=== PATIENT | male | born 1960 | race Caucasian/White ===

== ENCOUNTER 2017-04-18 10:30 | Day surgery (SDC) | END 2017-04-18 16:02 | disposition home or self-care (01) ==

== ENCOUNTER 2017-12-22 17:32 | Inpatient (IN) | END 2018-01-03 19:29 | disposition home or self-care (01) | DRG 871 ==

== ENCOUNTER 2018-04-22 18:06 | Inpatient (IN) | payer MEDICARE, OTHER ==
[~2018-04-22] VITALS: Ht 170.2 cm; Wt 87.7 kg
[~2018-04-22 18:06] MED LIST: ASPI-817 PO; ATOR-2 PO; CALC667C PO; CLON0.5T14 PO; DOCU-216 PO; ETOMIDATE 20 MG INJ ONE; LINA5TAB PO; METO-407 PO; NIFE30TA2 PO; ONDA4TAB13 PO; PANT40TA3 PO; PARO-2 PO; QUET25TA33 PO; SUCCINYLCHOLINE CHLORIDE 100 MG/5 ML SYG IV ONE
[2018-04-22] MEDS ORDERED: SUCCINYLCHOLINE CHLORIDE 100 MG/5 ML SYG IV STA (18:21)
[2018-04-22] MEDS ORDERED: PROPOFOL 100 ML IV STA (18:21)
[2018-04-22] MEDS ORDERED: ETOMIDATE 20 MG INJ IV STA (18:21)
[2018-04-22] MEDS ORDERED: MIDAZOLAM (DRIP) 50 mg/50 mL 50 ML IV STA (19:40)
[2018-04-22] MEDS ORDERED: SODIUM CHLORIDE 0.9% 1L BAG IV* STA (19:53)
[2018-04-22] MEDS ORDERED: CEFEPIME 2GM/50 ML (PMX) 50 ML IVPB STA (19:53)
[2018-04-22] MEDS ORDERED: VANCOMYCIN 1 GM (PMX) 250 ML IVPB ONE (20:00)
[2018-04-22] MEDS ORDERED: MIDAZOLAM 1 MG/ML 2 ML INJ IV ONE (20:30)
--- NOTE | 2018-04-22 21:13 | ERD ---
ER Documentation Chief Complaint Chief Complaint pt bib RA 39 from home, on steps in severe resp distress, arrived on CPAP HPI This is a 58-year-old male who is here for respiratory distress. The patient has had a cough according to the family for 7 days approximately. He is been getting generally weaker over the past 2 or 3 days and today became greatly short of breath and EMS was called. On arrival the patient's oxygenation was low and he was put on CPAP. The patient is a dialysis patient and has not missed any dialysis. His last dialysis was yesterday. ROS All systems reviewed and are negative except as per history of present illness. Allergies Allergies: Coded Allergies: Unknown: Unable to obtain (Unverified , 04/22/18) PMhx/Soc Hx Neurological Disorder: Yes (CVA) Hx Cardiac Disorders: Yes (HTN) Hx Miscellaneous Medical Probl: Yes (DM, RENAL FAILURE ON HD (MWF)) Hx Alcohol Use: Yes Hx Substance Use: No Hx Tobacco Use: No Smoking Status: Current every day smoker FmHx Family History: No coronary disease Physical Exam Vitals Vital Signs Date Temp Pulse Resp B/P (MAP) Pulse Ox O2 O2 Flow FiO2 Time Delivery Rate 04/22/18 100 22 141/97 100 Mechanical 19:00 (112) Ventilator 04/22/18 96 22 246/229 100 Mechanical 18:45 (235) Ventilator 04/22/18 99 38 100 100 18:30 04/22/18 101 22 234/121 100 Mechanical 18:25 (158) Ventilator 04/22/18 98.5 109 32 213/139 99 18:09 (163) Physical Exam Const: Well-developed, well-nourished Head: Atraumatic, normocephalic Eyes: Normal Conjunctiva, PERRLA, EOMI, normal sclera, no nystagmus ENT: Normal External Ears, Nose and Mouth, moist mucus membranes. Neck: Full range of motion. No meningismus, no lymphadenopathy. Resp: On CPAP with increased work of effort and fatigue Cardio: Regular rate and rhythm, no murmurs, S1 S2 present Abd: Soft, non tender x 4, non distended. Normal bowel sounds, no guarding or rebound, no pulsitile abdominal masses or bruits Skin: No petechiae or rashes, no ecchymosis , no maculopapular rash Back: No midline or flank tenderness Ext: No cyanosis, or edema, FROM x 4, normal inspection, neurovascularly intact x 4 Neur: Groggy, STR 5/5 x 4, sensation intact x 4, no focal findings, cerebellum intact Psych: Normal Mood and Affect Result Diagram: 04/22/18183004/22/18 1831 Results 24 hrs Laboratory Tests Test 04/22/18 18:21 04/22/18 18:31 04/22/18 21:24 Blood Gas Specimen Source Blood arterial Arterial Blood Date Drawn 04/22/2018 7:55:00 PM Arterial Blood pH 7.387 (Temp corrected) Arterial Blood pCO2 45.4 mmhg (Temp correct) Arterial Blood pO2 384.0 mmHG (Temp corrected) Arterial Blood HCO3 26.7 mmol/L Arterial Blood Base Excess 1.3 mmol/L Arterial Blood 99.2 mmHG Oxygen Saturation Trev Test N/A Arterial Blood Gas Right Brachial Puncture Site Arterial 0.1 % Blood Carboxyhemoglobin Arterial Blood Methemoglobin 0.2 % Blood Gas A-a O2 Differential 283.6 mmHg Oxyhemoglobin Percent 98.9 % Blood Gas Temperature 37.0 C Blood Gas Respiration Rate 16.0 Blood Gas Actual 22 Respiration Rate Blood Gas Modality VENT - AC FiO2 100.0 % Blood Gas Tidal Volume 500.0 mL Blood Gas Mean Airway 14 Pressure Blood Gas Low PEEP Setting 5.0 cmH2O Blood Gas Inspiratory 29.0 Pressure Blood Gas Critical Value [place] VERMA Read Back Blood Gas Notified Whom BL Blood Gas Notified Time 04/22/2018 8:21:00 PM White Blood Count 15.8 10^3/ul Red Blood Count 4.00 10^6/ul Hemoglobin 12.3 g/dl Hematocrit 36.2 % Mean Corpuscular Volume 90.5 fl Mean Corpuscular Hemoglobin 30.8 pg Mean Corpuscular 34.0 g/dl Hemoglobin Concent Red Cell Distribution Width 12.7 % Platelet Count 276 10^3/UL Mean Platelet Volume 11.1 fl Immature Granulocytes % 0.800 % Neutrophils % 62.8 % Lymphocytes % 25.7 % Monocytes % 5.7 % Eosinophils % 4.2 % Basophils % 0.8 % Nucleated Red Blood Cells % 0.0 /100WBC Immature Granulocytes # 0.130 10^3/ul Neutrophils # 9.9 10^3/ul Lymphocytes # 4.1 10^3/ul Monocytes # 0.9 10^3/ul Eosinophils # 0.7 10^3/ul Basophils # 0.1 10^3/ul Nucleated Red Blood Cells # 0.0 10^3/ul Prothrombin Time 13.1 Sec Prothrombin Time Ratio 1.0 INR International 0.98 Normalized Ratio Activated 27.9 Sec Partial Thromboplast Time Sodium Level 142 mmol/L Potassium Level 5.4 mmol/L Chloride Level 96 mmol/L Carbon Dioxide Level 25 mmol/L Anion Gap 21 Blood Urea Nitrogen 47 mg/dl Creatinine 11.09 mg/dl Est Glomerular Filtrat 5 mL/min Rate mL/min Glucose Level 182 mg/dl Calcium Level 8.1 mg/dl Total Bilirubin 0.0 mg/dl Direct Bilirubin 0.00 mg/dl Indirect Bilirubin 0.0 mg/dl Aspartate Amino 29 IU/L Transf (AST/SGOT) Alanine 13 IU/L Aminotransferase (ALT/SGPT) Alkaline Phosphatase 122 IU/L Troponin I 2.820 ng/ml B-Type Natriuretic Peptide 98106 PG/ML Total Protein 7.8 g/dl Albumin 4.6 g/dl Globulin 3.20 g/dl Albumin/Globulin Ratio 1.43 POC Venous Lactate 1.4 mmol/L Current Medications Medications Dose Sig/Enrique Start Time Status Last (Trade) Ordered Route PRN Stop Time Admin Dose Reason Admin 100 mg ONCE STAT 04/22/18 DC 04/22/18 Succinylcholi IV 18:21 04/22/18 18:15 ne Chloride 18:23 (Anectine Syringe) Etomidate 20 mg ONCE STAT 04/22/18 DC 04/22/18 (Amidate) IV 18:21 04/22/18 18:15 18:23 Propofol 100 ml @ ONCE STAT 04/22/18 04/22/18 3.36 mls/hr IV 18:21 04/24/18 18:44 00:06 Midazolam 50 ml @ 3 ONCE STAT 04/22/18 04/22/18 HCl mls/hr IV 19:40 04/23/18 19:47 12:19 Sodium 3,360 ml BOLUS OVER 2 04/22/18 DC Chloride HOURS STAT 19:53 04/22/18 (NS) IV* 20:08 Cefepime HCl 50 ml @ ONCE STAT 04/22/18 DC 100 mls/hr IVPB 19:53 04/22/18 20:22 Vancomycin 250 ml @ ONCE ONCE 04/22/18 HCl 125 mls/hr IVPB 20:00 04/22/18 21:59 Midazolam 5 mg ONCE ONCE 04/22/18 DC 04/22/18 HCl IV 20:30 04/22/18 20:13 (Versed) 20:31 Enoxaparin 110 mg ONCE ONCE 04/22/18 Sodium SC 21:30 04/22/18 (Lovenox) 21:31 Procedures/MDM EKG: Rate/Rhythm: Sinus tachycardia QRS, ST, QT: NORMAL AR, QRS, QT] Impression: Sinus tachycardia MR #: [id number] DOS: 04/22/18 1821 Ordering MD: ALVA COSTA DO Location: E/R Room/Bed: PROCEDURE: XR Chest. CLINICAL INDICATION: Chest pain. TECHNIQUE: Portable AP semi erect view of the chest was obtained. COMPARISON: None. FINDINGS: The cardiomediastinal silhouette is within upper normal limits. The distal tip of an endotracheal tube projects 4.1 cm above the amelie in good radiographic position. Diffuse infiltrate predominately involving the right lower lobe and probably right middle lobe is concerning for pneumonia unable to exclude aspiration. The left lung is grossly clear. There is no evidence for pleural effusion, pneumothorax or pulmonary vascular congestion. The osseous structures are intact with no evidence for acute abnormality. Atherosclerotic calcification of the aortic arch is present RPTAT:HJJR IMPRESSION: 1. The distal tip of the endotracheal tube is in satisfactory radiographic position projecting 4.1 cm above the amelie. 2. Infiltrates within the right lower right middle lobe are concerning for pneumonia unable to exclude aspiration in the proper clinical setting. 3. Aortic atherosclerosis is present. Physician Arnoldo Date Time Electronically viewed and signed by Physician Arnoldo on 04/22/2018 18:58 JR/ CC: ALVA COSTA DO [id number] The patient was in impending respiratory failure. The decision was made to [facility] him by me. Endotracheal Intubation by me: Pre assessment performed. See preceding note for details. Pre-oxygenation performed with 100% oxygen RSI: Performed w/o complication or hypoxic events. Medications as ordered. Blade: 4 MAC stores ET Tube: 7 cm Depth: 21 cm at the lip Intubation confirmed by colorimetric CO2, equal breath sounds, quiet over the stomach. Central Line Placement by me: After the patient was consented and a time out was performed, appropriate hand hygiene was performed, the skin site was fully prepped and maximal sterile barrier technique was employed where the patient was sterilely draped, and the provider wore a mask and sterile gown and gloves. Anesthesia: 1% lidocaine locally Location: Right groin Device: Multiple lumen Technique: Seldinger technique. Secured with suture. Results: Venous return from all ports with easy saline flush. No complications. []Guide wire retrieved and disposed of. ED Ultrasound: Central line placed by me using concurrent ultrasound guidance done using sterile technique. Real time image archived in the medical record confirms vascular anatomy. Patient's lactate is 1.4 Patient's troponin is elevated which may be cardiac likely and is less likely from not clearing from dialysis because he had a yesterday morning. This is likely cardiac sweating from bilateral pneumonia/sepsis. Critical Care Time: 50 minutes Treatments/Evaluations: Close monitoring and treatment of unstable vital signs, cardiorespiratory, and neurologic status, while maintaining tight balance of fluid, respiratory, and cardiac interventions. This time includes discussing the case with the patient and the patient's family. This time does not include all procedures stated elsewhere in this record. This time also includes reviewing old records, labs and radiological studies. This time includes examining and re- examining the patient. Additionally, this time also includes arranging care with admitting and consulting physicians. Departure Diagnosis: Primary Impression: Respiratory failure Chronicity: acute Respiratory failure complication: unspecified whether with hypoxia or hypercapnia Qualified Codes: J96.00 - Acute respiratory failure, unspecified whether with hypoxia or hypercapnia Additional Impression: Pneumonia Pneumonia type: due to unspecified organism Laterality: bilateral Lung location: lower lobe of lung Qualified Codes: J18.1 - Lobar pneumonia, unspecified organism Condition: Stable IGOREDENILSONKARLEY TiffanySydnee PINA Apr 22, 2018 21:13
[2018-04-22] MEDS ORDERED: ENOXAPARIN 60 MG/0.6 ML SYG SC ONE (21:30)
[2018-04-22] MEDS ORDERED: SOD CHLORIDE 0.9% 1,000 ML IV SCH (21:32)
[2018-04-22] MEDS ORDERED: ONDANSETRON 4 MG INJ IV PRN ×2 (22:00→22:30)
[2018-04-22] MEDS ORDERED: ACETAMINOPHEN 325 MG TAB PO PRN (22:00)
--- NOTE | 2018-04-22 22:26 | HP ---
Date/Time of Note Date/Time of Note DATE: 04/22/18 TIME: 22:25 Assessment/Plan VTE Prophylaxis Pharmacological prophylaxis: heparin Lines/Catheters IV Catheter Type (from Nrsg): Saline Lock Assessment/Plan Assessment/Plan 1. Vent dependent respiratory failure, likely secondary to pneumonia and COPD exacerbation -Continue vent support. Pulmonary to manage -IV antibiotic, steroid -Repeat ABG -Nephrology for dialysis 2. Positive troponin: will treat this as NSTEMI -Aspirin, treatment of Lovenox -Trend troponin -2D echo cardiology consult 3. Hypertensive urgency: BP better controlled -Adjust antihypertensive as needed 4. ESRD on HD: Will place a nephrology consult 5. Diabetes: Insulin while in-house Result Diagram: 04/22/18 1831 04/22/18 1831 Results 24hrs Laboratory Tests Test 04/22/18 18:21 04/22/18 18:31 04/22/18 21:24 Blood Gas Specimen Source Blood arterial Arterial Blood Date Drawn 04/22/2018 7:55:00 PM Arterial Blood pH 7.387 (Temp corrected) Arterial Blood pCO2 45.4 H (Temp correct) Arterial Blood pO2 384.0 H (Temp corrected) Arterial Blood HCO3 26.7 H Arterial Blood Base Excess 1.3 Arterial Blood 99.2 H Oxygen Saturation Trev Test N/A Arterial Blood Gas Right Brachial Puncture Site Arterial 0.1 Blood Carboxyhemoglobin Arterial Blood Methemoglobin 0.2 Blood Gas A-a O2 Differential 283.6 H Oxyhemoglobin Percent 98.9 Blood Gas Temperature 37.0 Blood Gas Respiration Rate 16.0 Blood Gas Actual 22 Respiration Rate Blood Gas Modality VENT - AC FiO2 100.0 Blood Gas Tidal Volume 500.0 Blood Gas Mean Airway Pressure 14 Blood Gas Low PEEP Setting 5.0 Blood Gas Inspiratory Pressure 29.0 Blood Gas Critical Value [place] VERMA Read Back Blood Gas Notified Whom BL Blood Gas Notified Time 04/22/2018 8:21:00 PM White Blood Count 15.8 H Red Blood Count 4.00 L Hemoglobin 12.3 L Hematocrit 36.2 L Mean Corpuscular Volume 90.5 Mean Corpuscular Hemoglobin 30.8 Mean Corpuscular 34.0 Hemoglobin Concent Red Cell Distribution Width 12.7 Platelet Count 276 Mean Platelet Volume 11.1 H Immature Granulocytes % 0.800 H Neutrophils % 62.8 Lymphocytes % 25.7 Monocytes % 5.7 Eosinophils % 4.2 Basophils % 0.8 Nucleated Red Blood Cells % 0.0 Immature Granulocytes # 0.130 H Neutrophils # 9.9 H Lymphocytes # 4.1 H Monocytes # 0.9 Eosinophils # 0.7 H Basophils # 0.1 Nucleated Red Blood Cells # 0.0 Prothrombin Time 13.1 Prothrombin Time Ratio 1.0 INR International 0.98 Normalized Ratio Activated Partial Thromboplast 27.9 Time Sodium Level 142 Potassium Level 5.4 H Chloride Level 96 L Carbon Dioxide Level 25 Anion Gap 21 H Blood Urea Nitrogen 47 H Creatinine 11.09 H Est Glomerular Filtrat 5 L Rate mL/min Glucose Level 182 Calcium Level 8.1 L Total Bilirubin 0.0 L Direct Bilirubin 0.00 Indirect Bilirubin 0.0 Aspartate Amino 29 Transf (AST/SGOT) Alanine 13 Aminotransferase (ALT/SGPT) Alkaline Phosphatase 122 H Troponin I 2.820 *H B-Type Natriuretic Peptide 76759 H Total Protein 7.8 Albumin 4.6 Globulin 3.20 Albumin/Globulin Ratio 1.43 POC Venous Lactate 1.4 HPI/ROS Admit Date/Time Admit Date/Time Hx of Present Illness This is a 58-year-old male with a history of ESRD on HD, hypertension, CVA, COPD, diabetes who was brought to ER for severe shortness of breath. When patient presented to ER, he was unable to provide history because of his respiratory condition. He was actually brought to ER as a Olvin Nix. Initially he was placed on BiPAP, but shortly after he was intubated. Initial blood pressure 213/139, heart rate 109, respiratory rate 32. ABG shows a pH of almost 7.4, PCO2 45, PO2 385, bicarb 27. Chest x-ray shows infiltrates within the right lower right middle lobe are concerning for pneumonia. Initial troponin 2.8. He was given treatment dose Lovenox. EKG without ST elevation or depression. As mentioned earlier, patient was initially brought to the ER as a Olvin Nix, but it seems like patient has been admitted here multiple times and visited ER multiple times as well with a different account number. Admission working on merging the accounts. PMH/Family/Social Past Medical History Medications Current Medications Propofol 100 ml @ 3.36 mls/hr ONCE STAT IV Last administered on 04/22/18at 18:44; Admin Dose 3.36 MLS/HR; Start 04/22/18 at 18:21; Stop 04/24/18 at 00:06 Midazolam HCl 50 ml @ 3 mls/hr ONCE STAT IV Last administered on 04/22/18at 19:47; Admin Dose 3 MLS/HR; Start 04/22/18 at 19:40; Stop 04/23/18 at 12:19 Sodium Chloride 1,000 ml @ 80 mls/hr [id number] IV ; Start 04/22/18 at 21:32; Stop 04/23/18 at 10:01 Ondansetron HCl (Zofran Inj) 4 mg ER BRIDGE PRN IV NAUSEA AND/OR VOMITING; Start 04/22/18 at 22:00; Stop 04/23/18 at 21:59 Acetaminophen (Tylenol Tab) 650 mg ER BRIDGE PRN PO MILD PAIN(1-3)OR ELEVATED TEMP; Start 04/22/18 at 22:00; Stop 04/23/18 at 21:59 Ondansetron HCl (Zofran Inj) 4 mg Q6H PRN IV NAUSEA AND/OR VOMITING; Start 04/22/18 at 22:30 Acetaminophen (Tylenol Liquid) 650 mg Q6H PRN PO PAIN LEVEL 1-3 OR FEVER; Start 04/22/18 at 22:30 Lorazepam (Ativan) 1 mg Q2H PRN IV ANXIETY; Start 04/22/18 at 22:30 Pantoprazole (Protonix Iv) 40 mg DAILY@06 IV ; Start 04/23/18 at 06:00 Propofol 100 ml @ 3.36 mls/hr PER PROTOCOL IV ; Start 04/22/18 at 22:30 Labetalol HCl (Labetalol) 10 mg Q2H PRN IV SBP > 165; Start 04/22/18 at 22:30; Status UNV Miscellaneous Information (* Miscellaneous Pharmacy Order) Discontinue current oral sulfonylur... ONCE ONCE XX ; Start 04/22/18 at 22:30; Stop 04/22/18 at 22:31; Status UNV Diagnostic Test (Pha) (Accu-Chek) XX ; Start 04/23/18 at 02:00; Status UNV Miscellaneous Information (* Miscellaneous Pharmacy Order) HYPOGLYCEMIA PROTOCOL w... ONCE ONCE XX ; Start 04/22/18 at 22:30; Stop 04/22/18 at 22:31; Status UNV Insulin Aspart (Novolog Insulin Pen) NOVOLOG *MILD* ALGORI... Q4 SC ; Start 04/23/18 at 01:00; Status UNV Miscellaneous Information (* Miscellaneous Pharmacy Order) Discontinue all previ... ONCE ONCE XX ; Start 04/22/18 at 22:30; Stop 04/22/18 at 22:31; Status UNV Coded Allergies: Penicillins (Verified Allergy, Unknown, 12/22/17) Social History Smoking Status: Current every day smoker Exam/Review of Systems Vital Signs Vitals Vital Signs Date Temp Pulse Resp B/P (MAP) Pulse Ox O2 O2 Flow FiO2 Time Delivery Rate 04/22/18 77 16 100 50 21:15 04/22/18 141/97 Mechanical 19:00 (112) Ventilator 04/22/18 98.5 18:09 Exam Exam Constitutional: other (no acute distress) Head: normocephalic Respiratory: other (slight decreased at bases) Cardiovascular: regular rate and rhythm Gastrointestinal: soft Extremities: normal pulses PMH/Family/Social Past Medical History Medical History: other (see hpi) Coded Allergies: No Known Drug Allergy (Verified Allergy, Unknown, 12/08/15) Past Surgical History Past Surgical Hx: other (see hpi) Family History Significant Family History: no pertinent family hx Social History Alcohol Use: other Smoking Status: Unknown if ever smoked Drug Use: other SHY DENSON MD Apr 22, 2018 22:25
[2018-04-22] MEDS ORDERED: ACETAMINOPHEN 650MG/20.3ML CUP PO PRN (22:30)
[2018-04-22] MEDS ORDERED: LABETALOL HCL 20MG INJ IV PRN (22:30)
[2018-04-22 23:00] VITALS: BP 140/78; PULSE 74; RESP 20
[2018-04-22] MEDS ORDERED: GLUCOSE GEL 15 GRAM TUBE PO PRN ×2 (23:00)
[2018-04-22] MEDS ORDERED: GLUCOSE GEL 15 GRAM TUBE BUCCAL PRN (23:00)
[2018-04-22] MEDS ORDERED: GLUCAGON 1 MG INJ IM PRN (23:00)
[2018-04-22] MEDS ORDERED: DEXTROSE 50% 50 ML SYRINGE IV PRN ×2 (23:00)
[2018-04-22 23:20] VITALS: RESP 16
[2018-04-22 23:58] VITALS: Ht 170.2 cm; Wt 87.7 kg
[2018-04-23] VITALS (76 sets, daily range): BP systolic 98–168; BP diastolic 63–86; PULSE 61–80; RESP 11–23
[2018-04-23] MEDS: INSULIN ASPART [NOVOLOG] 3 ML PEN SC SCH ×6 (01:00→20:33)
[2018-04-23] MEDS: ACCU-CHEK XX SCH (01:14)
[2018-04-23] MEDS: PROPOFOL 100 ML IV SCH ×6 (03:52→21:56)
[2018-04-23] MEDS ORDERED: PANTOPRAZOLE 40 MG INJ IV SCH (06:00)
[2018-04-23] MEDS ORDERED: ENOXAPARIN 60 MG/0.6 ML SYG SC SCH (09:00)
[2018-04-23] MEDS ORDERED: ENOXAPARIN 30 MG/0.3 ML SYG SC SCH (09:00)
[2018-04-23] MEDS: LEVOFLOXACIN 500MG/D5W (PMX) 100 ML IVPB SCH (09:03)
[2018-04-23] MEDS ORDERED: HEPARIN 1000 UNITS/ML 10 ML INJ IV PRN (10:30)
[2018-04-23] MEDS ORDERED: HEPARIN 1000 UNITS/ML 10 ML INJ IV ONE (10:30)
--- NOTE | 2018-04-23 12:01 | CONS ---
DATE OF ADMISSION: 04/22/2018 DATE OF CONSULTATION: 04/23/2018 REASON FOR CONSULTATION: Shortness of breath. Thank you, Dr. Campbell for this consultation. HISTORY OF PRESENT ILLNESS: A 58-year-old gentleman with history of end-stage renal failure on hemod ialysis, came in yesterday with significant respiratory distress initially on noninvasive positive pr essure ventilation; however, failed this, requiring emergent intubation and mechanical ventilation. Chest x-ray showed right lower lobe infiltrate and evidence of pulmonary edema. The patient also had elevated troponin without acute ischemic changes on EKG. PAST MEDICAL HISTORY: 1. End-stage renal failure on hemodialysis. 2. Hypertension. 3. History of cerebrovascular accident. 4. Chronic obstructive pulmonary disease. 5. Diabetes mellitus. MEDICATIONS: Per chart. ALLERGIES: NONE. SOCIAL HISTORY: He has a positive tobacco history. SYSTEMS REVIEW: A 12-point review of systems currently unable to perform. PHYSICAL EXAMINATION: GENERAL: Elderly-appearing gentleman, orally intubated on mechanical ventilation, appears comfortabl e at rest, no acute distress. VITAL SIGNS: Temperature 98, pulse 70, blood pressure 160/78, O2 saturation 96%, FIO2 of 40%. NECK: Supple. No JVD or lymphadenopathy. CARDIAC: S1, S2, no added sounds or murmurs. CHEST: Diminished air entry bilaterally. ABDOMEN: Soft, nontender. No guarding or rebound. EXTREMITIES: No cyanosis, clubbing, edema. NEUROLOGIC: Grossly intact. No focal deficits. LABORATORY DATA: White count initially 12.8, now 7.3, hemoglobin 9, platelets of 182. BUN 52, creat inine 11.7. Troponin elevated at 6.45 trending up from 2.8. IMPRESSION AND PLAN: 1. Acute hypoxemic respiratory failure, likely secondary to pneumonia and possible congestive cardia c failure. 2. Evidence of non-ST elevation myocardial infarction. 3. Status post hypertensive urgency. 4. Vent dependent respiratory rate. 5. End-stage renal failure on hemodialysis. PLAN: 1. Patient will require continued volume removal with hemodialysis. 2. Continue mechanical ventilator support. 3. Continue antibiotics for possible community-acquired pneumonia. 4. Cardiology evaluation including serial troponins, EKG, echocardiogram, possible coronary interven tion if troponins do not trend down. Dictated By: BARBARA OSULLIVAN/JAZMINE Conf#: [id number] [facility]#: [id number] CC: SHY CAMPBELL MD;*EndCC*
[2018-04-23] MEDS: LORAZEPAM 4 MG/ML VIAL IV PRN ×2 (12:03→15:22)
[2018-04-23] MEDS: HEPARIN 25000 UNITS/250 ML 250 ML IV SCH (12:44)
--- NOTE | 2018-04-23 13:13 | CONS ---
Date/Time of Note Date/Time of Note DATE: 04/23/18 TIME: 13:13 Assessment/Plan Assessment/Plan Assessment/Plan 1. ESRD on HD MWF 2. Acute hypoxemic and hypercapnic respiratory failure secondary to pneumonia on COPD- Intubated on ventilator 3. acute NSTEMI 4. Hypertensive urgency: BP better controlled 5. Diabetes: Plan: see in ICU, IV abx for PNA, BP stable, s/p pulmonary consult Plan for HD today , will continue pt on MWF schedule S/o Cardiology consult for NSTEMI Thanks for consultation, will follow up Result Diagram: 04/23/18 1128 04/23/18 0417 Results 24hrs Laboratory Tests Test 04/22/18 18:21 04/22/18 18:31 04/22/18 21:24 04/23/18 00:15 Blood Gas Specimen Blood arterial Source Arterial Blood 04/22/2018 7:55:00 Date Drawn PM Arterial Blood pH 7.387 (Temp corrected) Arterial Blood 45.4 H pCO2 (Temp correct) Arterial Blood pO2 384.0 H (Temp corrected) Arterial Blood 26.7 H HCO3 Arterial Blood 1.3 Base Excess Arterial Blood 99.2 H Oxygen Saturation Trev Test N/A Arterial Blood Gas Right Brachial Puncture Site Arterial 0.1 Blood Carboxyhemog lobin Arterial Blood 0.2 Methemoglobin Blood Gas A-a O2 283.6 H Differential Oxyhemoglobin 98.9 Percent Blood Gas 37.0 Temperature Blood Gas 16.0 Respiration Rate Blood Gas Actual 22 Respiration Rate Blood Gas Modality VENT - AC FiO2 100.0 Blood Gas Tidal 500.0 Volume Blood Gas Mean 14 Airway Pressure Blood Gas Low PEEP 5.0 Setting Blood Gas 29.0 Inspiratory Pressure Blood Gas Critical [place] VERMA Value Read Back Blood Gas Notified [facility] Blood Gas Notified 04/22/2018 8:21:00 Time PM White Blood Count 15.8 H Red Blood Count 4.00 L Hemoglobin 12.3 L Hematocrit 36.2 L Mean Corpuscular 90.5 Volume Mean Corpuscular 30.8 Hemoglobin Mean Corpuscular 34.0 Hemoglobin Concent Red Cell 12.7 Distribution Width Platelet Count 276 Mean Platelet 11.1 H Volume Immature 0.800 H Granulocytes % Neutrophils % 62.8 Lymphocytes % 25.7 Monocytes % 5.7 Eosinophils % 4.2 Basophils % 0.8 Nucleated Red 0.0 Blood Cells % Immature 0.130 H Granulocytes # Neutrophils # 9.9 H Lymphocytes # 4.1 H Monocytes # 0.9 Eosinophils # 0.7 H Basophils # 0.1 Nucleated Red 0.0 Blood Cells # Prothrombin Time 13.1 Prothrombin Time 1.0 Ratio INR International 0.98 Normalized Ratio Activated 27.[address] Time Sodium Level 142 Potassium Level 5.4 H Chloride Level 96 L Carbon Dioxide 25 Level Anion Gap 21 H Blood Urea 47 H Nitrogen Creatinine 11.09 H Est Glomerular 5 L Filtrat Rate mL/min Glucose Level 182 Calcium Level 8.1 L Total Bilirubin 0.0 L Direct Bilirubin 0.00 Indirect Bilirubin 0.0 Aspartate Amino 29 Transf (AST/SGOT) Alanine 13 Aminotransferase ( ALT/SGPT) Alkaline 122 H Phosphatase Troponin I 2.820 *H 6.690 *H B-Type Natriuretic 71689 H Peptide Total Protein 7.8 Albumin 4.6 Globulin 3.20 Albumin/Globulin 1.43 Ratio POC Venous Lactate 1.4 Lactic Acid Level 1.1 Creatine Kinase 118 Creatine Kinase 4.3 Index Creatinine Kinase 5.09 H MB (Mass) Test 04/23/18 01:06 04/23/18 04:17 04/23/18 05:21 04/23/18 09:34 Bedside Glucose 82 83 97 White Blood Count 7.3 # Red Blood Count 2.92 #L Hemoglobin 9.0 #L Hematocrit 26.4 #L Mean Corpuscular 90.4 Volume Mean Corpuscular 30.8 Hemoglobin Mean Corpuscular 34.1 Hemoglobin Concent Red Cell 13.0 Distribution Width Platelet Count 182 # Mean Platelet 10.6 H Volume Immature 0.500 H Granulocytes % Neutrophils % 71.9 Lymphocytes % 16.0 Monocytes % 7.5 Eosinophils % 3.7 Basophils % 0.4 Nucleated Red 0.0 Blood Cells % Immature 0.040 H Granulocytes # Neutrophils # 5.2 Lymphocytes # 1.2 Monocytes # 0.6 Eosinophils # 0.3 Basophils # 0.0 Nucleated Red 0.0 Blood Cells # Sodium Level 144 Potassium Level 5.1 Chloride Level 101 Carbon Dioxide 25 Level Anion Gap 18 H Blood Urea 52 H Nitrogen Creatinine 11.77 H Est Glomerular 4 L Filtrat Rate mL/min Glucose Level 89 # Calcium Level 8.0 L Total Bilirubin 0.0 L Direct Bilirubin 0.00 Indirect Bilirubin 0.0 Aspartate Amino 16 Transf (AST/SGOT) Alanine 25 Aminotransferase ( ALT/SGPT) Alkaline 84 Phosphatase Creatine Kinase 110 Creatine Kinase 4.4 Index Creatinine Kinase 4.86 H MB (Mass) Troponin I 6.450 *H Total Protein 5.7 #L Albumin 3.4 # Globulin 2.30 Albumin/Globulin 1.47 Ratio Test 04/23/18 10:50 04/23/18 11:28 Prothrombin Time 14.9 Prothrombin Time 1.2 Ratio INR International 1.16 Normalized Ratio Activated 43.[address] Time White Blood Count 6.6 Red Blood Count 3.04 L Hemoglobin 9.4 L Hematocrit 27.9 L Mean Corpuscular 91.8 Volume Mean Corpuscular 30.9 Hemoglobin Mean Corpuscular 33.7 Hemoglobin Concent Red Cell 13.2 Distribution Width Platelet Count 168 Mean Platelet 11.3 H Volume Immature 0.600 H Granulocytes % Neutrophils % 68.3 Lymphocytes % 18.7 Monocytes % 7.9 Eosinophils % 4.0 Basophils % 0.5 Nucleated Red 0.0 Blood Cells % Immature 0.040 H Granulocytes # Neutrophils # 4.5 Lymphocytes # 1.2 Monocytes # 0.5 Eosinophils # 0.3 Basophils # 0.0 Nucleated Red 0.0 Blood Cells # Consultation Date/Type/Reason Admit Date/Time 04/22/18 Date of Consultation: Apr 23, 2018 Type of Consult NEPHROLOGY Reason for Consultation ESRD on HD with acute respiratory failure Requesting Provider: JUVENTINO CARVER Hx of Present Illness 58-year-old male with past medical history of end-stage renal disease on hemodialysis, diabetes, hypertension who presents with cough, fevers and chills. As per the medical chart and discussion with family at bedside, patient with cough over the past few days. Yesterday, the day of admission, patient with severe sweating and shortness of breath. There is no chest pain. Because of worsening symptoms, patient brought to the emergency room. Initially patient was put on BiPAP but progressed and worsened and was later intubated. Patient transferred to ICU. Initially, patient also with systolic blood pressures above 200. Patient currently sedated and intubated and family at bedside Renal has been consulted for HD need, pt regular schedule for HD is MWF Subjective hx not possible: pt non-verbal, pt critical status Past Medical History Medical History: diabetes, high cholesterol, hypertension, other (ESRD on HD ) Medications Current Medications Propofol 100 ml @ 3.36 mls/hr ONCE STAT IV Last administered on 04/22/18at 18:44; Admin Dose 3.36 MLS/HR; Start 04/22/18 at 18:21; Stop 04/24/18 at 00:06 Ondansetron HCl (Zofran Inj) 4 mg ER BRIDGE PRN IV NAUSEA AND/OR VOMITING; Start 04/22/18 at 22:00; Stop 04/23/18 at 21:59 Acetaminophen (Tylenol Tab) 650 mg ER BRIDGE PRN PO MILD PAIN(1-3)OR ELEVATED TEMP; Start 04/22/18 at 22:00; Stop 04/23/18 at 21:59 Ondansetron HCl (Zofran Inj) 4 mg Q6H PRN IV NAUSEA AND/OR VOMITING; Start 04/22/18 at 22:30 Acetaminophen (Tylenol Liquid) 650 mg Q6H PRN PO PAIN LEVEL 1-3 OR FEVER; Start 04/22/18 at 22:30 Lorazepam (Ativan) 1 mg Q2H PRN IV ANXIETY Last administered on 04/23/18at 12:03; Admin Dose 1 MG; Start 04/22/18 at 22:30 Pantoprazole (Protonix Iv) 40 mg DAILY@06 IV Last administered on 04/23/18at 05:24; Admin Dose 40 MG; Start 04/23/18 at 06:00 Propofol 100 ml @ 3.36 mls/hr PER PROTOCOL IV Last administered on 04/23/18at 11:37; Admin Dose 33.6 MLS/HR; Start 04/22/18 at 22:30 Labetalol HCl (Labetalol) 10 mg Q2H PRN IV SBP > 165; Start 04/22/18 at 22:30 Diagnostic Test (Pha) (Accu-Chek) 1 ea 02 XX ; Start 04/23/18 at 02:00 Insulin Aspart (Novolog Insulin Pen) NOVOLOG *MILD* ALGORI... Q4 SC ; Start 04/23/18 at 01:00 Miscellaneous Information 1 ea NOTE XX ; Start 04/22/18 at 23:00 Glucose (Glutose) 15 gm Q15M PRN PO DECREASED GLUCOSE; Start 04/22/18 at 23:00 Glucose (Glutose) 22.5 gm Q15M PRN PO DECREASED GLUCOSE; Start 04/22/18 at 23:00 Dextrose (D50w Syringe) 25 ml Q15M PRN IV DECREASED GLUCOSE; Start 04/22/18 at 23:00 Dextrose (D50w Syringe) 50 ml Q15M PRN IV DECREASED GLUCOSE; Start 04/22/18 at 23:00 Glucagon (Glucagen) 1 mg Q15M PRN IM DECREASED GLUCOSE; Start 04/22/18 at 23:00 Glucose (Glutose) 15 gm Q15M PRN BUCCAL DECREASED GLUCOSE; Start 04/22/18 at 23:00 Levofloxacin/ Dextrose 100 ml @ 100 mls/hr Q48H IVPB Last administered on 04/23/18at 09:03; Admin Dose 100 MLS/HR; Start 04/23/18 at 08:30 Heparin Sodium (Porcine) (Heparin (1000 Units/ml)) 4,000 unit PER PROTOCOL PRN IV HEPARIN PROTOCOL; Start 04/23/18 at 10:30 Heparin Sodium (Porcine) 250 ml @ 10.5 mls/hr PER PROTOCOL IV Last admini stered on 04/23/18at 12:44; Admin Dose 10.5 MLS/HR; Start 04/23/18 at 10:30 Allergies: Coded Allergies: Penicillins (Verified Allergy, Unknown, 12/22/17) Past Surgical History Past Surgical Hx: no surgical history Family History Significant Family History: no pertinent family hx Social History Alcohol Use: none Smoking Status: Current every day smoker Drug Use: none Exam/Review of Systems Vital Signs Vitals Vital Signs Date Temp Pulse Resp B/P (MAP) Pulse Ox O2 O2 Flow FiO2 Time Delivery Rate 04/23/18 80 12:00 04/23/18 16 158/76 100 10:30 (103) 04/23/18 Mechanical 10:00 Ventilator 04/23/18 98.4 08:00 04/23/18 40 08:00 Intake and Output 04/22/18 04/22/18 04/23/18 1515:00 23:00 07:00 IntakeIntake Total 221.8 ml 952.61 ml OutputOutput Total 5 ml 6 ml BalanceBalance 216.8 ml 946.61 ml Exam Constitutional: non-verbal Head: normocephalic, other (ET tube in place ) Eyes: nl conjunctiva Neck: supple, non-tender Respiratory: congested cough, crackles/rales, diminished breath sounds Cardiovascular: regular rate and rhythm Gastrointestinal: soft, non-tender Extremities: normal pulses Neurological: other (sedated intubated on ventilator ) Medications Medications Current Medications Propofol 100 ml @ 3.36 mls/hr ONCE STAT IV Last administered on 04/22/18at 18:44; Admin Dose 3.36 MLS/HR; Start 04/22/18 at 18:21; Stop 04/24/18 at 00:06 Ondansetron HCl (Zofran Inj) 4 mg ER BRIDGE PRN IV NAUSEA AND/OR VOMITING; Start 04/22/18 at 22:00; Stop 04/23/18 at 21:59 Acetaminophen (Tylenol Tab) 650 mg ER BRIDGE PRN PO MILD PAIN(1-3)OR ELEVATED TEMP; Start 04/22/18 at 22:00; Stop 04/23/18 at 21:59 Ondansetron HCl (Zofran Inj) 4 mg Q6H PRN IV NAUSEA AND/OR VOMITING; Start 04/22/18 at 22:30 Acetaminophen (Tylenol Liquid) 650 mg Q6H PRN PO PAIN LEVEL 1-3 OR FEVER; Start 04/22/18 at 22:30 Lorazepam (Ativan) 1 mg Q2H PRN IV ANXIETY Last administered on 04/23/18at 12:03; Admin Dose 1 MG; Start 04/22/18 at 22:30 Pantoprazole (Protonix Iv) 40 mg DAILY@06 IV Last administered on 04/23/18at 05:24; Admin Dose 40 MG; Start 04/23/18 at 06:00 Propofol 100 ml @ 3.36 mls/hr PER PROTOCOL IV Last administered on 04/23/18at 11:37; Admin Dose 33.6 MLS/HR; Start 04/22/18 at 22:30 Labetalol HCl (Labetalol) 10 mg Q2H PRN IV SBP > 165; Start 04/22/18 at 22:30 Diagnostic Test (Pha) (Accu-Chek) 1 ea 02 XX ; Start 04/23/18 at 02:00 Insulin Aspart (Novolog Insulin Pen) NOVOLOG *MILD* ALGORI... Q4 SC ; Start 04/23/18 at 01:00 Miscellaneous Information 1 ea NOTE XX ; Start 04/22/18 at 23:00 Glucose (Glutose) 15 gm Q15M PRN PO DECREASED GLUCOSE; Start 04/22/18 at 23:00 Glucose (Glutose) 22.5 gm Q15M PRN PO DECREASED GLUCOSE; Start 04/22/18 at 23:00 Dextrose (D50w Syringe) 25 ml Q15M PRN IV DECREASED GLUCOSE; Start 04/22/18 at 23:00 Dextrose (D50w Syringe) 50 ml Q15M PRN IV DECREASED GLUCOSE; Start 04/22/18 at 23:00 Glucagon (Glucagen) 1 mg Q15M PRN IM DECREASED GLUCOSE; Start 04/22/18 at 23:00 Glucose (Glutose) 15 gm Q15M PRN BUCCAL DECREASED GLUCOSE; Start 04/22/18 at 23:00 Levofloxacin/ Dextrose 100 ml @ 100 mls/hr Q48H IVPB Last administered on 04/23/18at 09:03; Admin Dose 100 MLS/HR; Start 04/23/18 at 08:30 Heparin Sodium (Porcine) (Heparin (1000 Units/ml)) 4,000 unit PER PROTOCOL PRN IV HEPARIN PROTOCOL; Start 04/23/18 at 10:30 Heparin Sodium (Porcine) 250 ml @ 10.5 mls/hr PER PROTOCOL IV Last administered on 04/23/18at 12:44; Admin Dose 10.5 MLS/HR; Start 04/23/18 at 10:30 NORMA SAUER MD Apr 23, 2018 13:13
[2018-04-23] MEDS ORDERED: SODIUM CHLORIDE 0.9% 1L BAG IV PRN (13:30)
[2018-04-23] MEDS ORDERED: HEPARIN 1000 UNITS/ML 10 ML INJ CATHETER SCH (13:30)
[2018-04-23] MEDS ORDERED: ALBUMIN HUMAN 25% 50 ML IV PRN (13:30)
--- NOTE | 2018-04-23 13:53 | RADRPT ---
Echocardiogram Report Patient Name: EDWIN GRIFFITH Gender: Male Date: 1960 Study Date: 23-Apr-2018 Bad Cloth Checker: [facility] Location: 110-A Ref. Physician: SHY DENSON Quality: Adequate Procedures: Transthoracic echocardiogram with complete 2D, M-Mode, and doppler examination. Indications: Positive troponin. 2D/M Mode Doppler Measurement Value Normal Ranges Measurement Value Normal Ranges LVIDd 2D 4.9 3.5 - 5.6 cm AV Peak Jhonathan 1.1 m/sec LVIDs 2D 3.5 2.1 - 4.1 cm AV Peak PG 5.0 mmHg LVPWd 2D 1.0 0.6 - 1.1 cm LVOT Peak Jhonathan 0.7 m/sec IVSd 2D 1.2 0.6 - 1.1 cm LVOT Peak PG 2.0 mmHg AoR Diam 2D 2.9 2.0 - 3.7 cm MV E Peak Jhonathan 0.7 m/sec LA/Ao 2D 1 0 - 1 MV A Peak Jhonathan 0.7 m/sec LA Dimen 2D 4.1 2.3 - 4.0 cm MV E/A 0.9 MV Decel Time 218 msec Lat E` Jhonathan 0.1 m/sec Lateral E/E` 9.7 Med E` Jhonathan 0.1 m/sec MV E/A 0.9 TR Peak Jhonathan 3.0 m/sec TR Peak PG 36.0 mmHg RVSP 51.0 mmHg Findings Left Ventricle: Lower limits of normal systolic function. Normal left ventricular cavity size. Sigmoid septum. Ejection fraction is visually estimated at 50 %. Tissue Doppler/Mitral Doppler indices are consistent with impaired relaxation (Stage I diastolic dysfunction). Right Ventricle: Normal right ventricular size. Normal right ventricular systolic function. Left Atrium: There is mild enlargement of left atrium. Right Atrium: The right atrium is normal in size. Mitral Valve: Mild mitral leaflet calcification. Mild mitral annular calcification. Trace mitral regurgitation. Aortic Valve: No significant aortic stenosis or insufficiency. Aortic cusps appear mildly calcified. Tricuspid Valve: Normal appearance of the tricuspid valve. Estimated peak PA systolic pressure 51 mmHg. There is mild tricuspid regurgitation. Pericardium: Normal pericardium with no significant pericardial effusion. Aorta: Normal aortic root. IVC: Dilated IVC without respiratory collapse, however, patient on ventilator. Conclusions Lower limits of normal systolic function. Normal left ventricular cavity size. Sigmoid septum. Ejection fraction is visually estimated at 50 %. Tissue Doppler/Mitral Doppler indices are consistent with impaired relaxation (Stage I diastolic dysfunction). Normal right ventricular size. Normal right ventricular systolic function. There is mild enlargement of left atrium. The right atrium is normal in size. Estimated peak PA systolic pressure 51 mmHg. There is mild tricuspid regurgitation. No significant valvular stenosis or regurgitation seen of remaining visualized valves. Normal pericardium with no significant pericardial effusion. Electronically Signed By: Roque Singletary 23-Apr-2018 13:52:09 -0800 Patient Name: EDWIN GRIFFITH Study Date: 23-Apr-2018 [id number]
--- NOTE | 2018-04-23 13:59 | PN ---
Date/Time of Note Date/Time of Note DATE: 04/23/18 TIME: 13:56 Assessment/Plan VTE Prophylaxis Risk score (from Ns)>0 risk: 5 SCD applied (from Ns): Yes Pharmacological prophylaxis: heparin Assessment/Plan Hospital Course 1. Acute hypoxemic and hypercapnic respiratory failure secondary to pneumonia on COPD -Continue vent support, pulmonology consultation appreciated -Levaquin IV 2. NSTEMI -Heparin drip -Cardiology consultation obtained, follow-up on 2D echo 3. Hypertensive urgency: BP better controlled -Adjust antihypertensive as needed 4. ESRD on HD -Nephrology consultation obtained 5. Diabetes: -Insulin while in-house Prophylaxis: Heparin Result Diagram: 04/23/18 1128 04/23/18 0417 Results 24hrs Laboratory Tests Test 04/22/18 18:21 04/22/18 18:31 04/22/18 21:24 04/23/18 00:15 Blood Gas Specimen Blood arterial Source Arterial Blood 04/22/2018 7:55:00 Date Drawn PM Arterial Blood pH 7.387 (Temp corrected) Arterial Blood 45.4 H pCO2 (Temp correct) Arterial Blood pO2 384.0 H (Temp corrected) Arterial Blood 26.7 H HCO3 Arterial Blood 1.3 Base Excess Arterial Blood 99.2 H Oxygen Saturation Trev Test N/A Arterial Blood Gas Right Brachial Puncture Site Arterial 0.1 Blood Carboxyhemog lobin Arterial Blood 0.2 Methemoglobin Blood Gas A-a O2 283.6 H Differential Oxyhemoglobin 98.9 Percent Blood Gas 37.0 Temperature Blood Gas 16.0 Respiration Rate Blood Gas Actual 22 Respiration Rate Blood Gas Modality VENT - AC FiO2 100.0 Blood Gas Tidal 500.0 Volume Blood Gas Mean 14 Airway Pressure Blood Gas Low PEEP 5.0 Setting Blood Gas 29.0 Inspiratory Pressure Blood Gas Critical [place] VERMA Value Read Back Blood Gas Notified BL Whom Blood Gas Notified 04/22/2018 8:21:00 Time PM White Blood Count 15.8 H Red Blood Count 4.00 L Hemoglobin 12.3 L Hematocrit 36.2 L Mean Corpuscular 90.5 Volume Mean Corpuscular 30.8 Hemoglobin Mean Corpuscular 34.0 Hemoglobin Concent Red Cell 12.7 Distribution Width Platelet Count 276 Mean Platelet 11.1 H Volume Immature 0.800 H Granulocytes % Neutrophils % 62.8 Lymphocytes % 25.7 Monocytes % 5.7 Eosinophils % 4.2 Basophils % 0.8 Nucleated Red 0.0 Blood Cells % Immature 0.130 H Granulocytes # Neutrophils # 9.9 H Lymphocytes # 4.1 H Monocytes # 0.9 Eosinophils # 0.7 H Basophils # 0.1 Nucleated Red 0.0 Blood Cells # Prothrombin Time 13.1 Prothrombin Time 1.0 Ratio INR International 0.98 Normalized Ratio Activated 27.[address] Time Sodium Level 142 Potassium Level 5.4 H Chloride Level 96 L Carbon Dioxide 25 Level Anion Gap 21 H Blood Urea 47 H Nitrogen Creatinine 11.09 H Est Glomerular 5 L Filtrat Rate mL/min Glucose Level 182 Calcium Level 8.1 L Total Bilirubin 0.0 L Direct Bilirubin 0.00 Indirect Bilirubin 0.0 Aspartate Amino 29 Transf (AST/SGOT) Alanine 13 Aminotransferase ( ALT/SGPT) Alkaline 122 H Phosphatase Troponin I 2.820 *H 6.690 *H B-Type Natriuretic 03286 H Peptide Total Protein 7.8 Albumin 4.6 Globulin 3.20 Albumin/Globulin 1.43 Ratio POC Venous Lactate 1.4 Lactic Acid Level 1.1 Creatine Kinase 118 Creatine Kinase 4.3 Index Creatinine Kinase 5.09 H MB (Mass) Test 04/23/18 01:06 04/23/18 04:17 04/23/18 05:21 04/23/18 09:34 Bedside Glucose 82 83 97 White Blood Count 7.3 # Red Blood Count 2.92 #L Hemoglobin 9.0 #L Hematocrit 26.4 #L Mean Corpuscular 90.4 Volume Mean Corpuscular 30.8 Hemoglobin Mean Corpuscular 34.1 Hemoglobin Concent Red Cell 13.0 Distribution Width Platelet Count 182 # Mean Platelet 10.6 H Volume Immature 0.500 H Granulocytes % Neutrophils % 71.9 Lymphocytes % 16.0 Monocytes % 7.5 Eosinophils % 3.7 Basophils % 0.4 Nucleated Red 0.0 Blood Cells % Immature 0.040 H Granulocytes # Neutrophils # 5.2 Lymphocytes # 1.2 Monocytes # 0.6 Eosinophils # 0.3 Basophils # 0.0 Nucleated Red 0.0 Blood Cells # Sodium Level 144 Potassium Level 5.1 Chloride Level 101 Carbon Dioxide 25 Level Anion Gap 18 H Blood Urea 52 H Nitrogen Creatinine 11.77 H Est Glomerular 4 L Filtrat Rate mL/min Glucose Level 89 # Calcium Level 8.0 L Total Bilirubin 0.0 L Direct Bilirubin 0.00 Indirect Bilirubin 0.0 Aspartate Amino 16 Transf (AST/SGOT) Alanine 25 Aminotransferase ( ALT/SGPT) Alkaline 84 Phosphatase Creatine Kinase 110 Creatine Kinase 4.4 Index Creatinine Kinase 4.86 H MB (Mass) Troponin I 6.450 *H Total Protein 5.7 #L Albumin 3.4 # Globulin 2.30 Albumin/Globulin 1.47 Ratio Test 04/23/18 10:50 04/23/18 11:28 04/23/18 13:06 Prothrombin Time 14.9 Prothrombin Time 1.2 Ratio INR International 1.16 Normalized Ratio Activated 43.[address] Time White Blood Count 6.6 Red Blood Count 3.04 L Hemoglobin 9.4 L Hematocrit 27.9 L Mean Corpuscular 91.8 Volume Mean Corpuscular 30.9 Hemoglobin Mean Corpuscular 33.7 Hemoglobin Concent Red Cell 13.2 Distribution Width Platelet Count 168 Mean Platelet 11.3 H Volume Immature 0.600 H Granulocytes % Neutrophils % 68.3 Lymphocytes % 18.7 Monocytes % 7.9 Eosinophils % 4.0 Basophils % 0.5 Nucleated Red 0.0 Blood Cells % Immature 0.040 H Granulocytes # Neutrophils # 4.5 Lymphocytes # 1.2 Monocytes # 0.5 Eosinophils # 0.3 Basophils # 0.0 Nucleated Red 0.0 Blood Cells # Bedside Glucose 85 Subjective 24 Hr Interval Summary Subjective hx not possible: pt non-verbal Exam/Review of Systems Vital Signs Vitals Vital Signs Date Temp Pulse Resp B/P (MAP) Pulse Ox O2 O2 Flow FiO2 Time Delivery Rate 04/23/18 80 12:00 04/23/18 16 158/76 100 10:30 (103) 04/23/18 Mechanical 10:00 Ventilator 04/23/18 98.4 08:00 04/23/18 40 08:00 Intake and Output 04/22/18 04/22/18 04/23/18 1515:00 23:00 07:00 IntakeIntake Total 221.8 ml 952.61 ml OutputOutput Total 5 ml 6 ml BalanceBalance 216.8 ml 946.61 ml Exam Constitutional: non-verbal ENMT: intubated Respiratory: clear to auscultation Cardiovascular: regular rate and rhythm Gastrointestinal: soft; No distended Musculoskeletal: nl extremities to inspection Medications Medications Current Medications Propofol 100 ml @ 3.36 mls/hr ONCE STAT IV Last administered on 04/22/18at 18:44; Admin Dose 3.36 MLS/HR; Start 04/22/18 at 18:21; Stop 04/24/18 at 00:06 Ondansetron HCl (Zofran Inj) 4 mg ER BRIDGE PRN IV NAUSEA AND/OR VOMITING; Start 04/22/18 at 22:00; Stop 04/23/18 at 21:59 Acetaminophen (Tylenol Tab) 650 mg ER BRIDGE PRN PO MILD PAIN(1-3)OR ELEVATED TEMP; Start 04/22/18 at 22:00; Stop 04/23/18 at 21:59 Ondansetron HCl (Zofran Inj) 4 mg Q6H PRN IV NAUSEA AND/OR VOMITING; Start 04/22/18 at 22:30 Acetaminophen (Tylenol Liquid) 650 mg Q6H PRN PO PAIN LEVEL 1-3 OR FEVER; Start 04/22/18 at 22:30 Lorazepam (Ativan) 1 mg Q2H PRN IV ANXIETY Last administered on 04/23/18at 12:03; Admin Dose 1 MG; Start 04/22/18 at 22:30 Pantoprazole (Protonix Iv) 40 mg DAILY@06 IV Last administered on 04/23/18at 05:24; Admin Dose 40 MG; Start 04/23/18 at 06:00 Propofol 100 ml @ 3.36 mls/hr PER PROTOCOL IV Last administered on 04/23/18at 11:37; Admin Dose 33.6 MLS/HR; Start 04/22/18 at 22:30 Labetalol HCl (Labetalol) 10 mg Q2H PRN IV SBP > 165; Start 04/22/18 at 22:30 Diagnostic Test (Pha) (Accu-Chek) 1 ea 02 XX ; Start 04/23/18 at 02:00 Insulin Aspart (Novolog Insulin Pen) NOVOLOG *MILD* ALGORI... Q4 SC ; Start 04/23/18 at 01:00 Miscellaneous Information 1 ea NOTE XX ; Start 04/22/18 at 23:00 Glucose (Glutose) 15 gm Q15M PRN PO DECREASED GLUCOSE; Start 04/22/18 at 23:00 Glucose (Glutose) 22.5 gm Q15M PRN PO DECREASED GLUCOSE; Start 04/22/18 at 23:00 Dextrose (D50w Syringe) 25 ml Q15M PRN IV DECREASED GLUCOSE; Start 04/22/18 at 23:00 Dextrose (D50w Syringe) 50 ml Q15M PRN IV DECREASED GLUCOSE; Start 04/22/18 at 23:00 Glucagon (Glucagen) 1 mg Q15M PRN IM DECREASED GLUCOSE; Start 04/22/18 at 23:00 Glucose (Glutose) 15 gm Q15M PRN BUCCAL DECREASED GLUCOSE; Start 04/22/18 at 23:00 Levofloxacin/ Dextrose 100 ml @ 100 mls/hr Q48H IVPB Last administered on 04/23/18at 09:03; Admin Dose 100 MLS/HR; Start 04/23/18 at 08:30 Heparin Sodium (Porcine) (Heparin (1000 Units/ml)) 4,000 unit PER PROTOCOL PRN IV HEPARIN PROTOCOL; Start 04/23/18 at 10:30 Heparin Sodium (Porcine) 250 ml @ 10.5 mls/hr PER PROTOCOL IV Last administered on 04/23/18at 12:44; Admin Dose 10.5 MLS/HR; Start 04/23/18 at 10:30 Heparin Sodium (Porcine) (Heparin (1000 Units/ml)) 4,000 unit AFTER DIALYSIS CATHETER ; Start 04/23/18 at 13:30 Albumin Human 50 ml @ 100 mls/hr WITH DIALYSIS PRN IV for SBP less than 90 mm hg ; Start 04/23/18 at 13:30 Sodium Chloride (NS) -To prime the dialy... DIRECTED FOR HD PRN IV for SBP less than 90 mm hg ; Start 04/23/18 at 13:30 JUVENTINO CARVER Apr 23, 2018 13:59
--- NOTE | 2018-04-23 14:48 | CONS ---
Date/Time of Note Date/Time of Note DATE: 04/23/18 TIME: 14:37 Assessment/Plan Assessment/Plan Assessment/Plan Respiratory failure, vent dependent Sepsis likely secondary to pneumonia None ST elevation myocardial infarction Hypertensive emergency Cardiomyopathy with left ventricular ejection fraction 45% End-stage renal disease on hemodialysis History of hypertension Diabetes -Patient presented with subjective fevers, progressive worsening cough and shortness of breath. Initially on BiPAP and later intubated. Troponins have been elevated but are since trending down. ECG with no evidence of significant ST depressions and no evidence of ST elevations. Patient currently remains intubated and sedated. Would start aspirin therapy if not done already, high- dose statin therapy, beta-mk as heart rate and blood pressure permits, continue anticoagulation. Antibiotics as per infectious disease, vent managem ent as per pulmonary. Will likely need cardiac catheterization. -As mentioned, troponins are trending down and ECG with no significant ischemic abnormalities, cardiac cath laboratory at our facility is currently not functioning, given the downtrending troponins and ECG with no significant ischemic abnormalities, would continue to monitor closely with aggressive medical management as mentioned above. -Of note, patient was under the care of Dr. Taylor (cardiology) on previous admissions. Initially patient was admitted under Ol[facility] Nix and a different medical record number. I did contact Dr. Taylor prior to seeing the patient and he will be taking over for cardiology care from 04/24/2018. Result Diagram: 04/23/18 1128 04/23/18 0417 Results 24hrs Laboratory Tests Test 04/22/18 18:21 04/22/18 18:31 04/22/18 21:24 04/23/18 00:15 Blood Gas Specimen Blood arterial Source Arterial Blood 04/22/2018 7:55:00 Date Drawn PM Arterial Blood pH 7.387 (Temp corrected) Arterial Blood 45.4 H pCO2 (Temp correct) Arterial Blood pO2 384.0 H (Temp corrected) Arterial Blood 26.7 H HCO3 Arterial Blood 1.3 Base Excess Arterial Blood 99.2 H Oxygen Saturation Trev Test N/A Arterial Blood Gas Right Brachial Puncture Site Arterial 0.1 Blood Carboxyhemog lobin Arterial Blood 0.2 Methemoglobin Blood Gas A-a O2 283.6 H Differential Oxyhemoglobin 98.9 Percent Blood Gas 37.0 Temperature Blood Gas 16.0 Respiration Rate Blood Gas Actual 22 Respiration Rate Blood Gas Modality VENT - AC FiO2 100.0 Blood Gas Tidal 500.0 Volume Blood Gas Mean 14 Airway Pressure Blood Gas Low PEEP 5.0 Setting Blood Gas 29.0 Inspiratory Pressure Blood Gas Critical [place] VERMA Value Read Back Blood Gas Notified BL Whom Blood Gas Notified 04/22/2018 8:21:00 Time PM White Blood Count 15.8 H Red Blood Count 4.00 L Hemoglobin 12.3 L Hematocrit 36.2 L Mean Corpuscular 90.5 Volume Mean Corpuscular 30.8 Hemoglobin Mean Corpuscular 34.0 Hemoglobin Concent Red Cell 12.7 Distribution Width Platelet Count 276 Mean Platelet 11.1 H Volume Immature 0.800 H Granulocytes % Neutrophils % 62.8 Lymphocytes % 25.7 Monocytes % 5.7 Eosinophils % 4.2 Basophils % 0.8 Nucleated Red 0.0 Blood Cells % Immature 0.130 H Granulocytes # Neutrophils # 9.9 H Lymphocytes # 4.1 H Monocytes # 0.9 Eosinophils # 0.7 H Basophils # 0.1 Nucleated Red 0.0 Blood Cells # Prothrombin Time 13.1 Prothrombin Time 1.0 Ratio INR International 0.98 Normalized Ratio Activated 27.[address] Time Sodium Level 142 Potassium Level 5.4 H Chloride Level 96 L Carbon Dioxide 25 Level Anion Gap 21 H Blood Urea 47 H Nitrogen Creatinine 11.09 H Est Glomerular 5 L Filtrat Rate mL/min Glucose Level 182 Calcium Level 8.1 L Total Bilirubin 0.0 L Direct Bilirubin 0.00 Indirect Bilirubin 0.0 Aspartate Amino 29 Transf (AST/SGOT) Alanine 13 Aminotransferase ( ALT/SGPT) Alkaline 122 H Phosphatase Troponin I 2.820 *H 6.690 *H B-Type Natriuretic 29971 H Peptide Total Protein 7.8 Albumin 4.6 Globulin 3.20 Albumin/Globulin 1.43 Ratio POC Venous Lactate 1.4 Lactic Acid Level 1.1 Creatine Kinase 118 Creatine Kinase 4.3 Index Creatinine Kinase 5.09 H MB (Mass) Test 04/23/18 01:06 04/23/18 04:17 04/23/18 05:21 04/23/18 09:34 Bedside Glucose 82 83 97 White Blood Count 7.3 # Red Blood Count 2.92 #L Hemoglobin 9.0 #L Hematocrit 26.4 #L Mean Corpuscular 90.4 Volume Mean Corpuscular 30.8 Hemoglobin Mean Corpuscular 34.1 Hemoglobin Concent Red Cell 13.0 Distribution Width Platelet Count 182 # Mean Platelet 10.6 H Volume Immature 0.500 H Granulocytes % Neutrophils % 71.9 Lymphocytes % 16.0 Monocytes % 7.5 Eosinophils % 3.7 Basophils % 0.4 Nucleated Red 0.0 Blood Cells % Immature 0.040 H Granulocytes # Neutrophils # 5.2 Lymphocytes # 1.2 Monocytes # 0.6 Eosinophils # 0.3 Basophils # 0.0 Nucleated Red 0.0 Blood Cells # Sodium Level 144 Potassium Level 5.1 Chloride Level 101 Carbon Dioxide 25 Level Anion Gap 18 H Blood Urea 52 H Nitrogen Creatinine 11.77 H Est Glomerular 4 L Filtrat Rate mL/min Glucose Level 89 # Calcium Level 8.0 L Total Bilirubin 0.0 L Direct Bilirubin 0.00 Indirect Bilirubin 0.0 Aspartate Amino 16 Transf (AST/SGOT) Alanine 25 Aminotransferase ( ALT/SGPT) Alkaline 84 Phosphatase Creatine Kinase 110 Creatine Kinase 4.4 Index Creatinine Kinase 4.86 H MB (Mass) Troponin I 6.450 *H Total Protein 5.7 #L Albumin 3.4 # Globulin 2.30 Albumin/Globulin 1.47 Ratio Test 04/23/18 10:50 04/23/18 11:28 04/23/18 13:06 Prothrombin Time 14.9 Prothrombin Time 1.2 Ratio INR International 1.16 Normalized Ratio Activated 43.[address] Time White Blood Count 6.6 Red Blood Count 3.04 L Hemoglobin 9.4 L Hematocrit 27.9 L Mean Corpuscular 91.8 Volume Mean Corpuscular 30.9 Hemoglobin Mean Corpuscular 33.7 Hemoglobin Concent Red Cell 13.2 Distribution Width Platelet Count 168 Mean Platelet 11.3 H Volume Immature 0.600 H Granulocytes % Neutrophils % 68.3 Lymphocytes % 18.7 Monocytes % 7.9 Eosinophils % 4.0 Basophils % 0.5 Nucleated Red 0.0 Blood Cells % Immature 0.040 H Granulocytes # Neutrophils # 4.5 Lymphocytes # 1.2 Monocytes # 0.5 Eosinophils # 0.3 Basophils # 0.0 Nucleated Red 0.0 Blood Cells # Bedside Glucose 85 Consultation Date/Type/Reason Admit Date/Time 04/22/18 Type of Consult cv Reason for Consultation Elevated troponin Hx of Present Illness This is a 58-year-old male with past medical history of end-stage renal disease on hemodialysis, diabetes, hypertension who presents with cough, fevers and chills. As per the medical chart and discussion with family at bedside, patient with cough over the past few days. Yesterday, the day of admission, patient with severe sweating and shortness of breath. There is no chest pain. Because of worsening symptoms, patient brought to the emergency room. Initially patient was put on BiPAP but progressed and worsened and was later intubated. Patient transferred to ICU. Initially, patient also with systolic blood pressures above 200. Patient currently sedated and intubated and family at bedside. 12 point review of systems was performed with all pertinent positives and negatives mentioned above and all else is negative Past Medical History Medical History: diabetes, hypertension, renal disease Medications Current Medications Propofol 100 ml @ 3.36 mls/hr ONCE STAT IV Last administered on 04/22/18at 18:44; Admin Dose 3.36 MLS/HR; Start 04/22/18 at 18:21; Stop 04/24/18 at 00:06 Ondansetron HCl (Zofran Inj) 4 mg ER BRIDGE PRN IV NAUSEA AND/OR VOMITING; Start 04/22/18 at 22:00; Stop 04/23/18 at 21:59 Acetaminophen (Tylenol Tab) 650 mg ER BRIDGE PRN PO MILD PAIN(1-3)OR ELEVATED TEMP; Start 04/22/18 at 22:00; Stop 04/23/18 at 21:59 Ondansetron HCl (Zofran Inj) 4 mg Q6H PRN IV NAUSEA AND/OR VOMITING; Start 04/22/18 at 22:30 Acetaminophen (Tylenol Liquid) 650 mg Q6H PRN PO PAIN LEVEL 1-3 OR FEVER; Start 04/22/18 at 22:30 Lorazepam (Ativan) 1 mg Q2H PRN IV ANXIETY Last administered on 04/23/18at 12:03; Admin Dose 1 MG; Start 04/22/18 at 22:30 Pantoprazole (Protonix Iv) 40 mg DAILY@06 IV Last administered on 04/23/18at 05:24; Admin Dose 40 MG; Start 04/23/18 at 06:00 Propofol 100 ml @ 3.36 mls/hr PER PROTOCOL IV Last administered on 04/23/18at 14:31; Admin Dose 33.6 MLS/HR; Start 04/22/18 at 22:30 Labetalol HCl (Labetalol) 10 mg Q2H PRN IV SBP > 165; Start 04/22/18 at 22:30 Diagnostic Test (Pha) (Accu-Chek) 1 ea 02 XX ; Start 04/23/18 at 02:00 Insulin Aspart (Novolog Insulin Pen) NOVOLOG *MILD* ALGORI... Q4 SC ; Start 04/23/18 at 01:00 Miscellaneous Information 1 ea NOTE XX ; Start 04/22/18 at 23:00 Glucose (Glutose) 15 gm Q15M PRN PO DECREASED GLUCOSE; Start 04/22/18 at 23:00 Glucose (Glutose) 22.5 gm Q15M PRN PO DECREASED GLUCOSE; Start 04/22/18 at 23:00 Dextrose (D50w Syringe) 25 ml Q15M PRN IV DECREASED GLUCOSE; Start 04/22/18 at 23:00 Dextrose (D50w Syringe) 50 ml Q15M PRN IV DECREASED GLUCOSE; Start 04/22/18 at 23:00 Glucagon (Glucagen) 1 mg Q15M PRN IM DECREASED GLUCOSE; Start 04/22/18 at 23:00 Glucose (Glutose) 15 gm Q15M PRN BUCCAL DECREASED GLUCOSE; Start 04/22/18 at 23:00 Levofloxacin/ Dextrose 100 ml @ 100 mls/hr Q48H IVPB Last administered on 04/23/18at 09:03; Admin Dose 100 MLS/HR; Start 04/23/18 at 08:30 Heparin Sodium (Porcine) (Heparin (1000 Units/ml)) 4,000 unit PER PROTOCOL PRN IV HEPARIN PROTOCOL; Start 04/23/18 at 10:30 Heparin Sodium (Porcine) 250 ml @ 10.5 mls/hr PER PROTOCOL IV Last administered on 04/23/18at 12:44; Admin Dose 10.5 MLS/HR; Start 04/23/18 at 10:30 Heparin Sodium (Porcine) (Heparin (1000 Units/ml)) 4,000 unit AFTER DIALYSIS CATHETER ; Start 04/23/18 at 13:30 Albumin Human 50 ml @ 100 mls/hr WITH DIALYSIS PRN IV for SBP less than 90 mm hg ; Start 04/23/18 at 13:30 Sodium Chloride (NS) -To prime the dialy... DIRECTED FOR HD PRN IV for SBP less than 90 mm hg ; Start 04/23/18 at 13:30 Allergies: Coded Allergies: Unknown: Unable to obtain (Unverified , 04/22/18) Past Surgical History Including but not limited to AV fistula Social History Smoking Status: Current every day smoker Exam/Review of Systems Vital Signs Vitals Vital Signs Date Temp Pulse Resp B/P (MAP) Pulse Ox O2 O2 Flow FiO2 Time Delivery Rate 04/23/18 80 12:00 04/23/18 16 158/76 100 10:30 (103) 04/23/18 Mechanical 10:00 Ventilator 04/23/18 98.4 08:00 04/23/18 40 08:00 Intake and Output 04/22/18 04/22/18 04/23/18 1515:00 23:00 07:00 IntakeIntake Total 221.8 ml 952.61 ml OutputOutput Total 5 ml 6 ml BalanceBalance 216.8 ml 946.61 ml Exam Sedated and intubated, family at bedside, no apparent distress, nursing staff at bedside Head: normocephalic Respiratory: other (Coarse breath sounds bilaterally, scattered crackles, no wheezing) Cardiovascular: regular rate and rhythm, other (S1-S2 heard) Gastrointestinal: soft, non-tender, bowel sounds Extremities: edema Medications Medications Current Medications Propofol 100 ml @ 3.36 mls/hr ONCE STAT IV Last administered on 04/22/18at 18:44; Admin Dose 3.36 MLS/HR; Start 04/22/18 at 18:21; Stop 04/24/18 at 00:06 Ondansetron HCl (Zofran Inj) 4 mg ER BRIDGE PRN IV NAUSEA AND/OR VOMITING; Start 04/22/18 at 22:00; Stop 04/23/18 at 21:59 Acetaminophen (Tylenol Tab) 650 mg ER BRIDGE PRN PO MILD PAIN(1-3)OR ELEVATED TEMP; Start 04/22/18 at 22:00; Stop 04/23/18 at 21:59 Ondansetron HCl (Zofran Inj) 4 mg Q6H PRN IV NAUSEA AND/OR VOMITING; Start 04/22/18 at 22:30 Acetaminophen (Tylenol Liquid) 650 mg Q6H PRN PO PAIN LEVEL 1-3 OR FEVER; Sta rt 04/22/18 at 22:30 Lorazepam (Ativan) 1 mg Q2H PRN IV ANXIETY Last administered on 04/23/18at 12:03; Admin Dose 1 MG; Start 04/22/18 at 22:30 Pantoprazole (Protonix Iv) 40 mg DAILY@06 IV Last administered on 04/23/18at 05:24; Admin Dose 40 MG; Start 04/23/18 at 06:00 Propofol 100 ml @ 3.36 mls/hr PER PROTOCOL IV Last administered on 04/23/18at 14:31; Admin Dose 33.6 MLS/HR; Start 04/22/18 at 22:30 Labetalol HCl (Labetalol) 10 mg Q2H PRN IV SBP > 165; Start 04/22/18 at 22:30 Diagnostic Test (Pha) (Accu-Chek) 1 ea 02 XX ; Start 04/23/18 at 02:00 Insulin Aspart (Novolog Insulin Pen) NOVOLOG *MILD* ALGORI... Q4 SC ; Start 04/23/18 at 01:00 Miscellaneous Information 1 ea NOTE XX ; Start 04/22/18 at 23:00 Glucose (Glutose) 15 gm Q15M PRN PO DECREASED GLUCOSE; Start 04/22/18 at 23:00 Glucose (Glutose) 22.5 gm Q15M PRN PO DECREASED GLUCOSE; Start 04/22/18 at 23:00 Dextrose (D50w Syringe) 25 ml Q15M PRN IV DECREASED GLUCOSE; Start 04/22/18 at 23:00 Dextrose (D50w Syringe) 50 ml Q15M PRN IV DECREASED GLUCOSE; Start 04/22/18 at 23:00 Glucagon (Glucagen) 1 mg Q15M PRN IM DECREASED GLUCOSE; Start 04/22/18 at 23:00 Glucose (Glutose) 15 gm Q15M PRN BUCCAL DECREASED GLUCOSE; Start 04/22/18 at 23:00 Levofloxacin/ Dextrose 100 ml @ 100 mls/hr Q48H IVPB Last administered on 04/23/18at 09:03; Admin Dose 100 MLS/HR; Start 04/23/18 at 08:30 Heparin Sodium (Porcine) (Heparin (1000 Units/ml)) 4,000 unit PER PROTOCOL PRN IV HEPARIN PROTOCOL; Start 04/23/18 at 10:30 Heparin Sodium (Porcine) 250 ml @ 10.5 mls/hr PER PROTOCOL IV Last administered on 04/23/18at 12:44; Admin Dose 10.5 MLS/HR; Start 04/23/18 at 10:30 Heparin Sodium (Porcine) (Heparin (1000 Units/ml)) 4,000 unit AFTER DIALYSIS CATHETER ; Start 04/23/18 at 13:30 Albumin Human 50 ml @ 100 mls/hr WITH DIALYSIS PRN IV for SBP less than 90 mm hg ; Start 04/23/18 at 13:30 Sodium Chloride (NS) -To prime the dialy... DIRECTED FOR HD PRN IV for SBP less than 90 mm hg ; Start 04/23/18 at 13:30 Imaging Imaging ECG with sinus rhythm, normal QRS duration, nonspecific ST abnormalities Roque Singletary DO Apr 23, 2018 14:48
[2018-04-23] MEDS ORDERED: ASPIRIN 81 MG TAB PO ONE (15:00)
[2018-04-23] MEDS: METOPROLOL 25 MG TAB GTB SCH (15:24)
[2018-04-23] MEDS: ATORVASTATIN 80 MG TAB PO SCH (20:33)
[2018-04-24] VITALS (50 sets, daily range): BP systolic 101–192; BP diastolic 51–94; PULSE 62–106; RESP 13–25
[2018-04-24] MEDS: METOPROLOL 25 MG TAB GTB SCH ×3 (00:42→20:30)
[2018-04-24] MEDS: PROPOFOL 100 ML IV SCH ×3 (00:43→06:12)
[2018-04-24] MEDS: INSULIN ASPART [NOVOLOG] 3 ML PEN SC SCH ×5 (00:48→21:00)
[2018-04-24] MEDS: ACCU-CHEK XX SCH (01:09)
[2018-04-24] MEDS: hydrALAzine 20 MG INJ IV PRN (04:11)
[2018-04-24] MEDS ORDERED: LANSOPRAZOLE 30 MG CAP NGT SCH (06:00)
[2018-04-24] MEDS: HEPARIN 25000 UNITS/250 ML 250 ML IV SCH ×2 (07:19→09:52)
--- NOTE | 2018-04-24 08:13 | CONS ---
Date/Time of Note Date/Time of Note DATE: 04/24/18 TIME: 08:08 Consult Date/Type/Reason Admit Date/Time Apr 22, 2018 at 21:33 Initial Consult Date 04/23/18 Type of Consultation: cv Reason for Consultation NSTEMI Requesting Provider: JUVENTINO CARVER Interventional cardiology follow-up progress note Subjective: Case discussed with staff. Rhythm was reviewed. Patient remains in normal sinus rhythm. Patient remains intubated on the vent. Mild amount of secretions per RT report. Patient is intubated and is not able to provide any reliable history to me. Objective: General: Obese gentleman status post intubation on the vent now HEENT: NC/AT. pupils are equal. round. NECK: . no stridor. CV: RRR. systolic murmur; no gallop or rubs. PULM: no wheezing + rhonchi. GI: SOFT, NT, ND, no rebound or guarding Extremity: trace B/L LE edema. no clubbing. neuro: Opens his eyes to verbal stimuli.. Psych: Anxious rectal: deferred : normal Echocardiogram shows: Lower limits of normal systolic function. Normal left ventricular cavity size. Sigmoid septum. Ejection fraction is visually estimated at 50 %. Tissue Doppler/Mitral Doppler indices are consistent with impaired relaxation (Stage I diastolic dysfunction). Normal right ventricular size. Normal right ventricular systolic function. There is mild enlargement of left atrium. The right atrium is normal in size. Estimated peak PA systolic pressure 51 mmHg. There is mild tricuspid regurgitation. No significant valvular stenosis or regurgitation seen of remaining visualized valves. Normal pericardium with no significant pericardial effusion. Objective Vital Signs Date Temp Pulse Resp B/P (MAP) Pulse Ox O2 O2 Flow FiO2 Time Delivery Rate 04/24/18 70 16 99 06:45 04/24/18 110/64 06:30 (79) 04/24/18 Mechanical 06:00 Ventilator 04/24/18 40 05:30 04/24/18 98.6 04:00 Intake and Output 04/23/18 04/23/18 04/24/18 1515:00 23:00 07:00 IntakeIntake Total 703.40 ml 473.92 ml 443.05 ml OutputOutput Total 14 ml 31 ml 2405 ml BalanceBalance 689.40 ml 442.92 ml -1961.95 ml Results/Medications Result Diagram: 04/24/18 0422 04/24/18 0422 Results 24 hrs Laboratory Tests Test 04/23/18 09:34 04/23/18 10:50 04/23/18 11:28 04/23/18 13:06 Bedside Glucose 97 85 Prothrombin Time 14.9 Prothrombin Time Ratio 1.2 INR International 1.16 Normalized Ratio Activated 43.9 H Partial Thromboplast Time White Blood Count 6.6 Red Blood Count 3.04 L Hemoglobin 9.4 L Hematocrit 27.9 L Mean Corpuscular Volume 91.8 Mean Corpuscular 30.9 Hemoglobin Mean Corpuscular 33.7 Hemoglobin Concent Red Cell Distribution 13.2 Width Platelet Count 168 Mean Platelet Volume 11.3 H Immature Granulocytes % 0.600 H Neutrophils % 68.3 Lymphocytes % 18.7 Monocytes % 7.9 Eosinophils % 4.0 Basophils % 0.5 Nucleated Red Blood 0.0 Cells % Immature Granulocytes # 0.040 H Neutrophils # 4.5 Lymphocytes # 1.2 Monocytes # 0.5 Eosinophils # 0.3 Basophils # 0.0 Nucleated Red Blood 0.0 Cells # Test 04/23/18 16:48 04/23/18 18:22 04/23/18 20:32 04/23/18 20:40 Bedside Glucose 105 108 Activated 87.4 *H Partial Thromboplast Time Urine Opiates Screen Negative Urine Barbiturates Negative Urine Amphetamines Negative Screen Urine Benzodiazepines Positive Screen Urine Cocaine Screen Negative Urine Cannabinoids Positive Test 04/24/18 00:48 04/24/18 01:39 04/24/18 04:22 04/24/18 05:09 Bedside Glucose 119 165 Activated 66.8 H Partial Thromboplast Time White Blood Count 5.2 # Red Blood Count 2.96 L Hemoglobin 9.2 L Hematocrit 26.7 L Mean Corpuscular Volume 90.2 Mean Corpuscular 31.1 Hemoglobin Mean Corpuscular 34.5 Hemoglobin Concent Red Cell Distribution 13.3 Width Platelet Count 167 Mean Platelet Volume 11.3 H Immature Granulocytes % 0.400 Neutrophils % 67.9 Lymphocytes % 17.2 Monocytes % 8.3 Eosinophils % 5.6 Basophils % 0.6 Nucleated Red Blood 0.0 Cells % Immature Granulocytes # 0.020 Neutrophils # 3.5 Lymphocytes # 0.9 Monocytes # 0.4 Eosinophils # 0.3 Basophils # 0.0 Nucleated Red Blood 0.0 Cells # Sodium Level 139 Potassium Level 4.8 Chloride Level 96 L Carbon Dioxide Level 31 Anion Gap 12 Blood Urea Nitrogen 30 #H Creatinine 7.77 #H Est Glomerular Filtrat 7 L Rate mL/min Glucose Level 155 Calcium Level 8.3 L Phosphorus Level 4.4 Magnesium Level 2.0 Troponin I 1.980 *H Medications Current Medications Ondansetron HCl (Zofran Inj) 4 mg Q6H PRN IV NAUSEA AND/OR VOMITING; Start 04/22/18 at 22:30 Acetaminophen (Tylenol Liquid) 650 mg Q6H PRN PO PAIN LEVEL 1-3 OR FEVER; Start 04/22/18 at 22:30 Lorazepam (Ativan) 1 mg Q2H PRN IV ANXIETY Last administered on 04/23/18at 15:22; Admin Dose 1 MG; Start 04/22/18 at 22:30 Labetalol HCl (Labetalol) 10 mg Q2H PRN IV SBP > 165; Start 04/22/18 at 22:30 Diagnostic Test (Pha) (Accu-Chek) 1 ea 02 XX Last administered on 04/24/18at 01:09; Admin Dose 1 EA; Start 04/23/18 at 02:00 Insulin Aspart (Novolog Insulin Pen) NOVOLOG *MILD* ALGORI... Q4 SC Last administered on 04/24/18at 05:18; Admin Dose 1 UNIT; Start 04/23/18 at 01:00 Miscellaneous Information 1 ea NOTE XX ; Start 04/22/18 at 23:00 Glucose (Glutose) 15 gm Q15M PRN PO DECREASED GLUCOSE; Start 04/22/18 at 23:00 Glucose (Glutose) 22.5 gm Q15M PRN PO DECREASED GLUCOSE; Start 04/22/18 at 23:00 Dextrose (D50w Syringe) 25 ml Q15M PRN IV DECREASED GLUCOSE; Start 04/22/18 at 23:00 Dextrose (D50w Syringe) 50 ml Q15M PRN IV DECREASED GLUCOSE; Start 04/22/18 at 23:00 Glucagon (Glucagen) 1 mg Q15M PRN IM DECREASED GLUCOSE; Start 04/22/18 at 23:00 Glucose (Glutose) 15 gm Q15M PRN BUCCAL DECREASED GLUCOSE; Start 04/22/18 at 23:00 Levofloxacin/ Dextrose 100 ml @ 100 mls/hr Q48H IVPB Last administered on 04/23/18at 09:03; Admin Dose 100 MLS/HR; Start 04/23/18 at 08:30 Heparin Sodium (Porcine) (Heparin (1000 Units/ml)) 4,000 unit PER PROTOCOL PRN IV HEPARIN PROTOCOL; Start 04/23/18 at 10:30 Heparin Sodium (Porcine) 250 ml @ 10.5 mls/hr PER PROTOCOL IV Last administered on 04/24/18at 07:19; Admin Dose 9.5 MLS/HR; Start 04/23/18 at 10:30 Heparin Sodium (Porcine) (Heparin (1000 Units/ml)) 4,000 unit AFTER DIALYSIS CATHETER ; Start 04/23/18 at 13:30 Albumin Human 50 ml @ 100 mls/hr WITH DIALYSIS PRN IV for SBP less than 90 mm hg ; Start 04/23/18 at 13:30 Sodium Chloride (NS) -To prime the dialy... DIRECTED FOR HD PRN IV for SBP less than 90 mm hg ; Start 04/23/18 at 13:30 Aspirin (Aspirin) 81 mg DAILY NGT ; Start 04/24/18 at 09:00 Atorvastatin Calcium (Lipitor) 80 mg HS PO Last administered on 04/23/18at 20:33; Admin Dose 80 MG; Start 04/23/18 at 21:00 Metoprolol Tartrate (Lopressor) 25 mg BID GTB Last administered on 04/24/18at 00: 42; Admin Dose 25 MG; Start 04/23/18 at 15:00 Hydralazine HCl (Apresoline) 10 mg Q4H PRN IV SBP greater than 165 Last administered on 04/24/18at 04:11; Admin Dose 10 MG; Start 04/23/18 at 15:00 Lansoprazole (Prevacid) 30 mg DAILY@06 NGT Last administered on 04/24/18at 05:06; Admin Dose 30 MG; Start 04/24/18 at 06:00 Propofol 100 ml @ 2.631 mls/ hr Q12H IV Last administered on 04/24/18at 06:12; Admin Dose 26.31 MLS/HR; Start 04/23/18 at 22:00 Assessment/Plan Chief Complaint/Hosp Course 1. Non-ST elevation myocardial infarction 2. Acute hypoxemic respiratory failure: Currently intubated on the vent 3. Pneumonia 4. Renal failure on dialysis 5. Diabetes 6. Hypertension 7. Anemia Recommendations: Heparin to be stopped this afternoon. Aspirin Plavix will be added Hemodialysis as per nephrology team Antibiotic as per internal medicine and pulmonary Respiratory care and weaning as tolerated will be deferred to the pulmonary consultants Continue with ICU care now Follow-up with the [facility] Metoprolol as tolerated will be continued Plan for left heart catheterization coronary angiogram possible percutaneous coronary intervention once pulmonary status improved Thank you for his referral. We will continue to follow along with you RAUL PALOMINO MD [facility] RAUL PALOMINO MD Apr 24, 2018 08:13
[2018-04-24] MEDS: ASPIRIN 81 MG TAB NGT SCH (08:53)
[2018-04-24] MEDS: CLOPIDOGREL 75 MG TAB NGT SCH (08:53)
--- NOTE | 2018-04-24 09:07 | CONS ---
Date/Time of Note Date/Time of Note DATE: 04/24/18 TIME: 09:00 Assessment/Plan Assessment/Plan Assessment/Plan Chest x-ray was reviewed from today which is showing minimal right-sided effusion. Ventilator setting; AC of 16, tidal volume 500, PEEP of 5, 40% FiO2. Patient is currently on propofol 50 mics per kilogram per minute. Assessment and recommendations; 1. Patient with history of chronic renal failure on hemodialysis admitted for respiratory failure due to CHF due to non-ST elevation AR. Clinically doing ve ry well. 2. Accelerated hypertension possibly causing some element of CHF due to diastolic dysfunction. 3. Difficult to rule out some element of aspiration pneumonia. Patient currently on appropriate antimicrobial coverage. 4. History of hypertension. 5. Anemia and thrombocytopenia. Hold further sedation. Once the patient is off sedation, he will be evaluated for possible extubation. Meanwhile continue current supportive care. Hemodialysis per program manufacturing leader. Patient awaiting cardiac catheterization. 35 minutes of critical care time was spent evaluating the patient. Result Diagram: 04/24/18 0422 04/24/18 0422 Results 24hrs Laboratory Tests Test 04/23/18 09:34 04/23/18 10:50 04/23/18 11:28 04/23/18 13:06 Bedside Glucose 97 85 Prothrombin Time 14.9 Prothrombin Time Ratio 1.2 INR International 1.16 Normalized Ratio Activated 43.9 H Partial Thromboplast Time White Blood Count 6.6 Red Blood Count 3.04 L Hemoglobin 9.4 L Hematocrit 27.9 L Mean Corpuscular Volume 91.8 Mean Corpuscular 30.9 Hemoglobin Mean Corpuscular 33.7 Hemoglobin Concent Red Cell Distribution 13.2 Width Platelet Count 168 Mean Platelet Volume 11.3 H Immature Granulocytes % 0.600 H Neutrophils % 68.3 Lymphocytes % 18.7 Monocytes % 7.9 Eosinophils % 4.0 Basophils % 0.5 Nucleated Red Blood 0.0 Cells % Immature Granulocytes # 0.040 H Neutrophils # 4.5 Lymphocytes # 1.2 Monocytes # 0.5 Eosinophils # 0.3 Basophils # 0.0 Nucleated Red Blood 0.0 Cells # Test 04/23/18 16:48 04/23/18 18:22 04/23/18 20:32 04/23/18 20:40 Bedside Glucose 105 108 Activated 87.4 *H Partial Thromboplast Time Urine Opiates Screen Negative Urine Barbiturates Negative Urine Amphetamines Negative Screen Urine Benzodiazepines Positive Screen Urine Cocaine Screen Negative Urine Cannabinoids Positive Test 04/24/18 00:48 04/24/18 01:39 04/24/18 04:22 04/24/18 05:09 Bedside Glucose 119 165 Activated 66.8 H Partial Thromboplast Time White Blood Count 5.2 # Red Blood Count 2.96 L Hemoglobin 9.2 L Hematocrit 26.7 L Mean Corpuscular Volume 90.2 Mean Corpuscular 31.1 Hemoglobin Mean Corpuscular 34.5 Hemoglobin Concent Red Cell Distribution 13.3 Width Platelet Count 167 Mean Platelet Volume 11.3 H Immature Granulocytes % 0.400 Neutrophils % 67.9 Lymphocytes % 17.2 Monocytes % 8.3 Eosinophils % 5.6 Basophils % 0.6 Nucleated Red Blood 0.0 Cells % Immature Granulocytes # 0.020 Neutrophils # 3.5 Lymphocytes # 0.9 Monocytes # 0.4 Eosinophils # 0.3 Basophils # 0.0 Nucleated Red Blood 0.0 Cells # Sodium Level 139 Potassium Level 4.8 Chloride Level 96 L Carbon Dioxide Level 31 Anion Gap 12 Blood Urea Nitrogen 30 #H Creatinine 7.77 #H Est Glomerular Filtrat 7 L Rate mL/min Glucose Level 155 Calcium Level 8.3 L Phosphorus Level 4.4 Magnesium Level 2.0 Troponin I 1.980 *H Test 04/24/18 08:32 Bedside Glucose 167 Consultation Date/Type/Reason Admit Date/Time Apr 22, 2018 at 21:33 Initial Consult Date 04/23/18 Type of Consult Pulmonary/critical care Reason for Consultation Patient's condition remains critical but stable. Patient has remained hemodynamically stable. Despite being on propofol patient is completely awake and alert. And follows simple commands. He denies any shortness of breath, chest pain. General exam; middle-aged male, orally intubated, awake and alert. Currently in no distress. H EENT exam; supple neck, no JVD. No lymphadenopathy. Midline trachea. No thyromegaly. Orally intubated. Vision is edentulous. No neck masses. Chest exam; clear to auscultation. S1-S2 audible, no murmurs. Regular rhythm. Abdomen exam; soft, no organomegaly. Bowel sounds audible. Extremity exam; no peripheral edema or clubbing. CLERICAL STOCK INSPECTOR exam; patient awake and follows simple commands. Exhibiting no neurological deficit. Requesting Provider: JUVENTINO CARVER Exam/Review of Systems Vital Signs Vitals Vital Signs Date Temp Pulse Resp B/P (MAP) Pulse Ox O2 O2 Flow FiO2 Time Delivery Rate 04/24/18 70 16 99 06:45 04/24/18 110/64 06:30 (79) 04/24/18 Mechanical 06:00 Ventilator 04/24/18 40 05:30 04/24/18 98.6 04:00 Intake and Output 04/23/18 04/23/18 04/24/18 1515:00 23:00 07:00 IntakeIntake Total 703.40 ml 473.92 ml 443.05 ml OutputOutput Total 14 ml 31 ml 2405 ml BalanceBalance 689.40 ml 442.92 ml -1961.95 ml Medications Medications Current Medications Ondansetron HCl (Zofran Inj) 4 mg Q6H PRN IV NAUSEA AND/OR VOMITING; Start 04/22/18 at 22:30 Acetaminophen (Tylenol Liquid) 650 mg Q6H PRN PO PAIN LEVEL 1-3 OR FEVER; Start 04/22/18 at 22:30 Lorazepam (Ativan) 1 mg Q2H PRN IV ANXIETY Last administered on 04/23/18at 15:22; Admin Dose 1 MG; Start 04/22/18 at 22:30 Labetalol HCl (Labetalol) 10 mg Q2H PRN IV SBP > 165; Start 04/22/18 at 22:30 Diagnostic Test (Pha) (Accu-Chek) 1 ea 02 XX Last administered on 04/24/18at 01:09; Admin Dose 1 EA; Start 04/23/18 at 02:00 Insulin Aspart (Novolog Insulin Pen) NOVOLOG *MILD* ALGORI... Q4 SC Last administered on 04/24/18at 05:18; Admin Dose 1 UNIT; Start 04/23/18 at 01:00 Miscellaneous Information 1 ea NOTE XX ; Start 04/22/18 at 23:00 Glucose (Glutose) 15 gm Q15M PRN PO DECREASED GLUCOSE; Start 04/22/18 at 23:00 Glucose (Glutose) 22.5 gm Q15M PRN PO DECREASED GLUCOSE; Start 04/22/18 at 23:00 Dextrose (D50w Syringe) 25 ml Q15M PRN IV DECREASED GLUCOSE; Start 04/22/18 at 23:00 Dextrose (D50w Syringe) 50 ml Q15M PRN IV DECREASED GLUCOSE; Start 04/22/18 at 23:00 Glucagon (Glucagen) 1 mg Q15M PRN IM DECREASED GLUCOSE; Start 04/22/18 at 23:00 Glucose (Glutose) 15 gm Q15M PRN BUCCAL DECREASED GLUCOSE; Start 04/22/18 at 23:00 Levofloxacin/ Dextrose 100 ml @ 100 mls/hr Q48H IVPB Last administered on 04/23/18at 09:03; Admin Dose 100 MLS/HR; Start 04/23/18 at 08:30 Heparin Sodium (Porcine) (Heparin (1000 Units/ml)) 4,000 unit PER PROTOCOL PRN IV HEPARIN PROTOCOL; Start 04/23/18 at 10:30 Heparin Sodium (Porcine) 250 ml @ 10.5 mls/hr PER PROTOCOL IV Last administered on 04/24/18at 07:19; Admin Dose 9.5 MLS/HR; Start 04/23/18 at 10:30 Heparin Sodium (Porcine) (Heparin (1000 Units/ml)) 4,000 unit AFTER DIALYSIS CATHETER ; Start 04/23/18 at 13:30 Albumin Human 50 ml @ 100 mls/hr WITH DIALYSIS PRN IV for SBP less than 90 mm hg ; Start 04/23/18 at 13:30 Sodium Chloride (NS) -To prime the dialy... DIRECTED FOR HD PRN IV for SBP less than 90 mm hg ; Start 04/23/18 at 13:30 Aspirin (Aspirin) 81 mg DAILY NGT ; Start 04/24/18 at 09:00 Atorvastatin Calcium (Lipitor) 80 mg HS PO Last administered on 04/23/18at 20:33; Admin Dose 80 MG; Start 04/23/18 at 21:00 Metoprolol Tartrate (Lopressor) 25 mg BID GTB Last administered on 04/24/18at 00:42; Admin Dose 25 MG; Start 04/23/18 at 15:00 Hydralazine HCl (Apresoline) 10 mg Q4H PRN IV SBP greater than 165 Last administered on 04/24/18at 04:11; Admin Dose 10 MG; Start 04/23/18 at 15:00 Lansoprazole (Prevacid) 30 mg DAILY@06 NGT Last administered on 04/24/18at 05:06; Admin Dose 30 MG; Start 04/24/18 at 06:00 Propofol 100 ml @ 2.631 mls/ hr Q12H IV Last administered on 04/24/18at 06:12; Admin Dose 26.31 MLS/HR; Start 04/23/18 at 22:00 Clopidogrel Bisulfate (plaVIX) 75 mg DAILY NGT ; Start 04/24/18 at 09:00 BEBO MCCABE Apr 24, 2018 09:07
[2018-04-24] MEDS ORDERED: LORAZEPAM 1 MG TAB PO PRN (12:00)
[2018-04-24] MEDS ORDERED: morphine 2 MG INJ IV PRN (12:00)
[2018-04-24] MEDS: morphine SULFATE/PF (2 MG/2 ML) SYG IV PRN ×3 (12:56→21:04)
--- NOTE | 2018-04-24 13:40 | CONS ---
Date/Time of Note Date/Time of Note DATE: 04/24/18 TIME: 13:40 Assessment/Plan Assessment/Plan Hospital Course 58-year-old male with past medical history of end-stage renal disease on hemodialysis, diabetes, hypertension who presents with cough, fevers and chills. As per the medical chart and discussion with family at bedside, patient with cough over the past few days. Yesterday, the day of admission, patient with s evere sweating and shortness of breath. There is no chest pain. Because of worsening symptoms, patient brought to the emergency room. Initially patient was put on BiPAP but progressed and worsened and was later intubated. Patient transferred to ICU. Initially, patient also with systolic blood pressures above 200. Patient currently sedated and intubated and family at bedside Renal has been consulted for HD need, pt regular schedule for HD is MWF Assessment/Plan 1. ESRD on HD MWF 2. Acute hypoxemic and hypercapnic respiratory failure secondary to pneumonia on COPD- Intubated on ventilator 3. acute NSTEMI 4. Hypertensive urgency: BP better controlled 5. Diabetes: Plan: see in ICU, IV abx for PNA, BP stable, s/p pulmonary consult s/p HD yesterday , will continue pt on MWF schedule S/o Cardiology consult for NSTEMI will follow up Result Diagram: 04/24/18 0422 04/24/18 0422 Results 24hrs Laboratory Tests Test 04/23/18 16:48 04/23/18 18:22 04/23/18 20:32 04/23/18 20:40 Bedside Glucose 105 108 Activated 87.4 *H Partial Thromboplast Time Urine Opiates Screen Negative Urine Barbiturates Negative Urine Amphetamines Negative Screen Urine Benzodiazepines Positive Screen Urine Cocaine Screen Negative Urine Cannabinoids Positive Test 04/24/18 00:48 04/24/18 01:39 04/24/18 04:22 04/24/18 05:09 Bedside Glucose 119 165 Activated 66.8 H Partial Thromboplast Time White Blood Count 5.2 # Red Blood Count 2.96 L Hemoglobin 9.2 L Hematocrit 26.7 L Mean Corpuscular Volume 90.2 Mean Corpuscular 31.1 Hemoglobin Mean Corpuscular 34.5 Hemoglobin Concent Red Cell Distribution 13.3 Width Platelet Count 167 Mean Platelet Volume 11.3 H Immature Granulocytes % 0.400 Neutrophils % 67.9 Lymphocytes % 17.2 Monocytes % 8.3 Eosinophils % 5.6 Basophils % 0.6 Nucleated Red Blood 0.0 Cells % Immature Granulocytes # 0.020 Neutrophils # 3.5 Lymphocytes # 0.9 Monocytes # 0.4 Eosinophils # 0.3 Basophils # 0.0 Nucleated Red Blood 0.0 Cells # Sodium Level 139 Potassium Level 4.8 Chloride Level 96 L Carbon Dioxide Level 31 Anion Gap 12 Blood Urea Nitrogen 30 #H Creatinine 7.77 #H Est Glomerular Filtrat 7 L Rate mL/min Glucose Level 155 Calcium Level 8.3 L Phosphorus Level 4.4 Magnesium Level 2.0 Troponin I 1.980 *H Test 04/24/18 08:32 04/24/18 08:38 Bedside Glucose 167 Activated 56.1 H Partial Thromboplast Time Consultation Date/Type/Reason Admit Date/Time Apr 22, 2018 at 21:33 Initial Consult Date 04/23/18 Type of Consult NEPHROLOGY Requesting Provider: JUVENTINO CARVER Exam/Review of Systems Vital Signs Vitals Vital Signs Date Temp Pulse Resp B/P (MAP) Pulse Ox O2 O2 Flow FiO2 Time Delivery Rate 04/24/18 97 17 141/87 95 12:30 (105) 04/24/18 98.4 Mechanical 12:00 Ventilator 04/24/18 3.0 12:00 04/24/18 30 09:30 Intake and Output 04/23/18 04/23/18 04/24/18 1515:00 23:00 07:00 IntakeIntake Total 703.40 ml 473.92 ml 478.86 ml OutputOutput Total 14 ml 31 ml 2405 ml BalanceBalance 689.40 ml 442.92 ml -1926.14 ml Exam Constitutional: non-verbal Head: normocephalic, other (ET tube in place ) Eyes: nl conjunctiva Neck: supple, non-tender Respiratory: congested cough, crackles/rales, diminished breath sounds Cardiovascular: regular rate and rhythm Gastrointestinal: soft, non-tender Extremities: normal pulses Neurological: other (sedated intubated on ventilator ) Medications Medications Current Medications Ondansetron HCl (Zofran Inj) 4 mg Q6H PRN IV NAUSEA AND/OR VOMITING; Start 04/22/18 at 22:30 Acetaminophen (Tylenol Liquid) 650 mg Q6H PRN PO PAIN LEVEL 1-3 OR FEVER; Start 04/22/18 at 22:30 Labetalol HCl (Labetalol) 10 mg Q2H PRN IV SBP > 165; Start 04/22/18 at 22:30 Diagnostic Test (Pha) (Accu-Chek) 1 ea 02 XX Last administered on 04/24/18at 01:09; Admin Dose 1 EA; Start 04/23/18 at 02:00 Miscellaneous Information 1 ea NOTE XX ; Start 04/22/18 at 23:00 Glucose (Glutose) 15 gm Q15M PRN PO DECREASED GLUCOSE; Start 04/22/18 at 23:00 Glucose (Glutose) 22.5 gm Q15M PRN PO DECREASED GLUCOSE; Start 04/22/18 at 23:00 Dextrose (D50w Syringe) 25 ml Q15M PRN IV DECREASED GLUCOSE; Start 04/22/18 at 23:00 Dextrose (D50w Syringe) 50 ml Q15M PRN IV DECREASED GLUCOSE; Start 04/22/18 at 23:00 Glucagon (Glucagen) 1 mg Q15M PRN IM DECREASED GLUCOSE; Start 04/22/18 at 23:00 Glucose (Glutose) 15 gm Q15M PRN BUCCAL DECREASED GLUCOSE; Start 04/22/18 at 23:00 Levofloxacin/ Dextrose 100 ml @ 100 mls/hr Q48H IVPB Last administered on 04/23/18at 09:03; Admin Dose 100 MLS/HR; Start 04/23/18 at 08:30 Heparin Sodium (Porcine) (Heparin (1000 Units/ml)) 4,000 unit PER PROTOCOL PRN IV HEPARIN PROTOCOL; Start 04/23/18 at 10:30 Heparin Sodium (Porcine) 250 ml @ 11.5 mls/hr PER PROTOCOL IV Last administered on 04/24/18at 09:52; Admin Dose 11.5 MLS/HR; Start 04/23/18 at 10:30 Heparin Sodium (Porcine) (Heparin (1000 Units/ml)) 4,000 unit AFTER DIALYSIS CATHETER ; Start 04/23/18 at 13:30 Albumin Human 50 ml @ 100 mls/hr WITH DIALYSIS PRN IV for SBP less than 90 mm hg ; Start 04/23/18 at 13:30 Sodium Chloride (NS) -To prime the dialy... DIRECTED FOR HD PRN IV for SBP less than 90 mm hg ; Start 04/23/18 at 13:30 Aspirin (Aspirin) 81 mg DAILY NGT Last administered on 04/24/18 08:53; Admin Dose 81 MG; Start 04/24/18 at 09:00 Atorvastatin Calcium (Lipitor) 80 mg HS PO Last administered on 04/23/18 20:33; Admin Dose 80 MG; Start 04/23/18 at 21:00 Metoprolol Tartrate (Lopressor) 25 mg BID GTB Last administered on 04/24/18 08:54; Admin Dose 25 MG; Start 04/23/18 at 15:00 Hydralazine HCl (Apresoline) 10 mg Q4H PRN IV SBP greater than 165 Last administered on 04/24/18 04:11; Admin Dose 10 MG; Start 04/23/18 at 15:00 Lansoprazole (Prevacid) 30 mg DAILY@06 NGT Last administered on 04/24/18 05:06; Admin Dose 30 MG; Start 04/24/18 at 06:00 Propofol 100 ml @ 2.631 mls/ hr Q12H IV Last administered on 04/24/18 06:12; Admin Dose 26.31 MLS/HR; Start 04/23/18 at 22:00 Clopidogrel Bisulfate (plaVIX) 75 mg DAILY NGT Last administered on 04/24/18 08:53; Admin Dose 75 MG; Start 04/24/18 at 09:00 Insulin Aspart (Novolog Insulin Pen) NOVOLOG *MILD* ALGORITHM WITH MEALS BEDTIME SC ; Start 04/24/18 at 17:35 Lorazepam (Ativan) 1 mg Q8H PRN PO AGITATION/ANXIETY Last administered on 04/24/18 12:29; Admin Dose 1 MG; Start 04/24/18 at 12:00 Morphine Sulfate (morphine SULFATE (PF)) 2 mg Q4H PRN IV SEVERE PAIN LEVEL 7-10 Last administered on 04/24/18 12:56; Admin Dose 2 MG; Start 04/24/18 at 12:30 NORMA SAUER MD Apr 24, 2018 13:40
--- NOTE | 2018-04-24 17:21 | PN ---
Date/Time of Note Date/Time of Note DATE: 04/24/18 TIME: 17:19 Assessment/Plan VTE Prophylaxis Risk score (from [facility])>0 risk: 8 SCD applied (from [facility]): Yes Pharmacological prophylaxis: heparin Lines/Catheters Urinary Cath still in place: No Assessment/Plan Hospital Course 1. Acute hypoxemic and hypercapnic respiratory failure secondary to pneumonia on COPDresolved -Patient extubated this morning -Levaquin IV 2. NSTEMI -Heparin drip -Cardiology consultation appreciated, medical management for now with possible heart cath during this admission 3. Hypertensive urgency: BP better controlled -Adjust antihypertensive as needed 4. ESRD on HD -Nephrology consultation obtained 5. Diabetes: -Insulin while in-house Prophylaxis: Heparin DC planning: Downgrade to telemetry Result Diagram: 04/24/1842104/24/182 Results 24hrs Laboratory Tests Test 04/23/18 18:22 04/23/18 20:32 04/23/18 20:40 04/24/18 00:48 Activated 87.4 *H Partial Thromboplast Time Bedside Glucose 108 119 Urine Opiates Screen Negative Urine Barbiturates Negative Urine Amphetamines Negative Screen Urine Benzodiazepines Positive Screen Urine Cocaine Screen Negative Urine Cannabinoids Positive Test 04/24/18 01:39 04/24/18 04:22 04/24/18 05:09 04/24/18 08:32 Activated 66.8 H Partial Thromboplast Time White Blood Count 5.2 # Red Blood Count 2.96 L Hemoglobin 9.2 L Hematocrit 26.7 L Mean Corpuscular Volume 90.2 Mean Corpuscular 31.1 Hemoglobin Mean Corpuscular 34.5 Hemoglobin Concent Red Cell Distribution 13.3 Width Platelet Count 167 Mean Platelet Volume 11.3 H Immature Granulocytes % 0.400 Neutrophils % 67.9 Lymphocytes % 17.2 Monocytes % 8.3 Eosinophils % 5.6 Basophils % 0.6 Nucleated Red Blood 0.0 Cells % Immature Granulocytes # 0.020 Neutrophils # 3.5 Lymphocytes # 0.9 Monocytes # 0.4 Eosinophils # 0.3 Basophils # 0.0 Nucleated Red Blood 0.0 Cells # Sodium Level 139 Potassium Level 4.8 Chloride Level 96 L Carbon Dioxide Level 31 Anion Gap 12 Blood Urea Nitrogen 30 #H Creatinine 7.77 #H Est Glomerular Filtrat 7 L Rate mL/min Glucose Level 155 Calcium Level 8.3 L Phosphorus Level 4.4 Magnesium Level 2.0 Troponin I 1.980 *H Bedside Glucose 165 167 Test 04/24/18 08:38 04/24/18 14:52 Activated 56.1 H 55.3 H Partial Thromboplast Time Subjective 24 Hr Interval Summary Constitutional: no complaints Exam/Review of Systems Vital Signs Vitals Vital Signs Date Temp Pulse Resp B/P (MAP) Pulse Ox O2 O2 Flow FiO2 Time Delivery Rate 04/24/18 99 19 155/83 96 Mechanical 15:00 (107) Ventilator 04/24/18 98.4 12:00 04/24/18 3.0 12:00 04/24/18 30 09:30 Intake and Output 04/23/18 04/23/18 04/24/18 1515:00 23:00 07:00 IntakeIntake Total 703.40 ml 473.92 ml 478.86 ml OutputOutput Total 14 ml 31 ml 2405 ml BalanceBalance 689.40 ml 442.92 ml -1926.14 ml Exam Constitutional: alert, oriented Respiratory: clear to auscultation Cardiovascular: regular rate and rhythm Gastrointestinal: soft; No distended Musculoskeletal: nl extremities to inspection Medications Medications Current Medications Ondansetron HCl (Zofran Inj) 4 mg Q6H PRN IV NAUSEA AND/OR VOMITING; Start 04/22/18 at 22:30 Acetaminophen (Tylenol Liquid) 650 mg Q6H PRN PO PAIN LEVEL 1-3 OR FEVER Last administered on 04/24/18at 16:58; Admin Dose 650 MG; Start 04/22/18 at 22:30 Labetalol HCl (Labetalol) 10 mg Q2H PRN IV SBP > 165; Start 04/22/18 at 22:30 Diagnostic Test (Pha) (Accu-Chek) 1 ea 02 XX Last administered on 04/24/18at 01 :09; Admin Dose 1 EA; Start 04/23/18 at 02:00 Miscellaneous Information 1 ea NOTE XX ; Start 04/22/18 at 23:00 Glucose (Glutose) 15 gm Q15M PRN PO DECREASED GLUCOSE; Start 04/22/18 at 23:00 Glucose (Glutose) 22.5 gm Q15M PRN PO DECREASED GLUCOSE; Start 04/22/18 at 23:00 Dextrose (D50w Syringe) 25 ml Q15M PRN IV DECREASED GLUCOSE; Start 04/22/18 at 23:00 Dextrose (D50w Syringe) 50 ml Q15M PRN IV DECREASED GLUCOSE; Start 04/22/18 at 23:00 Glucagon (Glucagen) 1 mg Q15M PRN IM DECREASED GLUCOSE; Start 04/22/18 at 23:00 Glucose (Glutose) 15 gm Q15M PRN BUCCAL DECREASED GLUCOSE; Start 04/22/18 at 23:00 Levofloxacin/ Dextrose 100 ml @ 100 mls/hr Q48H IVPB Last administered on 04/23/18at 09:03; Admin Dose 100 MLS/HR; Start 04/23/18 at 08:30 Heparin Sodium (Porcine) (Heparin (1000 Units/ml)) 4,000 unit PER PROTOCOL PRN IV HEPARIN PROTOCOL; Start 04/23/18 at 10:30 Heparin Sodium (Porcine) 250 ml @ 11.5 mls/hr PER PROTOCOL IV Last administered on 04/24/18at 09:52; Admin Dose 11.5 MLS/HR; Start 04/23/18 at 10:30 Heparin Sodium (Porcine) (Heparin (1000 Units/ml)) 4,000 unit AFTER DIALYSIS CATHETER ; Start 04/23/18 at 13:30 Albumin Human 50 ml @ 100 mls/hr WITH DIALYSIS PRN IV for SBP less than 90 mm hg ; Start 04/23/18 at 13:30 Sodium Chloride (NS) -To prime the dialy... DIRECTED FOR HD PRN IV for SBP less than 90 mm hg ; Start 04/23/18 at 13:30 Aspirin (Aspirin) 81 mg DAILY NGT Last administered on 04/24/18at 08:53; Admin Dose 81 MG; Start 04/24/18 at 09:00 Atorvastatin Calcium (Lipitor) 80 mg HS PO Last administered on 04/23/18at 20:33; Admin Dose 80 MG; Start 04/23/18 at 21:00 Metoprolol Tartrate (Lopressor) 25 mg BID GTB Last administered on 04/24/18at 08:54; Admin Dose 25 MG; Start 04/23/18 at 15:00 Hydralazine HCl (Apresoline) 10 mg Q4H PRN IV SBP greater than 165 Last administered on 04/24/18at 04:11; Admin Dose 10 MG; Start 04/23/18 at 15:00 Lansoprazole (Prevacid) 30 mg DAILY@06 NGT Last administered on 04/24/18at 05:06; Admin Dose 30 MG; Start 04/24/18 at 06:00 Propofol 100 ml @ 2.631 mls/ hr Q12H IV Last administered on 04/24/18 06:12; Admin Dose 26.31 MLS/HR; Start 04/23/18 at 22:00 Clopidogrel Bisulfate (plaVIX) 75 mg DAILY NGT Last administered on 04/24/18at 08:53; Admin Dose 75 MG; Start 04/24/18 at 09:00 Insulin Aspart (Novolog Insulin Pen) NOVOLOG *MILD* ALGORITHM WITH MEALS BEDTIME SC ; Start 04/24/18 at 17:35 Lorazepam (Ativan) 1 mg Q8H PRN PO AGITATION/ANXIETY Last administered on 04/24/18at 12:29; Admin Dose 1 MG; Start 04/24/18 at 12:00 Morphine Sulfate (morphine SULFATE (PF)) 2 mg Q4H PRN IV SEVERE PAIN LEVEL 7-10 Last administered on 04/24/18at 16:57; Admin Dose 2 MG; Start 04/24/18 at 12:30 JUVENTINO CARVER Apr 24, 2018 17:21
--- NOTE | 2018-04-24 19:34 | RADRPT ---
Vent Rate: 61 bpm RR Interval: 0 msec HI Interval: 154 msec QRS Duration: 84 msec QT Interval: 478 msec QTC Interval: 481 msec P-R-T [place]: 48 - 61 - 21 degrees Normal sinus rhythm Nonspecific ST and T wave abnormality Prolonged QT Abnormal ECG Electronically Signed By: Armin Lezama [id number]
[2018-04-24] MEDS: ATORVASTATIN 80 MG TAB PO SCH (20:31)
[2018-04-25] VITALS (26 sets, daily range): BP systolic 111–188; BP diastolic 64–97; PULSE 78–95; RESP 18–20
[2018-04-25] MEDS ORDERED: ONDANSETRON 4 MG TAB PO PRN
[2018-04-25] MEDS: DOCUSATE SODIUM 100 MG CAP PO SCH ×3 (00:16→20:13)
[2018-04-25] MEDS: ACCU-CHEK XX SCH ×5 (02:00→20:14)
[2018-04-25] MEDS: morphine SULFATE/PF (2 MG/2 ML) SYG IV PRN ×3 (02:59→13:45)
[2018-04-25] MEDS: PANTOPRAZOLE (EC) 40 MG TAB PO SCH (06:23)
[2018-04-25] MEDS: INSULIN ASPART [NOVOLOG] 3 ML PEN SC SCH ×4 (07:53→20:14)
[2018-04-25] MEDS: CALCIUM ACETATE 667 MG CAP PO SCH ×3 (07:54→17:10)
[2018-04-25] MEDS: ASPIRIN 81 MG TAB NGT SCH (07:55)
[2018-04-25] MEDS: CLOPIDOGREL 75 MG TAB NGT SCH (07:55)
[2018-04-25] MEDS: METOPROLOL 25 MG TAB GTB SCH (07:58)
[2018-04-25] MEDS: LEVOFLOXACIN 500MG/D5W (PMX) 100 ML IVPB SCH (07:59)
[2018-04-25] MEDS: ASPIRIN (EC) 81 MG TAB PO SCH (09:00)
[2018-04-25] MEDS: METOPROLOL 100 MG TAB PO SCH ×2 (09:00→20:14)
[2018-04-25] MEDS: QUETIAPINE 25 MG TAB PO SCH ×2 (09:21→20:14)
[2018-04-25] MEDS: LINAGLIPTIN 5 MG TABLET PO SCH (09:21)
[2018-04-25] MEDS: NIFEdipine (XL) 30 MG TAB PO SCH ×2 (09:21→20:13)
--- NOTE | 2018-04-25 09:31 | CONS ---
Date/Time of Note Date/Time of Note DATE: 04/25/18 TIME: 09:29 Assessment/Plan Assessment/Plan Assessment/Plan Chest x-ray was reviewed from today which is showing mild interstitial prominence. Assessment recommendations; 1. Patient admitted with acute respiratory failure requiring intubation status post extubation with marked improvement in overall clinical status. 2. Exudative hypertension likely causing some element of diastolic dysfunction contributing to pulmonary edema. 3. Possibly some element of underlying interstitial lung disease. 4. Chronic renal failure, on hemodialysis. 5. Non-ST elevation CA. 6. Mild anemia and thrombocytopenia. 7. History of depression. 8. Difficult to rule out pneumonia. Continue current supportive care. Patient responding very well to current treatment regimen. Further recommendations per admissions assistant and extruding machine operator. Result Diagram: 04/25/18 0535 04/25/18 0535 Results 24hrs Laboratory Tests Test 04/24/18 14:52 04/24/18 17:58 04/24/18 20:28 04/25/18 05:35 Activated 55.3 H Partial Thromboplast Time Bedside Glucose 90 137 White Blood Count 5.4 Red Blood Count 2.83 L Hemoglobin 8.6 L Hematocrit 26.1 L Mean Corpuscular Volume 92.2 Mean Corpuscular 30.4 Hemoglobin Mean Corpuscular 33.0 Hemoglobin Concent Red Cell Distribution 13.2 Width Platelet Count 169 Mean Platelet Volume 10.9 H Immature Granulocytes % 0.400 Neutrophils % 63.1 Lymphocytes % 20.1 Monocytes % 9.7 Eosinophils % 6.0 Basophils % 0.7 Nucleated Red Blood 0.0 Cells % Immature Granulocytes # 0.020 Neutrophils # 3.4 Lymphocytes # 1.1 Monocytes # 0.5 Eosinophils # 0.3 Basophils # 0.0 Nucleated Red Blood 0.0 Cells # Sodium Level 140 Potassium Level 5.0 Chloride Level 98 Carbon Dioxide Level 28 Anion Gap 14 H Blood Urea Nitrogen 42 #H Creatinine 10.24 #H Est Glomerular Filtrat 5 L Rate mL/min Glucose Level 86 # Calcium Level 8.4 Magnesium Level 2.1 Total Bilirubin 0.0 L Direct Bilirubin 0.00 Indirect Bilirubin 0.0 Aspartate Amino 14 L Transf (AST/SGOT) Alanine 16 Aminotransferase (ALT/SG PT) Alkaline Phosphatase 77 Creatine Kinase 128 Creatine Kinase Index 3.4 Creatinine Kinase MB 4.39 H (Mass) Troponin I 1.200 *H Total Protein 6.6 Albumin 3.6 Globulin 3.00 Albumin/Globulin Ratio 1.20 Triglycerides Level 203 H Cholesterol Level 113 LDL Cholesterol, 56 Calculated HDL Cholesterol 16 L Cholesterol/HDL Ratio 7.0 Test 04/25/18 07:52 Bedside Glucose 90 Consultation Date/Type/Reason Admit Date/Time Apr 22, 2018 at 21:33 Initial Consult Date 04/23/18 Type of Consult Pulmonary/critical care Requesting Provider: JUVENTINO CARVER 24 HR Interval Summary Free Text/Dictation Patient's condition is markedly improved. Was successfully extubated yesterday. Patient also has been transferred to telemetry unit. Denies any shortness breath, chest pain. General exam; middle-aged male, awake and alert. Ambulating in the room. Currently in no distress. Exam/Review of Systems Vital Signs Vitals Vital Signs Date Temp Pulse Resp B/P (MAP) Pulse Ox O2 O2 Flow FiO2 Time Delivery Rate 04/25/18 86 08:15 04/25/18 2.0 05:38 04/25/18 98.6 18 148/74 97 04:10 (98) 04/25/18 Nasal 00:00 Cannula 04/24/18 30 09:30 Intake and Output 04/24/18 04/24/18 04/25/18 1515:00 23:00 07:00 IntakeIntake Total 427.91 ml 378.8 ml 280 ml OutputOutput Total 0 ml 0 ml 0 ml BalanceBalance 427.91 ml 378.8 ml 280 ml Exam HEENT exam; supple neck, no JVD. No lymphadenopathy. Midline trachea. No thyromegaly. Patient has fair dentition. No neck masses. Chest exam; clear to auscultation. S1-S2 audible, no murmurs. Regular rhythm. Abdomen exam; soft, nontender. No organomegaly. Bowel sounds audible. Extremity exam; no peripheral edema or clubbing. COMPUTER PATTERNMAKER exam; no focal deficit. Medications Medications Current Medications Ondansetron HCl (Zofran Inj) 4 mg Q6H PRN IV NAUSEA AND/OR VOMITING; Start 04/22/18 at 22:30 Acetaminophen (Tylenol Liquid) 650 mg Q6H PRN PO PAIN LEVEL 1-3 OR FEVER Last administered on 04/24/18at 16:58; Admin Dose 650 MG; Start 04/22/18 at 22:30 Labetalol HCl (Labetalol) 10 mg Q2H PRN IV SBP > 165; Start 04/22/18 at 22:30 Diagnostic Test (Pha) (Accu-Chek) 1 ea 02 XX Last administered on 04/24/18at 01:09; Admin Dose 1 EA; Start 04/23/18 at 02:00 Miscellaneous Information 1 ea NOTE XX ; Start 04/22/18 at 23:00 Glucose (Glutose) 15 gm Q15M PRN PO DECREASED GLUCOSE; Start 04/22/18 at 23:00 Glucose (Glutose) 22.5 gm Q15M PRN PO DECREASED GLUCOSE; Start 04/22/18 at 23:00 Dextrose (D50w Syringe) 25 ml Q15M PRN IV DECREASED GLUCOSE; Start 04/22/18 at 23:00 Dextrose (D50w Syringe) 50 ml Q15M PRN IV DECREASED GLUCOSE; Start 04/22/18 at 23:00 Glucagon (Glucagen) 1 mg Q15M PRN IM DECREASED GLUCOSE; Start 04/22/18 at 23:00 Glucose (Glutose) 15 gm Q15M PRN BUCCAL DECREASED GLUCOSE; Start 04/22/18 at 23:00 Levofloxacin/ Dextrose 100 ml @ 100 mls/hr Q48H IVPB Last administered on 04/25/18at 07:59; Admin Dose 100 MLS/HR; Start 04/23/18 at 08:30 Heparin Sodium (Porcine) (Heparin (1000 Units/ml)) 4,000 unit PER PROTOCOL PRN IV HEPARIN PROTOCOL; Start 04/23/18 at 10:30 Heparin Sodium (Porcine) (Heparin (1000 Units/ml)) 4,000 unit AFTER DIALYSIS CATHETER ; Start 04/23/18 at 13:30 Albumin Human 50 ml @ 100 mls/hr WITH DIALYSIS PRN IV for SBP less than 90 mm hg ; Start 04/23/18 at 13:30 Sodium Chloride (NS) -To prime the dialy... DIRECTED FOR HD PRN IV for SBP less than 90 mm hg ; Start 04/23/18 at 13:30 Aspirin (Aspirin) 81 mg DAILY NGT Last administered on 04/25/18at 07:55; Admin Dose 81 MG; Start 04/24/18 at 09:00 Atorvastatin Calcium (Lipitor) 80 mg HS PO Last administered on 04/24/18at 20:31; Admin Dose 80 MG; Start 04/23/18 at 21:00 Metoprolol Tartrate (Lopressor) 25 mg BID GTB Last administered on 04/25/18at 07:58; Admin Dose 25 MG; Start 04/23/18 at 15:00 Hydralazine HCl (Apresoline) 10 mg Q4H PRN IV SBP greater than 165 Last administered on 04/24/18at 04:11; Admin Dose 10 MG; Start 04/23/18 at 15:00 Clopidogrel Bisulfate (plaVIX) 75 mg DAILY NGT Last administered on 04/25/18at 07:55; Admin Dose 75 MG; Start 04/24/18 at 09:00 Insulin Aspart (Novolog Insulin Pen) NOVOLOG *MILD* ALGORITHM WITH MEALS BEDTIME SC ; Start 04/24/18 at 17:35 Morphine Sulfate (morphine SULFATE (PF)) 2 mg Q4H PRN IV SEVERE PAIN LEVEL 7-10 Last administered on 04/25/18at 07:59; Admin Dose 2 MG; Start 04/24/18 at 12:30 Aspirin (Halfprin) 81 mg DAILY PO ; Start 04/25/18 at 09:00 Atorvastatin Calcium (Lipitor) 80 mg QHS PO ; Start 04/25/18 at 21:00 Calcium Acetate (Phoslo) 2,668 mg WITH MEALS PO Last administered on 04/25/18at 07:54; Admin Dose 2,668 MG; Start 04/25/18 at 08:00 Clonazepam (Klonopin) 0.5 mg QHS PO ; Start 04/25/18 at 21:00 Docusate Sodium (Colace) 100 mg Q12H PO Last administered on 04/25/18at 00:16; Admin Dose 100 MG; Start 04/25/18 at 00:00 Linagliptin (Tradjenta) 5 mg DAILY PO Last administered on 04/25/18at 09:21; Admin Dose 5 MG; Start 04/25/18 at 09:00 Metoprolol Tartrate (Lopressor) 100 mg BID PO ; Start 04/25/18 at 09:00 Nifedipine (Procardia Xl) 30 mg BID PO Last administered on 04/25/18at 09:21; Admin Dose 30 MG; Start 04/25/18 at 09:00 Ondansetron HCl (Zofran Tab) 4 mg Q8H PRN PO NAUSEA AND/OR VOMITING; Start 04/25/18 at 00:00 Pantoprazole (Protonix Tab) 40 mg DAILY@0600 PO Last administered on 04/25/18at 06:23; Admin Dose 40 MG; Start 04/25/18 at 06:00 Paroxetine HCl (Paxil) 20 mg HS PO ; Start 04/25/18 at 21:00 Quetiapine Fumarate (Seroquel) 25 mg BID PO Last administered on 04/25/18at 09: 21; Admin Dose 25 MG; Start 04/25/18 at 09:00 Diagnostic Test (Pha) (Accu-Chek) 1 ea AC MEALS AND BEDTIME XX ; Start 04/25/18 at 07:00 BEBO MCCABE Apr 25, 2018 09:31
--- NOTE | 2018-04-25 14:37 | PN ---
Date/Time of Note Date/Time of Note DATE: 04/25/18 TIME: 14:35 Assessment/Plan VTE Prophylaxis Risk score (from Nsg)>0 risk: 9 Pharmacological prophylaxis: heparin Lines/Catheters Urinary Cath still in place: No Assessment/Plan Hospital Course 1. Acute hypoxemic and hypercapnic respiratory failure secondary to pneumonia and/or fluid overload on COPDresolved -Patient extubated and doing well -Levaquin IV -Continue HD 2. NSTEMI-stabilizing -Heparin drip -Cardiology consultation appreciated, medical management for now -Troponins have trended down 3. Hypertensive urgency: BP better controlled -Adjust antihypertensive as needed 4. ESRD on HD -Nephrology consultation appreciated, continue HD 5. Diabetes: -Insulin while in-house Prophylaxis: Heparin DC planning: Dialysis today, anticipate DC home tomorrow if no heart cath planned Result Diagram: 04/25/18 0535 04/25/18 0535 Results 24hrs Laboratory Tests Test 04/24/18 14:52 04/24/18 17:58 04/24/18 20:28 04/25/18 05:35 Activated 55.3 H Partial Thromboplast Time Bedside Glucose 90 137 White Blood Count 5.4 Red Blood Count 2.83 L Hemoglobin 8.6 L Hematocrit 26.1 L Mean Corpuscular Volume 92.2 Mean Corpuscular 30.4 Hemoglobin Mean Corpuscular 33.0 Hemoglobin Concent Red Cell Distribution 13.2 Width Platelet Count 169 Mean Platelet Volume 10.9 H Immature Granulocytes % 0.400 Neutrophils % 63.1 Lymphocytes % 20.1 Monocytes % 9.7 Eosinophils % 6.0 Basophils % 0.7 Nucleated Red Blood 0.0 Cells % Immature Granulocytes # 0.020 Neutrophils # 3.4 Lymphocytes # 1.1 Monocytes # 0.5 Eosinophils # 0.3 Basophils # 0.0 Nucleated Red Blood 0.0 Cells # Sodium Level 140 Potassium Level 5.0 Chloride Level 98 Carbon Dioxide Level 28 Anion Gap 14 H Blood Urea Nitrogen 42 #H Creatinine 10.24 #H Est Glomerular Filtrat 5 L Rate mL/min Glucose Level 86 # Calcium Level 8.4 Magnesium Level 2.1 Total Bilirubin 0.0 L Direct Bilirubin 0.00 Indirect Bilirubin 0.0 Aspartate Amino 14 L Transf (AST/SGOT) Alanine 16 Aminotransferase (ALT/SG PT) Alkaline Phosphatase 77 Creatine Kinase 128 Creatine Kinase Index 3.4 Creatinine Kinase MB 4.39 H (Mass) Troponin I 1.200 *H Total Protein 6.6 Albumin 3.6 Globulin 3.00 Albumin/Globulin Ratio 1.20 Triglycerides Level 203 H Cholesterol Level 113 LDL Cholesterol, 56 Calculated HDL Cholesterol 16 L Cholesterol/HDL Ratio 7.0 Test 04/25/18 07:52 04/25/18 11:20 Bedside Glucose 90 94 Subjective 24 Hr Interval Summary Gastrointestinal: nausea Exam/Review of Systems Vital Signs Vitals Vital Signs Date Temp Pulse Resp B/P (MAP) Pulse Ox O2 O2 Flow FiO2 Time Delivery Rate 04/25/18 78 12:05 04/25/18 98.8 20 122/70 94 Room Air 11:33 (87) 04/25/18 2.0 11:31 04/24/18 30 09:30 Intake and Output 04/24/18 04/24/18 04/25/18 1515:00 23:00 07:00 IntakeIntake Total 427.91 ml 378.8 ml 280 ml OutputOutput Total 0 ml 0 ml 0 ml BalanceBalance 427.91 ml 378.8 ml 280 ml Exam Constitutional: alert, oriented Respiratory: clear to auscultation Cardiovascular: regular rate and rhythm Gastrointestinal: soft; No distended Musculoskeletal: nl extremities to inspection Medications Medications Current Medications Ondansetron HCl (Zofran Inj) 4 mg Q6H PRN IV NAUSEA AND/OR VOMITING; Start 04/22/18 at 22:30 Acetaminophen (Tylenol Liquid) 650 mg Q6H PRN PO PAIN LEVEL 1-3 OR FEVER Last administered on 04/24/18at 16:58; Admin Dose 650 MG; Start 04/22/18 at 22:30 Labetalol HCl (Labetalol) 10 mg Q2H PRN IV SBP > 165; Start 04/22/18 at 22:30 Diagnostic Test (Pha) (Accu-Chek) 1 ea 02 XX Last administered on 04/24/18at 01:09; Admin Dose 1 EA; Start 04/23/18 at 02:00 Miscellaneous Information 1 ea NOTE XX ; Start 04/22/18 at 23:00 Glucose (Glutose) 15 gm Q15M PRN PO DECREASED GLUCOSE; Start 04/22/18 at 23:00 Glucose (Glutose) 22.5 gm Q15M PRN PO DECREASED GLUCOSE; Start 04/22/18 at 23:00 Dextrose (D50w Syringe) 25 ml Q15M PRN IV DECREASED GLUCOSE; Start 04/22/18 at 23:00 Dextrose (D50w Syringe) 50 ml Q15M PRN IV DECREASED GLUCOSE; Start 04/22/18 at 23:00 Glucagon (Glucagen) 1 mg Q15M PRN IM DECREASED GLUCOSE; Start 04/22/18 at 23:00 Glucose (Glutose) 15 gm Q15M PRN BUCCAL DECREASED GLUCOSE; Start 04/22/18 at 23:00 Levofloxacin/ Dextrose 100 ml @ 100 mls/hr Q48H IVPB Last administered on 04/25/18at 07:59; Admin Dose 100 MLS/HR; Start 04/23/18 at 08:30 Heparin Sodium (Porcine) (Heparin (1000 Units/ml)) 4,000 unit PER PROTOCOL PRN IV HEPARIN PROTOCOL; Start 04/23/18 at 10:30 Heparin Sodium (Porcine) (Heparin (1000 Units/ml)) 4,000 unit AFTER DIALYSIS CATHETER ; Start 04/23/18 at 13:30 Albumin Human 50 ml @ 100 mls/hr WITH DIALYSIS PRN IV for SBP less than 90 mm hg ; Start 04/23/18 at 13:30 Sodium Chloride (NS) -To prime the dialy... DIRECTED FOR HD PRN IV for SBP less than 90 mm hg ; Start 04/23/18 at 13:30 Aspirin (Aspirin) 81 mg DAILY NGT Last administered on 04/25/18at 07:55; Admin Dose 81 MG; Start 04/24/18 at 09:00 Atorvastatin Calcium (Lipitor) 80 mg HS PO Last administered on 04/24/18at 20:31; Admin Dose 80 MG; Start 04/23/18 at 21:00 Metoprolol Tartrate (Lopressor) 25 mg BID GTB Last administered on 04/25/18at 07:58; Admin Dose 25 MG; Start 04/23/18 at 15:00 Hydralazine HCl (Apresoline) 10 mg Q4H PRN IV SBP greater than 165 Last administered on 04/24/18at 04:11; Admin Dose 10 MG; Start 04/23/18 at 15:00 Clopidogrel Bisulfate (plaVIX) 75 mg DAILY NGT Last administered on 04/25/18at 07:55; Admin Dose 75 MG; Start 04/24/18 at 09:00 Insulin Aspart (Novolog Insulin Pen) NOVOLOG *MILD* ALGORITHM WITH MEALS BEDTIME SC ; Start 04/24/18 at 17:35 Morphine Sulfate (morphine SULFATE (PF)) 2 mg Q4H PRN IV SEVERE PAIN LEVEL 7-10 Last administered on 04/25/18at 13:45; Admin Dose 2 MG; Start 04/24/18 at 12:30 Aspirin (Halfprin) 81 mg DAILY PO ; Start 04/25/18 at 09:00 Atorvastatin Calcium (Lipitor) 80 mg QHS PO ; Start 04/25/18 at 21:00 Calcium Acetate (Phoslo) 2,668 mg WITH MEALS PO Last administered on 04/25/18at 11:21; Admin Dose 2,668 MG; Start 04/25/18 at 08:00 Clonazepam (Klonopin) 0.5 mg QHS PO ; Start 04/25/18 at 21:00 Docusate Sodium (Colace) 100 mg Q12H PO Last administered on 04/25/18at 11:21; Admin Dose 100 MG; Start 04/25/18 at 00:00 Linagliptin (Tradjenta) 5 mg DAILY PO Last administered on 04/25/18at 09:21; Admin Dose 5 MG; Start 04/25/18 at 09:00 Metoprolol Tartrate (Lopressor) 100 mg BID PO ; Start 04/25/18 at 09:00 Nifedipine (Procardia Xl) 30 mg BID PO Last administered on 04/25/18at 09:21; Admin Dose 30 MG; Start 04/25/18 at 09:00 Ondansetron HCl (Zofran Tab) 4 mg Q8H PRN PO NAUSEA AND/OR VOMITING; Start 04/25/18 at 00:00 Pantoprazole (Protonix Tab) 40 mg DAILY@0600 PO Last administered on 04/25/18at 06:23; Admin Dose 40 MG; Start 04/25/18 at 06:00 Paroxetine HCl (Paxil) 20 mg HS PO ; Start 04/25/18 at 21:00 Quetiapine Fumarate (Seroquel) 25 mg BID PO Last administered on 04/25/18at 09:21; Admin Dose 25 MG; Start 04/25/18 at 09:00 Diagnostic Test (Pha) (Accu-Chek) 1 ea AC MEALS AND BEDTIME XX ; Start 04/25/18 at 07:00 JUVENTINO CARVER Apr 25, 2018 14:36
[2018-04-25] MEDS: hydrALAzine 20 MG INJ IV PRN (17:11)
--- NOTE | 2018-04-25 17:17 | CONS ---
Date/Time of Note Date/Time of Note DATE: 04/25/18 TIME: 17:17 Assessment/Plan Assessment/Plan Assessment/Plan 1. ESRD on HD MWF 2. Acute hypoxemic and hypercapnic respiratory failure secondary to pneumonia on COPD- Intubated on ventilator 3. acute NSTEMI 4. Hypertensive urgency: BP better controlled 5. Diabetes: Plan: s/p HD today 2.5 L removed, Afebrile, , will continue pt on MWF schedule S/o Cardiology consult for NSTEMI will follow up Result Diagram: 04/25/18 0535 04/25/18 0535 Results 24hrs Laboratory Tests Test 04/24/18 17:58 04/24/18 20:28 04/25/18 05:35 04/25/18 07:52 Bedside Glucose 90 137 90 White Blood Count 5.4 Red Blood Count 2.83 L Hemoglobin 8.6 L Hematocrit 26.1 L Mean Corpuscular Volume 92.2 Mean Corpuscular 30.4 Hemoglobin Mean Corpuscular 33.0 Hemoglobin Concent Red Cell Distribution 13.2 Width Platelet Count 169 Mean Platelet Volume 10.9 H Immature Granulocytes % 0.400 Neutrophils % 63.1 Lymphocytes % 20.1 Monocytes % 9.7 Eosinophils % 6.0 Basophils % 0.7 Nucleated Red Blood 0.0 Cells % Immature Granulocytes # 0.020 Neutrophils # 3.4 Lymphocytes # 1.1 Monocytes # 0.5 Eosinophils # 0.3 Basophils # 0.0 Nucleated Red Blood 0.0 Cells # Sodium Level 140 Potassium Level 5.0 Chloride Level 98 Carbon Dioxide Level 28 Anion Gap 14 H Blood Urea Nitrogen 42 #H Creatinine 10.24 #H Est Glomerular Filtrat 5 L Rate mL/min Glucose Level 86 # Calcium Level 8.4 Magnesium Level 2.1 Total Bilirubin 0.0 L Direct Bilirubin 0.00 Indirect Bilirubin 0.0 Aspartate Amino 14 L Transf (AST/SGOT) Alanine 16 Aminotransferase (ALT/SG PT) Alkaline Phosphatase 77 Creatine Kinase 128 Creatine Kinase Index 3.4 Creatinine Kinase MB 4.39 H (Mass) Troponin I 1.200 *H Total Protein 6.6 Albumin 3.6 Globulin 3.00 Albumin/Globulin Ratio 1.20 Triglycerides Level 203 H Cholesterol Level 113 LDL Cholesterol, 56 Calculated HDL Cholesterol 16 L Cholesterol/HDL Ratio 7.0 Test 04/25/18 11:20 04/25/18 17:05 Bedside Glucose 94 87 Consultation Date/Type/Reason Admit Date/Time Apr 22, 2018 at 21:33 Initial Consult Date 04/23/18 Type of Consult NEPHROLOGY Requesting Provider: JUVENTINO CARVER Exam/Review of Systems Vital Signs Vitals Vital Signs Date Temp Pulse Resp B/P (MAP) Pulse Ox O2 O2 Flow FiO2 Time Delivery Rate 04/25/18 93 16:05 04/25/18 18 174/89 99 Nasal 3.0 15:45 (117) Cannula 04/25/18 99.6 15:18 04/24/18 30 09:30 Intake and Output 04/24/18 04/24/18 04/25/18 1515:00 23:00 07:00 IntakeIntake Total 427.91 ml 378.8 ml 280 ml OutputOutput Total 0 ml 0 ml 0 ml BalanceBalance 427.91 ml 378.8 ml 280 ml Exam Constitutional: alert Psych: no complaints Head: normocephalic ENMT: nl external ears & nose Neck: supple, non-tender Respiratory: clear to auscultation, diminished breath sounds Cardiovascular: regular rate and rhythm, nl pulses Gastrointestinal: soft, non-tender Musculoskeletal: nl extremities to inspection Extremities: normal pulses Neurological: SUPPLY CHAIN CONSULTANT II-XII intact, nl mental status, nl speech, nl strength Lymph: nl lymph nodes Medications Medications Current Medications Ondansetron HCl (Zofran Inj) 4 mg Q6H PRN IV NAUSEA AND/OR VOMITING; Start 04/22/18 at 22:30 Acetaminophen (Tylenol Liquid) 650 mg Q6H PRN PO PAIN LEVEL 1-3 OR FEVER Last administered on 04/24/18at 16:58; Admin Dose 650 MG; Start 04/22/18 at 22:30 Labetalol HCl (Labetalol) 10 mg Q2H PRN IV SBP > 165; Start 04/22/18 at 22:30 Diagnostic Test (Pha) (Accu-Chek) 1 ea 02 XX Last administered on 04/24/18at 01:09; Admin Dose 1 EA; Start 04/23/18 at 02:00 Miscellaneous Information 1 ea NOTE XX ; Start 04/22/18 at 23:00 Glucose (Glutose) 15 gm Q15M PRN PO DECREASED GLUCOSE; Start 04/22/18 at 23:00 Glucose (Glutose) 22.5 gm Q15M PRN PO DECREASED GLUCOSE; Start 04/22/18 at 23:00 Dextrose (D50w Syringe) 25 ml Q15M PRN IV DECREASED GLUCOSE; Start 04/22/18 at 23:00 Dextrose (D50w Syringe) 50 ml Q15M PRN IV DECREASED GLUCOSE; Start 04/22/18 at 23:00 Glucagon (Glucagen) 1 mg Q15M PRN IM DECREASED GLUCOSE; Start 04/22/18 at 23:00 Glucose (Glutose) 15 gm Q15M PRN BUCCAL DECREASED GLUCOSE; Start 04/22/18 at 23:00 Levofloxacin/ Dextrose 100 ml @ 100 mls/hr Q48H IVPB Last administered on 04/25/18at 07:59; Admin Dose 100 MLS/HR; Start 04/23/18 at 08:30 Heparin Sodium (Porcine) (Heparin (1000 Units/ml)) 4,000 unit PER PROTOCOL PRN IV HEPARIN PROTOCOL; Start 04/23/18 at 10:30 Heparin Sodium (Porcine) (Heparin (1000 Units/ml)) 4,000 unit AFTER DIALYSIS CATHETER ; Start 04/23/18 at 13:30 Albumin Human 50 ml @ 100 mls/hr WITH DIALYSIS PRN IV for SBP less than 90 mm hg ; Start 04/23/18 at 13:30 Sodium Chloride (NS) -To prime the dialy... DIRECTED FOR HD PRN IV for SBP less than 90 mm hg ; Start 04/23/18 at 13:30 Aspirin (Aspirin) 81 mg DAILY NGT Last administered on 04/25/18at 07:55; Admin Dose 81 MG; Start 04/24/18 at 09:00 Metoprolol Tartrate (Lopressor) 25 mg BID GTB Last administered on 04/25/18at 07:58; Admin Dose 25 MG; Start 04/23/18 at 15:00 Hydralazine HCl (Apresoline) 10 mg Q4H PRN IV SBP greater than 165 Last administered on 04/25/18at 17:11; Admin Dose 10 MG; Start 04/23/18 at 15:00 Clopidogrel Bisulfate (plaVIX) 75 mg DAILY NGT Last administered on 04/25/18at 07:55; Admin Dose 75 MG; Start 04/24/18 at 09:00 Insulin Aspart (Novolog Insulin Pen) NOVOLOG *MILD* ALGORITHM WITH MEALS BEDTIME SC ; Start 04/24/18 at 17:35 Aspirin (Halfprin) 81 mg DAILY PO ; Start 04/25/18 at 09:00 Atorvastatin Calcium (Lipitor) 80 mg QHS PO ; Start 04/25/18 at 21:00 Calcium Acetate (Phoslo) 2,668 mg WITH MEALS PO Last administered on 04/25/18at 11:21; Admin Dose 2,668 MG; Start 04/25/18 at 08:00 Clonazepam (Klonopin) 0.5 mg QHS PO ; Start 04/25/18 at 21:00 Docusate Sodium (Colace) 100 mg Q12H PO Last administered on 04/25/18at 11:21; Admin Dose 100 MG; Start 04/25/18 at 00:00 Linagliptin (Tradjenta) 5 mg DAILY PO Last administered on 04/25/18at 09:21; Admin Dose 5 MG; Start 04/25/18 at 09:00 Metoprolol Tartrate (Lopressor) 100 mg BID PO ; Start 04/25/18 at 09:00 Nifedipine (Procardia Xl) 30 mg BID PO Last administered on 04/25/18at 09:21; Admin Dose 30 MG; Start 04/25/18 at 09:00 Ondansetron HCl (Zofran Tab) 4 mg Q8H PRN PO NAUSEA AND/OR VOMITING; Start 04/25/18 at 00:00 Pantoprazole (Protonix Tab) 40 mg DAILY@0600 PO Last administered on 04/25/18at 06:23; Admin Dose 40 MG; Start 04/25/18 at 06:00 Paroxetine HCl (Paxil) 20 mg HS PO ; Start 04/25/18 at 21:00 Quetiapine Fumarate (Seroquel) 25 mg BID PO Last administered on 04/25/18at 09:21; Admin Dose 25 MG; Start 04/25/18 at 09:00 Diagnostic Test (Pha) (Accu-Chek) 1 ea AC MEALS AND BEDTIME XX ; Start 04/25/18 at 07:00 Morphine Sulfate (morphine) 6 mg Q4H PRN PO SEVERE PAIN LEVEL 7-10; Start 04/25/18 at 15:00 NORMA SAUER MD Apr 25, 2018 17:17
--- NOTE | 2018-04-25 18:24 | CONS ---
Date/Time of Note Date/Time of Note DATE: 04/25/18 TIME: 18:21 Consult Date/Type/Reason Admit Date/Time Apr 22, 2018 at 21:33 Initial Consult Date 04/23/18 Type of Consultation: cv Requesting Provider: JUVENTINO CARVER Subjective Interventional cardiology follow-up progress note Subjective: Case discussed with staff. Rhythm was reviewed. Patient remains in normal sinus rhythm. pt is extubated and transferred to tele now . d/w family and his old records were reviewed. pt c/o back pain but no chest pain Objective: General: Obese gentleman no acute distress HEENT: NC/AT. pupils are equal. round. NECK: . no stridor. CV: RRR. systolic murmur; no gallop or rubs. PULM: no wheezing + rhonchi. GI: SOFT, NT, ND, no rebound or guarding Extremity: trace B/L LE edema. no clubbing. neuro: Opens his eyes to verbal stimuli.. Psych: Anxious rectal: deferred : normal Echocardiogram shows: Lower limits of normal systolic function. Normal left ventricular cavity size. Sigmoid septum. Ejection fraction is visually estimated at 50 %. Tissue Doppler/Mitral Doppler indices are consistent with impaired relaxation (Stage I diastolic dysfunction). Normal right ventricular size. Normal right ventricular systolic function. There is mild enlargement of left atrium. The right atrium is normal in size. Estimated peak PA systolic pressure 51 mmHg. There is mild tricuspid regurgitation. No significant valvular stenosis or regurgitation seen of remaining visualized valves. Normal pericardium with no significant pericardial effusion. Objective Vital Signs Date Temp Pulse Resp B/P (MAP) Pulse Ox O2 O2 Flow FiO2 Time Delivery Rate 04/25/18 83 18:15 04/25/18 18 174/89 99 Nasal 3.0 15:45 (117) Cannula 04/25/18 99.6 15:18 04/24/18 30 09:30 Intake and Output 04/24/18 04/24/18 04/25/18 1515:00 23:00 07:00 IntakeIntake Total 427.91 ml 378.8 ml 280 ml OutputOutput Total 0 ml 0 ml 0 ml BalanceBalance 427.91 ml 378.8 ml 280 ml Results/Medications Result Diagram: 04/25/18 0535 04/25/18 0535 Results 24 hrs Laboratory Tests Test 04/24/18 20:28 04/25/18 05:35 04/25/18 07:52 04/25/18 11:20 Bedside Glucose 137 90 94 White Blood Count 5.4 Red Blood Count 2.83 L Hemoglobin 8.6 L Hematocrit 26.1 L Mean Corpuscular Volume 92.2 Mean Corpuscular 30.4 Hemoglobin Mean Corpuscular 33.0 Hemoglobin Concent Red Cell Distribution 13.2 Width Platelet Count 169 Mean Platelet Volume 10.9 H Immature Granulocytes % 0.400 Neutrophils % 63.1 Lymphocytes % 20.1 Monocytes % 9.7 Eosinophils % 6.0 Basophils % 0.7 Nucleated Red Blood 0.0 Cells % Immature Granulocytes # 0.020 Neutrophils # 3.4 Lymphocytes # 1.1 Monocytes # 0.5 Eosinophils # 0.3 Basophils # 0.0 Nucleated Red Blood 0.0 Cells # Sodium Level 140 Potassium Level 5.0 Chloride Level 98 Carbon Dioxide Level 28 Anion Gap 14 H Blood Urea Nitrogen 42 #H Creatinine 10.24 #H Est Glomerular Filtrat 5 L Rate mL/min Glucose Level 86 # Calcium Level 8.4 Magnesium Level 2.1 Total Bilirubin 0.0 L Direct Bilirubin 0.00 Indirect Bilirubin 0.0 Aspartate Amino 14 L Transf (AST/SGOT) Alanine 16 Aminotransferase (ALT/SG PT) Alkaline Phosphatase 77 Creatine Kinase 128 Creatine Kinase Index 3.4 Creatinine Kinase MB 4.39 H (Mass) Troponin I 1.200 *H Total Protein 6.6 Albumin 3.6 Globulin 3.00 Albumin/Globulin Ratio 1.20 Triglycerides Level 203 H Cholesterol Level 113 LDL Cholesterol, 56 Calculated HDL Cholesterol 16 L Cholesterol/HDL Ratio 7.0 Test 04/25/18 17:05 Bedside Glucose 87 Medications Current Medications Ondansetron HCl (Zofran Inj) 4 mg Q6H PRN IV NAUSEA AND/OR VOMITING; Start 04/22/18 at 22:30 Acetaminophen (Tylenol Liquid) 650 mg Q6H PRN PO PAIN LEVEL 1-3 OR FEVER Last administered on 04/24/18at 16:58; Admin Dose 650 MG; Start 04/22/18 at 22:30 Labetalol HCl (Labetalol) 10 mg Q2H PRN IV SBP > 165; Start 04/22/18 at 22:30 Diagnostic Test (Pha) (Accu-Chek) 1 ea 02 XX Last administered on 04/24/18at 01:09; Admin Dose 1 EA; Start 04/23/18 at 02:00 Miscellaneous Information 1 ea NOTE XX ; Start 04/22/18 at 23:00 Glucose (Glutose) 15 gm Q15M PRN PO DECREASED GLUCOSE; Start 04/22/18 at 23:00 Glucose (Glutose) 22.5 gm Q15M PRN PO DECREASED GLUCOSE; Start 04/22/18 at 23:00 Dextrose (D50w Syringe) 25 ml Q15M PRN IV DECREASED GLUCOSE; Start 04/22/18 at 23:00 Dextrose (D50w Syringe) 50 ml Q15M PRN IV DECREASED GLUCOSE; Start 04/22/18 at 23:00 Glucagon (Glucagen) 1 mg Q15M PRN IM DECREASED GLUCOSE; Start 04/22/18 at 23:00 Glucose (Glutose) 15 gm Q15M PRN BUCCAL DECREASED GLUCOSE; Start 04/22/18 at 23:00 Levofloxacin/ Dextrose 100 ml @ 100 mls/hr Q48H IVPB Last administered on at 07:59; Admin Dose 100 MLS/HR; Start 04/23/18 at 08:30 Heparin Sodium (Porcine) (Heparin (1000 Units/ml)) 4,000 unit PER PROTOCOL PRN IV HEPARIN PROTOCOL; Start 04/23/18 at 10:30 Heparin Sodium (Porcine) (Heparin (1000 Units/ml)) 4,000 unit AFTER DIALYSIS CATHETER ; Start 04/23/18 at 13:30 Albumin Human 50 ml @ 100 mls/hr WITH DIALYSIS PRN IV for SBP less than 90 mm hg ; Start 04/23/18 at 13:30 Sodium Chloride (NS) -To prime the dialy... DIRECTED FOR HD PRN IV for SBP less than 90 mm hg ; Start 04/23/18 at 13:30 Aspirin (Aspirin) 81 mg DAILY NGT Last administered on 04/25/18at 07:55; Admin Dose 81 MG; Start 04/24/18 at 09:00 Metoprolol Tartrate (Lopressor) 25 mg BID GTB Last administered on 04/25/18at 07:58; Admin Dose 25 MG; Start 04/23/18 at 15:00 Hydralazine HCl (Apresoline) 10 mg Q4H PRN IV SBP greater than 165 Last administered on 04/25/18at 17:11; Admin Dose 10 MG; Start 04/23/18 at 15:00 Clopidogrel Bisulfate (plaVIX) 75 mg DAILY NGT Last administered on 04/25/18at 07:55; Admin Dose 75 MG; Start 04/24/18 at 09:00 Insulin Aspart (Novolog Insulin Pen) NOVOLOG *MILD* ALGORITHM WITH MEALS BEDTIME SC ; Start 04/24/18 at 17:35 Aspirin (Halfprin) 81 mg DAILY PO ; Start 04/25/18 at 09:00 Atorvastatin Calcium (Lipitor) 80 mg QHS PO ; Start 04/25/18 at 21:00 Calcium Acetate (Phoslo) 2,668 mg WITH MEALS PO Last administered on 04/25/18at 11:21; Admin Dose 2,668 MG; Start 04/25/18 at 08:00 Clonazepam (Klonopin) 0.5 mg QHS PO ; Start 04/25/18 at 21:00 Docusate Sodium (Colace) 100 mg Q12H PO Last administered on 04/25/18at 11:21; Admin Dose 100 MG; Start 04/25/18 at 00:00 Linagliptin (Tradjenta) 5 mg DAILY PO Last administered on 04/25/18at 09:21; Admin Dose 5 MG; Start 04/25/18 at 09:00 Metoprolol Tartrate (Lopressor) 100 mg BID PO ; Start 04/25/18 at 09:00 Nifedipine (Procardia Xl) 30 mg BID PO Last administered on 04/25/18at 09:21; Admin Dose 30 MG; Start 04/25/18 at 09:00 Ondansetron HCl (Zofran Tab) 4 mg Q8H PRN PO NAUSEA AND/OR VOMITING; Start 04/25/18 at 00:00 Pantoprazole (Protonix Tab) 40 mg DAILY@0600 PO Last administered on 04/25/18at 06:23; Admin Dose 40 MG; Start 04/25/18 at 06:00 Paroxetine HCl (Paxil) 20 mg HS PO ; Start 04/25/18 at 21:00 Quetiapine Fumarate (Seroquel) 25 mg BID PO Last administered on 04/25/18at 09:21; Admin Dose 25 MG; Start 04/25/18 at 09:00 Diagnostic Test (Pha) (Accu-Chek) 1 ea AC MEALS AND BEDTIME XX ; Start 04/25/18 at 07:00 Morphine Sulfate (morphine) 6 mg Q4H PRN PO SEVERE PAIN LEVEL 7-10; Start 04/25/18 at 15:00 Assessment/Plan Chief Complaint/Hosp Course 1. Non-ST elevation myocardial infarction 2. Acute hypoxemic respiratory failure: Currently extubated 3. Pneumonia 4. Renal failure on dialysis 5. Diabetes 6. Hypertension 7. Anemia Recommendations: off of heparin now cont Aspirin Plavix Hemodialysis as per nephrology team Antibiotic as per internal medicine and pulmonary Follow-up with the [facility] Metoprolol as tolerated will be continued Plan for left heart catheterization coronary angiogram possible percutaneous coronary intervention once pulmonary status improved his old records reviewed that shows pt's L[facility]ISCAN DONE at [facility] on 01/16/18 shows only 4% RI at diagonal area with EF 58% Thank you for his referral. We will continue to follow along with you RAUL PALOMINO MD [facility] RAUL PALOMINO MD Apr 25, 2018 18:24
[2018-04-25] MEDS: morphine LIQ (10 MG/5 ML) CUP PO PRN (20:12)
[2018-04-25] MEDS: clonAZEPAM 0.5 MG TAB PO SCH (20:13)
[2018-04-25] MEDS: PAROXETINE 20 MG TAB PO SCH (20:14)
[2018-04-25] MEDS: ATORVASTATIN 80 MG TAB PO SCH (20:14)
[2018-04-26] VITALS (24 sets, daily range): BP systolic 126–164; BP diastolic 65–82; PULSE 65–97; RESP 18–22
[2018-04-26] MEDS: ACCU-CHEK XX SCH ×5 (02:00→20:59)
[2018-04-26] MEDS: PANTOPRAZOLE (EC) 40 MG TAB PO SCH (05:51)
[2018-04-26] MEDS: INSULIN ASPART [NOVOLOG] 3 ML PEN SC SCH ×4 (08:00→20:59)
[2018-04-26] MEDS: CALCIUM ACETATE 667 MG CAP PO SCH ×3 (08:18→17:21)
[2018-04-26] MEDS: METOPROLOL 100 MG TAB PO SCH ×2 (08:19→21:02)
[2018-04-26] MEDS: CLOPIDOGREL 75 MG TAB NGT SCH (08:19)
[2018-04-26] MEDS: DOCUSATE SODIUM 100 MG CAP PO SCH ×2 (08:19→21:01)
[2018-04-26] MEDS: ASPIRIN (EC) 81 MG TAB PO SCH (08:19)
[2018-04-26] MEDS: NIFEdipine (XL) 30 MG TAB PO SCH ×2 (08:20→21:02)
[2018-04-26] MEDS: QUETIAPINE 25 MG TAB PO SCH ×2 (08:20→21:01)
[2018-04-26] MEDS: LINAGLIPTIN 5 MG TABLET PO SCH (08:20)
[2018-04-26] MEDS: ASPIRIN 81 MG TAB NGT SCH (08:26)
[2018-04-26] MEDS: morphine LIQ (10 MG/5 ML) CUP PO PRN ×4 (08:26→23:50)
--- NOTE | 2018-04-26 10:58 | PN ---
Date/Time of Note Date/Time of Note DATE: 04/26/18 TIME: 10:57 Assessment/Plan VTE Prophylaxis Risk score (from [facility])>0 risk: 9 SCD applied (from [facility]): Yes Pharmacological prophylaxis: NA/contraindicated Pharm contraindication: renal impairment Lines/Catheters Urinary Cath still in place: No Assessment/Plan Hospital Course 1. Acute hypoxemic and hypercapnic respiratory failure secondary to pneumonia and/or fluid overload on COPDresolved -Patient extubated and doing well -Levaquin IV -Continue HD 2. NSTEMI-stabilizing -Status post heparin drip -Cardiology consultation appreciated, medical management for now -Troponins have trended down -Plan is for transfer to [facility] tomorrow for heart cath 3. Hypertensive urgency: BP better controlled -Adjust antihypertensive as needed 4. ESRD on HD -Nephrology consultation appreciated, continue HD 5. Diabetes: -Insulin while in-house Prophylaxis: SCDs DC planning: Possible DC to [facility] tomorrow Result Diagram: 04/25/18 0535 04/26/18 0507 Results 24hrs Laboratory Tests Test 04/25/18 11:20 04/25/18 17:05 04/25/18 20:11 04/26/18 05:07 Bedside Glucose 94 87 81 Sodium Level 139 Potassium Level 4.4 Chloride Level 96 L Carbon Dioxide Level 31 Anion Gap 12 Blood Urea Nitrogen 28 #H Creatinine 7.64 #H Est Glomerular Filtrat 7 L Rate mL/min Glucose Level 95 Calcium Level 9.1 Troponin I 3.100 *H Test 04/26/18 08:16 Bedside Glucose 119 Subjective 24 Hr Interval Summary Constitutional: no complaints Exam/Review of Systems Vital Signs Vitals Vital Signs Date Temp Pulse Resp B/P (MAP) Pulse Ox O2 O2 Flow FiO2 Time Delivery Rate 04/26/18 80 08:00 04/26/18 97.0 21 130/66 96 Nasal 2.0 07:32 (87) Cannula 04/24/18 30 09:30 Intake and Output 04/25/18 04/25/18 04/26/18 1515:00 23:00 07:00 IntakeIntake Total 100 ml 600 ml 450 ml OutputOutput Total 2900 ml BalanceBalance 100 ml -2300 ml 450 ml Exam Constitutional: alert Respiratory: clear to auscultation Cardiovascular: regular rate and rhythm Gastrointestinal: soft; No distended Musculoskeletal: nl extremities to inspection Medications Medications Current Medications Ondansetron HCl (Zofran Inj) 4 mg Q6H PRN IV NAUSEA AND/OR VOMITING; Start 04/22/18 at 22:30 Acetaminophen (Tylenol Liquid) 650 mg Q6H PRN PO PAIN LEVEL 1-3 OR FEVER Last administered on 04/24/18at 16:58; Admin Dose 650 MG; Start 04/22/18 at 22:30 Labetalol HCl (Labetalol) 10 mg Q2H PRN IV SBP > 165; Start 04/22/18 at 22:30 Diagnostic Test (Pha) (Accu-Chek) 1 ea 02 XX Last administered on 04/24/18at 01:09; Admin Dose 1 EA; Start 04/23/18 at 02:00 Miscellaneous Information 1 ea NOTE XX ; Start 04/22/18 at 23:00 Glucose (Glutose) 15 gm Q15M PRN PO DECREASED GLUCOSE; Start 04/22/18 at 23:00 Glucose (Glutose) 22.5 gm Q15M PRN PO DECREASED GLUCOSE; Start 04/22/18 at 23:00 Dextrose (D50w Syringe) 25 ml Q15M PRN IV DECREASED GLUCOSE; Start 04/22/18 at 23:00 Dextrose (D50w Syringe) 50 ml Q15M PRN IV DECREASED GLUCOSE; Start 04/22/18 at 23:00 Glucagon (Glucagen) 1 mg Q15M PRN IM DECREASED GLUCOSE; Start 04/22/18 at 23:00 Glucose (Glutose) 15 gm Q15M PRN BUCCAL DECREASED GLUCOSE; Start 04/22/18 at 23:00 Levofloxacin/ Dextrose 100 ml @ 100 mls/hr Q48H IVPB Last administered on 04/25/18at 07:59; Admin Dose 100 MLS/HR; Start 04/23/18 at 08:30 Heparin Sodium (Porcine) (Heparin (1000 Units/ml)) 4,000 unit PER PROTOCOL PRN IV HEPARIN PROTOCOL; Start 04/23/18 at 10:30 Heparin Sodium (Porcine) (Heparin (1000 Units/ml)) 4,000 unit AFTER DIALYSIS CATHETER ; Start 04/23/18 at 13:30 Albumin Human 50 ml @ 100 mls/hr WITH DIALYSIS PRN IV for SBP less than 90 mm hg ; Start 04/23/18 at 13:30 Sodium Chloride (NS) -To prime the dialy... DIRECTED FOR HD PRN IV for SBP less than 90 mm hg ; Start 04/23/18 at 13:30 Aspirin (Aspirin) 81 mg DAILY NGT Last administered on 04/25/18at 07:55; Admin Dose 81 MG; Start 04/24/18 at 09:00 Hydralazine HCl (Apresoline) 10 mg Q4H PRN IV SBP greater than 165 Last administered on 04/25/18at 17:11; Admin Dose 10 MG; Start 04/23/18 at 15:00 Clopidogrel Bisulfate (plaVIX) 75 mg DAILY NGT Last administered on 04/26/18 08:19; Admin Dose 75 MG; Start 04/24/18 at 09:00 Insulin Aspart (Novolog Insulin Pen) NOVOLOG *MILD* ALGORITHM WITH MEALS BEDTIME SC ; Start 04/24/18 at 17:35 Aspirin (Halfprin) 81 mg DAILY PO Last administered on 04/26/18 08:19; Admin Dose 81 MG; Start 04/25/18 at 09:00 Atorvastatin Calcium (Lipitor) 80 mg QHS PO Last administered on 04/25/18 20:14; Admin Dose 80 MG; Start 04/25/18 at 21:00 Calcium Acetate (Phoslo) 2,668 mg WITH MEALS PO Last administered on 04/26/18 08:18; Admin Dose 2,668 MG; Start 04/25/18 at 08:00 Clonazepam (Klonopin) 0.5 mg QHS PO Last administered on 04/25/18 20:13; Admin Dose 0.5 MG; Start 04/25/18 at 21:00 Linagliptin (Tradjenta) 5 mg DAILY PO Last administered on 04/26/18 08:20; Admin Dose 5 MG; Start 04/25/18 at 09:00 Metoprolol Tartrate (Lopressor) 100 mg BID PO Last administered on 04/26/18 08:19; Admin Dose 100 MG; Start 04/25/18 at 09:00 Nifedipine (Procardia Xl) 30 mg BID PO Last administered on 04/26/18 08:20; Admin Dose 30 MG; Start 04/25/18 at 09:00 Ondansetron HCl (Zofran Tab) 4 mg Q8H PRN PO NAUSEA AND/OR VOMITING; Start 04/25/18 at 00:00 Pantoprazole (Protonix Tab) 40 mg DAILY@0600 PO Last administered on 04/26/18at 0 5:51; Admin Dose 40 MG; Start 04/25/18 at 06:00 Paroxetine HCl (Paxil) 20 mg HS PO Last administered on 04/25/18at 20:14; Admin Dose 20 MG; Start 04/25/18 at 21:00 Quetiapine Fumarate (Seroquel) 25 mg BID PO Last administered on 04/26/18at 08:20; Admin Dose 25 MG; Start 04/25/18 at 09:00 Diagnostic Test (Pha) (Accu-Chek) 1 ea AC MEALS AND BEDTIME XX ; Start 04/25/18 at 07:00 Morphine Sulfate (morphine) 6 mg Q4H PRN PO SEVERE PAIN LEVEL 7-10 Last administered on 04/26/18at 08:26; Admin Dose 6 MG; Start 04/25/18 at 15:00 Docusate Sodium (Colace) 100 mg Q12 PO Last administered on 04/26/18at 08:19; Admin Dose 100 MG; Start 04/25/18 at 21:00 JUVENTINO CARVER Apr 26, 2018 10:58
--- NOTE | 2018-04-26 13:13 | CONS ---
Date/Time of Note Date/Time of Note DATE: 04/26/18 TIME: 13:13 Assessment/Plan Assessment/Plan Assessment/Plan 1. ESRD on HD MWF 2. Acute hypoxemic and hypercapnic respiratory failure secondary to pneumonia on COPD- Intubated on ventilator 3. acute NSTEMI 4. Hypertensive urgency: BP better controlled 5. Diabetes: Plan: s/p HD yesterday 2.5 L removed,, plan for LHC by Cardiology, will schedule another HD today to make his resp status more stable pt regular schedule is MWF S/o Cardiology consult for NSTEMI- off heparin gtt, plan for LHC now will follow up Result Diagram: 04/25/18 0535 04/26/18 0507 Results 24hrs Laboratory Tests Test 04/25/18 17:05 04/25/18 20:11 04/26/18 05:07 04/26/18 08:16 Bedside Glucose 87 81 119 Sodium Level 139 Potassium Level 4.4 Chloride Level 96 L Carbon Dioxide Level 31 Anion Gap 12 Blood Urea Nitrogen 28 #H Creatinine 7.64 #H Est Glomerular Filtrat 7 L Rate mL/min Glucose Level 95 Calcium Level 9.1 Troponin I 3.100 *H Test 04/26/18 12:07 Bedside Glucose 110 Consultation Date/Type/Reason Admit Date/Time Apr 22, 2018 at 21:33 Initial Consult Date 04/23/18 Type of Consult NEPHROLOGY Requesting Provider: JUVENTINO CARVER Exam/Review of Systems Vital Signs Vitals Vital Signs Date Temp Pulse Resp B/P (MAP) Pulse Ox O2 O2 Flow FiO2 Time Delivery Rate 04/26/18 98.0 77 22 141/70 96 Nasal 12:08 (93) Cannula 04/26/18 2.0 07:32 04/24/18 30 09:30 Intake and Output 04/25/18 04/25/18 04/26/18 1515:00 23:00 07:00 IntakeIntake Total 100 ml 600 ml 450 ml OutputOutput Total 2900 ml BalanceBalance 100 ml -2300 ml 450 ml Exam Constitutional: alert Psych: no complaints Head: normocephalic ENMT: nl external ears & nose Neck: supple, non-tender Respiratory: clear to auscultation, diminished breath sounds Cardiovascular: regular rate and rhythm, nl pulses Gastrointestinal: soft, non-tender Musculoskeletal: nl extremities to inspection Extremities: normal pulses 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, nl mental status, nl speech, nl strength Lymph: nl lymph nodes Medications Medications Current Medications Ondansetron HCl (Zofran Inj) 4 mg Q6H PRN IV NAUSEA AND/OR VOMITING; Start 04/22/18 at 22:30 Acetaminophen (Tylenol Liquid) 650 mg Q6H PRN PO PAIN LEVEL 1-3 OR FEVER Last a dministered on 04/24/18at 16:58; Admin Dose 650 MG; Start 04/22/18 at 22:30 Labetalol HCl (Labetalol) 10 mg Q2H PRN IV SBP > 165; Start 04/22/18 at 22:30 Diagnostic Test (Pha) (Accu-Chek) 1 ea 02 XX Last administered on 04/24/18at 01:09; Admin Dose 1 EA; Start 04/23/18 at 02:00 Miscellaneous Information 1 ea NOTE XX ; Start 04/22/18 at 23:00 Glucose (Glutose) 15 gm Q15M PRN PO DECREASED GLUCOSE; Start 04/22/18 at 23:00 Glucose (Glutose) 22.5 gm Q15M PRN PO DECREASED GLUCOSE; Start 04/22/18 at 23:00 Dextrose (D50w Syringe) 25 ml Q15M PRN IV DECREASED GLUCOSE; Start 04/22/18 at 23:00 Dextrose (D50w Syringe) 50 ml Q15M PRN IV DECREASED GLUCOSE; Start 04/22/18 at 23:00 Glucagon (Glucagen) 1 mg Q15M PRN IM DECREASED GLUCOSE; Start 04/22/18 at 23:00 Glucose (Glutose) 15 gm Q15M PRN BUCCAL DECREASED GLUCOSE; Start 04/22/18 at 23:00 Levofloxacin/ Dextrose 100 ml @ 100 mls/hr Q48H IVPB Last administered on 04/25/18at 07:59; Admin Dose 100 MLS/HR; Start 04/23/18 at 08:30 Heparin Sodium (Porcine) (Heparin (1000 Units/ml)) 4,000 unit PER PROTOCOL PRN IV HEPARIN PROTOCOL; Start 04/23/18 at 10:30 Heparin Sodium (Porcine) (Heparin (1000 Units/ml)) 4,000 unit AFTER DIALYSIS CATHETER ; Start 04/23/18 at 13:30 Albumin Human 50 ml @ 100 mls/hr WITH DIALYSIS PRN IV for SBP less than 90 mm hg ; Start 04/23/18 at 13:30 Sodium Chloride (NS) -To prime the dialy... DIRECTED FOR HD PRN IV for SBP less than 90 mm hg ; Start 04/23/18 at 13:30 Aspirin (Aspirin) 81 mg DAILY NGT Last administered on 04/25/18at 07:55; Admin Dose 81 MG; Start 04/24/18 at 09:00 Hydralazine HCl (Apresoline) 10 mg Q4H PRN IV SBP greater than 165 Last administered on 04/25/18at 17:11; Admin Dose 10 MG; Start 04/23/18 at 15:00 Clopidogrel Bisulfate (plaVIX) 75 mg DAILY NGT Last administered on 04/26/18 08:19; Admin Dose 75 MG; Start 04/24/18 at 09:00 Insulin Aspart (Novolog Insulin Pen) NOVOLOG *MILD* ALGORITHM WITH MEALS BEDTIME SC ; Start 04/24/18 at 17:35 Aspirin (Halfprin) 81 mg DAILY PO Last administered on 04/26/18 08:19; Admin Dose 81 MG; Start 04/25/18 at 09:00 Atorvastatin Calcium (Lipitor) 80 mg QHS PO Last administered on 04/25/18 20:14; Admin Dose 80 MG; Start 04/25/18 at 21:00 Calcium Acetate (Phoslo) 2,668 mg WITH MEALS PO Last administered on 04/26/18at 12:07; Admin Dose 2,668 MG; Start 04/25/18 at 08:00 Clonazepam (Klonopin) 0.5 mg QHS PO Last administered on 04/25/18at 20:13; Admin Dose 0.5 MG; Start 04/25/18 at 21:00 Linagliptin (Tradjenta) 5 mg DAILY PO Last administered on 04/26/18 08:20; Admin Dose 5 MG; Start 04/25/18 at 09:00 Metoprolol Tartrate (Lopressor) 100 mg BID PO Last administered on 04/26/18 08:19; Admin Dose 100 MG; Start 04/25/18 at 09:00 Nifedipine (Procardia Xl) 30 mg BID PO Last administered on 04/26/18 08:20; Admin Dose 30 MG; Start 04/25/18 at 09:00 Ondansetron HCl (Zofran Tab) 4 mg Q8H PRN PO NAUSEA AND/OR VOMITING; Start 04/25/18 at 00:00 Pantoprazole (Protonix Tab) 40 mg DAILY@0600 PO Last administered on 04/26/18at 05:51; Admin Dose 40 MG; Start 04/25/18 at 06:00 Paroxetine HCl (Paxil) 20 mg HS PO Last administered on 04/25/18at 20:14; Admin Dose 20 MG; Start 04/25/18 at 21:00 Quetiapine Fumarate (Seroquel) 25 mg BID PO Last administered on 04/26/18at 08:20; Admin Dose 25 MG; Start 04/25/18 at 09:00 Diagnostic Test (Pha) (Accu-Chek) 1 ea AC MEALS AND BEDTIME XX ; Start 04/25/18 at 07:00 Morphine Sulfate (morphine) 6 mg Q4H PRN PO SEVERE PAIN LEVEL 7-10 Last administered on 04/26/18at 08:26; Admin Dose 6 MG; Start 04/25/18 at 15:00 Docusate Sodium (Colace) 100 mg Q12 PO Last administered on 04/26/18at 08:19; Admin Dose 100 MG; Start 04/25/18 at 21:00 NORMA SAUER MD Apr 26, 2018 13:13
--- NOTE | 2018-04-26 15:18 | CONS ---
Date/Time of Note Date/Time of Note DATE: 04/26/18 TIME: 15:15 Consult Date/Type/Reason Admit Date/Time Apr 22, 2018 at 21:33 Initial Consult Date 04/23/18 Type of Consultation: Pulm Requesting Provider: JUVENTINO CARVER Subjective No events. s/p HD with UF yesterday. Objective Vital Signs Date Temp Pulse Resp B/P (MAP) Pulse Ox O2 O2 Flow FiO2 Time Delivery Rate 04/26/18 2.0 13:49 04/26/18 98.0 77 22 141/70 96 Nasal 12:08 (93) Cannula 04/24/18 30 09:30 Intake and Output 04/25/18 04/25/18 04/26/18 1414:59 22:59 06:59 IntakeIntake Total 100 ml 600 ml 450 ml OutputOutput Total 2900 ml BalanceBalance 100 ml -2300 ml 450 ml Exam IMP: 1. s/p Acute hypoxemic and hypercapnic respiratory failure secondary to volume overload and HTN urgency 3. Acute NSTEMI 4. Hypertensive urgency: BP better controlled 5. ESRD on HD RECS: 1. Stable from a respiratory standpoint. Await completion of cards w/u 2. Continue HD/UF Results/Medications Result Diagram: 04/25/18 0535 04/26/18 0507 Results 24 hrs Laboratory Tests Test 04/25/18 17:05 04/25/18 20:11 04/26/18 05:07 04/26/18 08:16 Bedside Glucose 87 81 119 Sodium Level 139 Potassium Level 4.4 Chloride Level 96 L Carbon Dioxide Level 31 Anion Gap 12 Blood Urea Nitrogen 28 #H Creatinine 7.64 #H Est Glomerular Filtrat 7 L Rate mL/min Glucose Level 95 Calcium Level 9.1 Troponin I 3.100 *H Test 04/26/18 12:07 Bedside Glucose 110 Medications Current Medications Ondansetron HCl (Zofran Inj) 4 mg Q6H PRN IV NAUSEA AND/OR VOMITING; Start 04/22/18 at 22:30 Acetaminophen (Tylenol Liquid) 650 mg Q6H PRN PO PAIN LEVEL 1-3 OR FEVER Last administered on 04/24/18at 16:58; Admin Dose 650 MG; Start 04/22/18 at 22:30 Labetalol HCl (Labetalol) 10 mg Q2H PRN IV SBP > 165; Start 04/22/18 at 22:30 Diagnostic Test (Pha) (Accu-Chek) 1 ea 02 XX Last administered on 04/24/18at 01:09; Admin Dose 1 EA; Start 04/23/18 at 02:00 Miscellaneous Information 1 ea NOTE XX ; Start 04/22/18 at 23:00 Glucose (Glutose) 15 gm Q15M PRN PO DECREASED GLUCOSE; Start 04/22/18 at 23:00 Glucose (Glutose) 22.5 gm Q15M PRN PO DECREASED GLUCOSE; Start 04/22/18 at 23:00 Dextrose (D50w Syringe) 25 ml Q15M PRN IV DECREASED GLUCOSE; Start 04/22/18 at 23:00 Dextrose (D50w Syringe) 50 ml Q15M PRN IV DECREASED GLUCOSE; Start 04/22/18 at 23:00 Glucagon (Glucagen) 1 mg Q15M PRN IM DECREASED GLUCOSE; Start 04/22/18 at 23:00 Glucose (Glutose) 15 gm Q15M PRN BUCCAL DECREASED GLUCOSE; Start 04/22/18 at 23:00 Levofloxacin/ Dextrose 100 ml @ 100 mls/hr Q48H IVPB Last administered on 04/25/18at 07:59; Admin Dose 100 MLS/HR; Start 04/23/18 at 08:30 Heparin Sodium (Porcine) (Heparin (1000 Units/ml)) 4,000 unit PER PROTOCOL PRN IV HEPARIN PROTOCOL; Start 04/23/18 at 10:30 Heparin Sodium (Porcine) (Heparin (1000 Units/ml)) 4,000 unit AFTER DIALYSIS CATHETER ; Start 04/23/18 at 13:30 Albumin Human 50 ml @ 100 mls/hr WITH DIALYSIS PRN IV for SBP less than 90 mm hg ; Start 04/23/18 at 13:30 Sodium Chloride (NS) -To prime the dialy... DIRECTED FOR HD PRN IV for SBP less than 90 mm hg ; Start 04/23/18 at 13:30 Aspirin (Aspirin) 81 mg DAILY NGT Last administered on 04/25/18at 07:55; Admin Dose 81 MG; Start 04/24/18 at 09:00 Hydralazine HCl (Apresoline) 10 mg Q4H PRN IV SBP greater than 165 Last administered on 04/25/18at 17:11; Admin Dose 10 MG; Start 04/23/18 at 15:00 Clopidogrel Bisulfate (plaVIX) 75 mg DAILY NGT Last administered on 04/26/18 08:19; Admin Dose 75 MG; Start 04/24/18 at 09:00 Insulin Aspart (Novolog Insulin Pen) NOVOLOG *MILD* ALGORITHM WITH MEALS BEDTIME SC ; Start 04/24/18 at 17:35 Aspirin (Halfprin) 81 mg DAILY PO Last administered on 04/26/18at 08:19; Admin Dose 81 MG; Start 04/25/18 at 09:00 Atorvastatin Calcium (Lipitor) 80 mg QHS PO Last administered on 04/25/18 20:14; Admin Dose 80 MG; Start 04/25/18 at 21:00 Calcium Acetate (Phoslo) 2,668 mg WITH MEALS PO Last administered on 04/26/18at 12:07; Admin Dose 2,668 MG; Start 04/25/18 at 08:00 Clonazepam (Klonopin) 0.5 mg QHS PO Last administered on 04/25/18at 20:13; Admin Dose 0.5 MG; Start 04/25/18 at 21:00 Linagliptin (Tradjenta) 5 mg DAILY PO Last administered on 04/26/18 08:20; Admin Dose 5 MG; Start 04/25/18 at 09:00 Metoprolol Tartrate (Lopressor) 100 mg BID PO Last administered on 04/26/18at 08:19; Admin Dose 100 MG; Start 04/25/18 at 09:00 Nifedipine (Procardia Xl) 30 mg BID PO Last administered on 04/26/18at 08:20; Admin Dose 30 MG; Start 04/25/18 at 09:00 Ondansetron HCl (Zofran Tab) 4 mg Q8H PRN PO NAUSEA AND/OR VOMITING; Start 04/25/18 at 00:00 Pantoprazole (Protonix Tab) 40 mg DAILY@0600 PO Last administered on 04/26/18at 05:51; Admin Dose 40 MG; Start 04/25/18 at 06:00 Paroxetine HCl (Paxil) 20 mg HS PO Last administered on 04/25/18at 20:14; Admin Dose 20 MG; Start 04/25/18 at 21:00 Quetiapine Fumarate (Seroquel) 25 mg BID PO Last administered on 04/26/18at 08:20; Admin Dose 25 MG; Start 04/25/18 at 09:00 Diagnostic Test (Pha) (Accu-Chek) 1 ea AC MEALS AND BEDTIME XX ; Start 04/25/18 at 07:00 Morphine Sulfate (morphine) 6 mg Q4H PRN PO SEVERE PAIN LEVEL 7-10 Last administered on 04/26/18at 13:18; Admin Dose 6 MG; Start 04/25/18 at 15:00 Docusate Sodium (Colace) 100 mg Q12 PO Last administered on 04/26/18at 08:19; Admin Dose 100 MG; Start 04/25/18 at 21:00 ZENA CORBETT MD Apr 26, 2018 15:18
--- NOTE | 2018-04-26 16:10 | CONS ---
Date/Time of Note Date/Time of Note DATE: 04/26/18 TIME: 16:05 Consult Date/Type/Reason Admit Date/Time Apr 22, 2018 at 21:33 Initial Consult Date 04/23/18 Type of Consultation: cv Requesting Provider: JUVENTINO CARVER Subjective Interventional cardiology follow-up progress note Subjective: Case discussed with staff. Rhythm was reviewed. Patient remains in normal sinus rhythm. pt remains on tele now . his old records were reviewed. pt c/o back pain but no chest pain Objective: General: Obese gentleman no acute distress HEENT: NC/AT. pupils are equal. round. NECK: . no stridor. CV: RRR. systolic murmur; no gallop or rubs. PULM: no wheezing + rhonchi. GI: SOFT, NT, ND, no rebound or guarding Extremity: trace B/L LE edema. no clubbing. neuro: Opens his eyes to verbal stimuli.. Psych: Anxious rectal: deferred : normal Echocardiogram shows: Lower limits of normal systolic function. Normal left ventricular cavity size. Sigmoid septum. Ejection fraction is visually estimated at 50 %. Tissue Doppler/Mitral Doppler indices are consistent with impaired relaxation (Stage I diastolic dysfunction). Normal right ventricular size. Normal right ventricular systolic function. There is mild enlargement of left atrium. The right atrium is normal in size. Estimated peak PA systolic pressure 51 mmHg. There is mild tricuspid regurgitation. No significant valvular stenosis or regurgitation seen of remaining visualized valves. Normal pericardium with no significant pericardial effusion. Objective Vital Signs Date Temp Pulse Resp B/P (MAP) Pulse Ox O2 O2 Flow FiO2 Time Delivery Rate 04/26/18 97.6 72 22 133/67 96 Nasal 15:44 (89) Cannula 04/26/18 2.0 13:49 04/24/18 30 09:30 Intake and Output 04/25/18 04/25/18 04/26/18 1515:00 23:00 07:00 IntakeIntake Total 100 ml 600 ml 450 ml OutputOutput Total 2900 ml BalanceBalance 100 ml -2300 ml 450 ml Results/Medications Result Diagram: 04/25/18 0535 04/26/18 0507 Results 24 hrs Laboratory Tests Test 04/25/18 17:05 04/25/18 20:11 04/26/18 05:07 04/26/18 08:16 Bedside Glucose 87 81 119 Sodium Level 139 Potassium Level 4.4 Chloride Level 96 L Carbon Dioxide Level 31 Anion Gap 12 Blood Urea Nitrogen 28 #H Creatinine 7.64 #H Est Glomerular Filtrat 7 L Rate mL/min Glucose Level 95 Calcium Level 9.1 Troponin I 3.100 *H Test 04/26/18 12:07 Bedside Glucose 110 Medications Current Medications Ondansetron HCl (Zofran Inj) 4 mg Q6H PRN IV NAUSEA AND/OR VOMITING; Start 04/22/18 at 22:30 Acetaminophen (Tylenol Liquid) 650 mg Q6H PRN PO PAIN LEVEL 1-3 OR FEVER Last administered on 04/24/18at 16:58; Admin Dose 650 MG; Start 04/22/18 at 22:30 Labetalol HCl (Labetalol) 10 mg Q2H PRN IV SBP > 165; Start 04/22/18 at 22:30 Diagnostic Test (Pha) (Accu-Chek) 1 ea 02 XX Last administered on 04/24/18at 01:09; Admin Dose 1 EA; Start 04/23/18 at 02:00 Miscellaneous Information 1 ea NOTE XX ; Start 04/22/18 at 23:00 Glucose (Glutose) 15 gm Q15M PRN PO DECREASED GLUCOSE; Start 04/22/18 at 23:00 Glucose (Glutose) 22.5 gm Q15M PRN PO DECREASED GLUCOSE; Start 04/22/18 at 23:00 Dextrose (D50w Syringe) 25 ml Q15M PRN IV DECREASED GLUCOSE; Start 04/22/18 at 23:00 Dextrose (D50w Syringe) 50 ml Q15M PRN IV DECREASED GLUCOSE; Start 04/22/18 at 23:00 Glucagon (Glucagen) 1 mg Q15M PRN IM DECREASED GLUCOSE; Start 04/22/18 at 23:00 Glucose (Glutose) 15 gm Q15M PRN BUCCAL DECREASED GLUCOSE; Start 04/22/18 at 23:00 Levofloxacin/ Dextrose 100 ml @ 100 mls/hr Q48H IVPB Last administered on 04/25/18at 07:59; Admin Dose 100 MLS/HR; Start 04/23/18 at 08:30 Heparin Sodium (Porcine) (Heparin (1000 Units/ml)) 4,000 unit PER PROTOCOL PRN IV HEPARIN PROTOCOL; Start 04/23/18 at 10:30 Heparin Sodium (Porcine) (Heparin (1000 Units/ml)) 4,000 unit AFTER DIALYSIS CATHETER ; Start 04/23/18 at 13:30 Albumin Human 50 ml @ 100 mls/hr WITH DIALYSIS PRN IV for SBP less than 90 mm hg ; Start 04/23/18 at 13:30 Sodium Chloride (NS) -To prime the dialy... DIRECTED FOR HD PRN IV for SBP less than 90 mm hg ; Start 04/23/18 at 13:30 Aspirin (Aspirin) 81 mg DAILY NGT Last administered on 04/25/18at 07:55; Admin Dose 81 MG; Start 04/24/18 at 09:00 Hydralazine HCl (Apresoline) 10 mg Q4H PRN IV SBP greater than 165 Last administered on 04/25/18at 17:11; Admin Dose 10 MG; Start 04/23/18 at 15:00 Clopidogrel Bisulfate (plaVIX) 75 mg DAILY NGT Last administered on 04/26/18 08:19; Admin Dose 75 MG; Start 04/24/18 at 09:00 Insulin Aspart (Novolog Insulin Pen) NOVOLOG *MILD* ALGORITHM WITH MEALS BEDTIME SC ; Start 04/24/18 at 17:35 Aspirin (Halfprin) 81 mg DAILY PO Last administered on 04/26/18 08:19; Admin Dose 81 MG; Start 04/25/18 at 09:00 Atorvastatin Calcium (Lipitor) 80 mg QHS PO Last administered on 04/25/18at 20:14; Admin Dose 80 MG; Start 04/25/18 at 21:00 Calcium Acetate (Phoslo) 2,668 mg WITH MEALS PO Last administered on 04/26/18at 12:07; Admin Dose 2,668 MG; Start 04/25/18 at 08:00 Clonazepam (Klonopin) 0.5 mg QHS PO Last administered on 04/25/18at 20:13; Admin Dose 0.5 MG; Start 04/25/18 at 21:00 Linagliptin (Tradjenta) 5 mg DAILY PO Last administered on 04/26/18 08:20; Admin Dose 5 MG; Start 04/25/18 at 09:00 Metoprolol Tartrate (Lopressor) 100 mg BID PO Last administered on 04/26/18 08:19; Admin Dose 100 MG; Start 04/25/18 at 09:00 Nifedipine (Procardia Xl) 30 mg BID PO Last administered on 04/26/18at 08:20; Admin Dose 30 MG; Start 04/25/18 at 09:00 Ondansetron HCl (Zofran Tab) 4 mg Q8H PRN PO NAUSEA AND/OR VOMITING; Start 04/25/18 at 00:00 Pantoprazole (Protonix Tab) 40 mg DAILY@0600 PO Last administered on 04/26/18at 05:51; Admin Dose 40 MG; Start 04/25/18 at 06:00 Paroxetine HCl (Paxil) 20 mg HS PO Last administered on 04/25/18at 20:14; Admin Dose 20 MG; Start 04/25/18 at 21:00 Quetiapine Fumarate (Seroquel) 25 mg BID PO Last administered on 04/26/18at 08:20; Admin Dose 25 MG; Start 04/25/18 at 09:00 Diagnostic Test (Pha) (Accu-Chek) 1 ea AC MEALS AND BEDTIME XX ; Start 04/25/18 at 07:00 Morphine Sulfate (morphine) 6 mg Q4H PRN PO SEVERE PAIN LEVEL 7-10 Last administered on 04/26/18at 13:18; Admin Dose 6 MG; Start 04/25/18 at 15:00 Docusate Sodium (Colace) 100 mg Q12 PO Last administered on 04/26/18at 08:19; Admin Dose 100 MG; Start 04/25/18 at 21:00 Assessment/Plan Chief Complaint/Hosp Course 1. Non-ST elevation myocardial infarction 2. Acute hypoxemic respiratory failure: Currently extubated 3. Pneumonia 4. Renal failure on dialysis 5. Diabetes 6. Hypertension 7. Anemia Recommendations: off of heparin now cont Aspirin Plavix Hemodialysis as per nephrology team Antibiotic as per internal medicine and pulmonary Follow-up with the [facility] Metoprolol as tolerated will be continued Plan for left heart catheterization coronary angiogram possible percutaneous coronary intervention . I have tried to transfer the patient returns on the [facility] for an coronary angiogram tomorrow. However discussed with the telephonic nurse case manager over there who has spoken to a BOX TENDER of the hospital and have not accepted the patient there. Cardiac dental laboratory technology teacher is not available in our facility this weekend. I have scheduled the patient for Saturday in our [employer] [facility] at 2 PM. Check labs tomorrow. Transfuse the patient as needed to keep the hemoglobin more than 9 prior to the coronary angiogram Thank you for his referral. We will continue to follow along with you RAUL PALOMINO MD [facility] RAUL PALOMINO MD Apr 26, 2018 16:10
[2018-04-26] MEDS: PAROXETINE 20 MG TAB PO SCH (21:01)
[2018-04-26] MEDS: ATORVASTATIN 80 MG TAB PO SCH (21:01)
[2018-04-26] MEDS: clonAZEPAM 0.5 MG TAB PO SCH (21:02)
[2018-04-27] VITALS (10 sets, daily range): BP systolic 127–155; BP diastolic 62–79; PULSE 62–81; RESP 18–22
[2018-04-27] MEDS: ACCU-CHEK XX SCH ×5 (01:49→20:11)
[2018-04-27] MEDS: morphine LIQ (10 MG/5 ML) CUP PO PRN ×3 (05:00→17:16)
[2018-04-27] MEDS: PANTOPRAZOLE (EC) 40 MG TAB PO SCH (05:00)
[2018-04-27] MEDS: INSULIN ASPART [NOVOLOG] 3 ML PEN SC SCH ×4 (08:00→20:11)
[2018-04-27] MEDS: LEVOFLOXACIN 500MG/D5W (PMX) 100 ML IVPB SCH (08:02)
[2018-04-27] MEDS: CLOPIDOGREL 75 MG TAB NGT SCH (08:02)
[2018-04-27] MEDS: CALCIUM ACETATE 667 MG CAP PO SCH ×3 (08:02→17:15)
[2018-04-27] MEDS: NIFEdipine (XL) 30 MG TAB PO SCH ×2 (08:03→20:06)
[2018-04-27] MEDS: QUETIAPINE 25 MG TAB PO SCH ×2 (08:03→20:06)
[2018-04-27] MEDS: METOPROLOL 100 MG TAB PO SCH ×2 (08:03→20:07)
[2018-04-27] MEDS: ASPIRIN 81 MG TAB NGT SCH (08:04)
[2018-04-27] MEDS: ASPIRIN (EC) 81 MG TAB PO SCH (08:04)
[2018-04-27] MEDS: LINAGLIPTIN 5 MG TABLET PO SCH (08:04)
[2018-04-27] MEDS: DOCUSATE SODIUM 100 MG CAP PO SCH ×2 (08:04→20:06)
--- NOTE | 2018-04-27 13:07 | CONS ---
Date/Time of Note Date/Time of Note DATE: 04/27/18 TIME: 13:05 Consult Date/Type/Reason Admit Date/Time Apr 22, 2018 at 21:33 Initial Consult Date 04/23/18 Type of Consultation: Pulm Requesting Provider: JUVENTINO CARVRE Subjective No events. Stable on room air. Objective Vital Signs Date Temp Pulse Resp B/P (MAP) Pulse Ox O2 O2 Flow FiO2 Time Delivery Rate 04/27/18 64 12:00 04/27/18 97.6 22 129/67 11:42 (87) 04/27/18 93 Room Air 07:42 04/27/18 2.0 28 03:20 Intake and Output 04/26/18 04/26/18 04/27/18 1515:00 23:00 07:00 IntakeIntake Total 820 ml 720 ml OutputOutput Total 2700 ml BalanceBalance -1880 ml 720 ml Exam HEENT: Neck supple; no JVD; no LAD CVS: RRR, S1 and S2 CHEST: Clear ABD: Soft, NT, + BS EXT: No c/c/e Results/Medications Result Diagram: 04/27/18 0503 04/27/18 0503 Results 24 hrs Laboratory Tests Test 04/26/18 17:12 04/26/18 20:58 04/27/18 05:03 04/27/18 07:59 Bedside Glucose 130 120 151 White Blood Count 5.4 Red Blood Count 3.59 #L Hemoglobin 10.8 #L Hematocrit 32.2 #L Mean Corpuscular Volume 89.7 Mean Corpuscular 30.1 Hemoglobin Mean Corpuscular 33.5 Hemoglobin Concent Red Cell Distribution 12.4 Width Platelet Count 218 # Mean Platelet Volume 10.3 Immature Granulocytes % 0.400 Neutrophils % 57.0 Lymphocytes % 23.5 Monocytes % 11.3 H Eosinophils % 6.7 Basophils % 1.1 Nucleated Red Blood 0.0 Cells % Immature Granulocytes # 0.020 Neutrophils # 3.1 Lymphocytes # 1.3 Monocytes # 0.6 Eosinophils # 0.4 Basophils # 0.1 Nucleated Red Blood 0.0 Cells # Prothrombin Time 14.0 Prothrombin Time Ratio 1.1 INR International 1.07 Normalized Ratio Sodium Level 140 Potassium Level 4.3 Chloride Level 96 L Carbon Dioxide Level 34 H Anion Gap 10 Blood Urea Nitrogen 19 # Creatinine 6.16 H Est Glomerular Filtrat 9 L Rate mL/min Glucose Level 132 Calcium Level 9.4 Total Bilirubin 0.0 L Direct Bilirubin 0.00 Indirect Bilirubin 0.0 Aspartate Amino 23 # Transf (AST/SGOT) Alanine 11 L Aminotransferase (ALT/SG PT) Alkaline Phosphatase 88 Total Protein 7.9 # Albumin 4.2 Globulin 3.70 H Albumin/Globulin Ratio 1.13 Test 04/27/18 12:04 Bedside Glucose 153 Medications Current Medications Ondansetron HCl (Zofran Inj) 4 mg Q6H PRN IV NAUSEA AND/OR VOMITING; Start 04/22/18 at 22:30 Acetaminophen (Tylenol Liquid) 650 mg Q6H PRN PO PAIN LEVEL 1-3 OR FEVER Last administered on 04/24/18at 16:58; Admin Dose 650 MG; Start 04/22/18 at 22:30 Labetalol HCl (Labetalol) 10 mg Q2H PRN IV SBP > 165; Start 04/22/18 at 22:30 Diagnostic Test (Pha) (Accu-Chek) 1 ea 02 XX Last administered on 04/24/18at 01:09; Admin Dose 1 EA; Start 04/23/18 at 02:00 Miscellaneous Information 1 ea NOTE XX ; Start 04/22/18 at 23:00 Glucose (Glutose) 15 gm Q15M PRN PO DECREASED GLUCOSE; Start 04/22/18 at 23:00 Glucose (Glutose) 22.5 gm Q15M PRN PO DECREASED GLUCOSE; Start 04/22/18 at 23:00 Dextrose (D50w Syringe) 25 ml Q15M PRN IV DECREASED GLUCOSE; Start 04/22/18 at 23:00 Dextrose (D50w Syringe) 50 ml Q15M PRN IV DECREASED GLUCOSE; Start 04/22/18 at 23:00 Glucagon (Glucagen) 1 mg Q15M PRN IM DECREASED GLUCOSE; Start 04/22/18 at 23:00 Glucose (Glutose) 15 gm Q15M PRN BUCCAL DECREASED GLUCOSE; Start 04/22/18 at 23:00 Levofloxacin/ Dextrose 100 ml @ 100 mls/hr Q48H IVPB Last administered on 04/27/18at 08:02; Admin Dose 100 MLS/HR; Start 04/23/18 at 08:30 Heparin Sodium (Porcine) (Heparin (1000 Units/ml)) 4,000 unit PER PROTOCOL PRN IV HEPARIN PROTOCOL; Start 04/23/18 at 10:30 Heparin Sodium (Porcine) (Heparin (1000 Units/ml)) 4,000 unit AFTER DIALYSIS CATHETER ; Start 04/23/18 at 13:30 Albumin Human 50 ml @ 100 mls/hr WITH DIALYSIS PRN IV for SBP less than 90 mm hg ; Start 04/23/18 at 13:30 Sodium Chloride (NS) -To prime the dialy... DIRECTED FOR HD PRN IV for SBP less than 90 mm hg ; Start 04/23/18 at 13:30 Aspirin (Aspirin) 81 mg DAILY NGT Last administered on 04/27/18 08:04; Admin Dose 81 MG; Start 04/24/18 at 09:00 Hydralazine HCl (Apresoline) 10 mg Q4H PRN IV SBP greater than 165 Last administered on 04/25/18at 17:11; Admin Dose 10 MG; Start 04/23/18 at 15:00 Clopidogrel Bisulfate (plaVIX) 75 mg DAILY NGT Last administered on 04/27/18 08:02; Admin Dose 75 MG; Start 04/24/18 at 09:00 Insulin Aspart (Novolog Insulin Pen) NOVOLOG *MILD* ALGORITHM WITH MEALS BEDTIME SC ; Start 04/24/18 at 17:35 Aspirin (Halfprin) 81 mg DAILY PO Last administered on 04/26/18 08:19; Admin Dose 81 MG; Start 04/25/18 at 09:00 Atorvastatin Calcium (Lipitor) 80 mg QHS PO Last administered on 04/26/18 21:01; Admin Dose 80 MG; Start 04/25/18 at 21:00 Calcium Acetate (Phoslo) 2,668 mg WITH MEALS PO Last administered on 04/27/18 12:34; Admin Dose 2,668 MG; Start 04/25/18 at 08:00 Clonazepam (Klonopin) 0.5 mg QHS PO Last administered on 04/26/18 21:02; Admin Dose 0.5 MG; Start 04/25/18 at 21:00 Linagliptin (Tradjenta) 5 mg DAILY PO Last administered on 04/27/18 08:04; Admin Dose 5 MG; Start 04/25/18 at 09:00 Metoprolol Tartrate (Lopressor) 100 mg BID PO Last administered on 04/27/18 08:03; Admin Dose 100 MG; Start 04/25/18 at 09:00 Nifedipine (Procardia Xl) 30 mg BID PO Last administered on 04/27/18 08:03; Admin Dose 30 MG; Start 04/25/18 at 09:00 Ondansetron HCl (Zofran Tab) 4 mg Q8H PRN PO NAUSEA AND/OR VOMITING; Start 04/25/18 at 00:00 Pantoprazole (Protonix Tab) 40 mg DAILY@0600 PO Last administered on 04/27/18 05:00; Admin Dose 40 MG; Start 04/25/18 at 06:00 Paroxetine HCl (Paxil) 20 mg HS PO Last administered on 04/26/18 21:01; Admin Dose 20 MG; Start 04/25/18 at 21:00 Quetiapine Fumarate (Seroquel) 25 mg BID PO Last administered on 04/27/18 08:03; Admin Dose 25 MG; Start 04/25/18 at 09:00 Diagnostic Test (Pha) (Accu-Chek) 1 ea AC MEALS AND BEDTIME XX Last adm inistered on 04/26/18 20:59; Admin Dose 1 EA; Start 04/25/18 at 07:00 Morphine Sulfate (morphine) 6 mg Q4H PRN PO SEVERE PAIN LEVEL 7-10 Last administered on 04/27/18 10:31; Admin Dose 6 MG; Start 04/25/18 at 15:00 Docusate Sodium (Colace) 100 mg Q12 PO Last administered on 04/27/18 08:04; Admin Dose 100 MG; Start 04/25/18 at 21:00 Assessment/Plan Additional Assessment/Plan IMP: 1. s/p Acute hypoxemic and hypercapnic respiratory failure secondary to volume overload and HTN urgency 3. Acute NSTEMI 4. Hypertensive urgency: BP better controlled 5. ESRD on HD RECS: 1. Await C by Dr. Taylor tomorrow 2. Continue HD/UF 3. Mobilize OOB to chair ZENA CORBETT MD Apr 27, 2018 13:07
--- NOTE | 2018-04-27 15:49 | CONS ---
Date/Time of Note Date/Time of Note DATE: 04/27/18 TIME: 15:49 Assessment/Plan Assessment/Plan Assessment/Plan 1. ESRD on HD [facility] 2. Acute hypoxemic and hypercapnic respiratory failure secondary to pneumonia on COPD- Intubated on ventilator 3. acute NSTEMI 4. Hypertensive urgency: BP better controlled 5. Diabetes: Plan: s/p Extra HD yesterday 1.8 L removed, Plan for LHC tomorrow, pt is also due for HD on Saturday - ordered to be done first in AM- communicated with Nurse to call Pedro pt regular schedule is [facility] S/o Cardiology consult for NSTEMI will follow up Result Diagram: 04/27/18 0503 04/27/18 0503 Results 24hrs Laboratory Tests Test 04/26/18 17:12 04/26/18 20:58 04/27/18 05:03 04/27/18 07:59 Bedside Glucose 130 120 151 White Blood Count 5.4 Red Blood Count 3.59 #L Hemoglobin 10.8 #L Hematocrit 32.2 #L Mean Corpuscular Volume 89.7 Mean Corpuscular 30.1 Hemoglobin Mean Corpuscular 33.5 Hemoglobin Concent Red Cell Distribution 12.4 Width Platelet Count 218 # Mean Platelet Volume 10.3 Immature Granulocytes % 0.400 Neutrophils % 57.0 Lymphocytes % 23.5 Monocytes % 11.3 H Eosinophils % 6.7 Basophils % 1.1 Nucleated Red Blood 0.0 Cells % Immature Granulocytes # 0.020 Neutrophils # 3.1 Lymphocytes # 1.3 Monocytes # 0.6 Eosinophils # 0.4 Basophils # 0.1 Nucleated Red Blood 0.0 Cells # Prothrombin Time 14.0 Prothrombin Time Ratio 1.1 INR International 1.07 Normalized Ratio Sodium Level 140 Potassium Level 4.3 Chloride Level 96 L Carbon Dioxide Level 34 H Anion Gap 10 Blood Urea Nitrogen 19 # Creatinine 6.16 H Est Glomerular Filtrat 9 L Rate mL/min Glucose Level 132 Calcium Level 9.4 Total Bilirubin 0.0 L Direct Bilirubin 0.00 Indirect Bilirubin 0.0 Aspartate Amino 23 # Transf (AST/SGOT) Alanine 11 L Aminotransferase (ALT/SG PT) Alkaline Phosphatase 88 Total Protein 7.9 # Albumin 4.2 Globulin 3.70 H Albumin/Globulin Ratio 1.13 Test 04/27/18 12:04 Bedside Glucose 153 Consultation Date/Type/Reason Admit Date/Time Apr 22, 2018 at 21:33 Initial Consult Date 04/23/18 Type of Consult NEPHROLOGY Requesting Provider: JUVENTINO CARVER 24 HR Interval Summary Free Text/Dictation s/p Extra HD yesterday 1.8 L removed, Plan for LHC tomorrow, pt is also due for HD on Saturday Exam/Review of Systems Vital Signs Vitals Vital Signs Date Temp Pulse Resp B/P (MAP) Pulse Ox O2 O2 Flow FiO2 Time Delivery Rate 04/27/18 98.0 66 22 127/63 Nasal 2.0 15:18 (84) Cannula 04/27/18 28 13:46 04/27/18 93 07:42 Intake and Output 04/26/18 04/26/18 04/27/18 1515:00 23:00 07:00 IntakeIntake Total 820 ml 720 ml OutputOutput Total 2700 ml BalanceBalance -1880 ml 720 ml Exam Constitutional: alert Respiratory: clear to auscultation, diminished breath sounds Cardiovascular: regular rate and rhythm, nl pulses Gastrointestinal: soft, non-tender Musculoskeletal: nl extremities to inspection Extremities: normal pulses Neurological: DATA PROCESSOR II-XII intact, nl mental status, nl speech, nl strength Lymph: nl lymph nodes Medications Medications Current Medications Ondansetron HCl (Zofran Inj) 4 mg Q6H PRN IV NAUSEA AND/OR VOMITING; Start 04/22/18 at 22:30 Acetaminophen (Tylenol Liquid) 650 mg Q6H PRN PO PAIN LEVEL 1-3 OR FEVER Last administered on 04/24/18at 16:58; Admin Dose 650 MG; Start 04/22/18 at 22:30 Labetalol HCl (Labetalol) 10 mg Q2H PRN IV SBP > 165; Start 04/22/18 at 22:30 Diagnostic Test (Pha) (Accu-Chek) 1 ea 02 XX Last administered on 04/24/18at 01:09; Admin Dose 1 EA; Start 04/23/18 at 02:00 Miscellaneous Information 1 ea NOTE XX ; Start 04/22/18 at 23:00 Glucose (Glutose) 15 gm Q15M PRN PO DECREASED GLUCOSE; Start 04/22/18 at 23:00 Glucose (Glutose) 22.5 gm Q15M PRN PO DECREASED GLUCOSE; Start 04/22/18 at 23:00 Dextrose (D50w Syringe) 25 ml Q15M PRN IV DECREASED GLUCOSE; Start 04/22/18 at 23:00 Dextrose (D50w Syringe) 50 ml Q15M PRN IV DECREASED GLUCOSE; Start 04/22/18 at 23:00 Glucagon (Glucagen) 1 mg Q15M PRN IM DECREASED GLUCOSE; Start 04/22/18 at 23:00 Glucose (Glutose) 15 gm Q15M PRN BUCCAL DECREASED GLUCOSE; Start 04/22/18 at 23:00 Levofloxacin/ Dextrose 100 ml @ 100 mls/hr Q48H IVPB Last administered on 04/27/18at 08:02; Admin Dose 100 MLS/HR; Start 04/23/18 at 08:30 Heparin Sodium (Porcine) (Heparin (1000 Units/ml)) 4,000 unit PER PROTOCOL PRN IV HEPARIN PROTOCOL; Start 04/23/18 at 10:30 Heparin Sodium (Porcine) (Heparin (1000 Units/ml)) 4,000 unit AFTER DIALYSIS CATHETER ; Start 04/23/18 at 13:30 Albumin Human 50 ml @ 100 mls/hr WITH DIALYSIS PRN IV for SBP less than 90 mm hg ; Start 04/23/18 at 13:30 Sodium Chloride (NS) -To prime the dialy... DIRECTED FOR HD PRN IV for SBP less than 90 mm hg ; Start 04/23/18 at 13:30 Aspirin (Aspirin) 81 mg DAILY NGT Last administered on 04/27/18at 08:04; Admin Dose 81 MG; Start 04/24/18 at 09:00 Hydralazine HCl (Apresoline) 10 mg Q4H PRN IV SBP greater than 165 Last administered on 04/25/18at 17:11; Admin Dose 10 MG; Start 04/23/18 at 15:00 Clopidogrel Bisulfate (plaVIX) 75 mg DAILY NGT Last administered on 04/27/18at 08:02; Admin Dose 75 MG; Start 04/24/18 at 09:00 Insulin Aspart (Novolog Insulin Pen) NOVOLOG *MILD* ALGORITHM WITH MEALS BEDTIME SC Last administered on 04/27/18at 14:19; Admin Dose 1 UNIT; Start 04/24/18 at 17:35 Aspirin (Halfprin) 81 mg DAILY PO Last administered on 04/26/18at 08:19; Admin Dose 81 MG; Start 04/25/18 at 09:00 Atorvastatin Calcium (Lipitor) 80 mg QHS PO Last administered on 04/26/18 21:01; Admin Dose 80 MG; Start 04/25/18 at 21:00 Calcium Acetate (Phoslo) 2,668 mg WITH MEALS PO Last administered on 04/27/18 12:34; Admin Dose 2,668 MG; Start 04/25/18 at 08:00 Clonazepam (Klonopin) 0.5 mg QHS PO Last administered on 04/26/18 21:02; Admin Dose 0.5 MG; Start 04/25/18 at 21:00 Linagliptin (Tradjenta) 5 mg DAILY PO Last administered on 04/27/18 08:04; Admin Dose 5 MG; Start 04/25/18 at 09:00 Metoprolol Tartrate (Lopressor) 100 mg BID PO Last administered on 04/27/18 08:03; Admin Dose 100 MG; Start 04/25/18 at 09:00 Nifedipine (Procardia Xl) 30 mg BID PO Last administered on 04/27/18 08:03; Admin Dose 30 MG; Start 04/25/18 at 09:00 Ondansetron HCl (Zofran Tab) 4 mg Q8H PRN PO NAUSEA AND/OR VOMITING; Start 04/25/18 at 00:00 Pantoprazole (Protonix Tab) 40 mg DAILY@0600 PO Last administered on 04/27/18 05:00; Admin Dose 40 MG; Start 04/25/18 at 06:00 Paroxetine HCl (Paxil) 20 mg HS PO Last administered on 04/26/18 21:01; Admin Dose 20 MG; Start 04/25/18 at 21:00 Quetiapine Fumarate (Seroquel) 25 mg BID PO Last administered on 04/27/18 08:03; Admin Dose 25 MG; Start 04/25/18 at 09:00 Diagnostic Test (Pha) (Accu-Chek) 1 ea AC MEALS AND BEDTIME XX Last administered on 04/26/18 20:59; Admin Dose 1 EA; Start 04/25/18 at 07:00 Morphine Sulfate (morphine) 6 mg Q4H PRN PO SEVERE PAIN LEVEL 7-10 Last administered on 04/27/18 10:31; Admin Dose 6 MG; Start 04/25/18 at 15:00 Docusate Sodium (Colace) 100 mg Q12 PO Last administered on 04/27/18at 08:04; Admin Dose 100 MG; Start 04/25/18 at 21:00 NORMA SAUER MD Apr 27, 2018 15:49
--- NOTE | 2018-04-27 15:59 | PN ---
Date/Time of Note Date/Time of Note DATE: 04/27/18 TIME: 15:55 Assessment/Plan VTE Prophylaxis Risk score (from Nsg)>0 risk: 9 Pharmacological prophylaxis: NA/contraindicated Pharm contraindication: renal impairment Lines/Catheters IV Catheter Type (from Nrsg): Saline Lock Urinary Cath still in place: No Assessment/Plan Hospital Course 1. Acute hypoxemic and hypercapnic respiratory failure secondary to fluid overload on COPDresolved -Patient extubated and doing well -DC Levaquin IV -Continue HD 2. NSTEMI-stabilizing -Status post heparin drip -Cardiology consultation appreciated, plan is for transfer to [place] tomorrow for heart cath -Troponins have trended down -Continue cardiac meds 3. Hypertensive urgency: BP better controlled -Adjust antihypertensive as needed 4. ESRD on HD -Nephrology consultation appreciated, continue HD 5. Diabetes: -Insulin while in-house Prophylaxis: SCDs DC planning: Transfer to [facility] tomorrow for heart cath, patient will likely return to [facility] after heart cath completed Result Diagram: 04/27/18 0503 04/27/18 0503 Results 24hrs Laboratory Tests Test 04/26/18 17:12 04/26/18 20:58 04/27/18 05:03 04/27/18 07:59 Bedside Glucose 130 120 151 White Blood Count 5.4 Red Blood Count 3.59 #L Hemoglobin 10.8 #L Hematocrit 32.2 #L Mean Corpuscular Volume 89.7 Mean Corpuscular 30.1 Hemoglobin Mean Corpuscular 33.5 Hemoglobin Concent Red Cell Distribution 12.4 Width Platelet Count 218 # Mean Platelet Volume 10.3 Immature Granulocytes % 0.400 Neutrophils % 57.0 Lymphocytes % 23.5 Monocytes % 11.3 H Eosinophils % 6.7 Basophils % 1.1 Nucleated Red Blood 0.0 Cells % Immature Granulocytes # 0.020 Neutrophils # 3.1 Lymphocytes # 1.3 Monocytes # 0.6 Eosinophils # 0.4 Basophils # 0.1 Nucleated Red Blood 0.0 Cells # Prothrombin Time 14.0 Prothrombin Time Ratio 1.1 INR International 1.07 Normalized Ratio Sodium Level 140 Potassium Level 4.3 Chloride Level 96 L Carbon Dioxide Level 34 H Anion Gap 10 Blood Urea Nitrogen 19 # Creatinine 6.16 H Est Glomerular Filtrat 9 L Rate mL/min Glucose Level 132 Calcium Level 9.4 Total Bilirubin 0.0 L Direct Bilirubin 0.00 Indirect Bilirubin 0.0 Aspartate Amino 23 # Transf (AST/SGOT) Alanine 11 L Aminotransferase (ALT/SG PT) Alkaline Phosphatase 88 Total Protein 7.9 # Albumin 4.2 Globulin 3.70 H Albumin/Globulin Ratio 1.13 Test 04/27/18 12:04 Bedside Glucose 153 Subjective 24 Hr Interval Summary Constitutional: no complaints Exam/Review of Systems Vital Signs Vitals Vital Signs Date Temp Pulse Resp B/P (MAP) Pulse Ox O2 O2 Flow FiO2 Time Delivery Rate 04/27/18 98.0 66 22 127/63 Nasal 2.0 15:18 (84) Cannula 04/27/18 28 13:46 04/27/18 93 07:42 Intake and Output 04/26/18 04/26/18 04/27/18 1515:00 23:00 07:00 IntakeIntake Total 820 ml 720 ml OutputOutput Total 2700 ml BalanceBalance -1880 ml 720 ml Exam Constitutional: alert Respiratory: clear to auscultation Cardiovascular: regular rate and rhythm Gastrointestinal: soft; No distended Musculoskeletal: nl extremities to inspection Medications Medications Current Medications Ondansetron HCl (Zofran Inj) 4 mg Q6H PRN IV NAUSEA AND/OR VOMITING; Start 04/22/18 at 22:30 Acetaminophen (Tylenol Liquid) 650 mg Q6H PRN PO PAIN LEVEL 1-3 OR FEVER Last administered on 04/24/18at 16:58; Admin Dose 650 MG; Start 04/22/18 at 22:30 Labetalol HCl (Labetalol) 10 mg Q2H PRN IV SBP > 165; Start 04/22/18 at 22:30 Diagnostic Test (Pha) (Accu-Chek) 1 ea 02 XX Last administered on 04/24/18at 01:09; Admin Dose 1 EA; Start 04/23/18 at 02:00 Miscellaneous Information 1 ea NOTE XX ; Start 04/22/18 at 23:00 Glucose (Glutose) 15 gm Q15M PRN PO DECREASED GLUCOSE; Start 04/22/18 at 23:00 Glucose (Glutose) 22.5 gm Q15M PRN PO DECREASED GLUCOSE; Start 04/22/18 at 23:00 Dextrose (D50w Syringe) 25 ml Q15M PRN IV DECREASED GLUCOSE; Start 04/22/18 at 23:00 Dextrose (D50w Syringe) 50 ml Q15M PRN IV DECREASED GLUCOSE; Start 04/22/18 at 23:00 Glucagon (Glucagen) 1 mg Q15M PRN IM DECREASED GLUCOSE; Start 04/22/18 at 23:00 Glucose (Glutose) 15 gm Q15M PRN BUCCAL DECREASED GLUCOSE; Start 04/22/18 at 23:00 Levofloxacin/ Dextrose 100 ml @ 100 mls/hr Q48H IVPB Last administered on 04/27/18at 08:02; Admin Dose 100 MLS/HR; Start 04/23/18 at 08:30 Heparin Sodium (Porcine) (Heparin (1000 Units/ml)) 4,000 unit PER PROTOCOL PRN IV HEPARIN PROTOCOL; Start 04/23/18 at 10:30 Heparin Sodium (Porcine) (Heparin (1000 Units/ml)) 4,000 unit AFTER DIALYSIS CATHETER ; Start 04/23/18 at 13:30 Albumin Human 50 ml @ 100 mls/hr WITH DIALYSIS PRN IV for SBP less than 90 mm hg ; Start 04/23/18 at 13:30 Sodium Chloride (NS) -To prime the dialy... DIRECTED FOR HD PRN IV for SBP less than 90 mm hg ; Start 04/23/18 at 13:30 Aspirin (Aspirin) 81 mg DAILY NGT Last administered on 04/27/18at 08:04; Admin Dose 81 MG; Start 04/24/18 at 09:00 Hydralazine HCl (Apresoline) 10 mg Q4H PRN IV SBP greater than 165 Last administered on 04/25/18at 17:11; Admin Dose 10 MG; Start 04/23/18 at 15:00 Clopidogrel Bisulfate (plaVIX) 75 mg DAILY NGT Last administered on 04/27/18 08:02; Admin Dose 75 MG; Start 04/24/18 at 09:00 Insulin Aspart (Novolog Insulin Pen) NOVOLOG *MILD* ALGORITHM WITH MEALS BEDTIME SC Last administered on 04/27/18at 14:19; Admin Dose 1 UNIT; Start 04/24/18 at 17:35 Aspirin (Halfprin) 81 mg DAILY PO Last administered on 04/26/18 08:19; Admin Dose 81 MG; Start 04/25/18 at 09:00 Atorvastatin Calcium (Lipitor) 80 mg QHS PO Last administered on 04/26/18 21:01; Admin Dose 80 MG; Start 04/25/18 at 21:00 Calcium Acetate (Phoslo) 2,668 mg WITH MEALS PO Last administered on 04/27/18 12:34; Admin Dose 2,668 MG; Start 04/25/18 at 08:00 Clonazepam (Klonopin) 0.5 mg QHS PO Last administered on 04/26/18 21:02; Admin Dose 0.5 MG; Start 04/25/18 at 21:00 Linagliptin (Tradjenta) 5 mg DAILY PO Last administered on 04/27/18 08:04; Admin Dose 5 MG; Start 04/25/18 at 09:00 Metoprolol Tartrate (Lopressor) 100 mg BID PO Last administered on 04/27/18 08:03; Admin Dose 100 MG; Start 04/25/18 at 09:00 Nifedipine (Procardia Xl) 30 mg BID PO Last administered on 04/27/18 08:03; Admin Dose 30 MG; Start 04/25/18 at 09:00 Ondansetron HCl (Zofran Tab) 4 mg Q8H PRN PO NAUSEA AND/OR VOMITING; Start 04/25/18 at 00:00 Pantoprazole (Protonix Tab) 40 mg DAILY@0600 PO Last administered on 04/27/18 05:00; Admin Dose 40 MG; Start 04/25/18 at 06:00 Paroxetine HCl (Paxil) 20 mg HS PO Last administered on 04/26/18 21:01; Admin Dose 20 MG; Start 04/25/18 at 21:00 Quetiapine Fumarate (Seroquel) 25 mg BID PO Last administered on 04/27/18 08:03; Admin Dose 25 MG; Start 04/25/18 at 09:00 Diagnostic Test (Pha) (Accu-Chek) 1 ea AC MEALS AND BEDTIME XX Last administered on 04/26/18 20:59; Admin Dose 1 EA; Start 04/25/18 at 07:00 Morphine Sulfate (morphine) 6 mg Q4H PRN PO SEVERE PAIN LEVEL 7-10 Last administered on 04/27/18 10:31; Admin Dose 6 MG; Start 04/25/18 at 15:00 Docusate Sodium (Colace) 100 mg Q12 PO Last administered on 04/27/18at 08:04; Admin Dose 100 MG; Start 04/25/18 at 21:00 JUVENTINO CARVER Apr 27, 2018 15:59
--- NOTE | 2018-04-27 16:07 | CONS ---
Date/Time of Note Date/Time of Note DATE: 04/27/18 TIME: 16:04 Consult Date/Type/Reason Admit Date/Time Apr 22, 2018 at 21:33 Initial Consult Date 04/23/18 Type of Consultation: cv Requesting Provider: JUVENTINO CARVER Subjective Interventional cardiology follow-up progress note Subjective: Case discussed with staff. Rhythm was reviewed. Patient remains in normal sinus rhythm. pt remains on tele now . his old records were reviewed. pt with no chest pain No bleeding is reported Objective: General: Obese gentleman no acute distress HEENT: NC/AT. pupils are equal. round. NECK: . no stridor. CV: RRR. systolic murmur; no gallop or rubs. PULM: no wheezing + rhonchi. GI: SOFT, NT, ND, no rebound or guarding Extremity: trace B/L LE edema. no clubbing. neuro: Opens his eyes to verbal stimuli.. Psych: Anxious rectal: deferred : normal Echocardiogram shows: Lower limits of normal systolic function. Normal left ventricular cavity size. Sigmoid septum. Ejection fraction is visually estimated at 50 %. Tissue D oppler/Mitral Doppler indices are consistent with impaired relaxation (Stage I diastolic dysfunction). Normal right ventricular size. Normal right ventricular systolic function. There is mild enlargement of left atrium. The right atrium is normal in size. Estimated peak PA systolic pressure 51 mmHg. There is mild tricuspid regurgitation. No significant valvular stenosis or regurgitation seen of remaining visualized valves. Normal pericardium with no significant pericardial effusion. Objective Vital Signs Date Temp Pulse Resp B/P (MAP) Pulse Ox O2 O2 Flow FiO2 Time Delivery Rate 04/27/18 98.0 66 22 127/63 Nasal 2.0 15:18 (84) Cannula 04/27/18 28 13:46 04/27/18 93 07:42 Intake and Output 04/26/18 04/26/18 04/27/18 1515:00 23:00 07:00 IntakeIntake Total 820 ml 720 ml OutputOutput Total 2700 ml BalanceBalance -1880 ml 720 ml Results/Medications Result Diagram: 04/27/18 0503 04/27/18 0503 Results 24 hrs Laboratory Tests Test 04/26/18 17:12 04/26/18 20:58 04/27/18 05:03 04/27/18 07:59 Bedside Glucose 130 120 151 White Blood Count 5.4 Red Blood Count 3.59 #L Hemoglobin 10.8 #L Hematocrit 32.2 #L Mean Corpuscular Volume 89.7 Mean Corpuscular 30.1 Hemoglobin Mean Corpuscular 33.5 Hemoglobin Concent Red Cell Distribution 12.4 Width Platelet Count 218 # Mean Platelet Volume 10.3 Immature Granulocytes % 0.400 Neutrophils % 57.0 Lymphocytes % 23.5 Monocytes % 11.3 H Eosinophils % 6.7 Basophils % 1.1 Nucleated Red Blood 0.0 Cells % Immature Granulocytes # 0.020 Neutrophils # 3.1 Lymphocytes # 1.3 Monocytes # 0.6 Eosinophils # 0.4 Basophils # 0.1 Nucleated Red Blood 0.0 Cells # Prothrombin Time 14.0 Prothrombin Time Ratio 1.1 INR International 1.07 Normalized Ratio Sodium Level 140 Potassium Level 4.3 Chloride Level 96 L Carbon Dioxide Level 34 H Anion Gap 10 Blood Urea Nitrogen 19 # Creatinine 6.16 H Est Glomerular Filtrat 9 L Rate mL/min Glucose Level 132 Calcium Level 9.4 Total Bilirubin 0.0 L Direct Bilirubin 0.00 Indirect Bilirubin 0.0 Aspartate Amino 23 # Transf (AST/SGOT) Alanine 11 L Aminotransferase (ALT/SG PT) Alkaline Phosphatase 88 Total Protein 7.9 # Albumin 4.2 Globulin 3.70 H Albumin/Globulin Ratio 1.13 Test 04/27/18 12:04 Bedside Glucose 153 Medications Current Medications Ondansetron HCl (Zofran Inj) 4 mg Q6H PRN IV NAUSEA AND/OR VOMITING; Start 04/22/18 at 22:30 Acetaminophen (Tylenol Liquid) 650 mg Q6H PRN PO PAIN LEVEL 1-3 OR FEVER Last administered on 04/24/18at 16:58; Admin Dose 650 MG; Start 04/22/18 at 22:30 Labetalol HCl (Labetalol) 10 mg Q2H PRN IV SBP > 165; Start 04/22/18 at 22:30 Diagnostic Test (Pha) (Accu-Chek) 1 ea 02 XX Last administered on 04/24/18at 01:09; Admin Dose 1 EA; Start 04/23/18 at 02:00 Miscellaneous Information 1 ea NOTE XX ; Start 04/22/18 at 23:00 Glucose (Glutose) 15 gm Q15M PRN PO DECREASED GLUCOSE; Start 04/22/18 at 23:00 Glucose (Glutose) 22.5 gm Q15M PRN PO DECREASED GLUCOSE; Start 04/22/18 at 23:00 Dextrose (D50w Syringe) 25 ml Q15M PRN IV DECREASED GLUCOSE; Start 04/22/18 at 23:00 Dextrose (D50w Syringe) 50 ml Q15M PRN IV DECREASED GLUCOSE; Start 04/22/18 at 23:00 Glucagon (Glucagen) 1 mg Q15M PRN IM DECREASED GLUCOSE; Start 04/22/18 at 23:00 Glucose (Glutose) 15 gm Q15M PRN BUCCAL DECREASED GLUCOSE; Start 04/22/18 at 23:00 Heparin Sodium (Porcine) (Heparin (1000 Units/ml)) 4,000 unit PER PROTOCOL PRN IV HEPARIN PROTOCOL; Start 04/23/18 at 10:30 Heparin Sodium (Porcine) (Heparin (1000 Units/ml)) 4,000 unit AFTER DIALYSIS CATHETER ; Start 04/23/18 at 13:30 Albumin Human 50 ml @ 100 mls/hr WITH DIALYSIS PRN IV for SBP less than 90 mm hg ; Start 04/23/18 at 13:30 Sodium Chloride (NS) -To prime the dialy... DIRECTED FOR HD PRN IV for SBP less than 90 mm hg ; Start 04/23/18 at 13:30 Aspirin (Aspirin) 81 mg DAILY NGT Last administered on 04/27/18at 08:04; Admin Dose 81 MG; Start 04/24/18 at 09:00 Hydralazine HCl (Apresoline) 10 mg Q4H PRN IV SBP greater than 165 Last administered on 04/25/18at 17:11; Admin Dose 10 MG; Start 04/23/18 at 15:00 Clopidogrel Bisulfate (plaVIX) 75 mg DAILY NGT Last administered on 04/27/18at 08:02; Admin Dose 75 MG; Start 04/24/18 at 09:00 Insulin Aspart (Novolog Insulin Pen) NOVOLOG *MILD* ALGORITHM WITH MEALS BEDTIME SC Last administered on 04/27/18at 14:19; Admin Dose 1 UNIT; Start 04/24/18 at 17:35 Aspirin (Halfprin) 81 mg DAILY PO Last administered on 04/26/18at 08:19; Admin Dose 81 MG; Start 04/25/18 at 09:00 Atorvastatin Calcium (Lipitor) 80 mg QHS PO Last administered on 04/26/18 21:01; Admin Dose 80 MG; Start 04/25/18 at 21:00 Calcium Acetate (Phoslo) 2,668 mg WITH MEALS PO Last administered on 04/27/18 12:34; Admin Dose 2,668 MG; Start 04/25/18 at 08:00 Clonazepam (Klonopin) 0.5 mg QHS PO Last administered on 04/26/18 21:02; Admin Dose 0.5 MG; Start 04/25/18 at 21:00 Linagliptin (Tradjenta) 5 mg DAILY PO Last administered on 04/27/18 08:04; Admin Dose 5 MG; Start 04/25/18 at 09:00 Metoprolol Tartrate (Lopressor) 100 mg BID PO Last administered on 04/27/18 08:03; Admin Dose 100 MG; Start 04/25/18 at 09:00 Nifedipine (Procardia Xl) 30 mg BID PO Last administered on 04/27/18 08:03; Admin Dose 30 MG; Start 04/25/18 at 09:00 Ondansetron HCl (Zofran Tab) 4 mg Q8H PRN PO NAUSEA AND/OR VOMITING; Start 04/25/18 at 00:00 Pantoprazole (Protonix Tab) 40 mg DAILY@0600 PO Last administered on 04/27/18 05:00; Admin Dose 40 MG; Start 04/25/18 at 06:00 Paroxetine HCl (Paxil) 20 mg HS PO Last administered on 04/26/18 21:01; Admin Dose 20 MG; Start 04/25/18 at 21:00 Quetiapine Fumarate (Seroquel) 25 mg BID PO Last administered on 04/27/18 08:03; Admin Dose 25 MG; Start 04/25/18 at 09:00 Diagnostic Test (Pha) (Accu-Chek) 1 ea AC MEALS AND BEDTIME XX Last administered on 04/26/18 20:59; Admin Dose 1 EA; Start 04/25/18 at 07:00 Morphine Sulfate (morphine) 6 mg Q4H PRN PO SEVERE PAIN LEVEL 7-10 Last administered on 04/27/18 10:31; Admin Dose 6 MG; Start 04/25/18 at 15:00 Docusate Sodium (Colace) 100 mg Q12 PO Last administered on 04/27/18at 08:04; Admin Dose 100 MG; Start 04/25/18 at 21:00 Assessment/Plan Chief Complaint/Hosp Course 1. Non-ST elevation myocardial infarction 2. Acute hypoxemic respiratory failure: Currently extubated 3. Pneumonia 4. Renal failure on dialysis 5. Diabetes 6. Hypertension 7. Anemia Recommendations: off of heparin now cont Aspirin Plavix Hemodialysis as per nephrology team Antibiotic as per internal medicine and pulmonary Metoprolol as tolerated will be continued Plan for left heart catheterization coronary angiogram possible percutaneous coronary intervention . I have tried to transfer the patient returns on the hospital for an coronary angiogram. However pt was not accepted at [facility]. Cardiac finishing lab technician is not available in our facility this weekend. I have scheduled the patient for Saturday in our [facility] at 2 PM. Risks benefits and alternatives of left heart catheterization coronary angiogram percutaneous coronary intervention has been discussed with the patient's. Consent has been obtained Thank you for his referral. We will continue to follow along with you RAUL PALOMINO MD [facility] RAUL PALOMINO MD Apr 27, 2018 16:06
[2018-04-27] MEDS: clonAZEPAM 0.5 MG TAB PO SCH (20:06)
[2018-04-27] MEDS: PAROXETINE 20 MG TAB PO SCH (20:06)
[2018-04-27] MEDS: ATORVASTATIN 80 MG TAB PO SCH (20:06)
[2018-04-28] VITALS (63 sets, daily range): BP systolic 61–142; BP diastolic 45–84; PULSE 62–97; RESP 7–33
[2018-04-28] MEDS: morphine LIQ (10 MG/5 ML) CUP PO PRN ×4 (01:51→21:09)
[2018-04-28] MEDS: ACCU-CHEK XX SCH ×5 (02:00→21:00)
[2018-04-28] MEDS ORDERED: MAGNESIUM HYDROXIDE 30ML CUP PO ONE (05:00)
[2018-04-28] MEDS ORDERED: BISACODYL (EC) 5 MG TAB PO PRN (05:00)
[2018-04-28] MEDS ORDERED: MAGNESIUM HYDROXIDE 30ML CUP PO PRN (05:00)
[2018-04-28] MEDS ORDERED: MAGNESIUM HYDROXIDE 30ML CUP ONE (05:07)
[2018-04-28] MEDS ORDERED: BISACODYL (EC) 5 MG TAB PO ONE (05:07)
[2018-04-28] MEDS: PANTOPRAZOLE (EC) 40 MG TAB PO SCH (05:35)
[2018-04-28] MEDS: INSULIN ASPART [NOVOLOG] 3 ML PEN SC SCH ×4 (08:00→21:25)
[2018-04-28] MEDS: CALCIUM ACETATE 667 MG CAP PO SCH ×3 (08:16→18:45)
[2018-04-28] MEDS: DOCUSATE SODIUM 100 MG CAP PO SCH ×2 (08:17→21:08)
[2018-04-28] MEDS: CLOPIDOGREL 75 MG TAB NGT SCH (08:17)
[2018-04-28] MEDS: QUETIAPINE 25 MG TAB PO SCH ×2 (08:17→21:08)
[2018-04-28] MEDS: LINAGLIPTIN 5 MG TABLET PO SCH (08:17)
[2018-04-28] MEDS: ASPIRIN (EC) 81 MG TAB PO SCH (08:17)
[2018-04-28] MEDS: METOPROLOL 100 MG TAB PO SCH ×2 (08:19→21:08)
[2018-04-28] MEDS: NIFEdipine (XL) 30 MG TAB PO SCH ×2 (08:19→21:08)
[2018-04-28] MEDS: ASPIRIN 81 MG TAB NGT SCH (09:00)
--- NOTE | 2018-04-28 13:18 | PN ---
Date/Time of Note Date/Time of Note DATE: 04/28/18 TIME: 13:17 Assessment/Plan VTE Prophylaxis Risk score (from Nsg)>0 risk: 3 SCD applied (from Nsg): Yes SCD contraindicated: low risk/ambulating Pharmacological prophylaxis: heparin Lines/Catheters IV Catheter Type (from Nrsg): Saline Lock Urinary Cath still in place: No Assessment/Plan Hospital Course 58 yo male with ESRD presented with acute respiratory failure and NSTEMI Resp failure: - Resolved, continue O2 as needed, volume removal Pneumoina: - S/p abx course NSTEMI: - LHC today - Aspirin/plavix ESRD: - HD per renal dc planning Result Diagram: 04/27/18 0503 04/27/18 0503 Results 24hrs Laboratory Tests Test 04/27/18 17:14 04/27/18 20:10 04/28/18 07:38 04/28/18 11:46 Bedside Glucose 120 124 106 131 Subjective 24 Hr Interval Summary Free Text/Dictation Plan for [facility] today Receiving HD Breathing comfortably Exam/Review of Systems Vital Signs Vitals Vital Signs Date Temp Pulse Resp B/P (MAP) Pulse Ox O2 O2 Flow FiO2 Time Delivery Rate 04/28/18 18 113/62 100 Nasal 2.0 12:50 (79) Cannula 04/28/18 62 12:45 04/28/18 98.0 11:28 04/27/18 28 13:46 Intake and Output 04/27/18 04/27/18 04/28/18 1515:00 23:00 07:00 IntakeIntake Total 930 ml 480 ml BalanceBalance 930 ml 480 ml Medications Medications Current Medications Ondansetron HCl (Zofran Inj) 4 mg Q6H PRN IV NAUSEA AND/OR VOMITING; Start 04/22/18 at 22:30 Acetaminophen (Tylenol Liquid) 650 mg Q6H PRN PO PAIN LEVEL 1-3 OR FEVER Last administered on 04/24/18at 16:58; Admin Dose 650 MG; Start 04/22/18 at 22:30 Labetalol HCl (Labetalol) 10 mg Q2H PRN IV SBP > 165; Start 04/22/18 at 22:30 Diagnostic Test (Pha) (Accu-Chek) 1 ea 02 XX Last administered on 04/24/18at 01:09; Admin Dose 1 EA; Start 04/23/18 at 02:00 Miscellaneous Information 1 ea NOTE XX ; Start 04/22/18 at 23:00 Glucose (Glutose) 15 gm Q15M PRN PO DECREASED GLUCOSE; Start 04/22/18 at 23:00 Glucose (Glutose) 22.5 gm Q15M PRN PO DECREASED GLUCOSE; Start 04/22/18 at 23:00 Dextrose (D50w Syringe) 25 ml Q15M PRN IV DECREASED GLUCOSE; Start 04/22/18 at 23:00 Dextrose (D50w Syringe) 50 ml Q15M PRN IV DECREASED GLUCOSE; Start 04/22/18 at 23:00 Glucagon (Glucagen) 1 mg Q15M PRN IM DECREASED GLUCOSE; Start 04/22/18 at 23:00 Glucose (Glutose) 15 gm Q15M PRN BUCCAL DECREASED GLUCOSE; Start 04/22/18 at 23:00 Heparin Sodium (Porcine) (Heparin (1000 Units/ml)) 4,000 unit PER PROTOCOL PRN IV HEPARIN PROTOCOL; Start 04/23/18 at 10:30 Heparin Sodium (Porcine) (Heparin (1000 Units/ml)) 4,000 unit AFTER DIALYSIS CATHETER ; Start 04/23/18 at 13:30 Albumin Human 50 ml @ 100 mls/hr WITH DIALYSIS PRN IV for SBP less than 90 mm hg Last administered on 04/28/18at 11:14; Admin Dose 100 MLS/HR; Start 04/23/18 at 13:30 Sodium Chloride (NS) -To prime the dialy... DIRECTED FOR HD PRN IV for SBP less than 90 mm hg ; Start 04/23/18 at 13:30 Aspirin (Aspirin) 81 mg DAILY NGT Last administered on 04/27/18at 08:04; Admin Dose 81 MG; Start 04/24/18 at 09:00 Hydralazine HCl (Apresoline) 10 mg Q4H PRN IV SBP greater than 165 Last administered on 04/25/18at 17:11; Admin Dose 10 MG; Start 04/23/18 at 15:00 Clopidogrel Bisulfate (plaVIX) 75 mg DAILY NGT Last administered on 04/28/18at 08:17; Admin Dose 75 MG; Start 04/24/18 at 09:00 Insulin Aspart (Novolog Insulin Pen) NOVOLOG *MILD* ALGORITHM WITH MEALS BEDTIME SC Last administered on 04/27/18 14:19; Admin Dose 1 UNIT; Start 04/24/18 at 17:35 Aspirin (Halfprin) 81 mg DAILY PO Last administered on 04/28/18 08:17; Admin Dose 81 MG; Start 04/25/18 at 09:00 Atorvastatin Calcium (Lipitor) 80 mg QHS PO Last administered on 04/27/18 20:06; Admin Dose 80 MG; Start 04/25/18 at 21:00 Calcium Acetate (Phoslo) 2,668 mg WITH MEALS PO Last administered on 04/28/18 08:16; Admin Dose 2,668 MG; Start 04/25/18 at 08:00 Clonazepam (Klonopin) 0.5 mg QHS PO Last administered on 04/27/18 20:06; Admin Dose 0.5 MG; Start 04/25/18 at 21:00 Linagliptin (Tradjenta) 5 mg DAILY PO Last administered on 04/28/18 08:17; Admin Dose 5 MG; Start 04/25/18 at 09:00 Metoprolol Tartrate (Lopressor) 100 mg BID PO Last administered on 04/27/18 20:07; Admin Dose 100 MG; Start 04/25/18 at 09:00 Nifedipine (Procardia Xl) 30 mg BID PO Last administered on 04/27/18 20:06; Admin Dose 30 MG; Start 04/25/18 at 09:00 Ondansetron HCl (Zofran Tab) 4 mg Q8H PRN PO NAUSEA AND/OR VOMITING; Start 04/25/18 at 00:00 Pantoprazole (Protonix Tab) 40 mg DAILY@0600 PO Last administered on 04/28/18 05:35; Admin Dose 40 MG; Start 04/25/18 at 06:00 Paroxetine HCl (Paxil) 20 mg HS PO Last administered on 04/27/18 20:06; Admin Dose 20 MG; Start 04/25/18 at 21:00 Quetiapine Fumarate (Seroquel) 25 mg BID PO Last administered on 04/28/18 08:17; Admin Dose 25 MG; Start 04/25/18 at 09:00 Diagnostic Test (Pha) (Accu-Chek) 1 ea AC MEALS AND BEDTIME XX Last administered on 04/28/18 11:54; Admin Dose 1 EA; Start 04/25/18 at 07:00 Morphine Sulfate (morphine) 6 mg Q4H PRN PO SEVERE PAIN LEVEL 7-10 Last administered on 04/28/18 12:13; Admin Dose 6 MG; Start 04/25/18 at 15:00 Docusate Sodium (Colace) 100 mg Q12 PO Last administered on 04/28/18 08:17; Admin Dose 100 MG; Start 04/25/18 at 21:00 Magnesium Hydroxide (Milk Of Mag) 30 ml BID PRN PO CONSTIPATION Last administered on 04/28/18 08:17; Admin Dose 30 ML; Start 04/28/18 at 05:00 Bisacodyl (Dulcolax) 10 mg DAILY PRN PO CONSTIPATION Last administered on 04/28/18 05:35; Admin Dose 10 MG; Start 04/28/18 at 05:00 MARCELINO ROSARIO MD Apr 28, 2018 13:18
[2018-04-28] MEDS ORDERED: IODIXANOL LOCM 100 ML BTL ONE ×2 (13:48→15:24)
[2018-04-28] MEDS ORDERED: LIDOCAINE 1% (MDV) 20 ML INJ ONE (13:48)
[2018-04-28] MEDS ORDERED: MIDAZOLAM 1 MG/ML 2 ML INJ ONE (13:49)
[2018-04-28] MEDS ORDERED: FENTAnyl 50 MCG/ML VIAL ONE (13:49)
--- NOTE | 2018-04-28 14:28 | CONS ---
Date/Time of Note Date/Time of Note DATE: 04/28/18 TIME: 14:28 Assessment/Plan Assessment/Plan Assessment/Plan 1. ESRD on HD MWF 2. Acute hypoxemic and hypercapnic respiratory failure secondary to pneumonia on COPD- Intubated on ventilator 3. acute NSTEMI s/p LHC with stenting of RCA and Post descending artery 4. Hypertensive urgency: BP better controlled 5. Diabetes: Plan: s/p HD today AM 2.4 L removed, S/p LHC today wtih stenting of RCA pt regular schedule is MWF- next HD will be on Saturday will follow up Result Diagram: 04/27/18 0503 04/27/18 0503 Results 24hrs Laboratory Tests Test 04/27/18 17:14 04/27/18 20:10 04/28/18 07:38 04/28/18 11:46 Bedside Glucose 120 124 106 131 Consultation Date/Type/Reason Admit Date/Time Apr 22, 2018 at 21:33 Initial Consult Date 04/23/18 Type of Consult NEPHROLOGY Requesting Provider: JUVENTINO CARVER 24 HR Interval Summary Free Text/Dictation plan for LHC today, Sp HD in AM Exam/Review of Systems Vital Signs Vitals Vital Signs Date Temp Pulse Resp B/P (MAP) Pulse Ox O2 O2 Flow FiO2 Time Delivery Rate 04/28/18 18 113/62 100 Nasal 2.0 12:50 (79) Cannula 04/28/18 62 12:45 04/28/18 98.0 11:28 04/27/18 28 13:46 Intake and Output 04/27/18 04/27/18 04/28/18 1515:00 23:00 07:00 IntakeIntake Total 930 ml 480 ml BalanceBalance 930 ml 480 ml Exam Constitutional: alert Respiratory: clear to auscultation, diminished breath sounds Cardiovascular: regular rate and rhythm, nl pulses Gastrointestinal: soft, non-tender Musculoskeletal: nl extremities to inspection Extremities: normal pulses 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 intact, nl mental status, nl speech, nl strength Lymph: nl lymph nodes Medications Medications Current Medications Ondansetron HCl (Zofran Inj) 4 mg Q6H PRN IV NAUSEA AND/OR VOMITING; Start 04/22/18 at 22:30 Acetaminophen (Tylenol Liquid) 650 mg Q6H PRN PO PAIN LEVEL 1-3 OR FEVER Last administered on 04/24/18at 16:58; Admin Dose 650 MG; Start 04/22/18 at 22:30 Labetalol HCl (Labetalol) 10 mg Q2H PRN IV SBP > 165; Start 04/22/18 at 22:30 Diagnostic Test (Pha) (Accu-Chek) 1 ea 02 XX Last administered on 04/24/18at 01:09; Admin Dose 1 EA; Start 04/23/18 at 02:00 Miscellaneous Information 1 ea NOTE XX ; Start 04/22/18 at 23:00 Glucose (Glutose) 15 gm Q15M PRN PO DECREASED GLUCOSE; Start 04/22/18 at 23:00 Glucose (Glutose) 22.5 gm Q15M PRN PO DECREASED GLUCOSE; Start 04/22/18 at 23:00 Dextrose (D50w Syringe) 25 ml Q15M PRN IV DECREASED GLUCOSE; Start 04/22/18 at 23:00 Dextrose (D50w Syringe) 50 ml Q15M PRN IV DECREASED GLUCOSE; Start 04/22/18 at 23:00 Glucagon (Glucagen) 1 mg Q15M PRN IM DECREASED GLUCOSE; Start 04/22/18 at 23:00 Glucose (Glutose) 15 gm Q15M PRN BUCCAL DECREASED GLUCOSE; Start 04/22/18 at 23:00 Heparin Sodium (Porcine) (Heparin (1000 Units/ml)) 4,000 unit PER PROTOCOL PRN IV HEPARIN PROTOCOL; Start 04/23/18 at 10:30 Heparin Sodium (Porcine) (Heparin (1000 Units/ml)) 4,000 unit AFTER DIALYSIS CATHETER ; Start 04/23/18 at 13:30 Albumin Human 50 ml @ 100 mls/hr WITH DIALYSIS PRN IV for SBP less than 90 mm hg Last administered on 04/28/18at 11:14; Admin Dose 100 MLS/HR; Start 04/23/18 at 13:30 Aspirin (Aspirin) 81 mg DAILY NGT Last administered on 04/27/18at 08:04; Admin Dose 81 MG; Start 04/24/18 at 09:00 Hydralazine HCl (Apresoline) 10 mg Q4H PRN IV SBP greater than 165 Last administered on 04/25/18at 17:11; Admin Dose 10 MG; Start 04/23/18 at 15:00 Clopidogrel Bisulfate (plaVIX) 75 mg DAILY NGT Last administered on 04/28/18 08:17; Admin Dose 75 MG; Start 04/24/18 at 09:00 Insulin Aspart (Novolog Insulin Pen) NOVOLOG *MILD* ALGORITHM WITH MEALS BEDTIME SC Last administered on 04/27/18 14:19; Admin Dose 1 UNIT; Start 04/24/18 at 17:35 Aspirin (Halfprin) 81 mg DAILY PO Last administered on 04/28/18 08:17; Admin Dose 81 MG; Start 04/25/18 at 09:00 Atorvastatin Calcium (Lipitor) 80 mg QHS PO Last administered on 04/27/18 20:06; Admin Dose 80 MG; Start 04/25/18 at 21:00 Calcium Acetate (Phoslo) 2,668 mg WITH MEALS PO Last administered on 04/28/18 08:16; Admin Dose 2,668 MG; Start 04/25/18 at 08:00 Clonazepam (Klonopin) 0.5 mg QHS PO Last administered on 04/27/18 20:06; Admin Dose 0.5 MG; Start 04/25/18 at 21:00 Linagliptin (Tradjenta) 5 mg DAILY PO Last administered on 04/28/18 08:17; Admin Dose 5 MG; Start 04/25/18 at 09:00 Metoprolol Tartrate (Lopressor) 100 mg BID PO Last administered on 04/27/18 20:07; Admin Dose 100 MG; Start 04/25/18 at 09:00 Nifedipine (Procardia Xl) 30 mg BID PO Last administered on 04/27/18 20:06; Adm in Dose 30 MG; Start 04/25/18 at 09:00 Ondansetron HCl (Zofran Tab) 4 mg Q8H PRN PO NAUSEA AND/OR VOMITING; Start 04/25/18 at 00:00 Pantoprazole (Protonix Tab) 40 mg DAILY@0600 PO Last administered on 04/28/18 05:35; Admin Dose 40 MG; Start 04/25/18 at 06:00 Paroxetine HCl (Paxil) 20 mg HS PO Last administered on 04/27/18 20:06; Admin Dose 20 MG; Start 04/25/18 at 21:00 Quetiapine Fumarate (Seroquel) 25 mg BID PO Last administered on 04/28/18 08:17; Admin Dose 25 MG; Start 04/25/18 at 09:00 Diagnostic Test (Pha) (Accu-Chek) 1 ea AC MEALS AND BEDTIME XX Last administered on 04/28/18 11:54; Admin Dose 1 EA; Start 04/25/18 at 07:00 Morphine Sulfate (morphine) 6 mg Q4H PRN PO SEVERE PAIN LEVEL 7-10 Last administered on 04/28/18 12:13; Admin Dose 6 MG; Start 04/25/18 at 15:00 Docusate Sodium (Colace) 100 mg Q12 PO Last administered on 04/28/18 08:17; Admin Dose 100 MG; Start 04/25/18 at 21:00 Magnesium Hydroxide (Milk Of Mag) 30 ml BID PRN PO CONSTIPATION Last administered on 04/28/18 08:17; Admin Dose 30 ML; Start 04/28/18 at 05:00 Bisacodyl (Dulcolax) 10 mg DAILY PRN PO CONSTIPATION Last administered on 04/28/18 05:35; Admin Dose 10 MG; Start 04/28/18 at 05:00 Influenza Virus Vaccine Quadrival (Fluzone) 0.5 ml ONCE ONCE IM* ; Start 04/29/18 at 10:00; Stop 04/29/18 at 10:01 NORMA SAUER MD Apr 28, 2018 14:28
[2018-04-28] MEDS ORDERED: NITROGLYCERIN (IC) 100 MCG/ML INJ ONE (14:32)
[2018-04-28] MEDS ORDERED: VERAPAMIL 5 MG INJ ONE (14:32)
[2018-04-28] MEDS ORDERED: IOHEXOL 350MG/ML 50 ML BTL ONE (14:41)
[2018-04-28] MEDS ORDERED: BIVALIRUDIN 250MG /NS 50 ML 50 ML IVPB ONE (14:41)
[2018-04-28] MEDS ORDERED: CLOPIDOGREL 75 MG TAB ONE (15:15)
[2018-04-28] MEDS ORDERED: SOD CHLORIDE 0.9% 1,000 ML IV SCH (15:32)
--- NOTE | 2018-04-28 15:43 | OPR ---
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 Successful PTCA and stenting of mid right coronary artery using a 3 x 20 mm Synergy drug-eluting stent and PCI of the posterior descending artery using a 2.5 x 20 mm Synergy drug-eluting stent 4. Moderate sedation for more than 60 minutes Findings: 1. Left main: is small and trifurcates to LAD & LCX, RI. Left main has about 20-30% ostial stenosis 2. LAD: has 30 % stenosis at proximal LAD, and 80 % stenosis at mid LAD. Diagonal has about 50% ostial stenosis 3. Left circumflex artery: is nondominant. it has 40 % stenosis 4. Ramus intermediate is a moderate size vessel and has 30% ostial stenosis 5. RCA: is dominant. it has 99 % stenosis at mid RCA ---> 0% stenosis post PCI. PDA itself branches to the from branches. PDA has 80% proximal stenosis. Distally has 99% stenosis. After successful PCI of this lesion no significant residual stenosis was left 5. LV EDP is about 17 with no significant gradient across aortic valve Procedure in detail: Written informed consent with obtained after risks benefits and alternatives discussed with the patient in detail. risks including but not limited to risk of infection vascular complications, bleeding complications, CA stroke arrhythmia renal failure at even were discussed with the patient in detail. Patient was brought into the cardiac canvas shop laborer and placed in supine position. Right and left groin area was prepped and draped in regular sterile fashion and then he was in anesthetized using 1% lidocaine. Right femoral artery was cannulated and using modified seldinger technique a 6 [place] sheath was placed in the femoral artery. Femoral angiogram was performed JL4 guiding catheter was advanced to engage the left main coronary artery angiographic view was obtained. JR4 catheter was advanced and engaged into the right coronary artery and angiographic view was obtained. Then a pigtail was advanced to engage the left ventricle hemodynamics as recorded by pullback aortic pressure was measured. At this time we decided to perform PCI of the right coronary artery. A JR4 guiding catheter was advanced to engage the right coronary artery. BMW wire was used and advanced across the lesion and placed distal to the lesion. I used a 2.5 x 8 mm balloon which was placed across the RCA lesion and predilated the vessel. Then I used a 2.0 x 15 mm balloon which was placed across the PDA lesion and inflated multiple times Then I used a 2.5 x 20 mm Synergy drug-eluting stent which was placed across the PDA lesion and deployed at 12 [place]. Finally a 3 x 20 mm Synergy drug-eluting stent was used and placed across the mid RCA lesion and deployed at 16 Henry. Final angiographic view was obtained which showed LOLIS-3 flow no evidence of d issection and no significant residual stenosis at the site of the stent. perclose was successfully deployed. Patient tolerated the procedure well with no complication. Patient was transferred to ICU in stable condition. contrast used: 120 visipaque Conclusions: Successful PTCA stenting of the right coronary artery and posterior descending artery artery from up to 99% stenosis to no significant residual stenosis using a 3 x 20 and 2.5 x 20 mm Synergy drug-eluting stents. Recommendations: Aggressive medical therapy. aspirin indefinitely dual antiplatlet therapy with aspirin and Plavix Staged PCI of the mid LAD at a later time RAUL TAYLOR MD [facility] RAUL TAYLOR MD Apr 28, 2018 15:43
--- NOTE | 2018-04-28 16:51 | CONS ---
Date/Time of Note Date/Time of Note DATE: 04/28/18 TIME: 16:47 Consult Date/Type/Reason Admit Date/Time Apr 22, 2018 at 21:33 Initial Consult Date 04/23/18 Type of Consultation: cv Requesting Provider: JUVENTINO CARVER Subjective Interventional cardiology follow-up progress note Subjective: Case discussed with staff. Rhythm was reviewed. Patient remains in normal sinus rhythm. pt with no chest pain No bleeding is reported S/P pci RCA Objective: General: Obese gentleman no acute distress HEENT: NC/AT. pupils are equal. round. NECK: . no stridor. CV: RRR. systolic murmur; no gallop or rubs. PULM: no wheezing + rhonchi. GI: SOFT, NT, ND, no rebound or guarding Extremity: trace B/L LE edema. no clubbing. neuro: Opens his eyes to verbal stimuli.. Psych: Anxious rectal: deferred : normal Echocardiogram shows: Lower limits of normal systolic function. Normal left ventricular cavity size. Sigmoid septum. Ejection fraction is visually estimated at 50 %. Tissue Doppler/Mitral Doppler indices are consistent with impaired relaxation (Stage I diastolic dysfunction). Normal right ventricular size. Normal right ventricular systolic function. There is mild enlargement of left atrium. The right atrium is normal in size. Estimated peak PA systolic pressure 51 mmHg. There is mild tricuspid regurgitation. No significant valvular stenosis or regurgitation seen of remaining visualized valves. Normal pericardium with no significant pericardial effusion. Objective Vital Signs Date Temp Pulse Resp B/P (MAP) Pulse Ox O2 O2 Flow FiO2 Time Delivery Rate 04/28/18 66 10 109/51 96 Room Air 16:22 (70) 04/28/18 98.5 15:35 04/28/18 2.0 12:50 04/27/18 28 13:46 Intake and Output 04/27/18 04/27/18 04/28/18 1414:59 22:59 06:59 IntakeIntake Total 930 ml 480 ml BalanceBalance 930 ml 480 ml Results/Medications Result Diagram: 04/27/18 0503 04/27/18 0503 Results 24 hrs Laboratory Tests Test 04/27/18 17:14 04/27/18 20:10 04/28/18 07:38 04/28/18 11:46 Bedside Glucose 120 124 106 131 Medications Current Medications Ondansetron HCl (Zofran Inj) 4 mg Q6H PRN IV NAUSEA AND/OR VOMITING; Start 04/22/18 at 22:30 Acetaminophen (Tylenol Liquid) 650 mg Q6H PRN PO PAIN LEVEL 1-3 OR FEVER Last administered on 04/24/18at 16:58; Admin Dose 650 MG; Start 04/22/18 at 22:30 Labetalol HCl (Labetalol) 10 mg Q2H PRN IV SBP > 165; Start 04/22/18 at 22:30 Diagnostic Test (Pha) (Accu-Chek) 1 ea 02 XX Last administered on 04/24/18at 01:09; Admin Dose 1 EA; Start 04/23/18 at 02:00 Miscellaneous Information 1 ea NOTE XX ; Start 04/22/18 at 23:00 Glucose (Glutose) 15 gm Q15M PRN PO DECREASED GLUCOSE; Start 04/22/18 at 23:00 Glucose (Glutose) 22.5 gm Q15M PRN PO DECREASED GLUCOSE; Start 04/22/18 at 23:00 Dextrose (D50w Syringe) 25 ml Q15M PRN IV DECREASED GLUCOSE; Start 04/22/18 at 23:00 Dextrose (D50w Syringe) 50 ml Q15M PRN IV DECREASED GLUCOSE; Start 04/22/18 at 23:00 Glucagon (Glucagen) 1 mg Q15M PRN IM DECREASED GLUCOSE; Start 04/22/18 at 23:00 Glucose (Glutose) 15 gm Q15M PRN BUCCAL DECREASED GLUCOSE; Start 04/22/18 at 23 :00 Heparin Sodium (Porcine) (Heparin (1000 Units/ml)) 4,000 unit PER PROTOCOL PRN IV HEPARIN PROTOCOL; Start 04/23/18 at 10:30 Heparin Sodium (Porcine) (Heparin (1000 Units/ml)) 4,000 unit AFTER DIALYSIS CATHETER ; Start 04/23/18 at 13:30 Albumin Human 50 ml @ 100 mls/hr WITH DIALYSIS PRN IV for SBP less than 90 mm hg Last administered on 04/28/18at 11:14; Admin Dose 100 MLS/HR; Start 04/23/18 at 13:30 Aspirin (Aspirin) 81 mg DAILY NGT Last administered on 04/27/18at 08:04; Admin Dose 81 MG; Start 04/24/18 at 09:00 Hydralazine HCl (Apresoline) 10 mg Q4H PRN IV SBP greater than 165 Last administered on 04/25/18 17:11; Admin Dose 10 MG; Start 04/23/18 at 15:00 Clopidogrel Bisulfate (plaVIX) 75 mg DAILY NGT Last administered on 04/28/18 08:17; Admin Dose 75 MG; Start 04/24/18 at 09:00 Insulin Aspart (Novolog Insulin Pen) NOVOLOG *MILD* ALGORITHM WITH MEALS BEDTIME SC Last administered on 04/27/18 14:19; Admin Dose 1 UNIT; Start 04/24/18 at 17:35 Aspirin (Halfprin) 81 mg DAILY PO Last administered on 04/28/18 08:17; Admin Dose 81 MG; Start 04/25/18 at 09:00 Atorvastatin Calcium (Lipitor) 80 mg QHS PO Last administered on 04/27/18 20:06; Admin Dose 80 MG; Start 04/25/18 at 21:00 Calcium Acetate (Phoslo) 2,668 mg WITH MEALS PO Last administered on 04/28/18 08:16; Admin Dose 2,668 MG; Start 04/25/18 at 08:00 Clonazepam (Klonopin) 0.5 mg QHS PO Last administered on 04/27/18 20:06; Admin Dose 0.5 MG; Start 04/25/18 at 21:00 Linagliptin (Tradjenta) 5 mg DAILY PO Last administered on 04/28/18 08:17; Admin Dose 5 MG; Start 04/25/18 at 09:00 Metoprolol Tartrate (Lopressor) 100 mg BID PO Last administered on 04/27/18 20:07; Admin Dose 100 MG; Start 04/25/18 at 09:00 Nifedipine (Procardia Xl) 30 mg BID PO Last administered on 04/27/18 20:06; Admin Dose 30 MG; Start 04/25/18 at 09:00 Ondansetron HCl (Zofran Tab) 4 mg Q8H PRN PO NAUSEA AND/OR VOMITING; Start 04/25/18 at 00:00 Pantoprazole (Protonix Tab) 40 mg DAILY@0600 PO Last administered on 04/28/18 05:35; Admin Dose 40 MG; Start 04/25/18 at 06:00 Paroxetine HCl (Paxil) 20 mg HS PO Last administered on 04/27/18at 20:06; Admin Dose 20 MG; Start 04/25/18 at 21:00 Quetiapine Fumarate (Seroquel) 25 mg BID PO Last administered on 04/28/18at 08:17; Admin Dose 25 MG; Start 04/25/18 at 09:00 Diagnostic Test (Pha) (Accu-Chek) 1 ea AC MEALS AND BEDTIME XX Last administered on 04/28/18at 11:54; Admin Dose 1 EA; Start 04/25/18 at 07:00 Morphine Sulfate (morphine) 6 mg Q4H PRN PO SEVERE PAIN LEVEL 7-10 Last administered on 04/28/18 12:13; Admin Dose 6 MG; Start 04/25/18 at 15:00 Docusate Sodium (Colace) 100 mg Q12 PO Last administered on 04/28/18at 08:17; Admin Dose 100 MG; Start 04/25/18 at 21:00 Magnesium Hydroxide (Milk Of Mag) 30 ml BID PRN PO CONSTIPATION Last administered on 04/28/18at 08:17; Admin Dose 30 ML; Start 04/28/18 at 05:00 Bisacodyl (Dulcolax) 10 mg DAILY PRN PO CONSTIPATION Last administered on 04/28/18at 05:35; Admin Dose 10 MG; Start 04/28/18 at 05:00 Influenza Virus Vaccine Quadrival (Fluzone) 0.5 ml ONCE ONCE IM* ; Start 04/29/18 at 10:00; Stop 04/29/18 at 10:01 Sodium Chloride 1,000 ml @ 50 mls/hr Q20H IV ; Start 04/28/18 at 15:32; Stop 04/28/18 at 21:31 Assessment/Plan Chief Complaint/Hosp Course 1. Non-ST elevation myocardial infarction 2. Acute hypoxemic respiratory failure: Currently extubated 3. Pneumonia 4. Renal failure on dialysis 5. Diabetes 6. Hypertension 7. Anemia 8, multivessel CAD: S/P PCI RCA Recommendations: cont Aspirin Plavix Hemodialysis as per nephrology team Antibiotic as per internal medicine and pulmonary Metoprolol as tolerated will be continued dc planning for tomorrow once pt has his ASA/ Plavix statin will f/u in office on 05/08/18 at 2 PM Thank you for his referral. We will continue to follow along with you RAUL PALOMINO MD [facility] RAUL PALOMINO MD Apr 28, 2018 16:51
[2018-04-28] MEDS: ATORVASTATIN 80 MG TAB PO SCH (21:07)
[2018-04-28] MEDS: PAROXETINE 20 MG TAB PO SCH (21:07)
[2018-04-28] MEDS: clonAZEPAM 0.5 MG TAB PO SCH (21:07)
[2018-04-29] VITALS (12 sets, daily range): BP systolic 125–169; BP diastolic 62–90; PULSE 67–86; RESP 17–18
[2018-04-29] MEDS: ACCU-CHEK XX SCH ×6 (01:53→22:00)
[2018-04-29] MEDS: PANTOPRAZOLE (EC) 40 MG TAB PO SCH (06:16)
[2018-04-29] MEDS: INSULIN ASPART [NOVOLOG] 3 ML PEN SC SCH ×4 (07:55→21:00)
[2018-04-29] MEDS: ASPIRIN (EC) 81 MG TAB PO SCH (08:09)
[2018-04-29] MEDS: CALCIUM ACETATE 667 MG CAP PO SCH ×3 (08:09→17:42)
[2018-04-29] MEDS: QUETIAPINE 25 MG TAB PO SCH (08:09)
[2018-04-29] MEDS: DOCUSATE SODIUM 100 MG CAP PO SCH ×2 (08:09→21:40)
[2018-04-29] MEDS: LINAGLIPTIN 5 MG TABLET PO SCH (08:09)
[2018-04-29] MEDS: NIFEdipine (XL) 30 MG TAB PO SCH ×2 (08:10→21:40)
[2018-04-29] MEDS: METOPROLOL 100 MG TAB PO SCH ×2 (08:10→21:40)
[2018-04-29] MEDS: CLOPIDOGREL 75 MG TAB NGT SCH (08:10)
[2018-04-29] MEDS: morphine LIQ (10 MG/5 ML) CUP PO PRN ×3 (08:17→22:00)
[2018-04-29] MEDS: ASPIRIN 81 MG TAB NGT SCH (09:00)
--- NOTE | 2018-04-29 10:14 | CONS ---
Date/Time of Note Date/Time of Note DATE: 04/29/18 TIME: 10:14 Assessment/Plan Assessment/Plan Assessment/Plan 1. ESRD on HD MWF 2. Acute hypoxemic and hypercapnic respiratory failure secondary to pneumonia on COPD- Intubated on ventilator 3. acute NSTEMI s/p LHC with stenting of RCA and Post descending artery on 04/28/18 4. Hypertensive urgency: BP better controlled 5. Diabetes: Plan: HD ordered for tomorrow pt regular schedule is MWF- next HD will be on Saturday will follow up Result Diagram: 04/29/18 0554 04/29/18 0554 Results 24hrs Laboratory Tests Test 04/28/18 11:46 04/28/18 17:56 04/28/18 21:05 04/29/18 01:43 Bedside Glucose 131 106 185 108 Test 04/29/18 05:54 04/29/18 08:02 White Blood Count 6.8 # Red Blood Count 3.48 L Hemoglobin 10.3 L Hematocrit 31.4 L Mean Corpuscular Volume 90.2 Mean Corpuscular 29.6 Hemoglobin Mean Corpuscular 32.8 Hemoglobin Concent Red Cell Distribution 12.7 Width Platelet Count 239 Mean Platelet Volume 10.7 H Immature Granulocytes % 0.300 Neutrophils % 60.2 Lymphocytes % 21.5 Monocytes % 10.7 Eosinophils % 6.7 Basophils % 0.6 Nucleated Red Blood 0.0 Cells % Immature Granulocytes # 0.020 Neutrophils # 4.1 Lymphocytes # 1.5 Monocytes # 0.7 Eosinophils # 0.5 Basophils # 0.0 Nucleated Red Blood 0.0 Cells # Sodium Level 140 Potassium Level 5.2 H Chloride Level 95 L Carbon Dioxide Level 30 Anion Gap 15 H Blood Urea Nitrogen 29 H Creatinine 7.51 H Est Glomerular Filtrat 7 L Rate mL/min Glucose Level 105 Calcium Level 9.3 Bedside Glucose 115 Consultation Date/Type/Reason Admit Date/Time Apr 22, 2018 at 21:33 Initial Consult Date 04/23/18 Type of Consult NEPHROLOGY Requesting Provider: JUVENTINO CARVER 24 HR Interval Summary Free Text/Dictation s/p LHC with stent placement yesterday, BP stable, Exam/Review of Systems Vital Signs Vitals Vital Signs Date Temp Pulse Resp B/P (MAP) Pulse Ox O2 O2 Flow FiO2 Time Delivery Rate 04/29/18 72 08:36 04/29/18 97.4 17 150/67 96 07:46 (94) 04/29/18 Room Air 04:05 Ambu Bag 04/28/18 2.0 12:50 04/27/18 28 13:46 Intake and Output 04/28/18 04/28/18 04/29/18 1515:00 23:00 07:00 IntakeIntake Total 240 ml OutputOutput Total 350 ml BalanceBalance -110 ml Exam Constitutional: alert Respiratory: clear to auscultation, diminished breath sounds Cardiovascular: regular rate and rhythm, nl pulses Gastrointestinal: soft, non-tender Musculoskeletal: nl extremities to inspection Extremities: normal pulses Neurological: [place] II-XII intact, nl mental status, nl speech, nl strength Lymph: nl lymph nodes Medications Medications Current Medications Ondansetron HCl (Zofran Inj) 4 mg Q6H PRN IV NAUSEA AND/OR VOMITING; Start 04/22/18 at 22:30 Acetaminophen (Tylenol Liquid) 650 mg Q6H PRN PO PAIN LEVEL 1-3 OR FEVER Last administered on 04/24/18at 16:58; Admin Dose 650 MG; Start 04/22/18 at 22:30 Labetalol HCl (Labetalol) 10 mg Q2H PRN IV SBP > 165; Start 04/22/18 at 22:30 Diagnostic Test (Pha) (Accu-Chek) 1 ea 02 XX Last administered on 04/24/18at 01:09; Admin Dose 1 EA; Start 04/23/18 at 02:00 Miscellaneous Information 1 ea NOTE XX ; Start 04/22/18 at 23:00 Glucose (Glutose) 15 gm Q15M PRN PO DECREASED GLUCOSE; Start 04/22/18 at 23:00 Glucose (Glutose) 22.5 gm Q15M PRN PO DECREASED GLUCOSE; Start 04/22/18 at 23:00 Dextrose (D50w Syringe) 25 ml Q15M PRN IV DECREASED GLUCOSE; Start 04/22/18 at 23:00 Dextrose (D50w Syringe) 50 ml Q15M PRN IV DECREASED GLUCOSE; Start 04/22/18 at 23:00 Glucagon (Glucagen) 1 mg Q15M PRN IM DECREASED GLUCOSE; Start 04/22/18 at 23:00 Glucose (Glutose) 15 gm Q15M PRN BUCCAL DECREASED GLUCOSE; Start 04/22/18 at 23:00 Heparin Sodium (Porcine) (Heparin (1000 Units/ml)) 4,000 unit PER PROTOCOL PRN IV HEPARIN PROTOCOL; Start 04/23/18 at 10:30 Heparin Sodium (Porcine) (Heparin (1000 Units/ml)) 4,000 unit AFTER DIALYSIS CATHETER ; Start 04/23/18 at 13:30 Albumin Human 50 ml @ 100 mls/hr WITH DIALYSIS PRN IV for SBP less than 90 mm hg Last administered on 04/28/18 11:14; Admin Dose 100 MLS/HR; Start 04/23/18 at 13:30 Aspirin (Aspirin) 81 mg DAILY NGT Last administered on 04/27/18 08:04; Admin Dose 81 MG; Start 04/24/18 at 09:00 Hydralazine HCl (Apresoline) 10 mg Q4H PRN IV SBP greater than 165 Last administered on 04/25/18 17:11; Admin Dose 10 MG; Start 04/23/18 at 15:00 Clopidogrel Bisulfate (plaVIX) 75 mg DAILY NGT Last administered on 04/29/18 08:10; Admin Dose 75 MG; Start 04/24/18 at 09:00 Insulin Aspart (Novolog Insulin Pen) NOVOLOG *MILD* ALGORITHM WITH MEALS BEDTIME SC Last administered on 04/28/18 21:25; Admin Dose 1 UNIT; Start 04/24/18 at 17:35 Aspirin (Halfprin) 81 mg DAILY PO Last administered on 04/29/18 08:09; Admin Dose 81 MG; Start 04/25/18 at 09:00 Atorvastatin Calcium (Lipitor) 80 mg QHS PO Last administered on 04/28/18 21 :07; Admin Dose 80 MG; Start 04/25/18 at 21:00 Calcium Acetate (Phoslo) 2,668 mg WITH MEALS PO Last administered on 04/29/18 08:09; Admin Dose 2,668 MG; Start 04/25/18 at 08:00 Clonazepam (Klonopin) 0.5 mg QHS PO Last administered on 04/28/18 21:07; Admin Dose 0.5 MG; Start 04/25/18 at 21:00 Linagliptin (Tradjenta) 5 mg DAILY PO Last administered on 04/29/18 08:09; Admin Dose 5 MG; Start 04/25/18 at 09:00 Metoprolol Tartrate (Lopressor) 100 mg BID PO Last administered on 04/29/18 08:10; Admin Dose 100 MG; Start 04/25/18 at 09:00 Nifedipine (Procardia Xl) 30 mg BID PO Last administered on 04/29/18 08:10; Admin Dose 30 MG; Start 04/25/18 at 09:00 Ondansetron HCl (Zofran Tab) 4 mg Q8H PRN PO NAUSEA AND/OR VOMITING; Start 04/25/18 at 00:00 Pantoprazole (Protonix Tab) 40 mg DAILY@0600 PO Last administered on 04/29/18 06:16; Admin Dose 40 MG; Start 04/25/18 at 06:00 Paroxetine HCl (Paxil) 20 mg HS PO Last administered on 04/28/18 21:07; Admin Dose 20 MG; Start 04/25/18 at 21:00 Quetiapine Fumarate (Seroquel) 25 mg BID PO Last administered on 04/29/18 08:09; Admin Dose 25 MG; Start 04/25/18 at 09:00 Diagnostic Test (Pha) (Accu-Chek) 1 ea AC MEALS AND BEDTIME XX Last administered on 04/29/18 08:03; Admin Dose 1 EA; Start 04/25/18 at 07:00 Morphine Sulfate (morphine) 6 mg Q4H PRN PO SEVERE PAIN LEVEL 7-10 Last administered on 04/29/18 08:17; Admin Dose 6 MG; Start 04/25/18 at 15:00 Docusate Sodium (Colace) 100 mg Q12 PO Last administered on 04/29/18 08:09; Admin Dose 100 MG; Start 04/25/18 at 21:00 Magnesium Hydroxide (Milk Of Mag) 30 ml BID PRN PO CONSTIPATION Last administered on 04/28/18 08:17; Admin Dose 30 ML; Start 04/28/18 at 05:00 Bisacodyl (Dulcolax) 10 mg DAILY PRN PO CONSTIPATION Last administered on 04/28/18 05:35; Admin Dose 10 MG; Start 04/28/18 at 05:00 NORMA SAUER MD Apr 29, 2018 10:14
[2018-04-29] MEDS ORDERED: NA POLYST SULFON 15 GM/60 ML BTL PO ONE (10:30)
--- NOTE | 2018-04-29 11:10 | CONS ---
Date/Time of Note Date/Time of Note DATE: 04/29/18 TIME: 11:08 Consult Date/Type/Reason Admit Date/Time Apr 22, 2018 at 21:33 Initial Consult Date 04/23/18 Type of Consultation: Pulmonary ICU Requesting Provider: JUVENTINO CARVER Subjective Stable this morning. No new events no respiratory distress no chest pain. Objective Vital Signs Date Temp Pulse Resp B/P (MAP) Pulse Ox O2 O2 Flow FiO2 Time Delivery Rate 04/29/18 72 08:36 04/29/18 97.4 17 150/67 96 07:46 (94) 04/29/18 Room Air 04:05 Ambu Bag 04/28/18 2.0 12:50 04/27/18 28 13:46 Intake and Output 04/28/18 04/28/18 04/29/18 1515:00 23:00 07:00 IntakeIntake Total 240 ml OutputOutput Total 350 ml BalanceBalance -110 ml Exam GENERAL: Well-nourished well-developed gentleman VITAL SIGNS: per chart NECK: Supple. No JVD or lymphadenopathy. CARDIAC EXAM: S1, S2. No added sounds or murmurs. CHEST: clear bilaterally, No added sounds, rales or wheezes ABDOMEN: Soft, nontender. No guarding or rebound. EXTREMITIES: No cyanosis, clubbing or edema. NEUROLOGIC: Generalized weakness. No focal deficits. Results/Medications Result Diagram: 04/29/18 0554 04/29/18 0554 Results 24 hrs Laboratory Tests Test 04/28/18 11:46 04/28/18 17:56 04/28/18 21:05 04/29/18 01:43 Bedside Glucose 131 106 185 108 Test 04/29/18 05:54 04/29/18 08:02 White Blood Count 6.8 # Red Blood Count 3.48 L Hemoglobin 10.3 L Hematocrit 31.4 L Mean Corpuscular Volume 90.2 Mean Corpuscular 29.6 Hemoglobin Mean Corpuscular 32.8 Hemoglobin Concent Red Cell Distribution 12.7 Width Platelet Count 239 Mean Platelet Volume 10.7 H Immature Granulocytes % 0.300 Neutrophils % 60.2 Lymphocytes % 21.5 Monocytes % 10.7 Eosinophils % 6.7 Basophils % 0.6 Nucleated Red Blood 0.0 Cells % Immature Granulocytes # 0.020 Neutrophils # 4.1 Lymphocytes # 1.5 Monocytes # 0.7 Eosinophils # 0.5 Basophils # 0.0 Nucleated Red Blood 0.0 Cells # Sodium Level 140 Potassium Level 5.2 H Chloride Level 95 L Carbon Dioxide Level 30 Anion Gap 15 H Blood Urea Nitrogen 29 H Creatinine 7.51 H Est Glomerular Filtrat 7 L Rate mL/min Glucose Level 105 Calcium Level 9.3 Bedside Glucose 115 Medications Current Medications Ondansetron HCl (Zofran Inj) 4 mg Q6H PRN IV NAUSEA AND/OR VOMITING; Start 04/22/18 at 22:30 Acetaminophen (Tylenol Liquid) 650 mg Q6H PRN PO PAIN LEVEL 1-3 OR FEVER Last administered on 04/24/18at 16:58; Admin Dose 650 MG; Start 04/22/18 at 22:30 Labetalol HCl (Labetalol) 10 mg Q2H PRN IV SBP > 165; Start 04/22/18 at 22:30 Diagnostic Test (Pha) (Accu-Chek) 1 ea 02 XX Last administered on 04/24/18at 01:09; Admin Dose 1 EA; Start 04/23/18 at 02:00 Miscellaneous Information 1 ea NOTE XX ; Start 04/22/18 at 23:00 Glucose (Glutose) 15 gm Q15M PRN PO DECREASED GLUCOSE; Start 04/22/18 at 23:00 Glucose (Glutose) 22.5 gm Q15M PRN PO DECREASED GLUCOSE; Start 04/22/18 at 23:00 Dextrose (D50w Syringe) 25 ml Q15M PRN IV DECREASED GLUCOSE; Start 04/22/18 at 23:00 Dextrose (D50w Syringe) 50 ml Q15M PRN IV DECREASED GLUCOSE; Start 04/22/18 at 23:00 Glucagon (Glucagen) 1 mg Q15M PRN IM DECREASED GLUCOSE; Start 04/22/18 at 23:00 Glucose (Glutose) 15 gm Q15M PRN BUCCAL DECREASED GLUCOSE; Start 04/22/18 at 23:00 Heparin Sodium (Porcine) (Heparin (1000 Units/ml)) 4,000 unit PER PROTOCOL PRN IV HEPARIN PROTOCOL; Start 04/23/18 at 10:30 Heparin Sodium (Porcine) (Heparin (1000 Units/ml)) 4,000 unit AFTER DIALYSIS CATHETER ; Start 04/23/18 at 13:30 Albumin Human 50 ml @ 100 mls/hr WITH DIALYSIS PRN IV for SBP less than 90 mm hg Last administered on 04/28/18 11:14; Admin Dose 100 MLS/HR; Start 04/23/18 at 13:30 Hydralazine HCl (Apresoline) 10 mg Q4H PRN IV SBP greater than 165 Last administered on 04/25/18 17:11; Admin Dose 10 MG; Start 04/23/18 at 15:00 Clopidogrel Bisulfate (plaVIX) 75 mg DAILY NGT Last administered on 04/29/18 08:10; Admin Dose 75 MG; Start 04/24/18 at 09:00 Insulin Aspart (Novolog Insulin Pen) NOVOLOG *MILD* ALGORITHM WITH MEALS BEDTIME SC Last administered on 04/28/18 21:25; Admin Dose 1 UNIT; Start 04/24/18 at 17:35 Aspirin (Halfprin) 81 mg DAILY PO Last administered on 04/29/18 08:09; Admin Dose 81 MG; Start 04/25/18 at 09:00 Atorvastatin Calcium (Lipitor) 80 mg QHS PO Last administered on 04/28/18 21:07; Admin Dose 80 MG; Start 04/25/18 at 21:00 Calcium Acetate (Phoslo) 2,668 mg WITH MEALS PO Last administered on 04/29/18 08:09; Admin Dose 2,668 MG; Start 04/25/18 at 08:00 Clonazepam (Klonopin) 0.5 mg QHS PO Last administered on 04/28/18 21:07; Admin Dose 0.5 MG; Start 04/25/18 at 21:00 Linagliptin (Tradjenta) 5 mg DAILY PO Last administered on 04/29/18 08:09; Admin Dose 5 MG; Start 04/25/18 at 09:00 Metoprolol Tartrate (Lopressor) 100 mg BID PO Last administered on 04/29/18 08:10; Admin Dose 100 MG; Start 04/25/18 at 09:00 Nifedipine (Procardia Xl) 30 mg BID PO Last administered on 04/29/18 08:10; Admin Dose 30 MG; Start 04/25/18 at 09:00 Ondansetron HCl (Zofran Tab) 4 mg Q8H PRN PO NAUSEA AND/OR VOMITING; Start 04/25/18 at 00:00 Pantoprazole (Protonix Tab) 40 mg DAILY@0600 PO Last administered on 04/29/18 06:16; Admin Dose 40 MG; Start 04/25/18 at 06:00 Paroxetine HCl (Paxil) 20 mg HS PO Last administered on 04/28/18 21:07; Admin Dose 20 MG; Start 04/25/18 at 21:00 Quetiapine Fumarate (Seroquel) 25 mg BID PO Last administered on 04/29/18 08:09; Admin Dose 25 MG; Start 04/25/18 at 09:00 Diagnostic Test (Pha) (Accu-Chek) 1 ea AC MEALS AND BEDTIME XX Last administered on 04/29/18 08:03; Admin Dose 1 EA; Start 04/25/18 at 07:00 Morphine Sulfate (morphine) 6 mg Q4H PRN PO SEVERE PAIN LEVEL 7-10 Last administered on 04/29/18 08:17; Admin Dose 6 MG; Start 04/25/18 at 15:00 Docusate Sodium (Colace) 100 mg Q12 PO Last administered on 04/29/18 08:09; Admin Dose 100 MG; Start 04/25/18 at 21:00 Magnesium Hydroxide (Milk Of Mag) 30 ml BID PRN PO CONSTIPATION Last administer ed on 04/28/18 08:17; Admin Dose 30 ML; Start 04/28/18 at 05:00 Bisacodyl (Dulcolax) 10 mg DAILY PRN PO CONSTIPATION Last administered on 04/28/18 05:35; Admin Dose 10 MG; Start 04/28/18 at 05:00 Assessment/Plan Chief Complaint/Hosp Course Cardiac cath findings Findings: 1. Left main: is small and trifurcates to LAD & LCX, RI. Left main has about 20-30% ostial stenosis 2. LAD: has 30 % stenosis at proximal LAD, and 80 % stenosis at mid LAD. Diagonal has about 50% ostial stenosis 3. Left circumflex artery: is nondominant. it has 40 % stenosis 4. Ramus intermediate is a moderate size vessel and has 30% ostial stenosis 5. RCA: is dominant. it has 99 % stenosis at mid RCA ---> 0% stenosis post PCI. PDA itself branches to the from branches. PDA has 80% proximal stenosis. Distally has 99% stenosis. After successful PCI of this lesion no significant residual stenosis was left 5. LV EDP is about 17 with no significant gradient across aortic valve Procure performed: #1 left heart catheterization and selective right and left coronary angiogram #2 Right femoral angiogram and closure using a Perclose device 3. Successful PTCA and stenting of mid right coronary artery using a 3 x 20 mm Synergy drug-eluting stent and PCI of the posterior descending artery using a 2.5 x 20 mm Synergy drug-eluting stent IMP: 1. s/p Acute hypoxemic and hypercapnic respiratory failure secondary to volume overload and HTN urgency status post cardiac cath findings and procedure as above 3. Acute NSTEMI 4. Hypertensive urgency: BP better controlled 5. ESRD on HD RECS: 1. Continue post cath cardiac recommendations 2. Continue HD/UF 3. Mobilize OOB to chair DC planning okay from pulmonary standpoint BARBARA KENNEY MD, [facility] Apr 29, 2018 11:10
--- NOTE | 2018-04-29 14:37 | PN ---
Date/Time of Note Date/Time of Note DATE: 04/29/18 TIME: 14:36 Assessment/Plan VTE Prophylaxis Risk score (from Ns)>0 risk: 8 SCD applied (from Ns): No SCD contraindicated: low risk/ambulating Pharmacological prophylaxis: heparin Lines/Catheters IV Catheter Type (from [facility]): Peripheral IV Urinary Cath still in place: No Assessment/Plan Hospital Course 58 yo male with ESRD presented with acute respiratory failure and NSTEMI Resp failure: - Resolved, continue O2 as needed, volume removal Pneumoina: - S/p abx course NSTEMI: - s/p PCI - Aspirin/plavix ESRD: - HD per renal dc planning Result Diagram: 04/29/18 0554 04/29/18 0554 Results 24hrs Laboratory Tests Test 04/28/18 17:56 04/28/18 21:05 04/29/18 01:43 04/29/18 05:54 Bedside Glucose 106 185 108 White Blood Count 6.8 # Red Blood Count 3.48 L Hemoglobin 10.3 L Hematocrit 31.4 L Mean Corpuscular Volume 90.2 Mean Corpuscular 29.6 Hemoglobin Mean Corpuscular 32.8 Hemoglobin Concent Red Cell Distribution 12.7 Width Platelet Count 239 Mean Platelet Volume 10.7 H Immature Granulocytes % 0.300 Neutrophils % 60.2 Lymphocytes % 21.5 Monocytes % 10.7 Eosinophils % 6.7 Basophils % 0.6 Nucleated Red Blood 0.0 Cells % Immature Granulocytes # 0.020 Neutrophils # 4.1 Lymphocytes # 1.5 Monocytes # 0.7 Eosinophils # 0.5 Basophils # 0.0 Nucleated Red Blood 0.0 Cells # Sodium Level 140 Potassium Level 5.2 H Chloride Level 95 L Carbon Dioxide Level 30 Anion Gap 15 H Blood Urea Nitrogen 29 H Creatinine 7.51 H Est Glomerular Filtrat 7 L Rate mL/min Glucose Level 105 Calcium Level 9.3 Test 04/29/18 08:02 04/29/18 11:42 Bedside Glucose 115 152 Subjective 24 Hr Interval Summary Free Text/Dictation Patient nauseus this AM. vomited. Not ready to be discharged he says PCI to RCA yesterday Exam/Review of Systems Vital Signs Vitals Vital Signs Date Temp Pulse Resp B/P (MAP) Pulse Ox O2 O2 Flow FiO2 Time Delivery Rate 04/29/18 72 14:23 04/29/18 97.9 17 140/70 90 11:36 (93) 04/29/18 Room Air 04:05 Ambu Bag 04/28/18 2.0 12:50 04/27/18 28 13:46 Intake and Output 04/28/18 04/28/18 04/29/18 1515:00 23:00 07:00 IntakeIntake Total 240 ml OutputOutput Total 350 ml BalanceBalance -110 ml Medications Medications Current Medications Ondansetron HCl (Zofran Inj) 4 mg Q6H PRN IV NAUSEA AND/OR VOMITING; Start 04/22/18 at 22:30 Acetaminophen (Tylenol Liquid) 650 mg Q6H PRN PO PAIN LEVEL 1-3 OR FEVER Last administered on 04/24/18at 16:58; Admin Dose 650 MG; Start 04/22/18 at 22:30 Labetalol HCl (Labetalol) 10 mg Q2H PRN IV SBP > 165; Start 04/22/18 at 22:30 Diagnostic Test (Pha) (Accu-Chek) 1 ea 02 XX Last administered on 04/24/18at 01:09; Admin Dose 1 EA; Start 04/23/18 at 02:00 Miscellaneous Information 1 ea NOTE XX ; Start 04/22/18 at 23:00 Glucose (Glutose) 15 gm Q15M PRN PO DECREASED GLUCOSE; Start 04/22/18 at 23:00 Glucose (Glutose) 22.5 gm Q15M PRN PO DECREASED GLUCOSE; Start 04/22/18 at 23:00 Dextrose (D50w Syringe) 25 ml Q15M PRN IV DECREASED GLUCOSE; Start 04/22/18 at 23:00 Dextrose (D50w Syringe) 50 ml Q15M PRN IV DECREASED GLUCOSE; Start 04/22/18 at 23:00 Glucagon (Glucagen) 1 mg Q15M PRN IM DECREASED GLUCOSE; Start 04/22/18 at 23:00 Glucose (Glutose) 15 gm Q15M PRN BUCCAL DECREASED GLUCOSE; Start 04/22/18 at 23:00 Heparin Sodium (Porcine) (Heparin (1000 Units/ml)) 4,000 unit PER PROTOCOL PRN IV HEPARIN PROTOCOL; Start 04/23/18 at 10:30 Heparin Sodium (Porcine) (Heparin (1000 Units/ml)) 4,000 unit AFTER DIALYSIS CATHETER ; Start 04/23/18 at 13:30 Albumin Human 50 ml @ 100 mls/hr WITH DIALYSIS PRN IV for SBP less than 90 mm hg Last administered on 04/28/18 11:14; Admin Dose 100 MLS/HR; Start 04/23/18 at 13:30 Hydralazine HCl (Apresoline) 10 mg Q4H PRN IV SBP greater than 165 Last administered on 04/25/18 17:11; Admin Dose 10 MG; Start 04/23/18 at 15:00 Clopidogrel Bisulfate (plaVIX) 75 mg DAILY NGT Last administered on 04/29/18 08:10; Admin Dose 75 MG; Start 04/24/18 at 09:00 Insulin Aspart (Novolog Insulin Pen) NOVOLOG *MILD* ALGORITHM WITH MEALS BEDTIME SC Last administered on 04/29/18 11:49; Admin Dose 1 UNIT; Start 04/24/18 at 17:35 Aspirin (Halfprin) 81 mg DAILY PO Last administered on 04/29/18 08:09; Admin Dose 81 MG; Start 04/25/18 at 09:00 Atorvastatin Calcium (Lipitor) 80 mg QHS PO Last administered on 04/28/18 21:07; Admin Dose 80 MG; Start 04/25/18 at 21:00 Calcium Acetate (Phoslo) 2,668 mg WITH MEALS PO Last administered on 04/29/18 11:51; Admin Dose 2,668 MG; Start 04/25/18 at 08:00 Clonazepam (Klonopin) 0.5 mg QHS PO Last administered on 04/28/18 21:07; Admin Dose 0.5 MG; Start 04/25/18 at 21:00 Linagliptin (Tradjenta) 5 mg DAILY PO Last administered on 04/29/18 08:09; Admin Dose 5 MG; Start 04/25/18 at 09:00 Metoprolol Tartrate (Lopressor) 100 mg BID PO Last administered on 04/29/18 08:10; Admin Dose 100 MG; Start 04/25/18 at 09:00 Nifedipine (Procardia Xl) 30 mg BID PO Last administered on 04/29/18 08:10; Admin Dose 30 MG; Start 04/25/18 at 09:00 Ondansetron HCl (Zofran Tab) 4 mg Q8H PRN PO NAUSEA AND/OR VOMITING; Start 04/25/18 at 00:00 Pantoprazole (Protonix Tab) 40 mg DAILY@0600 PO Last administered on 04/29/18 06:16; Admin Dose 40 MG; Start 04/25/18 at 06:00 Paroxetine HCl (Paxil) 20 mg HS PO Last administered on 04/28/18 21:07; Admin Dose 20 MG; Start 04/25/18 at 21:00 Quetiapine Fumarate (Seroquel) 25 mg BID PO Last administered on 04/29/18 08:09; Admin Dose 25 MG; Start 04/25/18 at 09:00 Diagnostic Test (Pha) (Accu-Chek) 1 ea AC MEALS AND BEDTIME XX Last administered on 04/29/18 11:42; Admin Dose 1 EA; Start 04/25/18 at 07:00 Morphine Sulfate (morphine) 6 mg Q4H PRN PO SEVERE PAIN LEVEL 7-10 Last administered on 04/29/18 08:17; Admin Dose 6 MG; Start 04/25/18 at 15:00 Docusate Sodium (Colace) 100 mg Q12 PO Last administered on 04/29/18 08:09; Admin Dose 100 MG; Start 04/25/18 at 21:00 Magnesium Hydroxide (Milk Of Mag) 30 ml BID PRN PO CONSTIPATION Last administered on 04/28/18 08:17; Admin Dose 30 ML; Start 04/28/18 at 05:00 Bisacodyl (Dulcolax) 10 mg DAILY PRN PO CONSTIPATION Last administered on 04/28/18 05:35; Admin Dose 10 MG; Start 04/28/18 at 05:00 MARCELINO ROSARIO MD Apr 29, 2018 14:37
--- NOTE | 2018-04-29 15:25 | CONS ---
Date/Time of Note Date/Time of Note DATE: 04/29/18 TIME: 15:21 Consult Date/Type/Reason Admit Date/Time Apr 22, 2018 at 21:33 Initial Consult Date 04/23/18 Type of Consultation: CV Requesting Provider: JUVENTINO CARVER Subjective Interventional cardiology follow-up progress note Subjective: Case discussed with staff. Rhythm was reviewed. Patient remains in normal sinus rhythm. pt with no chest pain No bleeding is reported S/P pci RCA 04/28 C/O intermittent sob but no chestpain no groin pain dw/ his caregiver Objective: General: Obese gentleman no acute distress HEENT: NC/AT. pupils are equal. round. NECK: . no stridor. CV: RRR. systolic murmur; no gallop or rubs. PULM: no wheezing + rhonchi. GI: SOFT, NT, ND, no rebound or guarding Extremity: trace B/L LE edema. no clubbing. neuro: awake and alert Psych: Anxious rectal: deferred : normal femoral: no bleeding or hematoma Echocardiogram shows: Lower limits of normal systolic function. Normal left ventricular cavity size. Sigmoid septum. Ejection fraction is visually estimated at 50 %. Tissue Doppler/Mitral Doppler indices are consistent with impaired relaxation (Stage I diastolic dysfunction). Normal right ventricular size. Normal right ventricular systolic function. There is mild enlargement of left atrium. The right atrium is normal in size. Estimated peak PA systolic pressure 51 mmHg. There is mild tricuspid regurgitation. No significant valvular stenosis or regurgitation seen of remaining visualized valves. Normal pericardium with no significant pericardial effusion. Objective Vital Signs Date Temp Pulse Resp B/P (MAP) Pulse Ox O2 O2 Flow FiO2 Time Delivery Rate 04/29/18 72 14:23 04/29/18 97.9 17 140/70 90 11:36 (93) 04/29/18 Room Air 04:05 Ambu Bag 04/28/18 2.0 12:50 04/27/18 28 13:46 Intake and Output 04/28/18 04/28/18 04/29/18 1515:00 23:00 07:00 IntakeIntake Total 240 ml OutputOutput Total 350 ml BalanceBalance -110 ml Results/Medications Result Diagram: 04/29/18 0554 04/29/18 0554 Results 24 hrs Laboratory Tests Test 04/28/18 17:56 04/28/18 21:05 1/8/19 01:43 04/29/18 05:54 Bedside Glucose 106 185 108 White Blood Count 6.8 # Red Blood Count 3.48 L Hemoglobin 10.3 L Hematocrit 31.4 L Mean Corpuscular Volume 90.2 Mean Corpuscular 29.6 Hemoglobin Mean Corpuscular 32.8 Hemoglobin Concent Red Cell Distribution 12.7 Width Platelet Count 239 Mean Platelet Volume 10.7 H Immature Granulocytes % 0.300 Neutrophils % 60.2 Lymphocytes % 21.5 Monocytes % 10.7 Eosinophils % 6.7 Basophils % 0.6 Nucleated Red Blood 0.0 Cells % Immature Granulocytes # 0.020 Neutrophils # 4.1 Lymphocytes # 1.5 Monocytes # 0.7 Eosinophils # 0.5 Basophils # 0.0 Nucleated Red Blood 0.0 Cells # Sodium Level 140 Potassium Level 5.2 H Chloride Level 95 L Carbon Dioxide Level 30 Anion Gap 15 H Blood Urea Nitrogen 29 H Creatinine 7.51 H Est Glomerular Filtrat 7 L Rate mL/min Glucose Level 105 Calcium Level 9.3 Test 04/29/18 08:02 04/29/18 11:42 Bedside Glucose 115 152 Medications Current Medications Ondansetron HCl (Zofran Inj) 4 mg Q6H PRN IV NAUSEA AND/OR VOMITING; Start 04/22/18 at 22:30 Acetaminophen (Tylenol Liquid) 650 mg Q6H PRN PO PAIN LEVEL 1-3 OR FEVER Last administered on 04/24/18at 16:58; Admin Dose 650 MG; Start 04/22/18 at 22:30 Labetalol HCl (Labetalol) 10 mg Q2H PRN IV SBP > 165; Start 04/22/18 at 22:30 Diagnostic Test (Pha) (Accu-Chek) 1 ea 02 XX Last administered on 04/24/18at 01:09; Admin Dose 1 EA; Start 04/23/18 at 02:00 Miscellaneous Information 1 ea NOTE XX ; Start 04/22/18 at 23:00 Glucose (Glutose) 15 gm Q15M PRN PO DECREASED GLUCOSE; Start 04/22/18 at 23:00 Glucose (Glutose) 22.5 gm Q15M PRN PO DECREASED GLUCOSE; Start 04/22/18 at 23:00 Dextrose (D50w Syringe) 25 ml Q15M PRN IV DECREASED GLUCOSE; Start 04/22/18 at 23:00 Dextrose (D50w Syringe) 50 ml Q15M PRN IV DECREASED GLUCOSE; Start 04/22/18 at 23:00 Glucagon (Glucagen) 1 mg Q15M PRN IM DECREASED GLUCOSE; Start 04/22/18 at 23:00 Glucose (Glutose) 15 gm Q15M PRN BUCCAL DECREASED GLUCOSE; Start 04/22/18 at 23:00 Heparin Sodium (Porcine) (Heparin (1000 Units/ml)) 4,000 unit PER PROTOCOL PRN IV HEPARIN PROTOCOL; Start 04/23/18 at 10:30 Heparin Sodium (Porcine) (Heparin (1000 Units/ml)) 4,000 unit AFTER DIALYSIS CATHETER ; Start 04/23/18 at 13:30 Albumin Human 50 ml @ 100 mls/hr WITH DIALYSIS PRN IV for SBP less than 90 mm hg Last administered on 04/28/18 11:14; Admin Dose 100 MLS/HR; Start 04/23/18 at 13:30 Hydralazine HCl (Apresoline) 10 mg Q4H PRN IV SBP greater than 165 Last administered on 04/25/18 17:11; Admin Dose 10 MG; Start 04/23/18 at 15:00 Clopidogrel Bisulfate (plaVIX) 75 mg DAILY NGT Last administered on 04/29/18 08:10; Admin Dose 75 MG; Start 04/24/18 at 09:00 Insulin Aspart (Novolog Insulin Pen) NOVOLOG *MILD* ALGORITHM WITH MEALS BEDTIME SC Last administered on 04/29/18 11:49; Admin Dose 1 UNIT; Start 04/24/18 at 17:35 Aspirin (Halfprin) 81 mg DAILY PO Last administered on 04/29/18 08:09; Admin Dose 81 MG; Start 04/25/18 at 09:00 Atorvastatin Calcium (Lipitor) 80 mg QHS PO Last administered on 04/28/18 21:07; Admin Dose 80 MG; Start 04/25/18 at 21:00 Calcium Acetate (Phoslo) 2,668 mg WITH MEALS PO Last administered on 04/29/18 11:51; Admin Dose 2,668 MG; Start 04/25/18 at 08:00 Clonazepam (Klonopin) 0.5 mg QHS PO Last administered on 04/28/18 21:07; Admin Dose 0.5 MG; Start 04/25/18 at 21:00 Linagliptin (Tradjenta) 5 mg DAILY PO Last administered on 04/29/18 08:09; Admin Dose 5 MG; Start 04/25/18 at 09:00 Metoprolol Tartrate (Lopressor) 100 mg BID PO Last administered on 04/29/18 08:10; Admin Dose 100 MG; Start 04/25/18 at 09:00 Nifedipine (Procardia Xl) 30 mg BID PO Last administered on 04/29/18 08:10; Admin Dose 30 MG; Start 04/25/18 at 09:00 Ondansetron HCl (Zofran Tab) 4 mg Q8H PRN PO NAUSEA AND/OR VOMITING; Start 04/25/18 at 00:00 Pantoprazole (Protonix Tab) 40 mg DAILY@0600 PO Last administered on 04/29/18 06:16; Admin Dose 40 MG; Start 04/25/18 at 06:00 Paroxetine HCl (Paxil) 20 mg HS PO Last administered on 04/28/18 21:07; Admin Dose 20 MG; Start 04/25/18 at 21:00 Quetiapine Fumarate (Seroquel) 25 mg BID PO Last administered on 04/29/18 08:09; Admin Dose 25 MG; Start 04/25/18 at 09:00 Diagnostic Test (Pha) (Accu-Chek) 1 ea AC MEALS AND BEDTIME XX Last administered on 04/29/18 11:42; Admin Dose 1 EA; Start 04/25/18 at 07:00 Morphine Sulfate (morphine) 6 mg Q4H PRN PO SEVERE PAIN LEVEL 7-10 Last administered on 04/29/18 08:17; Admin Dose 6 MG; Start 04/25/18 at 15:00 Docusate Sodium (Colace) 100 mg Q12 PO Last administered on 04/29/18 08:09; Admin Dose 100 MG; Start 04/25/18 at 21:00 Magnesium Hydroxide (Milk Of Mag) 30 ml BID PRN PO CONSTIPATION Last administered on 04/28/18 08:17; Admin Dose 30 ML; Start 04/28/18 at 05:00 Bisacodyl (Dulcolax) 10 mg DAILY PRN PO CONSTIPATION Last administered on 04/28/18 05:35; Admin Dose 10 MG; Start 04/28/18 at 05:00 Assessment/Plan Chief Complaint/Hosp Course 1. Non-ST elevation myocardial infarction 2. Acute hypoxemic respiratory failure: Currently extubated 3. Pneumonia 4. Renal failure on dialysis 5. Diabetes 6. Hypertension 7. Anemia 8, multivessel CAD: S/P PCI RCA Recommendations: cont Aspirin Plavix Hemodialysis as per nephrology team Antibiotic as per internal medicine and pulmonary Metoprolol as tolerated will be continued dc planning for tomorrow once pt has his ASA/ Plavix statin will f/u in office on 05/08/18 at 2 PM . will consider PCI of LAD later on Thank you for his referral. We will continue to follow along with you RAUL PALOMINO MD [facility] RAUL PALOMINO MD Apr 29, 2018 15:25
[2018-04-29] MEDS: PAROXETINE 20 MG TAB PO SCH (21:39)
[2018-04-29] MEDS: ATORVASTATIN 80 MG TAB PO SCH (21:39)
[2018-04-29] MEDS: clonAZEPAM 0.5 MG TAB PO SCH (21:39)
[2018-04-30] VITALS (23 sets, daily range): BP systolic 111–169; BP diastolic 59–87; PULSE 64–75; RESP 16–19
[2018-04-30] MEDS: morphine LIQ (10 MG/5 ML) CUP PO PRN ×3 (04:01→13:18)
[2018-04-30] MEDS: PANTOPRAZOLE (EC) 40 MG TAB PO SCH (06:17)
[2018-04-30] MEDS: INSULIN ASPART [NOVOLOG] 3 ML PEN SC SCH ×2 (07:55→11:50)
[2018-04-30] MEDS: ACCU-CHEK XX SCH ×2 (07:57→11:57)
[2018-04-30] MEDS: CALCIUM ACETATE 667 MG CAP PO SCH ×2 (07:57→11:50)
--- NOTE | 2018-04-30 07:57 | CONS ---
Date/Time of Note Date/Time of Note DATE: 04/30/18 TIME: 07:57 Consult Date/Type/Reason Admit Date/Time Apr 22, 2018 at 21:33 Initial Consult Date 04/23/18 Type of Consultation: CV Requesting Provider: JUVENTINO CARVER Subjective Interventional cardiology follow-up progress note Subjective: Case discussed with staff. Rhythm was reviewed. Patient remains in normal sinus rhythm. pt with no chest pain No bleeding is reported S/P pci RCA 04/28 He states that he has very minimal shortness of breath now no groin pain Objective: General: Obese gentleman no acute distress HEENT: NC/AT. pupils are equal. round. NECK: . no stridor. CV: RRR. systolic murmur; no gallop or rubs. PULM: no wheezing + rhonchi. GI: SOFT, NT, ND, no rebound or guarding Extremity: trace B/L LE edema. no clubbing. neuro: awake and alert Psych: Anxious rectal: deferred : normal femoral: no bleeding or hematoma Echocardiogram shows: Lower limits of normal systolic function. Normal left ventricular cavity size. Sigmoid septum. Ejection fraction is visually estimated at 50 %. Tissue Doppler/Mitral Doppler indices are consistent with impaired relaxation (Stage I diastolic dysfunction). Normal right ventricular size. Normal right ventricular systolic function. There is mild enlargement of left atrium. The right atrium is normal in size. Estimated peak PA systolic pressure 51 mmHg. There is mild tricuspid regurgitation. No significant valvular stenosis or regurgitation seen of remaining visualized valves. Normal pericardium with no significant pericardial effusion. Objective Vital Signs Date Temp Pulse Resp B/P (MAP) Pulse Ox O2 O2 Flow FiO2 Time Delivery Rate 04/30/18 97.9 65 18 162/77 96 07:27 (105) 04/29/18 Room Air 04:05 Ambu Bag 04/28/18 2.0 12:50 04/27/18 28 13:46 Intake and Output 04/29/18 04/29/18 04/30/18 1515:00 23:00 07:00 IntakeIntake Total 1720 ml 260 ml OutputOutput Total 1 ml BalanceBalance 1720 ml 259 ml Results/Medications Result Diagram: 04/29/18 0554 04/29/18 0554 Results 24 hrs Laboratory Tests Test 04/29/18 08:02 04/29/18 11:42 04/29/18 17:27 04/29/18 21:41 Bedside Glucose 115 152 100 111 Medications Current Medications Ondansetron HCl (Zofran Inj) 4 mg Q6H PRN IV NAUSEA AND/OR VOMITING; Start 04/22/18 at 22:30 Acetaminophen (Tylenol Liquid) 650 mg Q6H PRN PO PAIN LEVEL 1-3 OR FEVER Last administered on 04/24/18at 16:58; Admin Dose 650 MG; Start 04/22/18 at 22:30 Labetalol HCl (Labetalol) 10 mg Q2H PRN IV SBP > 165; Start 04/22/18 at 22:30 Diagnostic Test (Pha) (Accu-Chek) 1 ea 02 XX Last administered on 04/24/18at 01:09; Admin Dose 1 EA; Start 04/23/18 at 02:00 Miscellaneous Information 1 ea NOTE XX ; Start 04/22/18 at 23:00 Glucose (Glutose) 15 gm Q15M PRN PO DECREASED GLUCOSE; Start 04/22/18 at 23:00 Glucose (Glutose) 22.5 gm Q15M PRN PO DECREASED GLUCOSE; Start 04/22/18 at 23:00 Dextrose (D50w Syringe) 25 ml Q15M PRN IV DECREASED GLUCOSE; Start 04/22/18 at 23:00 Dextrose (D50w Syringe) 50 ml Q15M PRN IV DECREASED GLUCOSE; Start 04/22/18 at 23:00 Glucagon (Glucagen) 1 mg Q15M PRN IM DECREASED GLUCOSE; Start 04/22/18 at 23:00 Glucose (Glutose) 15 gm Q15M PRN BUCCAL DECREASED GLUCOSE; Start 04/22/18 at 23:00 Heparin Sodium (Porcine) (Heparin (1000 Units/ml)) 4,000 unit PER PROTOCOL PRN IV HEPARIN PROTOCOL; Start 04/23/18 at 10:30 Heparin Sodium (Porcine) (Heparin (1000 Units/ml)) 4,000 unit AFTER DIALYSIS CATHETER ; Start 04/23/18 at 13:30 Albumin Human 50 ml @ 100 mls/hr WITH DIALYSIS PRN IV for SBP less than 90 mm hg Last administered on 04/28/18at 11:14; Admin Dose 100 MLS/HR; Start 04/23/18 at 13:30 Hydralazine HCl (Apresoline) 10 mg Q4H PRN IV SBP greater than 165 Last administered on 04/25/18 17:11; Admin Dose 10 MG; Start 04/23/18 at 15:00 Clopidogrel Bisulfate (plaVIX) 75 mg DAILY NGT Last administered on 04/29/18 08:10; Admin Dose 75 MG; Start 04/24/18 at 09:00 Insulin Aspart (Novolog Insulin Pen) NOVOLOG *MILD* ALGORITHM WITH MEALS BEDTIME SC Last administered on 04/29/18 11:49; Admin Dose 1 UNIT; Start 04/24/18 at 17:35 Aspirin (Halfprin) 81 mg DAILY PO Last administered on 04/29/18 08:09; Admin Dose 81 MG; Start 04/25/18 at 09:00 Atorvastatin Calcium (Lipitor) 80 mg QHS PO Last administered on 04/29/18 21:39; Admin Dose 80 MG; Start 04/25/18 at 21:00 Calcium Acetate (Phoslo) 2,668 mg WITH MEALS PO Last administered on 04/29/18 17:42; Admin Dose 2,668 MG; Start 04/25/18 at 08:00 Clonazepam (Klonopin) 0.5 mg QHS PO Last administered on 04/29/18 21:39; Admin Dose 0.5 MG; Start 04/25/18 at 21:00 Linagliptin (Tradjenta) 5 mg DAILY PO Last administered on 04/29/18 08:09; Admin Dose 5 MG; Start 04/25/18 at 09:00 Metoprolol Tartrate (Lopressor) 100 mg BID PO Last administered on 04/29/18 21:40; Admin Dose 100 MG; Start 04/25/18 at 09:00 Nifedipine (Procardia Xl) 30 mg BID PO Last administered on 04/29/18 21:40; Admin Dose 30 MG; Start 04/25/18 at 09:00 Ondansetron HCl (Zofran Tab) 4 mg Q8H PRN PO NAUSEA AND/OR VOMITING; Start at 00:00 Pantoprazole (Protonix Tab) 40 mg DAILY@0600 PO Last administered on 04/30/18 06:17; Admin Dose 40 MG; Start 04/25/18 at 06:00 Paroxetine HCl (Paxil) 20 mg HS PO Last administered on 04/29/18 21:39; Admin Dose 20 MG; Start 04/25/18 at 21:00 Diagnostic Test (Pha) (Accu-Chek) 1 ea AC MEALS AND BEDTIME XX Last administered on 04/29/18 21:40; Admin Dose 1 EA; Start 04/25/18 at 07:00 Morphine Sulfate (morphine) 6 mg Q4H PRN PO SEVERE PAIN LEVEL 7-10 Last administered on 04/30/18 04:01; Admin Dose 6 MG; Start 04/25/18 at 15:00 Docusate Sodium (Colace) 100 mg Q12 PO Last administered on 04/29/18 21:40; Admin Dose 100 MG; Start 04/25/18 at 21:00 Magnesium Hydroxide (Milk Of Mag) 30 ml BID PRN PO CONSTIPATION Last administered on 04/28/18 08:17; Admin Dose 30 ML; Start 04/28/18 at 05:00 Bisacodyl (Dulcolax) 10 mg DAILY PRN PO CONSTIPATION Last administered on 04/28/18 05:35; Admin Dose 10 MG; Start 04/28/18 at 05:00 Assessment/Plan Chief Complaint/Hosp Course 1. Non-ST elevation myocardial infarction 2. Acute hypoxemic respiratory failure: Currently extubated 3. Pneumonia 4. Renal failure on dialysis 5. Diabetes 6. Hypertension 7. Anemia 8, multivessel CAD: S/P PCI RCA Recommendations: cont Aspirin Plavix Hemodialysis as per nephrology team Antibiotic as per internal medicine and pulmonary Metoprolol as tolerated will be continued dc planning once pt has his ASA/ Plavix statin will f/u in office on 05/08/18 at 2 PM . will consider PCI of LAD later on Thank you for his referral. We will continue to follow along with you RAUL PALOMINO MD [facility] RAUL PALOMINO MD Apr 30, 2018 07:57
[2018-04-30] MEDS: METOPROLOL 100 MG TAB PO SCH (08:04)
[2018-04-30] MEDS: NIFEdipine (XL) 30 MG TAB PO SCH (08:05)
[2018-04-30] MEDS: CLOPIDOGREL 75 MG TAB NGT SCH (08:54)
[2018-04-30] MEDS: ASPIRIN (EC) 81 MG TAB PO SCH (08:54)
[2018-04-30] MEDS: DOCUSATE SODIUM 100 MG CAP PO SCH (08:54)
[2018-04-30] MEDS: LINAGLIPTIN 5 MG TABLET PO SCH (08:54)
[2018-04-30] MEDS ORDERED: CLOP75TA28 NGT (10:02)
[2018-04-30] MEDS ORDERED: ATOR-2 PO (10:02)
[2018-04-30] MEDS ORDERED: ASPI-817 PO (10:02)
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
--- NOTE | 2018-04-30 11:21 | CONS ---
Date/Time of Note Date/Time of Note DATE: 04/30/18 TIME: 11:21 Assessment/Plan Assessment/Plan Assessment/Plan 1. ESRD on HD MWF 2. Acute hypoxemic and hypercapnic respiratory failure secondary to pneumonia on COPD- Intubated on ventilator 3. acute NSTEMI s/p LHC with stenting of RCA and Post descending artery on 9 4. Hypertensive urgency: BP better controlled 5. Diabetes: Plan: s/p HD today,m plan for d/c home today pt regular schedule is MWF- next HD will be on Saturday will follow up Result Diagram: 04/29/18 0554 04/29/18 0554 Results 24hrs Laboratory Tests Test 04/29/18 11:42 04/29/18 17:27 04/29/18 21:41 04/30/18 07:56 Bedside Glucose 152 100 111 113 Consultation Date/Type/Reason Admit Date/Time Apr 22, 2018 at 21:33 Initial Consult Date 04/23/18 Type of Consult NEPHROLOGY Requesting Provider: JUVENTINO CARVER Exam/Review of Systems Vital Signs Vitals Vital Signs Date Temp Pulse Resp B/P (MAP) Pulse Ox O2 O2 Flow FiO2 Time Delivery Rate 04/30/18 66 08:45 04/30/18 97.9 18 162/77 96 07:27 (105) 04/29/18 Room Air 04:05 Ambu Bag 04/28/18 2.0 12:50 04/27/18 28 13:46 Intake and Output 04/29/18 04/29/18 04/30/18 1515:00 23:00 07:00 IntakeIntake Total 1720 ml 260 ml OutputOutput Total 1 ml BalanceBalance 1720 ml 259 ml Exam Constitutional: alert Respiratory: clear to auscultation, diminished breath sounds Cardiovascular: regular rate and rhythm, nl pulses Gastrointestinal: soft, non-tender Musculoskeletal: nl extremities to inspection Extremities: normal pulses Neurological: DIRECT MAIL COORDINATOR II-XII intact, nl mental status, nl speech, nl strength Lymph: nl lymph nodes Medications Medications Current Medications Ondansetron HCl (Zofran Inj) 4 mg Q6H PRN IV NAUSEA AND/OR VOMITING; Start 04/22/18 at 22:30 Acetaminophen (Tylenol Liquid) 650 mg Q6H PRN PO PAIN LEVEL 1-3 OR FEVER Last administered on 04/24/18at 16:58; Admin Dose 650 MG; Start 04/22/18 at 22:30 Labetalol HCl (Labetalol) 10 mg Q2H PRN IV SBP > 165; Start 04/22/18 at 22:30 Diagnostic Test (Pha) (Accu-Chek) 1 ea 02 XX Last administered on 04/24/18at 01:09; Admin Dose 1 EA; Start 04/23/18 at 02:00 Miscellaneous Information 1 ea NOTE XX ; Start 04/22/18 at 23:00 Glucose (Glutose) 15 gm Q15M PRN PO DECREASED GLUCOSE; Start 04/22/18 at 23:00 Glucose (Glutose) 22.5 gm Q15M PRN PO DECREASED GLUCOSE; Start 04/22/18 at 23:00 Dextrose (D50w Syringe) 25 ml Q15M PRN IV DECREASED GLUCOSE; Start 04/22/18 at 23:00 Dextrose (D50w Syringe) 50 ml Q15M PRN IV DECREASED GLUCOSE; Start 04/22/18 at 23:00 Glucagon (Glucagen) 1 mg Q15M PRN IM DECREASED GLUCOSE; Start 04/22/18 at 23:00 Glucose (Glutose) 15 gm Q15M PRN BUCCAL DECREASED GLUCOSE; Start 04/22/18 at 23:00 Heparin Sodium (Porcine) (Heparin (1000 Units/ml)) 4,000 unit PER PROTOCOL PRN IV HEPARIN PROTOCOL; Start 04/23/18 at 10:30 Heparin Sodium (Porcine) (Heparin (1000 Units/ml)) 4,000 unit AFTER DIALYSIS CATHETER ; Start 04/23/18 at 13:30 Albumin Human 50 ml @ 100 mls/hr WITH DIALYSIS PRN IV for SBP less than 90 mm hg Last administered on 04/28/18at 11:14; Admin Dose 100 MLS/HR; Start 04/23/18 at 13:30 Hydralazine HCl (Apresoline) 10 mg Q4H PRN IV SBP greater than 165 Last administered on 04/25/18at 17:11; Admin Dose 10 MG; Start 04/23/18 at 15:00 Clopidogrel Bisulfate (plaVIX) 75 mg DAILY NGT Last administered on 04/30/18at 08:54; Admin Dose 75 MG; Start 04/24/18 at 09:00 Insulin Aspart (Novolog Insulin Pen) NOVOLOG *MILD* ALGORITHM WITH MEALS BEDTIME SC Last administered on 04/29/18 11:49; Admin Dose 1 UNIT; Start 04/24/18 at 17:35 Aspirin (Halfprin) 81 mg DAILY PO Last administered on 04/30/18 08:54; Admin Dose 81 MG; Start 04/25/18 at 09:00 Atorvastatin Calcium (Lipitor) 80 mg QHS PO Last administered on 04/29/18 21:39; Admin Dose 80 MG; Start 04/25/18 at 21:00 Calcium Acetate (Phoslo) 2,668 mg WITH MEALS PO Last administered on 04/30/18 07:57; Admin Dose 2,668 MG; Start 04/25/18 at 08:00 Clonazepam (Klonopin) 0.5 mg QHS PO Last administered on 04/29/18 21:39; Admin Dose 0.5 MG; Start 04/25/18 at 21:00 Linagliptin (Tradjenta) 5 mg DAILY PO Last administered on 04/30/18 08:54; Admin Dose 5 MG; Start 04/25/18 at 09:00 Metoprolol Tartrate (Lopressor) 100 mg BID PO Last administered on 04/29/18 21:40; Admin Dose 100 MG; Start 04/25/18 at 09:00 Nifedipine (Procardia Xl) 30 mg BID PO Last administered on 04/29/18 21:40; Admin Dose 30 MG; Start 04/25/18 at 09:00 Ondansetron HCl (Zofran Tab) 4 mg Q8H PRN PO NAUSEA AND/OR VOMITING; Start 04/25/18 at 00:00 Pantoprazole (Protonix Tab) 40 mg DAILY@0600 PO Last administered on 04/30/18 06:17; Admin Dose 40 MG; Start 04/25/18 at 06:00 Paroxetine HCl (Paxil) 20 mg HS PO Last administered on 04/29/18 21:39; Admin Dose 20 MG; Start 04/25/18 at 21:00 Diagnostic Test (Pha) (Accu-Chek) 1 ea AC MEALS AND BEDTIME XX Last administered on 04/30/18 07:57; Admin Dose 1 EA; Start 04/25/18 at 07:00 Morphine Sulfate (morphine) 6 mg Q4H PRN PO SEVERE PAIN LEVEL 7-10 Last admini stered on 04/30/18 08:55; Admin Dose 6 MG; Start 04/25/18 at 15:00 Docusate Sodium (Colace) 100 mg Q12 PO Last administered on 04/30/18 08:54; Admin Dose 100 MG; Start 04/25/18 at 21:00 Magnesium Hydroxide (Milk Of Mag) 30 ml BID PRN PO CONSTIPATION Last administered on 04/28/18 08:17; Admin Dose 30 ML; Start 04/28/18 at 05:00 Bisacodyl (Dulcolax) 10 mg DAILY PRN PO CONSTIPATION Last administered on 04/28/18at 05:35; Admin Dose 10 MG; Start 04/28/18 at 05:00 NORMA SAUER MD Apr 30, 2018 11:21
--- NOTE | 2018-04-30 11:56 | RADRPT ---
Vent Rate: 66 bpm RR Interval: 0 msec UT Interval: 168 msec QRS Duration: 86 msec QT Interval: 414 msec QTC Interval: 434 msec P-R[address]T [address]: 36 - 53 - 14 degrees Normal sinus rhythm ST amp; T wave abnormality, consider anterior ischemia Abnormal ECG Electronically Signed By: Lloyd Schultz [id number]
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
--- NOTE | 2018-04-30 16:10 | CONS ---
Date/Time of Note Date/Time of Note DATE: 04/30/18 TIME: 16:09 Consult Date/Type/Reason Admit Date/Time Apr 22, 2018 at 21:33 Initial Consult Date 04/23/18 Type of Consultation: Pulm Requesting Provider: JUVENTINO CARVER Subjective Comfortable, no shortness of breath. Objective Vital Signs Date Temp Pulse Resp B/P (MAP) Pulse Ox O2 O2 Flow FiO2 Time Delivery Rate 04/30/18 98.2 69 19 136/67 96 15:37 (90) 04/30/18 Room Air 15:24 04/28/18 2.0 12:50 04/27/18 28 13:46 Intake and Output 04/29/18 04/29/18 04/30/18 1515:00 23:00 07:00 IntakeIntake Total 1720 ml 260 ml OutputOutput Total 1 ml BalanceBalance 1720 ml 259 ml Exam GENERAL: Well-nourished well-developed gentleman VITAL SIGNS: per chart NECK: Supple. No JVD or lymphadenopathy. CARDIAC EXAM: S1, S2. No added sounds or murmurs. CHEST: clear bilaterally, No added sounds, rales or wheezes ABDOMEN: Soft, nontender. No guarding or rebound. EXTREMITIES: No cyanosis, clubbing or edema. NEUROLOGIC: Generalized weakness. No focal deficits. Results/Medications Result Diagram: 04/29/18 0554 04/29/18 0554 Results 24 hrs Laboratory Tests Test 04/29/18 17:27 04/29/18 21:41 04/30/18 07:56 04/30/18 11:55 Bedside Glucose 100 111 113 113 Medications Current Medications Ondansetron HCl (Zofran Inj) 4 mg Q6H PRN IV NAUSEA AND/OR VOMITING; Start 04/22/18 at 22:30 Acetaminophen (Tylenol Liquid) 650 mg Q6H PRN PO PAIN LEVEL 1-3 OR FEVER Last administered on 04/24/18at 16:58; Admin Dose 650 MG; Start 04/22/18 at 22:30 Labetalol HCl (Labetalol) 10 mg Q2H PRN IV SBP > 165; Start 04/22/18 at 22:30 Diagnostic Test (Pha) (Accu-Chek) 1 ea 02 XX Last administered on 04/24/18at 01:09; Admin Dose 1 EA; Start 04/23/18 at 02:00 Miscellaneous Information 1 ea NOTE XX ; Start 04/22/18 at 23:00 Glucose (Glutose) 15 gm Q15M PRN PO DECREASED GLUCOSE; Start 04/22/18 at 23:00 Glucose (Glutose) 22.5 gm Q15M PRN PO DECREASED GLUCOSE; Start 04/22/18 at 23:00 Dextrose (D50w Syringe) 25 ml Q15M PRN IV DECREASED GLUCOSE; Start 04/22/18 at 23:00 Dextrose (D50w Syringe) 50 ml Q15M PRN IV DECREASED GLUCOSE; Start 04/22/18 at 23:00 Glucagon (Glucagen) 1 mg Q15M PRN IM DECREASED GLUCOSE; Start 04/22/18 at 23:00 Glucose (Glutose) 15 gm Q15M PRN BUCCAL DECREASED GLUCOSE; Start 04/22/18 at 23:00 Heparin Sodium (Porcine) (Heparin (1000 Units/ml)) 4,000 unit PER PROTOCOL PRN IV HEPARIN PROTOCOL; Start 04/23/18 at 10:30 Heparin Sodium (Porcine) (Heparin (1000 Units/ml)) 4,000 unit AFTER DIALYSIS CATHETER ; Start 04/23/18 at 13:30 Albumin Human 50 ml @ 100 mls/hr WITH DIALYSIS PRN IV for SBP less than 90 mm hg Last administered on 04/28/18at 11:14; Admin Dose 100 MLS/HR; Start 04/23/18 at 13:30 Hydralazine HCl (Apresoline) 10 mg Q4H PRN IV SBP greater than 165 Last administered on 04/25/18 17:11; Admin Dose 10 MG; Start 04/23/18 at 15:00 Clopidogrel Bisulfate (plaVIX) 75 mg DAILY NGT Last administered on 04/30/18 08:54; Admin Dose 75 MG; Start 04/24/18 at 09:00 Insulin Aspart (Novolog Insulin Pen) NOVOLOG *MILD* ALGORITHM WITH MEALS BEDTIME SC Last administered on 04/29/18 11:49; Admin Dose 1 UNIT; Start 04/24/18 at 17:35 Aspirin (Halfprin) 81 mg DAILY PO Last administered on 04/30/18 08:54; Admin Dose 81 MG; Start 04/25/18 at 09:00 Atorvastatin Calcium (Lipitor) 80 mg QHS PO Last administered on 04/29/18 21:39; Admin Dose 80 MG; Start 04/25/18 at 21:00 Calcium Acetate (Phoslo) 2,668 mg WITH MEALS PO Last administered on 04/30/18 07:57; Admin Dose 2,668 MG; Start 04/25/18 at 08:00 Clonazepam (Klonopin) 0.5 mg QHS PO Last administered on 04/29/18 21:39; Admin Dose 0.5 MG; Start 04/25/18 at 21:00 Linagliptin (Tradjenta) 5 mg DAILY PO Last administered on 04/30/18 08:54; Admin Dose 5 MG; Start 04/25/18 at 09:00 Metoprolol Tartrate (Lopressor) 100 mg BID PO Last administered on 04/29/18 21:40; Admin Dose 100 MG; Start 04/25/18 at 09:00 Nifedipine (Procardia Xl) 30 mg BID PO Last administered on 04/29/18 21:40; Admin Dose 30 MG; Start 04/25/18 at 09:00 Ondansetron HCl (Zofran Tab) 4 mg Q8H PRN PO NAUSEA AND/OR VOMITING; Start 04/25/18 at 00:00 Pantoprazole (Protonix Tab) 40 mg DAILY@0600 PO Last administered on 04/30/18 06:17; Admin Dose 40 MG; Start 04/25/18 at 06:00 Paroxetine HCl (Paxil) 20 mg HS PO Last administered on 04/29/18 21:39; Admin Dose 20 MG; Start 04/25/18 at 21:00 Diagnostic Test (Pha) (Accu-Chek) 1 ea AC MEALS AND BEDTIME XX Last administered on 04/30/18 11:57; Admin Dose 1 EA; Start 04/25/18 at 07:00 Morphine Sulfate (morphine) 6 mg Q4H PRN PO SEVERE PAIN LEVEL 7-10 Last administered on 04/30/18 13:18; Admin Dose 6 MG; Start 04/25/18 at 15:00 Docusate Sodium (Colace) 100 mg Q12 PO Last administered on 04/30/18 08:54; Adm in Dose 100 MG; Start 04/25/18 at 21:00 Magnesium Hydroxide (Milk Of Mag) 30 ml BID PRN PO CONSTIPATION Last administered on 04/28/18at 08:17; Admin Dose 30 ML; Start 04/28/18 at 05:00 Bisacodyl (Dulcolax) 10 mg DAILY PRN PO CONSTIPATION Last administered on 04/28/18at 05:35; Admin Dose 10 MG; Start 04/28/18 at 05:00 Assessment/Plan Chief Complaint/Hosp Course Cardiac cath findings Findings: 1. Left main: is small and trifurcates to LAD & LCX, RI. Left main has about 20-30% ostial stenosis 2. LAD: has 30 % stenosis at proximal LAD, and 80 % stenosis at mid LAD. D iagonal has about 50% ostial stenosis 3. Left circumflex artery: is nondominant. it has 40 % stenosis 4. Ramus intermediate is a moderate size vessel and has 30% ostial stenosis 5. RCA: is dominant. it has 99 % stenosis at mid RCA ---> 0% stenosis post PCI. PDA itself branches to the from branches. PDA has 80% proximal stenosis. Distally has 99% stenosis. After successful PCI of this lesion no significant residual stenosis was left 5. LV EDP is about 17 with no significant gradient across aortic valve Procure performed: #1 left heart catheterization and selective right and left coronary angiogram #2 Right femoral angiogram and closure using a Perclose device 3. Successful PTCA and stenting of mid right coronary artery using a 3 x 20 mm Synergy drug-eluting stent and PCI of the posterior descending artery using a 2.5 x 20 mm Synergy drug-eluting stent IMP: 1. s/p Acute hypoxemic and hypercapnic respiratory failure secondary to volume overload and HTN urgency status post cardiac cath findings and procedure as above 3. Acute NSTEMI 4. Hypertensive urgency: BP better controlled 5. ESRD on HD RECS: 1. Continue post cath cardiac recommendations 2. Continue HD/UF 3. Mobilize OOB to chair DC planning BARBARA KENNEY MD, [facility] Apr 30, 2018 16:10
[2018-05-09] MEDS ORDERED: INSU100C3 SQ (16:42)
[2018-05-09] MEDS ORDERED: LORA1TAB PO (16:43)
[2018-05-09] MEDS ORDERED: LOSA25TA12 PO (16:43)
[2018-05-09] MEDS ORDERED: METO5TAB2 PO (16:44)
[2018-05-09] MEDS ORDERED: LABE200T25 PO (16:44)
[2018-05-09] MEDS ORDERED: LISI2.5T59 PO (16:44)
[2018-05-09] MEDS ORDERED: HYDR-4011 PO (16:45)
[2018-05-09] MEDS ORDERED: LEVEM SQ (16:45)
[2018-05-21] MEDS ORDERED: AMLO-147 PO (10:38)
[2018-05-21] MEDS ORDERED: LOSA100T15 PO (10:38)
[2018-05-21] MEDS ORDERED: HYDR-3670 PO (10:38)
[2018-05-21] MEDS ORDERED: LABE200T25 PO (10:38)
[2018-05-21] MEDS ORDERED: PARO-37 PO (10:38)
== END 2018-04-30 17:00 | disposition home or self-care (01) | DRG 246 ==
LOC: E/R 18:06 → EDBD 18:06 → MERGE 21:33 → ICU 21:33 → 6WM 04-24 23:22 → REC 04-28 13:48 → TEL 04-28 20:37
PROVIDERS: ADMIT Internal Medicine; ATTEND Internal Medicine
PROC: 5A1945Z Respiratory Ventilation, 24-96 Consecutive Hours (ICD-10-PCS; 2018-04-22)
PROC: 0BH17EZ Insertion of Endotracheal Airway into Trachea, Via Natural or Artificial Opening (ICD-10-PCS; 2018-04-22)
PROC: 4A033R1 Measurement of Arterial Saturation, Peripheral, Percutaneous Approach (ICD-10-PCS; 2018-04-22)
PROC: 5A1D70Z Performance of Urinary Filtration, Intermittent, Less than 6 Hours Per Day (ICD-10-PCS; 2018-04-23)
PROC: 4A023N7 Measurement of Cardiac Sampling and Pressure, Left Heart, Percutaneous Approach (ICD-10-PCS; 2018-04-28)
PROC: B211YZZ Fluoroscopy of Multiple Coronary Arteries using Other Contrast (ICD-10-PCS; 2018-04-28)
PROC: B215YZZ Fluoroscopy of Left Heart using Other Contrast (ICD-10-PCS; 2018-04-28)
PROC: 027135Z Dilation of Coronary Artery, Two Arteries with Two Drug-eluting Intraluminal Devices, Percutaneous Approach (ICD-10-PCS; principal; 2018-04-28 14:00)
PROC: 3E0234Z Introduction of Serum, Toxoid and Vaccine into Muscle, Percutaneous Approach (ICD-10-PCS; 2018-04-29)
DX: I21.4 Non-ST elevation (NSTEMI) myocardial infarction (principal); J18.9 Pneumonia, unspecified organism; N18.6 End stage renal disease; J96.01 Acute respiratory failure with hypoxia; J96.02 Acute respiratory failure with hypercapnia; J44.0 Chronic obstructive pulmonary disease with (acute) lower respiratory infection; I13.2 Hypertensive heart and chronic kidney disease with heart failure and with stage 5 chronic kidney disease, or end stage renal disease; I50.30 Unspecified diastolic (congestive) heart failure; E11.22 Type 2 diabetes mellitus with diabetic chronic kidney disease; F17.210 Nicotine dependence, cigarettes, uncomplicated; I16.0 Hypertensive urgency; I25.10 Atherosclerotic heart disease of native coronary artery without angina pectoris; D64.9 Anemia, unspecified; D69.6 Thrombocytopenia, unspecified; Z99.2 Dependence on renal dialysis; Z86.73 Personal history of transient ischemic attack (TIA), and cerebral infarction without residual deficits; Z88.0 Allergy status to penicillin; Z79.4 Long term (current) use of insulin
CPT/HCPCS: 31500; 36415; 36600; 71045; 76937; 80048; 80053; 80061; 80307; 82550; 82553; 82803; 82962; 83605; 83735; 83880; 84100; 84145; 84484; 85025; 85610; 85730; 86706; 87040; 87081; 87340; 90686; 90935; 92526; 92610; 92928; 92929; 93005; 93306; 93458; 94002; 94003; 94770; 97162; C1725; C1760; C1874; C1887; C1894; C9113; J0360; J0583; J0692; J1644; J1650; J1815; J1956; J2060; J2250; J2274; J3010; J3370; J7030; P9047; Q9967

== ENCOUNTER 2018-06-12 17:43 | Inpatient (IN) | payer MEDICARE, OTHER ==
[~2018-06-12] VITALS: Ht 167.6 cm; Wt 80.1 kg
[~2018-06-12 17:43] MED LIST changes: +AMLO-147 PO; -CLON0.5T14 PO; +CLOP75TA28 NGT; -ETOMIDATE 20 MG INJ ONE; +HYDR-3670 PO; +HYDR-4011 PO; +INSU100C3 SQ; +LABE200T25 PO; +LEVEM SQ; -LINA5TAB PO; +LORA1TAB PO; +LOSA100T15 PO; -METO-407 PO; +METO5TAB2 PO; -NIFE30TA2 PO; -ONDA4TAB13 PO; -PARO-2 PO; +PARO-37 PO; -QUET25TA33 PO; -SUCCINYLCHOLINE CHLORIDE 100 MG/5 ML SYG IV ONE
[2018-06-12] MEDS ORDERED: DESMOPRESSIN 20 MCG in SOD CHLORIDE 0.9% 50 ML IVPB ONE (23:00)
--- NOTE | 2018-06-12 23:24 | ERD ---
ER Documentation Chief Complaint Chief Complaint sudden rectal bleeding since last night, denies constipation HPI Very pleasant 58-year-old gentleman history of end-stage renal disease on Saturday and Saturday last dialysis yesterday. Patient presents with 24 hours of gross rectal bleeding. Patient describes feeling the entire bowl with blood multiple times since he has had bleeding that started yesterday. He describes some mild lightheadedness. He denies any hematemesis, alcohol abuse or history of peptic ulcer disease. ROS All systems reviewed and are negative except as per history of present illness. Medications Home Meds Active Scripts Paroxetine Hcl* (Paroxetine*) 20 Mg Tablet, 30 MG PO HS for 30 Days, #30 TAB Prov:STEVE ANDERSON 05/21/18 Hydralazine Hcl* (Hydralazine Hcl*) 10 Mg Tablet, 10 MG PO TID for 30 Days, #90 TAB Prov:STEVE ANDERSON 05/21/18 Amlodipine Besylate* (Amlodipine Besylate*) 10 Mg Tablet, 10 MG PO QHS for 30 Days, #30 TAB Prov:STEVE ANDERSON 05/21/18 Losartan Potassium* (Losartan Potassium*) 100 Mg Tablet, 100 MG PO DAILY, #30 TAB Prov:STEVE ANDERSON 05/21/18 Labetalol Hcl* (Labetalol Hcl*) 200 Mg Tablet, 200 MG PO TID for 30 Days, #90 TAB Prov:STEVE ANDERSON 05/21/18 Clopidogrel Bisulfate (Clopidogrel) 75 Mg Tablet, 75 MG NGT DAILY for 90 Days, #90 TAB 5 Refills Prov:MARCELINO ROSARIO MD 04/30/18 Aspirin* (Aspirin* EC) 81 Mg Tablet.dr, 81 MG PO DAILY for 90 Days, #90 TAB 5 Refills Prov:MARCELINO ROSARIO MD 04/30/18 Atorvastatin* (Atorvastatin*) 80 Mg Tablet, 80 MG PO QHS for 90 Days, #90 TAB 5 Refills Prov:MARCELINO ROSARIO MD 04/30/18 Docusate Sodium (Dok) 100 Mg Capsule, 100 MG PO Q12H for 30 Days, #60 CAP 1 Refill Prov:TRAVON WHEELER 01/03/18 Reported Medications Insulin Detemir (Levemir) 100 Unit/1 Ml Vial, 60 UNIT SQ QHS 05/09/18 Hydrocodone/Acetaminophen (Rarden 5-325 Tablet) 1 Each Tablet, 1 EACH PO Q6H, TAB 05/09/18 Metoclopramide Hcl* (Metoclopramide Hcl*) 5 Mg Tablet, 5 MG PO Q6H PRN for NAUSEA AND OR VOMITING, TAB 05/09/18 Lorazepam* (Lorazepam*) 1 Mg Tablet, 1 MG PO BID PRN for BLADDER SPASMS, #30 TAB 05/09/18 Insulin Aspart (Novolog) 100 Unit/1 Ml Cartridge, 20 UNIT SQ WITH MEALS Inject SC twice a day: AM - 20 units : PM - 45 units 05/09/18 Pantoprazole* (Protonix*) 40 Mg Tablet.dr, 40 MG PO BID, TAB 12/22/17 Calcium Acetate* (Calcium Acetate*) 667 Mg Capsule, 2668 MG PO WITH MEALS, #60 CAP 12/22/17 Allergies Allergies: Coded Allergies: Penicillins (Verified Allergy, Unknown, 05/30/18) PMhx/Soc History of Surgery: Yes (stents, AV FISTULA LEFT ARM ) Anesthesia Reaction: No Hx Neurological Disorder: Yes (CVA) Hx Respiratory Disorders: No Hx Cardiac Disorders: Yes (AL, HTN) Hx Psychiatric Problems: Yes (anxiety) Hx Miscellaneous Medical Probl: Yes (NSTEMI, DM, Kidney failure, Gastritis) Hx Alcohol Use: No Hx Substance Use: No Hx Tobacco Use: No Smoking Status: Unknown if ever smoked FmHx Family History: No diabetes Physical Exam Vitals Vital Signs Date Temp Pulse Resp B/P (MAP) Pulse Ox O2 O2 Flow FiO2 Time Delivery Rate 06/12/18 98.1 113 18 116/58 97 18:13 (77) Physical Exam General: Well developed, well nourished, no acute distress Head: Normocephalic, atraumatic. Eyes: Pupils equally reactive, EOM intact ENT: Moist mucous membranes Neck: Supple, no lymphadenopathy Respiratory: Lungs clear bilaterally, no distress Cardiovascular: RRR, no murmurs, rubs, or gallops Abdominal: Soft, non-tender, non-distended, no peritoneal signs : Digital rectal examination reveals no evidence of external or internal hemorrhoids, brown stool with bright red blood noted on digit MSK: No edema, no unilateral swelling, 5/5 strength Neurologic: Alert and oriented, moving all extremities, normal speech, no focal weakness, no cerebellar signs Skin: No rash Psych: Normal mood Result Diagram: 06/12/184 06/12/184 Results 24 hrs Laboratory Tests Test 06/12/18 22:24 White Blood Count 5.3 10^3/ul Red Blood Count 2.64 10^6/ul Hemoglobin 7.8 g/dl Hematocrit 24.2 % Mean Corpuscular Volume 91.7 fl Mean Corpuscular Hemoglobin 29.5 pg Mean Corpuscular Hemoglobin Concent 32.2 g/dl Red Cell Distribution Width 13.5 % Platelet Count 235 10^3/UL Mean Platelet Volume 11.1 fl Immature Granulocytes % 0.200 % Neutrophils % 56.9 % Lymphocytes % 28.7 % Monocytes % 8.1 % Eosinophils % 5.3 % Basophils % 0.8 % Nucleated Red Blood Cells % 0.0 /100WBC Immature Granulocytes # 0.010 10^3/ul Neutrophils # 3.0 10^3/ul Lymphocytes # 1.5 10^3/ul Monocytes # 0.4 10^3/ul Eosinophils # 0.3 10^3/ul Basophils # 0.0 10^3/ul Nucleated Red Blood Cells # 0.0 10^3/ul Prothrombin Time 14.2 Sec Prothrombin Time Ratio 1.1 INR International Normalized Ratio 1.09 Activated Partial Thromboplast Time 28.8 Sec Sodium Level 136 mmol/L Potassium Level 5.2 mmol/L Chloride Level 94 mmol/L Carbon Dioxide Level 34 mmol/L Anion Gap 8 Blood Urea Nitrogen 37 mg/dl Creatinine 7.66 mg/dl Est Glomerular Filtrat Rate mL/min 7 mL/min Glucose Level 326 mg/dl Calcium Level 8.6 mg/dl Current Medications Medications Dose Sig/Enrique Start Time Status Last (Trade) Ordered Route PRN Stop Time Admin Dose Reason Admin 55 ml @ ONCE ONCE 06/12/18 DC 06/12/18 Desmopressin 110 mls/hr IVPB 23:00 23:14 Acetate 20 06/12/18 23:29 mcg/ Sodium Chloride Sodium 1,000 ml @ Q24H IV 06/12/18 UNV Chloride 40 mls/hr 23:47 IV Flush 3 ml PER 06/13/18 UNV (NS 3 ml) PROTOCOL IV 00:00 Ondansetron 4 mg Q6H PRN 06/13/18 UNV HCl (Zofran IV 00:00 Inj) NAUSEA/VOMITI NG 650 mg Q6H PRN 06/13/18 UNV Acetaminophen PO .PAIN 1-3 00:00 (Tylenol OR TEMP Tab) Morphine 2 mg Q4H PRN 06/13/18 UNV Sulfate IV .PAIN 00:00 (morphine) 7-10 40 mg DAILY@06 06/13/18 UNV Pantoprazole IV 06:00 (Protonix Iv) Amlodipine 10 mg QHS PO 06/13/18 UNV Besylate 21:00 (Norvasc) 80 mg QHS PO 06/13/18 UNV Atorvastatin 21:00 Calcium (Lipitor) Hydralazine 10 mg TID PO 06/13/18 UNV HCl 09:00 (Apresoline) Insulin 60 units QHS SC 06/13/18 UNV Detemir 00:00 (Levemir) Lorazepam 1 mg BID PRN 06/13/18 UNV (Ativan) PO BLADDER 00:00 SPASMS Losartan 100 mg DAILY PO 06/13/18 UNV Potassium 09:00 (Cozaar) Paroxetine 30 mg HS PO 06/13/18 UNV HCl (Paxil) 21:00 Hydralazine 10 mg Q4H PRN 06/13/18 UNV HCl IV ELEVATED 00:00 (Apresoline) BLOOD PRESSURE Procedures/MDM EKG, MONITORS, & DIAGNOSTIC IMAGING: EKG: I reviewed and interpreted a 12-lead EKG. Rhythm: Normal sinus rhythm ST Changes: No contiguous ST segment elevations T waves: No contiguous T wave inversions Impression: No evidence of acute cardiac ischemia CT abdomen and pelvis: IMPRESSION: 1. The urinary bladder is virtually empty. The bladder wall appears thickened. There is stranding of the adjacent. . Pericystic fat has an infiltrated appearance. The possibility of nonspecific cystitis is raised. 2. The stomach is distended with fluid and ingested food. The stomach is morphologically normal. Noncontrast CT is limited in sensitivity for GI bleeding. No acute abnormality of the bowel appreciated. 3. Mild diverticulosis of the colon. No findings of acute diverticulitis. 4. Small bilateral pleural effusions. Trace pericardial effusion. RPTAT: [facility] INTERPRETATION: I reviewed the laboratory testing and it shows hemoglobin in the 7 range slightly below baseline around 8 MEDICAL DECISION MAKING: Patient has a history of dialysis and presents with bright red blood per rectum with significant volumes. He is hemodynamically stable but given the frequency and volume of the bleeding inpatient hospitalization is likely appropriate. Patient will benefit from DDAVP given he is a dialysis patient having bleeding. Low concern for upper GI hemorrhage without significant risk factors for this process. CT imaging of the abdomen and pelvis will be appropriate. Patient may require colonoscopy. ER COURSE: * Large bore peripheral IV was inserted. The patient has borderline potassium elevation in the 5 range without EKG changes. * DDAVP provided * No indication for transfusion at this time, hemoglobin is just slightly below his baseline. Continue to monitor with serial values * CT showing evidence of diverticulosis, likely etiology of the patient's bleeding CONSULTATION: None DISPOSITION PLAN: Accepting care team and consultations: I discussed the current laboratory data, diagnostic imaging and emergency care provided. Admitting team: Dr. Ware Admitting team indication: Insurance directed Departure Diagnosis: Primary Impression: Rectal hemorrhage Additional Impressions: End-stage renal disease on hemodialysis Anemia Anemia type: unspecified type Qualified Codes: D64.9 - Anemia, unspecified Hyperglycemia Condition: Stable PAUL COLIN MD Jun 12, 2018 23:24
[2018-06-12] MEDS ORDERED: SOD CHLORIDE 0.9% 1,000 ML IV SCH (23:47)
--- NOTE | 2018-06-12 23:53 | HP ---
Date/Time of Note Date/Time of Note DATE: 06/12/18 TIME: 23:53 Assessment/Plan VTE Prophylaxis SCD applied (from Nsg): Yes Pharmacological prophylaxis: NA/contraindicated Pharm contraindication: low risk/ambulating Lines/Catheters IV Catheter Type (from Nrsg): Saline Lock Assessment/Plan Hospital Course This is a 50-year-old male being admitted to the telemetry floor for: #1 bright red blood per rectum: Patient's hemoglobin is noted to be 7.8 which when reviewed from the last month appears to have dropped from approximately 10. He does have a history of end-stage renal disease and anemia however given that he has had gross blood per rectum we will assess for GI bleed. Will check CBC every 6 hours. Given his cardiac history we will transfuse to maintain hemoglobin greater than 8. Will consult GI . Protonix IV will hold aspirin and Plavix at the current time. Keep the patient n.p.o. at the current time. #2 Acute on chronic anemia: Patient has a history of anemia likely secondary to end-stage renal disease, however the current time he does have rectal bleeding. We will treat as per #1. Further management as per GI and nephrology. #3 end-stage renal disease: Patient is on hemodialysis Saturday was a Saturday. He is due for dialysis on Saturday. Will consult nephrology Dr. Sue. Will avoid nephrotoxic agents. Will avoid any NSAIDs. #4 Diabetes mellitus: We will check hemoglobin A 1C, last hemoglobin A1c was 8.1 in December 2018. Will resume home basal insulin., Mild exercise skills patient is currently n.p.o. Will hold bolus insulin at the current time #5 coronary artery disease: S/p stent, will hold aspirin and Plavix at the curre nt time given patient's GI bleeding. Resume meds as clinically indicated. Given his bleeding and cardiac history goal will be to maintain hemoglobin greater than 8. #6 hypertension: Resume patient's home medication #7 DVT GI prophylaxis: SCDs, PPI Further treatment strategy will be implemented as per the clinical course. Patient is agreeable to receiving blood transfusion if indicated,, he understands risks and benefits. Result Diagram: 06/12/184 06/12/18 2224 Results 24hrs Laboratory Tests Test 06/12/18 22:24 White Blood Count 5.3 # Red Blood Count 2.64 L Hemoglobin 7.8 #L Hematocrit 24.2 L Mean Corpuscular Volume 91.7 Mean Corpuscular Hemoglobin 29.5 Mean Corpuscular Hemoglobin Concent 32.2 Red Cell Distribution Width 13.5 Platelet Count 235 Mean Platelet Volume 11.1 H Immature Granulocytes % 0.200 Neutrophils % 56.9 Lymphocytes % 28.7 Monocytes % 8.1 Eosinophils % 5.3 Basophils % 0.8 Nucleated Red Blood Cells % 0.0 Immature Granulocytes # 0.010 Neutrophils # 3.0 Lymphocytes # 1.5 Monocytes # 0.4 Eosinophils # 0.3 Basophils # 0.0 Nucleated Red Blood Cells # 0.0 Prothrombin Time 14.2 Prothrombin Time Ratio 1.1 INR International Normalized Ratio 1.09 Activated Partial Thromboplast Time 28.8 Sodium Level 136 Potassium Level 5.2 H Chloride Level 94 L Carbon Dioxide Level 34 H Anion Gap 8 Blood Urea Nitrogen 37 H Creatinine 7.66 H Est Glomerular Filtrat Rate mL/min 7 L Glucose Level 326 H Calcium Level 8.6 HPI/ROS Admit Date/Time Admit Date/Time Hx of Present Illness CC: rectal bleeding x 1 day This is a 58-year-old gentleman history of end-stage renal disease on Saturday and Saturday last dialysis yesterday. Patient presents with 24 hours of gross rectal bleeding. Patient describes filling the entire toilet bowl with blood multiple times since he has had bleeding that started yesterday. He describes some mild lightheadedness. He denies any hematemesis, alcohol abuse or history of peptic ulcer disease. allergies: pcn meds: see jun ROS Const: As per HPI Eyes : No pain discharge or redness or change in visual acuity ENT: No pain, sore throat, congestion, congestion, dysphagia or discharge Respiratory: No shortness of breath, cough, sputum, wheezing, or pleuritic pain Cardiovascular: No chest pain, palpitation, PND, or edema GI : As per HPI Genitourinary: No dysuria, hematuria, flank pain , discharge or CVA tenderness Musculoskeletal: No joint pain, back pain, neck pain, restricted range of motion in neck or joints Skin: No rash, bruising or hives Neuro: No headache, dizziness, syncope, seizure, focal weakness Endocrine: No polyuria, polydipsia, temperature intolerance Psych: No hallucination, depression, anxiety or suicidal ideation PMH/Family/Social Past Medical History Anxiety End-stage renal disease on HD Saturday Coronary artery disease s/p stent Diabetes mellitus Malignant hypertension Obesity Anemia, chronic Medications Current Medications Sodium Chloride 1,000 ml @ 40 mls/hr Q24H IV ; Start 06/12/18 at 23:47; Status UNV IV Flush (NS 3 ml) 3 ml PER PROTOCOL IV ; Start 06/13/18 at 00:00; Status UNV Ondansetron HCl (Zofran Inj) 4 mg Q6H PRN IV NAUSEA/VOMITING; Start 06/13/18 at 00:00; Status UNV Acetaminophen (Tylenol Tab) 650 mg Q6H PRN PO .PAIN 1-3 OR TEMP; Start 06/13/18 at 00:00; Status UNV Morphine Sulfate (morphine) 2 mg Q4H PRN IV .PAIN 7-10; Start 06/13/18 at 00:00; Status UNV Pantoprazole (Protonix Iv) 40 mg DAILY@06 IV ; Start 06/13/18 at 06:00; Status UNV Amlodipine Besylate (Norvasc) 10 mg QHS PO ; Start 06/13/18 at 21:00; Status UNV Atorvastatin Calcium (Lipitor) 80 mg QHS PO ; Start 06/13/18 at 21:00; Status UNV Hydralazine HCl (Apresoline) 10 mg TID PO ; Start 06/13/18 at 09:00; Status UNV Insulin Detemir (Levemir) 60 units QHS SC ; Start 06/13/18 at 00:00; Status UNV Lorazepam (Ativan) 1 mg BID PRN PO BLADDER SPASMS; Start 06/13/18 at 00:00; Status UNV Losartan Potassium (Cozaar) 100 mg DAILY PO ; Start 06/13/18 at 09:00; Status UNV Paroxetine HCl (Paxil) 30 mg HS PO ; Start 06/13/18 at 21:00; Status UNV Hydralazine HCl (Apresoline) 10 mg Q4H PRN IV ELEVATED BLOOD PRESSURE; Start 06/13/18 at 00:00; Status UNV Coded Allergies: Penicillins (Verified Allergy, Unknown, 05/30/18) Past Surgical History s/p cardiac stent, left upper extremity AV fistula Past Surgical Hx: other Family History Significant Family History: no pertinent family hx Social History Alcohol Use: none Smoking Status: Never smoker Drug Use: none Exam/Review of Systems Vital Signs Vitals Vital Signs Date Temp Pulse Resp B/P (MAP) Pulse Ox O2 O2 Flow FiO2 Time Delivery Rate 06/12/18 98.1 113 18 116/58 97 18:13 (77) Exam Exam General: Patient is a pleasant male currently lying in bed in no acute distress HEENT: Atraumatic, normocephalic. The pupils are equal, round and reactive. Extraocular motor are intact Neck: Supple with full range of motion. No rigidity or meningismus Chest: Nontender Lungs: Clear to auscultation bilaterally no crackles rales or wheezing Heart: Normal S1-S2, Regular rhythm and rate. Abdomen: Soft , nontender, nondistended , bowel sounds are present. No guarding no rebound tenderness , No masses or organomegaly. No costovertebral temporal angle mass Extremities: Normal to inspection, no edema no cyanosis Neurologic: Normal mental status, speech normal, cranial nerves II through XII are intact, motor and sensory are intact, no focal weakness Vascular: Left upper extremity AV fistula Skin: Multiple tattoos Additional Comments PROCEDURE: CT Abdomen and Pelvis Without Intravenous Contrast CLINICAL INDICATION: Upper GI bleed. TECHNIQUE: Axial computed tomography images of the abdomen and pelvis without intravenous contrast. Sagittal and coronal reformatted images were created and reviewed. CTDIvol (mGy) = 17.07; total DLP (mGy-cm) = 1082.90. This CT exam was performed using one or more of the following dose reduction techniques: automated exposure control, adjustment of the mA and/or kV according to patient size, and/or use of iterative reconstruction technique. DICOM images are available. COMPARISON: CT abdomen and pelvis of 11/25/2011. FINDINGS: LUNG BASES: Mild atelectasis at the lung bases. Mild fibrosis in the periphery of the right middle lobe. PLEURAL SPACE: Small bilateral pleural effusions. HEART: Trace pericardial effusion. ABDOMEN: LIVER: Unremarkable. GALLBLADDER AND BILE DUCTS: Unremarkable. No calcified stones. No ductal dilation. PANCREAS: Unremarkable. No ductal dilation. SPLEEN: Unremarkable. No splenomegaly. ADRENALS: Unremarkable. No mass. KIDNEYS AND URETERS: Unremarkable. No obstructing stones. No hydronephrosis. STOMACH AND BOWEL: The stomach is distended with fluid and ingested food. The stomach is morphologically normal. Mild diverticulosis of the colon. No findings of acute diverticulitis. No acute abnormality of the small bowel. PELVIS: APPENDIX: The appendix is normal in appearance. No evidence of appendicitis. BLADDER: The urinary bladder is virtually empty. The bladder wall appears thickened. There is stranding of the adjacent. Pericystic fat has an infiltrated appearance. The possibility of nonspecific cystitis is raised. No stones. REPRODUCTIVE: Multiple calcifications are seen in the prostate gland. ABDOMEN and PELVIS: INTRAPERITONEAL SPACE: Unremarkable. No free air. No significant fluid collection. BONES/JOINTS: Mild degenerative changes of the lumbar spine. No acute osseous abnormality noted. No dislocation. SOFT TISSUES: Unremarkable. VASCULATURE: The abdominal aorta is atherosclerotic. No aneurysm. LYMPH NODES: Unremarkable. No enlarged lymph nodes. IMPRESSION: 1. The urinary bladder is virtually empty. The bladder wall appears thickened. There is stranding of the adjacent. . Pericystic fat has an infiltrated appearance. The possibility of nonspecific cystitis is raised. 2. The stomach is distended with fluid and ingested food. The stomach is morphologically normal. Noncontrast CT is limited in sensitivity for GI bleeding. No acute abnormality of the bowel appreciated. 3. Mild diverticulosis of the colon. No findings of acute diverticulitis. 4. Small bilateral pleural effusions. Trace pericardial effusion. RPTAT: [facility] Christine Mason Physician Count Team Member Date Time Electronically viewed and signed by Christine Mason Physician Count Team Member on 06/13/2018 00:01 C/ CC: APUL COLIN MD [id number] MARGARITO ESPINOZA Jun 12, 2018 23:53
[2018-06-13] VITALS (30 sets, daily range): BP systolic 94–184; BP diastolic 60–93; PULSE 69–94; RESP 11–20; Ht 167.6 cm; Wt 80.1 kg
[2018-06-13] MEDS ORDERED: hydrALAzine 20 MG INJ IV PRN
[2018-06-13] MEDS ORDERED: ACETAMINOPHEN 325 MG TAB PO PRN
[2018-06-13] MEDS ORDERED: NACL 0.9% 3 ML SYG IV SCH
[2018-06-13] MEDS ORDERED: morphine 2 MG INJ IV PRN
[2018-06-13] MEDS: INSULIN DETEMIR [LEVEMIR] (100 UNITS/ML) SYG SC SCH ×2 (01:05→21:28)
[2018-06-13] MEDS: PANTOPRAZOLE 40 MG INJ IV SCH (06:49)
[2018-06-13] MEDS ORDERED: PROPOFOL 200 MG INJ ONE (07:00)
[2018-06-13] MEDS ORDERED: PEG/ELECTROLYTES 4L BTL PO ONE ×2 (09:00→10:00)
[2018-06-13] MEDS: LACTULOSE 30ML CUP PO SCH ×3 (09:47→15:21)
[2018-06-13] MEDS ORDERED: METOCLOPRAMIDE 10 MG INJ IV ONE (10:00)
--- NOTE | 2018-06-13 10:00 | CONS ---
Assessment/Plan Assessment/Plan Assessment/Plan (Daily) 1. GI bleeding upper vs lower 2. severe anemia 3. ESRD on HD MWF Schedule 4. H/o HTN 5. H/o HL Plan: pt is seen on tele floor, Plan for HD today with PRBC transfusion as ordered GI is planning for EGD and colonoscopy will plan for another HD on Saturday then pt will be on MWF schedule will start Epogen after EGD and colonoscopy result will follow up, Thanks for consultation Consultation Date/Type/Reason Admit Date/Time 06/12/18 Date of Consultation: Jun 13, 2018 Type of Consult NEPHROLOGY Reason for Consultation ESRD on HD with Severe Anemia and GI bleeding Requesting Provider: MARGARITO ESPINOZA Date/Time of Note DATE: 06/13/18 TIME: 09:59 Hx of Present Illness 58-year-old gentleman history of end-stage renal disease on Saturday and Saturday last dialysis yesterday. Patient presents with 24 hours of gross rectal bleeding. Patient describes filling the entire toilet bowl with blood multiple times since he has had bleeding that started yesterday. He describes some mild lightheadedness. He denies any hematemesis, alcohol abuse or history of peptic ulcer disease. pt follows at [facility], Pt is ordered for PRBC transfusion due to GI bleeding. S/p GI consult , plan for EGD and colonoscopy today Constitutional: no complaints Eyes: no complaints ENT: no complaints Respiratory: no complaints Cardiovascular: no complaints Gastrointestinal: other (Bright red blood per rectum ) Genitourinary: no complaints Musculoskeletal: no complaints Skin: no complaints Neurologic: no complaints Endocrine: no complaints Lymphatic: no complaints Psychological: no complaints Immunologic: no complaints Past Medical History Medical History: high cholesterol, hypertension, renal disease, other (ESRD on HD ) Home Meds Active Scripts Paroxetine Hcl* (Paroxetine*) 20 Mg Tablet, 30 MG PO HS for 30 Days, #30 TAB Prov:STEVE ANDERSON 05/21/18 Hydralazine Hcl* (Hydralazine Hcl*) 10 Mg Tablet, 10 MG PO TID for 30 Days, #90 TAB Prov:STEVE ANDERSON 05/21/18 Amlodipine Besylate* (Amlodipine Besylate*) 10 Mg Tablet, 10 MG PO QHS for 30 Days, #30 TAB Prov:STEVE ANDERSON 05/21/18 Losartan Potassium* (Losartan Potassium*) 100 Mg Tablet, 100 MG PO DAILY, #30 TAB Prov:STEVE ANDERSON 05/21/18 Labetalol Hcl* (Labetalol Hcl*) 200 Mg Tablet, 200 MG PO TID for 30 Days, #90 TA B Prov:STEVE ANDERSON 05/21/18 Clopidogrel Bisulfate (Clopidogrel) 75 Mg Tablet, 75 MG NGT DAILY for 90 Days, #90 TAB 5 Refills Prov:MARCELINO ROSARIO MD 04/30/18 Aspirin* (Aspirin* EC) 81 Mg Tablet.dr, 81 MG PO DAILY for 90 Days, #90 TAB 5 Refills Prov:MARCELINO ROSARIO MD 04/30/18 Atorvastatin* (Atorvastatin*) 80 Mg Tablet, 80 MG PO QHS for 90 Days, #90 TAB 5 Refills Prov:MARCELINO ROSARIO MD 04/30/18 Docusate Sodium (Dok) 100 Mg Capsule, 100 MG PO Q12H for 30 Days, #60 CAP 1 Refill Prov:TRAVON WHEELER 01/03/18 Reported Medications Insulin Detemir (Levemir) 100 Unit/1 Ml Vial, 60 UNIT SQ QHS 05/09/18 Hydrocodone/Acetaminophen ([place] 5-325 Tablet) 1 Each Tablet, 1 EACH PO Q6H, TAB 05/09/18 Metoclopramide Hcl* (Metoclopramide Hcl*) 5 Mg Tablet, 5 MG PO Q6H PRN for NAUSEA AND OR VOMITING, TAB 05/09/18 Lorazepam* (Lorazepam*) 1 Mg Tablet, 1 MG PO BID PRN for BLADDER SPASMS, #30 TAB 05/09/18 Insulin Aspart (Novolog) 100 Unit/1 Ml Cartridge, 20 UNIT SQ WITH MEALS Inject SC twice a day: AM - 20 units : PM - 45 units 05/09/18 Pantoprazole* (Protonix*) 40 Mg Tablet.dr, 40 MG PO BID, TAB 12/22/17 Calcium Acetate* (Calcium Acetate*) 667 Mg Capsule, 2668 MG PO WITH MEALS, #60 CAP 12/22/17 Medications Current Medications Sodium Chloride 1,000 ml @ 40 mls/hr Q24H IV Last administered on 06/13/18at 02:36; Admin Dose 40 MLS/HR; Start 06/12/18 at 23:47 IV Flush (NS 3 ml) 3 ml PER PROTOCOL IV ; Start 06/13/18 at 00:00 Ondansetron HCl (Zofran Inj) 4 mg Q6H PRN IV NAUSEA/VOMITING; Start 06/13/18 at 00:00 Acetaminophen (Tylenol Tab) 650 mg Q6H PRN PO .PAIN 1-3 OR TEMP; Start 06/13/18 at 00:00 Morphine Sulfate (morphine) 2 mg Q4H PRN IV .PAIN 7-10; Start 06/13/18 at 00:00 Pantoprazole (Protonix Iv) 40 mg DAILY@06 IV Last administered on 06/13/18at 06:49; Admin Dose 40 MG; Start 06/13/18 at 06:00 Amlodipine Besylate (Norvasc) 10 mg QHS PO ; Start 06/13/18 at 21:00 Atorvastatin Calcium (Lipitor) 80 mg QHS PO ; Start 06/13/18 at 21:00 Hydralazine HCl (Apresoline) 10 mg TID PO ; Start 06/13/18 at 09:00 Insulin Detemir (Levemir) 60 units QHS SC Last administered on 06/13/18at 01:05; Admin Dose 60 UNITS; Start 06/13/18 at 00:00 Lorazepam (Ativan) 1 mg BID PRN PO BLADDER SPASMS; Start 06/13/18 at 00:00 Losartan Potassium (Cozaar) 100 mg DAILY PO ; Start 06/13/18 at 09:00 Paroxetine HCl (Paxil) 30 mg HS PO ; Start 06/13/18 at 21:00 Hydralazine HCl (Apresoline) 10 mg Q4H PRN IV ELEVATED BLOOD PRESSURE; Start 06/13/18 at 00:00 Labetalol HCl (Normodyne) 200 mg TID PO ; Start 06/13/18 at 09:00 Lactulose (Enulose) 20 gm Q2 PO Last administered on 06/13/18at 09:47; Admin Dose 20 GM; Start 06/13/18 at 09:00; Stop 06/13/18 at 13:01 Metoclopramide HCl (Reglan) 10 mg ONCE ONCE IV ; Start 06/13/18 at 10:00; Stop 06/13/18 at 10:01 Polyethylene Glycol/ Electrolytes (Golytely) 2,000 ml ONCE ONCE PO ; Start 06/13/18 at 10:00; Stop 06/13/18 at 10:01 Allergies: Coded Allergies: Penicillins (Verified Allergy, Unknown, 05/30/18) Past Surgical History Past Surgical Hx: other (AVF in place ) Family History Significant Family History: no pertinent family hx Social History Alcohol Use: none Smoking Status: Never smoker Drug Use: none Exam/Review of Systems Exam Vitals Vital Signs Date Temp Pulse Resp B/P (MAP) Pulse Ox O2 O2 Flow FiO2 Time Delivery Rate 06/13/18 94 08:57 06/13/18 98.2 18 155/77 98 07:22 (103) 06/13/18 Room Air 04:10 Intake and Output 06/12/18 06/12/18 06/13/18 1515:00 23:00 07:00 IntakeIntake Total 265 ml BalanceBalance 265 ml Constitutional: alert Head: normocephalic Eyes: nl conjunctiva ENMT: nl external ears & nose, mucosa pink and moist Neck: supple, non-tender Respiratory: clear to auscultation, normal air movement, diminished breath soun ds Cardiovascular: regular rate and rhythm, nl pulses Gastrointestinal: soft, non-tender Musculoskeletal: nl extremities to inspection, joint tenderness, muscle weakness, swelling Extremities: normal pulses Neurological: SLURRY CONTROL TENDER II-XII intact, nl mental status, nl speech, nl strength Lymph: nl lymph nodes Results Result Diagram: 06/13/1818 06/13/18 0313 Results 24hrs Laboratory Tests Test 06/12/18 22:24 06/13/18 00:54 06/13/18 03:13 06/13/18 05:55 White Blood Count 5.3 # 5.8 Red Blood Count 2.64 L 2.42 L Hemoglobin 7.8 #L 7.3 L Hematocrit 24.2 L 22.4 L Mean Corpuscular 91.7 92.6 Volume Mean Corpuscular 29.5 30.2 Hemoglobin Mean Corpuscular 32.2 32.6 Hemoglobin Concent Red Cell 13.5 13.5 Distribution Width Platelet Count 235 229 Mean Platelet Volume 11.1 H 11.1 H Immature 0.200 0.300 Granulocytes % Neutrophils % 56.9 64.8 Lymphocytes % 28.7 23.0 Monocytes % 8.1 7.6 Eosinophils % 5.3 3.8 Basophils % 0.8 0.5 Nucleated Red Blood 0.0 0.0 Cells % Immature 0.010 0.020 Granulocytes # Neutrophils # 3.0 3.8 Lymphocytes # 1.5 1.3 Monocytes # 0.4 0.4 Eosinophils # 0.3 0.2 Basophils # 0.0 0.0 Nucleated Red Blood 0.0 0.0 Cells # Prothrombin Time 14.2 Prothrombin Time 1.1 Ratio INR International 1.09 Normalized Ratio Activated 28.8 Partial Thromboplast Time Sodium Level 136 139 Potassium Level 5.2 H 5.4 H Chloride Level 94 L 96 L Carbon Dioxide Level 34 H 34 H Anion Gap 8 9 Blood Urea Nitrogen 37 H 38 H Creatinine 7.66 H 8.34 H Est Glomerular 7 L 7 L Filtrat Rate mL/min Glucose Level 326 H 297 H Calcium Level 8.6 8.5 Bedside Glucose 371 H Phosphorus Level 4.6 Magnesium Level 1.7 Total Bilirubin 0.0 L Direct Bilirubin 0.00 Indirect Bilirubin 0.0 Aspartate Amino 21 Transf (AST/SGOT) Alanine 36 Aminotransferase (AL T/SGPT) Alkaline Phosphatase 103 Total Protein 6.1 Albumin 3.5 Globulin 2.60 Albumin/Globulin 1.34 Ratio Hemoglobin A1c 5.7 Test 06/13/18 09:18 White Blood Count 5.0 Red Blood Count 2.42 L Hemoglobin 7.1 L Hematocrit 22.3 L Mean Corpuscular 92.1 Volume Mean Corpuscular 29.3 Hemoglobin Mean Corpuscular 31.8 L Hemoglobin Concent Red Cell 13.7 Distribution Width Platelet Count 225 Mean Platelet Volume 10.7 H Immature 0.200 Granulocytes % Neutrophils % 62.6 Lymphocytes % 24.0 Monocytes % 7.8 Eosinophils % 4.6 Basophils % 0.8 Nucleated Red Blood 0.0 Cells % Immature 0.010 Granulocytes # Neutrophils # 3.1 Lymphocytes # 1.2 Monocytes # 0.4 Eosinophils # 0.2 Basophils # 0.0 Nucleated Red Blood 0.0 Cells # Medications Medication Current Medications Sodium Chloride 1,000 ml @ 40 mls/hr Q24H IV Last administered on 06/13/18at 02:36; Admin Dose 40 MLS/HR; Start 06/12/18 at 23:47 IV Flush (NS 3 ml) 3 ml PER PROTOCOL IV ; Start 06/13/18 at 00:00 Ondansetron HCl (Zofran Inj) 4 mg Q6H PRN IV NAUSEA/VOMITING; Start 06/13/18 at 00:00 Acetaminophen (Tylenol Tab) 650 mg Q6H PRN PO .PAIN 1-3 OR TEMP; Start 06/13/18 at 00:00 Morphine Sulfate (morphine) 2 mg Q4H PRN IV .PAIN 7-10; Start 06/13/18 at 00:00 Pantoprazole (Protonix Iv) 40 mg DAILY@06 IV Last administered on 06/13/18at 06:49; Admin Dose 40 MG; Start 06/13/18 at 06:00 Amlodipine Besylate (Norvasc) 10 mg QHS PO ; Start 06/13/18 at 21:00 Atorvastatin Calcium (Lipitor) 80 mg QHS PO ; Start 06/13/18 at 21:00 Hydralazine HCl (Apresoline) 10 mg TID PO ; Start 06/13/18 at 09:00 Insulin Detemir (Levemir) 60 units QHS SC Last administered on 06/13/18at 01:05; Admin Dose 60 UNITS; Start 06/13/18 at 00:00 Lorazepam (Ativan) 1 mg BID PRN PO BLADDER SPASMS; Start 06/13/18 at 00:00 Losartan Potassium (Cozaar) 100 mg DAILY PO ; Start 06/13/18 at 09:00 Paroxetine HCl (Paxil) 30 mg HS PO ; Start 06/13/18 at 21:00 Hydralazine HCl (Apresoline) 10 mg Q4H PRN IV ELEVATED BLOOD PRESSURE; Start 06/13/18 at 00:00 Labetalol HCl (Normodyne) 200 mg TID PO ; Start 06/13/18 at 09:00 Lactulose (Enulose) 20 gm Q2 PO Last administered on 06/13/18at 09:47; Admin Dose 20 GM; Start 06/13/18 at 09:00; Stop 06/13/18 at 13:01 Metoclopramide HCl (Reglan) 10 mg ONCE ONCE IV ; Start 06/13/18 at 10:00; Stop 06/13/18 at 10:01 Polyethylene Glycol/ Electrolytes (Golytely) 2,000 ml ONCE ONCE PO ; Start 06/13/18 at 10:00; Stop 06/13/18 at 10:01 NORMA SAUER MD Jun 13, 2018 10:00
[2018-06-13] MEDS ORDERED: SODIUM CHLORIDE 0.9% 1L BAG IV PRN (10:30)
[2018-06-13] MEDS ORDERED: ALBUMIN HUMAN 25% 100 ML IV PRN (10:30)
--- NOTE | 2018-06-13 11:12 | CONS ---
DATE OF ADMISSION: 06/12/2018 DATE OF CONSULTATION: TYPE OF CONSULTATION: Gastroenterology. Dear Dr. Espinoza: Thank you for asking me to see Mr. Ross in GI consultation. HISTORY OF PRESENT ILLNESS: As you know, the patient is a 58-year-old gentleman apparently has been passing bright red blood from the rectum for the past 3 days and stools have been watery in consistency. No history of vomiting. He has been nauseated. He has a history of a colonic tubular adenoma in the past, gastritis and esophagitis in the past. He also has anemia, chronic renal disease on hemodialysis, history of diabetes, coronary artery disea se status post stent placement. He has been on aspirin and Plavix for the same thing. History of hy pertension as well. MEDICATIONS PRIOR TO THIS ADMISSION: Include: 1. Protonix. 2. Norvasc. 3. Lipitor. 4. Apresoline. 5. Levemir. 6. Ativan. 7. Cozaar. 8. Paxil. PAST SURGICAL HISTORY: Includes stent placement into the coronaries, no surgical GI surgery. SOCIAL HISTORY: The patient does not smoke or drink. 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 PHYSICAL EXAMINATION: VITAL SIGNS: Temperature is 98.2, pulse is 91, blood pressure is 155/77. CARDIOVASCULAR: Normal heart sounds. RESPIRATORY: Normal breath sounds. ABDOMEN: Showed a soft abdomen. LABORATORY WORKUP: Hemoglobin is 7.8 and then dropped to 7.3, WBC 5800, platelets 229,000. Prothrom bin time 14.2, INR is 1.09. Again, liver panel is normal. AST 31, ALT 36, alkaline phosphatase 103. IMAGING STUDY: Shows evidence of CAT scan revealing evidence of empty urinary bladder, stomach is di stended with fluid and ingested foods, mild diverticulosis and bilateral pleural effusion. CLINICAL IMPRESSION: The patient is presenting with: 1. History of gastrointestinal bleeding most likely suggestive of bleeding from the diverticulosis p robably arteriovenous malformation, rule out colorectal neoplasm. 2. History of hypertension.. 3. Diabetes. 4. End-stage renal disease on hemodialysis. 5. He has probably diabetic gastroparesis as presented by the fluid in the stomach. PLAN: At this time, I recommend upper endoscopy as well as lower endoscopy. Continue Protonix. Giv e him Reglan 1 dose. Once again, Dr. Espinoza, thank you for this consultation. Dictated By: CALVIN KNOTT/JAZMINE Conf#: [id number] DID#: [id number] CC: MARGARITO ESPINOZA MD;*EndCC*
[2018-06-13] MEDS: LABETALOL 200 MG TAB PO SCH ×3 (13:00→21:00)
--- NOTE | 2018-06-13 13:04 | PN ---
Date/Time of Note Date/Time of Note DATE: 06/13/18 TIME: 13:02 Assessment/Plan VTE Prophylaxis Risk score (from Ns)>0 risk: 1 SCD applied (from Nsg): Yes Pharmacological prophylaxis: heparin Lines/Catheters IV Catheter Type (from Nrs): [place] Assessment/Plan Hospital Course 58 yo male with DMII, ESRD, and hypertension with GI bleeding GI bleeding: - EGD/c-scope pending ESRD: - HD per Dr uSe DMII: - Basal/bolus insulin Aneami of CKD Discharge when stable to self care Result Diagram: 06/13/1818 06/13/183 Results 24hrs Laboratory Tests Test 06/12/18 22:24 06/13/18 00:54 06/13/18 03:09 06/13/18 03:13 White Blood Count 5.3 # 5.8 Red Blood Count 2.64 L 2.42 L Hemoglobin 7.8 #L 7.3 L Hematocrit 24.2 L 22.4 L Mean Corpuscular 91.7 92.6 Volume Mean Corpuscular 29.5 30.2 Hemoglobin Mean Corpuscular 32.2 32.6 Hemoglobin Concent Red Cell 13.5 13.5 Distribution Width Platelet Count 235 229 Mean Platelet Volume 11.1 H 11.1 H Immature 0.200 0.300 Granulocytes % Neutrophils % 56.9 64.8 Lymphocytes % 28.7 23.0 Monocytes % 8.1 7.6 Eosinophils % 5.3 3.8 Basophils % 0.8 0.5 Nucleated Red Blood 0.0 0.0 Cells % Immature 0.010 0.020 Granulocytes # Neutrophils # 3.0 3.8 Lymphocytes # 1.5 1.3 Monocytes # 0.4 0.4 Eosinophils # 0.3 0.2 Basophils # 0.0 0.0 Nucleated Red Blood 0.0 0.0 Cells # Prothrombin Time 14.2 Prothrombin Time 1.1 Ratio INR International 1.09 Normalized Ratio Activated 28.8 Partial Thromboplast Time Sodium Level 136 139 Potassium Level 5.2 H 5.4 H Chloride Level 94 L 96 L Carbon Dioxide Level 34 H 34 H Anion Gap 8 9 Blood Urea Nitrogen 37 H 38 H Creatinine 7.66 H 8.34 H Est Glomerular 7 L 7 L Filtrat Rate mL/min Glucose Level 326 H 297 H Calcium Level 8.6 8.5 Bedside Glucose 371 H Hepatitis B Surface NEGATIVE Antigen Phosphorus Level 4.6 Magnesium Level 1.7 Total Bilirubin 0.0 L Direct Bilirubin 0.00 Indirect Bilirubin 0.0 Aspartate Amino 21 Transf (AST/SGOT) Alanine 36 Aminotransferase (AL T/SGPT) Alkaline Phosphatase 103 Total Protein 6.1 Albumin 3.5 Globulin 2.60 Albumin/Globulin 1.34 Ratio Test 06/13/18 05:55 06/13/18 09:18 06/13/18 10:45 06/13/18 11:27 Hemoglobin A1c 5.7 White Blood Count 5.0 Red Blood Count 2.42 L Hemoglobin 7.1 L Hematocrit 22.3 L Mean Corpuscular 92.1 Volume Mean Corpuscular 29.3 Hemoglobin Mean Corpuscular 31.8 L Hemoglobin Concent Red Cell 13.7 Distribution Width Platelet Count 225 Mean Platelet Volume 10.7 H Immature 0.200 Granulocytes % Neutrophils % 62.6 Lymphocytes % 24.0 Monocytes % 7.8 Eosinophils % 4.6 Basophils % 0.8 Nucleated Red Blood 0.0 Cells % Immature 0.010 Granulocytes # Neutrophils # 3.1 Lymphocytes # 1.2 Monocytes # 0.4 Eosinophils # 0.2 Basophils # 0.0 Nucleated Red Blood 0.0 Cells # Bedside Glucose 83 114 Subjective 24 Hr Interval Summary Free Text/Dictation Completing colonoscopy prep No further bleeding HD is pending Exam/Review of Systems Exam Vitals Vital Signs Date Temp Pulse Resp B/P (MAP) Pulse Ox O2 O2 Flow FiO2 Time Delivery Rate 06/13/18 86 12:20 06/13/18 98.3 17 156/74 92 11:17 (101) 06/13/18 Room Air 04:10 Intake and Output 06/12/18 06/12/18 06/13/18 1515:00 23:00 07:00 IntakeIntake Total 265 ml BalanceBalance 265 ml Constitutional: alert, oriented, well developed Psych: no complaints, nl mood/affect Head: normocephalic, atraumatic Eyes: nl conjunctiva, EOMI, nl lids, nl sclera, PERRL ENMT: nl external ears & nose, nl lips & teeth, nl nasal mucosa & septum Neck: supple, non-tender Respiratory: clear to auscultation, normal air movement Cardiovascular: regular rate and rhythm, nl pulses Gastrointestinal: soft, nl liver, spleen, non-tender Musculoskeletal: nl extremities to inspection, nl gait and stance Extremities: normal pulses Neurological: COMMUNICATIONS LEAD II-XII intact, nl mental status, nl speech, nl strength Skin: nl turgor; No rash or lesions Lymph: nl lymph nodes Results Results 24hrs Laboratory Tests Test 06/12/18 22:24 06/13/18 00:54 06/13/18 03:09 06/13/18 03:13 White Blood Count 5.3 # 5.8 Red Blood Count 2.64 L 2.42 L Hemoglobin 7.8 #L 7.3 L Hematocrit 24.2 L 22.4 L Mean Corpuscular 91.7 92.6 Volume Mean Corpuscular 29.5 30.2 Hemoglobin Mean Corpuscular 32.2 32.6 Hemoglobin Concent Red Cell 13.5 13.5 Distribution Width Platelet Count 235 229 Mean Platelet Volume 11.1 H 11.1 H Immature 0.200 0.300 Granulocytes % Neutrophils % 56.9 64.8 Lymphocytes % 28.7 23.0 Monocytes % 8.1 7.6 Eosinophils % 5.3 3.8 Basophils % 0.8 0.5 Nucleated Red Blood 0.0 0.0 Cells % Immature 0.010 0.020 Granulocytes # Neutrophils # 3.0 3.8 Lymphocytes # 1.5 1.3 Monocytes # 0.4 0.4 Eosinophils # 0.3 0.2 Basophils # 0.0 0.0 Nucleated Red Blood 0.0 0.0 Cells # Prothrombin Time 14.2 Prothrombin Time 1.1 Ratio INR International 1.09 Normalized Ratio Activated 28.8 Partial Thromboplast Time Sodium Level 136 139 Potassium Level 5.2 H 5.4 H Chloride Level 94 L 96 L Carbon Dioxide Level 34 H 34 H Anion Gap 8 9 Blood Urea Nitrogen 37 H 38 H Creatinine 7.66 H 8.34 H Est Glomerular 7 L 7 L Filtrat Rate mL/min Glucose Level 326 H 297 H Calcium Level 8.6 8.5 Bedside Glucose 371 H Hepatitis B Surface NEGATIVE Antigen Phosphorus Level 4.6 Magnesium Level 1.7 Total Bilirubin 0.0 L Direct Bilirubin 0.00 Indirect Bilirubin 0.0 Aspartate Amino 21 Transf (AST/SGOT) Alanine 36 Aminotransferase (AL T/SGPT) Alkaline Phosphatase 103 Total Protein 6.1 Albumin 3.5 Globulin 2.60 Albumin/Globulin 1.34 Ratio Test 06/13/18 05:55 06/13/18 09:18 06/13/18 10:45 06/13/18 11:27 Hemoglobin A1c 5.7 White Blood Count 5.0 Red Blood Count 2.42 L Hemoglobin 7.1 L Hematocrit 22.3 L Mean Corpuscular 92.1 Volume Mean Corpuscular 29.3 Hemoglobin Mean Corpuscular 31.8 L Hemoglobin Concent Red Cell 13.7 Distribution Width Platelet Count 225 Mean Platelet Volume 10.7 H Immature 0.200 Granulocytes % Neutrophils % 62.6 Lymphocytes % 24.0 Monocytes % 7.8 Eosinophils % 4.6 Basophils % 0.8 Nucleated Red Blood 0.0 Cells % Immature 0.010 Granulocytes # Neutrophils # 3.1 Lymphocytes # 1.2 Monocytes # 0.4 Eosinophils # 0.2 Basophils # 0.0 Nucleated Red Blood 0.0 Cells # Bedside Glucose 83 114 Medications Medication Current Medications IV Flush (NS 3 ml) 3 ml PER PROTOCOL IV ; Start 06/13/18 at 00:00 Ondansetron HCl (Zofran Inj) 4 mg Q6H PRN IV NAUSEA/VOMITING; Start 06/13/18 at 00:00 Acetaminophen (Tylenol Tab) 650 mg Q6H PRN PO .PAIN 1-3 OR TEMP; Start 06/13/18 at 00:00 Morphine Sulfate (morphine) 2 mg Q4H PRN IV .PAIN 7-10; Start 06/13/18 at 00:00 Pantoprazole (Protonix Iv) 40 mg DAILY@06 IV Last administered on 06/13/18at 06:49; Admin Dose 40 MG; Start 06/13/18 at 06:00 Amlodipine Besylate (Norvasc) 10 mg QHS PO ; Start 06/13/18 at 21:00 Atorvastatin Calcium (Lipitor) 80 mg QHS PO ; Start 06/13/18 at 21:00 Hydralazine HCl (Apresoline) 10 mg TID PO ; Start 06/13/18 at 09:00 Insulin Detemir (Levemir) 60 units QHS SC Last administered on 06/13/18at 01:05; Admin Dose 60 UNITS; Start 06/13/18 at 00:00 Lorazepam (Ativan) 1 mg BID PRN PO BLADDER SPASMS; Start 06/13/18 at 00:00 Losartan Potassium (Cozaar) 100 mg DAILY PO ; Start 06/13/18 at 09:00 Paroxetine HCl (Paxil) 30 mg HS PO ; Start 06/13/18 at 21:00 Hydralazine HCl (Apresoline) 10 mg Q4H PRN IV ELEVATED BLOOD PRESSURE; Start 06/13/18 at 00:00 Labetalol HCl (Normodyne) 200 mg TID PO ; Start 06/13/18 at 09:00 Albumin Human 100 ml @ 100 mls/hr WITH DIALYSIS PRN IV SBP <90 DURING DIALYSIS; Start 06/13/18 at 10:30 Sodium Chloride (NS) -To prime the dialy... DIRECTED FOR HD PRN IV HD; Start 06/13/18 at 10:30 MARCELINO ROSARIO MD Jun 13, 2018 13:04
[2018-06-13] MEDS ORDERED: NA PHOSPHATE/BIPHOS 133 ML ENEMA PR ONE (15:30)
[2018-06-13] MEDS: NA PHOSPHATE/BIPHOS 133 ML ENEMA PR SCH ×3 (16:03→21:16)
[2018-06-13] MEDS: LOSARTAN 50 MG TAB PO SCH (17:23)
[2018-06-13] MEDS: LORAZEPAM 1 MG TAB PO PRN (17:23)
--- NOTE | 2018-06-13 18:29 | PREAC ---
Date/Time of Note Date/Time of Note DATE: 06/13/18 TIME: 18:26 Anesthesia Eval and Record Evaluation Time Pre-Procedure Interview DATE: 06/13/18 TIME: 18:26 Age 58 Sex male NPO: 8 hrs Preoperative diagnosis Abdominal pain, Rectal bleeding Planned procedure EGD &Colonoscopy Past Medical History Past Medical History: Includes Cardio: HTN, Dyslipidemia Endo: Diabetes Renal: ESRD on dialysis GI: Obesity Surgery & Anesthesia Issues No known issue Meds Anticoagulation: Yes Beta Carlo within 24 hr: No Reason Beta Carlo not given: Pt. not on B-Carlo Active Scripts Paroxetine Hcl* (Paroxetine*) 20 Mg Tablet, 30 MG PO HS for 30 Days, #30 TAB Prov:STEVE ANDERSON 05/21/18 Hydralazine Hcl* (Hydralazine Hcl*) 10 Mg Tablet, 10 MG PO TID for 30 Days, #90 TAB Prov:STEVE ANDERSON 05/21/18 Amlodipine Besylate* (Amlodipine Besylate*) 10 Mg Tablet, 10 MG PO QHS for 30 Days, #30 TAB Prov:STEVE ANDERSON 05/21/18 Losartan Potassium* (Losartan Potassium*) 100 Mg Tablet, 100 MG PO DAILY, #30 TAB Prov:STEVE ANDERSON 05/21/18 Labetalol Hcl* (Labetalol Hcl*) 200 Mg Tablet, 200 MG PO TID for 30 Days, #90 TAB Prov:STEVE ANDERSON 05/21/18 Clopidogrel Bisulfate (Clopidogrel) 75 Mg Tablet, 75 MG NGT DAILY for 90 Days, #90 TAB 5 Refills Prov:MARCELINO ROSARIO MD 04/30/18 Aspirin* (Aspirin* EC) 81 Mg Tablet.dr, 81 MG PO DAILY for 90 Days, #90 TAB 5 Refills Prov:MARCELINO ROSARIO MD 04/30/18 Atorvastatin* (Atorvastatin*) 80 Mg Tablet, 80 MG PO QHS for 90 Days, #90 TAB 5 Refills Prov:MARCELINO ROSARIO MD 04/30/18 Docusate Sodium (Dok) 100 Mg Capsule, 100 MG PO Q12H for 30 Days, #60 CAP 1 Refill Prov:TRAVON WHEELER 01/03/18 Reported Medications Insulin Detemir (Levemir) 100 Unit/1 Ml Vial, 60 UNIT SQ QHS 05/09/18 Hydrocodone/Acetaminophen ([place] 5-325 Tablet) 1 Each Tablet, 1 EACH PO Q6H, TAB 05/09/18 Metoclopramide Hcl* (Metoclopramide Hcl*) 5 Mg Tablet, 5 MG PO Q6H PRN for NAUSEA AND OR VOMITING, TAB 05/09/18 Lorazepam* (Lorazepam*) 1 Mg Tablet, 1 MG PO BID PRN for BLADDER SPASMS, #30 TAB 05/09/18 Insulin Aspart (Novolog) 100 Unit/1 Ml Cartridge, 20 UNIT SQ WITH MEALS Inject SC twice a day: AM - 20 units : PM - 45 units 05/09/18 Pantoprazole* (Protonix*) 40 Mg Tablet.dr, 40 MG PO BID, TAB 12/22/17 Calcium Acetate* (Calcium Acetate*) 667 Mg Capsule, 2668 MG PO WITH MEALS, #60 CAP 12/22/17 Current Medications IV Flush (NS 3 ml) 3 ml PER PROTOCOL IV ; Start 06/13/18 at 00:00 Ondansetron HCl (Zofran Inj) 4 mg Q6H PRN IV NAUSEA/VOMITING; Start 06/13/18 at 00:00 Acetaminophen (Tylenol Tab) 650 mg Q6H PRN PO .PAIN 1-3 OR TEMP; Start 06/13/18 at 00:00 Morphine Sulfate (morphine) 2 mg Q4H PRN IV .PAIN 7-10; Start 06/13/18 at 00:00 Pantoprazole (Protonix Iv) 40 mg DAILY@06 IV Last administered on 06/13/18at 06:49; Admin Dose 40 MG; Start 06/13/18 at 06:00 Amlodipine Besylate (Norvasc) 10 mg QHS PO ; Start 06/13/18 at 21:00 Atorvastatin Calcium (Lipitor) 80 mg QHS PO ; Start 06/13/18 at 21:00 Hydralazine HCl (Apresoline) 10 mg TID PO Last administered on 06/13/18at 15:32; Admin Dose 10 MG; Start 06/13/18 at 09:00 Insulin Detemir (Levemir) 60 units QHS SC Last administered on 06/13/18at 01:05; Admin Dose 60 UNITS; Start 06/13/18 at 00:00 Lorazepam (Ativan) 1 mg BID PRN PO BLADDER SPASMS Last administered on 06/13/18at 17:23; Admin Dose 1 MG; Start 06/13/18 at 00:00 Losartan Potassium (Cozaar) 100 mg DAILY PO Last administered on 06/13/18at 17:23; Admin Dose 100 MG; Start 06/13/18 at 09:00 Paroxetine HCl (Paxil) 30 mg HS PO ; Start 06/13/18 at 21:00 Hydralazine HCl (Apresoline) 10 mg Q4H PRN IV ELEVATED BLOOD PRESSURE; Start 06/13/18 at 00:00 Labetalol HCl (Normodyne) 200 mg TID PO Last administered on 06/13/18at 15:32; Admin Dose 200 MG; Start 06/13/18 at 09:00 Albumin Human 100 ml @ 100 mls/hr WITH DIALYSIS PRN IV SBP <90 DURING DIALYSIS; Start 06/13/18 at 10:30 Sodium Chloride (NS) -To prime the dialy... DIRECTED FOR HD PRN IV HD; Start 06/13/18 at 10:30 Sodium Biphosphate/ Sodium Phosphate (Fleet Enema) 133 ml Q2H MO Last administered on 06/13/18at 16:03; Admin Dose 133 ML; Start 06/13/18 at 16:00; Stop 06/13/18 at 20:01 Meds reviewed: Yes Allergies Coded Allergies: Penicillins (Verified Allergy, Unknown, 05/30/18) Allergies Reviewed: Yes Labs/Studies Labs Reviewed: Reviewed by anesthesiologist Result Diagram: 06/13/18 1444 06/13/18 0313 Laboratory Tests 06/13/18 03:13 06/13/18 14:44 Blood Bank Test 06/12/18 23:07 Antibody Screen NEGATIVE Blood Product Summary Counts Blood Type O POSITIVE Crossmatch Red Blood Cells test: N/A Studies: ECG Pre-procedure Exam Last vitals Vital Signs Date Temp Pulse Resp B/P (MAP) Pulse Ox O2 O2 Flow FiO2 Time Delivery Rate 06/13/18 98.1 76 20 129/74 95 Room Air 16:46 (92) Airway: Adequate mouth opening, Adequate thyromental dist Mallampati: Mallampati III Teeth: Normal Lung: Normal Heart: Normal ASA Physical Status ASA physical status: 3 Emergency: E Planned Anesthetic General/MAC: MAC Planned Pain Management Parenteral pain med Pre-operative Attestations Prior to commencing anesthesia and surgery, the patient was re-evaluated, there was verification of: *The patient's identity *The results of appropriate recent lab work and preoperative vital signs *The above evaluation not changing prior to induction *Anesthetic plan, risk benefits, alternative and complications discussed with patient/family; questions answered; patient/family understands, accepts and wishes to proceed. GENET AU MD Jun 13, 2018 18:29
[2018-06-13] MEDS ORDERED: LIDOCAINE 2% (SDV) 5 ML INJ ONE (18:31)
[2018-06-13] MEDS ORDERED: PROPOFOL 20 ML ONE (18:31)
--- NOTE | 2018-06-13 19:11 | PAC ---
Date/Time of Note Date/Time of Note DATE: 06/13/18 TIME: 19:10 Post-Anesthesia Notes Post-Anesthesia Note Last documented vital signs Vital Signs Date Temp Pulse Resp B/P (MAP) Pulse Ox O2 O2 Flow FiO2 Time Delivery Rate 06/13/18 Non 10 18:53 Rebreather 06/13/18 98.1 76 20 129/74 95 16:46 (92) Activity: WNL Respiratory function: WNL Cardiovascular function: WNL Mental status: Baseline Pain reasonably controlled: Yes Hydration appropriate: Yes Nausea/Vomiting absent: Yes Comments BP:105/72, P:74, spo2:100%, T:98,8 GENET AU MD Jun 13, 2018 19:11
[2018-06-13] MEDS ORDERED: ONDANSETRON 4 MG INJ IV PRN ×2 (19:30)
[2018-06-13] MEDS ORDERED: FENTAnyl 50 MCG/ML VIAL IV PRN (19:30)
[2018-06-13] MEDS: AMLODIPINE 10 MG TAB PO SCH (21:14)
[2018-06-13] MEDS: PAROXETINE 20 MG TAB PO SCH (21:14)
[2018-06-13] MEDS: ATORVASTATIN 80 MG TAB PO SCH (21:15)
[2018-06-14] VITALS (24 sets, daily range): BP systolic 127–192; BP diastolic 59–92; PULSE 77–98; RESP 18–20
[2018-06-14] MEDS: PANTOPRAZOLE 40 MG INJ IV SCH (05:48)
[2018-06-14] MEDS: LABETALOL 200 MG TAB PO SCH ×3 (09:00→20:17)
[2018-06-14] MEDS: LOSARTAN 50 MG TAB PO SCH (09:00)
[2018-06-14] MEDS ORDERED: FAMO20TA18 PO (14:25)
--- NOTE | 2018-06-14 14:26 | PDOCDIS ---
Discharge Instructions DIAGNOSIS Discharge Diagnosis Gastritis CONDITION [id number] Patient Condition: [id number] Stable FOLLOW UP/APPOINTMENTS Follow-up Plan Start taking famotidine twice daily for the next one month Make an appointment to see Dr Hamilton in the next few weeks Return to the hospital if you have any concerning symptoms MARCELINO ROSARIO MD Jun 14, 2018 14:26
--- NOTE | 2018-06-14 14:27 | DS ---
Date/Time of Note Date/Time of Note DATE: 06/14/18 TIME: 14:26 Discharge Summary Admission/Discharge Info Admit Date/Time Jun 13, 2018 at 10:46 Discharge Date/Time Discharge Diagnosis Gastritis Patient Condition: Stable Hospital Course 58 yo male with DMII, ESRD, and hypertension with GI bleeding His H/H was monitored and remained stable He underwent endoscopy which was notable for gastritis. He was already taking PPI twice daily. H2 mk was added He continue on dialysis as normally scheduled He was advised to continue DAPT given cardiac stent. He will follow up with Dr Hamilton in the coming weeks. Home Meds Active Scripts Paroxetine Hcl* (Paroxetine*) 20 Mg Tablet, 30 MG PO HS for 30 Days, #30 TAB Prov:STEVE ANDERSON 05/21/18 Hydralazine Hcl* (Hydralazine Hcl*) 10 Mg Tablet, 10 MG PO TID for 30 Days, #90 TAB Prov:STEVE ANDERSON 05/21/18 Amlodipine Besylate* (Amlodipine Besylate*) 10 Mg Tablet, 10 MG PO QHS for 30 Days, #30 TAB Prov:STEVE ANDERSON 05/21/18 Losartan Potassium* (Losartan Potassium*) 100 Mg Tablet, 100 MG PO DAILY, #30 TAB Prov:STEVE ANDERSON 05/21/18 Labetalol Hcl* (Labetalol Hcl*) 200 Mg Tablet, 200 MG PO TID for 30 Days, #90 TAB Prov:STEVE ANDERSON 05/21/18 Clopidogrel Bisulfate (Clopidogrel) 75 Mg Tablet, 75 MG NGT DAILY for 90 Days, #90 TAB 5 Refills Prov:MARCELINO ROSARIO MD 04/30/18 Aspirin* (Aspirin* EC) 81 Mg Tablet., 81 MG PO DAILY for 90 Days, #90 TAB 5 Refills Prov:MARCELINO ROSARIO MD 04/30/18 Atorvastatin* (Atorvastatin*) 80 Mg Tablet, 80 MG PO QHS for 90 Days, #90 TAB 5 Refills Prov:MARCELINO ROSARIO MD 04/30/18 Docusate Sodium (Dok) 100 Mg Capsule, 100 MG PO Q12H for 30 Days, #60 CAP 1 Refill Prov:TRAVON WHEELER 01/03/18 Reported Medications Insulin Detemir (Levemir) 100 Unit/1 Ml Vial, 60 UNIT SQ QHS 05/09/18 Hydrocodone/Acetaminophen ([place] 5-325 Tablet) 1 Each Tablet, 1 EACH PO Q6H, TAB 05/09/18 Metoclopramide Hcl* (Metoclopramide Hcl*) 5 Mg Tablet, 5 MG PO Q6H PRN for NAUSEA AND OR VOMITING, TAB 05/09/18 Lorazepam* (Lorazepam*) 1 Mg Tablet, 1 MG PO BID PRN for BLADDER SPASMS, #30 TAB 05/09/18 Insulin Aspart (Novolog) 100 Unit/1 Ml Cartridge, 20 UNIT SQ WITH MEALS Inject SC twice a day: AM - 20 units : PM - 45 units 05/09/18 Pantoprazole* (Protonix*) 40 Mg Tablet., 40 MG PO BID, TAB 12/22/17 Calcium Acetate* (Calcium Acetate*) 667 Mg Capsule, 2668 MG PO WITH MEALS, #60 CAP 12/22/17 Follow-up Plan Start taking famotidine twice daily for the next one month Make an appointment to see Dr Hamilton in the next few weeks Return to the hospital if you have any concerning symptoms Primary Care Provider Not On Staff Doctor Pending Labs Laboratory Tests Test 06/13/18 14:44 06/13/18 20:40 06/13/18 21:12 06/14/18 02:20 White Blood 4.7 5.3 4.9 Count 10^3/ul (4.8-10 10^3/ul (4.8-1 10^3/ul (4.8-1 .8) 0.8) 0.8) Red Blood 2.86 3.05 2.72 Count 10^6/ul (4.70-6 10^6/ul (4.70- 10^6/ul (4.70- .10) 6.10) 6.10) Hemoglobin 8.7 9.1 8.2 g/dl (14.0-18.0 g/dl (14.0-18. g/dl (14.0-18. ) 0) 0) Hematocrit 25.8 28.0 25.3 % (42.0-52.0) % (42.0-52.0) % (42.0-52.0) Mean 90.2 91.8 93.0 Corpuscular fl (82.0-101.0) fl (82.0-101.0 fl (82.0-101.0 Volume ) ) Mean 30.4 29.8 30.1 Corpuscular pg (29.0-33.0) pg (29.0-33.0) pg (29.0-33.0) Hemoglobin Mean 33.7 32.5 32.4 Corpuscular g/dl (32.0-37.0 g/dl (32.0-37. g/dl (32.0-37. Hemoglobin Conc ) 0) 0) ent Red Cell 13.7 13.5 13.5 Distribution % (11.5-14.5) % (11.5-14.5) % (11.5-14.5) Width Platelet Count 234 234 223 10^3/UL (140-41 10^3/UL (140-4 10^3/UL (140-4 5) 15) 15) Mean Platelet 10.4 10.6 10.4 Volume fl (7.4-10.4) fl (7.4-10.4) fl (7.4-10.4) Immature 0.400 0.200 0.200 Granulocytes % % (0.001-0.429) % (0.001-0.429 % (0.001-0.429 ) ) Neutrophils % 64.9 67.8 60.3 % (39.0-77.0) % (39.0-77.0) % (39.0-77.0) Lymphocytes % 23.1 20.6 24.3 % (15.0-51.0) % (15.0-51.0) % (15.0-51.0) Monocytes % 7.2 7.4 9.7 % (0.0-11.0) % (0.0-11.0) % (0.0-11.0) Eosinophils % 3.8 % (0.0-7.0) 3.6 4.9 % (0.0-7.0) % (0.0-7.0) Basophils % 0.6 % (0.0-2.0) 0.4 0.6 % (0.0-2.0) % (0.0-2.0) Nucleated Red 0.0 0.0 0.0 Blood Cells % /100WBC (0.0-0. /100WBC (0.0-0 /100WBC (0.0-0 0) .0) .0) Immature 0.020 0.010 0.010 Granulocytes # 10^3/ul (0.0-0. 10^3/ul (0.0-0 10^3/ul (0.0-0 031) .031) .031) Neutrophils # 3.1 3.6 2.9 10^3/ul (1.6-7. 10^3/ul (1.6-7 10^3/ul (1.6-7 5) .5) .5) Lymphocytes # 1.1 1.1 1.2 10^3/ul (0.8-2. 10^3/ul (0.8-2 10^3/ul (0.8-2 9) .9) .9) Monocytes # 0.3 0.4 0.5 10^3/ul (0.3-0. 10^3/ul (0.3-0 10^3/ul (0.3-0 9) .9) .9) Eosinophils # 0.2 0.2 0.2 10^3/ul (0.0-0. 10^3/ul (0.0-0 10^3/ul (0.0-0 5) .5) .5) Basophils # 0.0 0.0 0.0 10^3/ul (0.0-0. 10^3/ul (0.0-0 10^3/ul (0.0-0 1) .1) .1) Nucleated Red 0.0 0.0 0.0 Blood Cells # 10^3/ul (0.0-0. 10^3/ul (0.0-0 10^3/ul (0.0-0 0) .0) .0) Bedside 140 Glucose mg/dL (70-220) Test 06/14/18 07:58 06/14/18 09:39 White Blood 5.0 Count 10^3/ul (4.8-10 .8) Red Blood 2.88 Count 10^6/ul (4.70-6 .10) Hemoglobin 8.8 g/dl (14.0-18.0 ) Hematocrit 26.8 % (42.0-52.0) Mean 93.1 Corpuscular fl (82.0-101.0) Volume Mean 30.6 Corpuscular pg (29.0-33.0) Hemoglobin Mean 32.8 Corpuscular g/dl (32.0-37.0 Hemoglobin Conc ) ent Red Cell 13.5 Distribution % (11.5-14.5) Width Platelet Count 230 10^3/UL (140-41 5) Mean Platelet 10.8 Volume fl (7.4-10.4) Immature 0.400 Granulocytes % % (0.001-0.429) Neutrophils % 59.8 % (39.0-77.0) Lymphocytes % 25.9 % (15.0-51.0) Monocytes % 8.9 % (0.0-11.0) Eosinophils % 4.6 % (0.0-7.0) Basophils % 0.4 % (0.0-2.0) Nucleated Red 0.0 Blood Cells % /100WBC (0.0-0. 0) Immature 0.020 Granulocytes # 10^3/ul (0.0-0. 031) Neutrophils # 3.0 10^3/ul (1.6-7. 5) Lymphocytes # 1.3 10^3/ul (0.8-2. 9) Monocytes # 0.4 10^3/ul (0.3-0. 9) Eosinophils # 0.2 10^3/ul (0.0-0. 5) Basophils # 0.0 10^3/ul (0.0-0. 1) Nucleated Red 0.0 Blood Cells # 10^3/ul (0.0-0. 0) Sodium Level 142 mmol/L (135-144 ) Potassium 4.7 Level mmol/L (3.5-5.1 ) Chloride Level 98 mmol/L (97-110) Carbon Dioxide 31 Level mmol/L (21-31) Anion Gap 13 (5-13) Blood Urea 18 mg/dl (7-20) Nitrogen Creatinine 6.38 mg/dl (0.61-1.2 4) Est Glomerular 9 mL/min (>60) Filtrat Rate mL/min Glucose Level 114 mg/dl (70-220) Calcium Level 8.6 mg/dl (8.4-10.2 ) Phosphorus 5.6 Level mg/dl (2.5-4.9) Total 0.0 Bilirubin mg/dl (0.2-1.3) Direct 0.00 Bilirubin mg/dl (0.00-0.2 0) Indirect 0.0 Bilirubin mg/dl (0-1.1) Aspartate Amino 25 IU/L (15-46) Transf (AST/SGO T) Alanine 19 IU/L (13-69) Aminotransferas e (ALT/SGPT) Alkaline 66 Phosphatase IU/L (42-121) Total Protein 6.5 g/dl (6.1-8.1) Albumin 3.7 g/dl (3.3-4.9) Globulin 2.80 g/dl (1.3-3.2) Albumin/Globuli 1.32 n Ratio Bedside 150 Glucose mg/dL (70-220) MARCELINO ROSARIO MD Jun 14, 2018 14:27
--- NOTE | 2018-06-14 15:11 | CONS ---
Consultation Date/Type/Reason Admit Date/Time Jun 13, 2018 at 10:46 Initial Consult Date 06/13/18 Type of Consult NEPHROLOGY Requesting Provider: MARGARITO ESPINOZA Date/Time of Note DATE: 06/14/18 TIME: 15:10 Exam/Review of Systems Exam Vitals Vital Signs Date Temp Pulse Resp B/P (MAP) Pulse Ox O2 O2 Flow FiO2 Time Delivery Rate 06/14/18 86 12:01 06/14/18 98.2 18 168/78 95 11:38 (108) 06/13/18 Room Air 19:32 06/13/18 10 18:53 Intake and Output 06/13/18 06/13/18 06/14/18 1515:00 23:00 07:00 IntakeIntake Total 800 ml OutputOutput Total 575 ml 2780 ml BalanceBalance -575 ml -2780 ml 800 ml Results Result Diagram: 06/14/18 1444 06/14/18 0758 Results 24hrs Laboratory Tests Test 06/13/18 20:40 06/13/18 21:12 06/14/18 02:20 06/14/18 07:58 White Blood Count 5.3 4.9 5.0 Red Blood Count 3.05 L 2.72 L 2.88 L Hemoglobin 9.1 L 8.2 L 8.8 L Hematocrit 28.0 L 25.3 L 26.8 L Mean Corpuscular 91.8 93.0 93.1 Volume Mean Corpuscular 29.8 30.1 30.6 Hemoglobin Mean Corpuscular 32.5 32.4 32.8 Hemoglobin Concent Red Cell 13.5 13.5 13.5 Distribution Width Platelet Count 234 223 230 Mean Platelet Volume 10.6 H 10.4 10.8 H Immature 0.200 0.200 0.400 Granulocytes % Neutrophils % 67.8 60.3 59.8 Lymphocytes % 20.6 24.3 25.9 Monocytes % 7.4 9.7 8.9 Eosinophils % 3.6 4.9 4.6 Basophils % 0.4 0.6 0.4 Nucleated Red Blood 0.0 0.0 0.0 Cells % Immature 0.010 0.010 0.020 Granulocytes # Neutrophils # 3.6 2.9 3.0 Lymphocytes # 1.1 1.2 1.3 Monocytes # 0.4 0.5 0.4 Eosinophils # 0.2 0.2 0.2 Basophils # 0.0 0.0 0.0 Nucleated Red Blood 0.0 0.0 0.0 Cells # Bedside Glucose 140 Sodium Level 142 Potassium Level 4.7 Chloride Level 98 Carbon Dioxide Level 31 Anion Gap 13 Blood Urea Nitrogen 18 # Creatinine 6.38 H Est Glomerular 9 L Filtrat Rate mL/min Glucose Level 114 # Calcium Level 8.6 Phosphorus Level 5.6 H Total Bilirubin 0.0 L Direct Bilirubin 0.00 Indirect Bilirubin 0.0 Aspartate Amino 25 Transf (AST/SGOT) Alanine 19 Aminotransferase (AL T/SGPT) Alkaline Phosphatase 66 Total Protein 6.5 Albumin 3.7 Globulin 2.80 Albumin/Globulin 1.32 Ratio Test 06/14/18 09:39 06/14/18 14:44 Bedside Glucose 150 White Blood Count 5.7 Red Blood Count 2.98 L Hemoglobin 9.1 L Hematocrit 27.3 L Mean Corpuscular 91.6 Volume Mean Corpuscular 30.5 Hemoglobin Mean Corpuscular 33.3 Hemoglobin Concent Red Cell 13.4 Distribution Width Platelet Count 225 Mean Platelet Volume 10.3 Immature 0.400 Granulocytes % Neutrophils % 63.2 Lymphocytes % 21.8 Monocytes % 9.2 Eosinophils % 4.9 Basophils % 0.5 Nucleated Red Blood 0.0 Cells % Immature 0.020 Granulocytes # Neutrophils # 3.6 Lymphocytes # 1.2 Monocytes # 0.5 Eosinophils # 0.3 Basophils # 0.0 Nucleated Red Blood 0.0 Cells # Medications Medication Current Medications IV Flush (NS 3 ml) 3 ml PER PROTOCOL IV ; Start 06/13/18 at 00:00 Ondansetron HCl (Zofran Inj) 4 mg Q6H PRN IV NAUSEA/VOMITING; Start 06/13/18 at 00:00 Acetaminophen (Tylenol Tab) 650 mg Q6H PRN PO .PAIN 1-3 OR TEMP; Start 06/13/18 at 00:00 Morphine Sulfate (morphine) 2 mg Q4H PRN IV .PAIN 7-10 Last administered on 06/14/18at 00:11; Admin Dose 2 MG; Start 06/13/18 at 00:00 Pantoprazole (Protonix Iv) 40 mg DAILY@06 IV Last administered on 06/14/18at 05:48; Admin Dose 40 MG; Start 06/13/18 at 06:00 Amlodipine Besylate (Norvasc) 10 mg QHS PO Last administered on 06/13/18 21:14; Admin Dose 10 MG; Start 06/13/18 at 21:00 Atorvastatin Calcium (Lipitor) 80 mg QHS PO Last administered on 06/13/18at 21 :15; Admin Dose 80 MG; Start 06/13/18 at 21:00 Hydralazine HCl (Apresoline) 10 mg TID PO Last administered on 06/14/18at 00:10; Admin Dose 10 MG; Start 06/13/18 at 09:00 Insulin Detemir (Levemir) 60 units QHS SC Last administered on 06/13/18 21:28; Admin Dose 60 UNITS; Start 06/13/18 at 00:00 Lorazepam (Ativan) 1 mg BID PRN PO BLADDER SPASMS Last administered on 06/13/18at 17:23; Admin Dose 1 MG; Start 06/13/18 at 00:00 Losartan Potassium (Cozaar) 100 mg DAILY PO Last administered on 06/13/18 17:23; Admin Dose 100 MG; Start 06/13/18 at 09:00 Paroxetine HCl (Paxil) 30 mg HS PO Last administered on 06/13/18 21:14; Admin Dose 30 MG; Start 06/13/18 at 21:00 Hydralazine HCl (Apresoline) 10 mg Q4H PRN IV ELEVATED BLOOD PRESSURE; Start 06/13/18 at 00:00 Labetalol HCl (Normodyne) 200 mg TID PO Last administered on 06/13/18at 15:32; Admin Dose 200 MG; Start 06/13/18 at 09:00 Albumin Human 100 ml @ 100 mls/hr WITH DIALYSIS PRN IV SBP <90 DURING DIALYSIS; Start 06/13/18 at 10:30 Sodium Chloride (NS) -To prime the dialy... DIRECTED FOR HD PRN IV HD; Start 06/13/18 at 10:30 NORMA SAUER MD Jun 14, 2018 15:11
--- NOTE | 2018-06-14 15:16 | CONS ---
DATE OF ADMISSION: 06/13/2018 DATE OF CONSULTATION: The patient at this time is quite alert. He is not having any rectal bleeding. Because of rectal bl eeding. EGD, colonoscopy was don and EGD showed a severe gastritis, possible AVM. Colonoscopy showed large rectal ulcer which was treated with Hemoclips. PHYSICAL EXAMINATION: GENERAL: The patient is alert. VITAL SIGNS: Temperature 98.2, blood pressure is 168/78. CARDIOVASCULAR: Normal heart sounds. RESPIRATORY: Normal breath sounds. ABDOMEN: Shows soft abdomen. LABORATORY WORKUP: Hemoglobin is 8.8. CLINICAL IMPRESSION: Rectal ulcer probably the cause of the bleeding. PLAN: At this time, okay to discharge the patient and will follow the patient as an outpatient. Dictated By: CALVIN KNOTT/JAZMINE Conf#: [id number] DID#: [id number]
--- NOTE | 2018-06-14 15:33 | CONS ---
Assessment/Plan Assessment/Plan Assessment/Plan (Daily) 1. GI bleeding upper vs lower 2. severe anemia 3. ESRD on HD MWF Schedule 4. H/o HTN 5. H/o HL Plan: pt is seen on tele floor, Plan for HD today with PRBC transfusion as ordered sp EGD and colonoscopy yesterday - rectal ulcers found HD today- having right now ; pt will be on MWF schedule will start Epogen after EGD and colonoscopy result will follow up, Thanks for consultation Plan of care DW Dr Rodger Sue Consultation Date/Type/Reason Admit Date/Time Jun 13, 2018 at 10:46 Initial Consult Date 06/13/18 Requesting Provider: MARGARITO ESPINOZA Date/Time of Note DATE: 06/14/18 TIME: 15:26 24 HR Interval Summary Free Text/Dictation Having HD now; plan to discharge post HD SP EGD/colonoscopy- Rectal ulcer found Ph 5.6 ELEVATED Detailed Summary Eyes: no complaints ENT: no complaints Respiratory: no complaints Cardiovascular: no complaints Gastrointestinal: no complaints Genitourinary: no complaints Musculoskeletal: no complaints Skin: no complaints Neurologic: no complaints Endocrine: no complaints Exam/Review of Systems Exam Vitals Vital Signs Date Temp Pulse Resp B/P (MAP) Pulse Ox O2 O2 Flow FiO2 Time Delivery Rate 06/14/18 86 12:01 06/14/18 98.2 18 168/78 95 11:38 (108) 06/13/18 Room Air 19:32 06/13/18 10 18:53 Intake and Output 06/13/18 06/13/18 06/14/18 1515:00 23:00 07:00 IntakeIntake Total 800 ml OutputOutput Total 575 ml 2780 ml BalanceBalance -575 ml -2780 ml 800 ml Constitutional: alert, well developed Psych: nl mood/affect Head: normocephalic Eyes: nl conjunctiva, nl lids, nl sclera ENMT: nl external ears & nose Respiratory: clear to auscultation Cardiovascular: nl pulses, other (S1S2) Gastrointestinal: soft, non-tender Musculoskeletal: nl extremities to inspection Extremities: normal pulses Neurological: other Lymph: nontender Results Result Diagram: 06/14/18 1444 06/14/18 0758 Results 24hrs Laboratory Tests Test 06/13/18 20:40 06/13/18 21:12 06/14/18 02:20 06/14/18 07:58 White Blood Count 5.3 4.9 5.0 Red Blood Count 3.05 L 2.72 L 2.88 L Hemoglobin 9.1 L 8.2 L 8.8 L Hematocrit 28.0 L 25.3 L 26.8 L Mean Corpuscular 91.8 93.0 93.1 Volume Mean Corpuscular 29.8 30.1 30.6 Hemoglobin Mean Corpuscular 32.5 32.4 32.8 Hemoglobin Concent Red Cell 13.5 13.5 13.5 Distribution Width Platelet Count 234 223 230 Mean Platelet Volume 10.6 H 10.4 10.8 H Immature 0.200 0.200 0.400 Granulocytes % Neutrophils % 67.8 60.3 59.8 Lymphocytes % 20.6 24.3 25.9 Monocytes % 7.4 9.7 8.9 Eosinophils % 3.6 4.9 4.6 Basophils % 0.4 0.6 0.4 Nucleated Red Blood 0.0 0.0 0.0 Cells % Immature 0.010 0.010 0.020 Granulocytes # Neutrophils # 3.6 2.9 3.0 Lymphocytes # 1.1 1.2 1.3 Monocytes # 0.4 0.5 0.4 Eosinophils # 0.2 0.2 0.2 Basophils # 0.0 0.0 0.0 Nucleated Red Blood 0.0 0.0 0.0 Cells # Bedside Glucose 140 Sodium Level 142 Potassium Level 4.7 Chloride Level 98 Carbon Dioxide Level 31 Anion Gap 13 Blood Urea Nitrogen 18 # Creatinine 6.38 H Est Glomerular 9 L Filtrat Rate mL/min Glucose Level 114 # Calcium Level 8.6 Phosphorus Level 5.6 H Total Bilirubin 0.0 L Direct Bilirubin 0.00 Indirect Bilirubin 0.0 Aspartate Amino 25 Transf (AST/SGOT) Alanine 19 Aminotransferase (AL T/SGPT) Alkaline Phosphatase 66 Total Protein 6.5 Albumin 3.7 Globulin 2.80 Albumin/Globulin 1.32 Ratio Test 06/14/18 09:39 06/14/18 14:44 Bedside Glucose 150 White Blood Count 5.7 Red Blood Count 2.98 L Hemoglobin 9.1 L Hematocrit 27.3 L Mean Corpuscular 91.6 Volume Mean Corpuscular 30.5 Hemoglobin Mean Corpuscular 33.3 Hemoglobin Concent Red Cell 13.4 Distribution Width Platelet Count 225 Mean Platelet Volume 10.3 Immature 0.400 Granulocytes % Neutrophils % 63.2 Lymphocytes % 21.8 Monocytes % 9.2 Eosinophils % 4.9 Basophils % 0.5 Nucleated Red Blood 0.0 Cells % Immature 0.020 Granulocytes # Neutrophils # 3.6 Lymphocytes # 1.2 Monocytes # 0.5 Eosinophils # 0.3 Basophils # 0.0 Nucleated Red Blood 0.0 Cells # Medications Medication Current Medications IV Flush (NS 3 ml) 3 ml PER PROTOCOL IV ; Start 06/13/18 at 00:00 Ondansetron HCl (Zofran Inj) 4 mg Q6H PRN IV NAUSEA/VOMITING; Start 06/13/18 at 00:00 Acetaminophen (Tylenol Tab) 650 mg Q6H PRN PO .PAIN 1-3 OR TEMP; Start 06/13/18 at 00:00 Morphine Sulfate (morphine) 2 mg Q4H PRN IV .PAIN 7-10 Last administered on 06/14/18 00:11; Admin Dose 2 MG; Start 06/13/18 at 00:00 Pantoprazole (Protonix Iv) 40 mg DAILY@06 IV Last administered on 06/14/18 05:48; Admin Dose 40 MG; Start 06/13/18 at 06:00 Amlodipine Besylate (Norvasc) 10 mg QHS PO Last administered on 06/13/18 21:14; Admin Dose 10 MG; Start 06/13/18 at 21:00 Atorvastatin Calcium (Lipitor) 80 mg QHS PO Last administered on 06/13/18 21: 15; Admin Dose 80 MG; Start 06/13/18 at 21:00 Hydralazine HCl (Apresoline) 10 mg TID PO Last administered on 06/14/18 00:10; Admin Dose 10 MG; Start 06/13/18 at 09:00 Insulin Detemir (Levemir) 60 units QHS SC Last administered on 06/13/18 21:28; Admin Dose 60 UNITS; Start 06/13/18 at 00:00 Lorazepam (Ativan) 1 mg BID PRN PO BLADDER SPASMS Last administered on 06/13/18 17:23; Admin Dose 1 MG; Start 06/13/18 at 00:00 Losartan Potassium (Cozaar) 100 mg DAILY PO Last administered on 2/22/19at 17:23; Admin Dose 100 MG; Start 06/13/18 at 09:00 Paroxetine HCl (Paxil) 30 mg HS PO Last administered on 06/13/18at 21:14; Admin Dose 30 MG; Start 06/13/18 at 21:00 Hydralazine HCl (Apresoline) 10 mg Q4H PRN IV ELEVATED BLOOD PRESSURE; Start 06/13/18 at 00:00 Labetalol HCl (Normodyne) 200 mg TID PO Last administered on 06/13/18at 15:32; Admin Dose 200 MG; Start 06/13/18 at 09:00 Albumin Human 100 ml @ 100 mls/hr WITH DIALYSIS PRN IV SBP <90 DURING DIALYSIS; Start 06/13/18 at 10:30 Sodium Chloride (NS) -To prime the dialy... DIRECTED FOR HD PRN IV HD; Start 06/13/18 at 10:30 GRIS GRIFFITH Jun 14, 2018 15:33
[2018-06-14] MEDS: LORAZEPAM 1 MG TAB PO PRN (15:38)
[2018-06-14] MEDS: ATORVASTATIN 80 MG TAB PO SCH (20:16)
[2018-06-14] MEDS: AMLODIPINE 10 MG TAB PO SCH (20:16)
[2018-06-14] MEDS: PAROXETINE 20 MG TAB PO SCH (20:17)
[2018-06-14] MEDS: INSULIN DETEMIR [LEVEMIR] (100 UNITS/ML) SYG SC SCH (20:25)
== END 2018-06-14 21:40 | disposition home or self-care (01) | DRG 391 ==
LOC: E/R 17:43 → 6WM 23:50 → OBSVTOIN 06-13 10:46
PROVIDERS: ADMIT Family Medicine; ATTEND Internal Medicine
PROC: 5A1D70Z Performance of Urinary Filtration, Intermittent, Less than 6 Hours Per Day (ICD-10-PCS; 2018-06-13)
PROC: 30233N1 Transfusion of Nonautologous Red Blood Cells into Peripheral Vein, Percutaneous Approach (ICD-10-PCS; 2018-06-13)
PROC: 0DB68ZX Excision of Stomach, Via Natural or Artificial Opening Endoscopic, Diagnostic (ICD-10-PCS; principal; 2018-06-13 21:30)
PROC: 0DB78ZX Excision of Stomach, Pylorus, Via Natural or Artificial Opening Endoscopic, Diagnostic (ICD-10-PCS; 2018-06-13 21:30)
PROC: 0W3P8ZZ Control Bleeding in Gastrointestinal Tract, Via Natural or Artificial Opening Endoscopic (ICD-10-PCS; 2018-06-13 21:30)
DX: K29.50 Unspecified chronic gastritis without bleeding (principal); N18.6 End stage renal disease; K62.5 Hemorrhage of anus and rectum; I12.0 Hypertensive chronic kidney disease with stage 5 chronic kidney disease or end stage renal disease; K62.6 Ulcer of anus and rectum; E11.22 Type 2 diabetes mellitus with diabetic chronic kidney disease; E11.65 Type 2 diabetes mellitus with hyperglycemia; D63.1 Anemia in chronic kidney disease; E78.5 Hyperlipidemia, unspecified; E11.43 Type 2 diabetes mellitus with diabetic autonomic (poly)neuropathy; K31.84 Gastroparesis; Z79.4 Long term (current) use of insulin; Z79.82 Long term (current) use of aspirin; Z99.2 Dependence on renal dialysis
CPT/HCPCS: 36415; 36430; 74176; 80048; 80053; 82962; 83036; 83735; 84100; 85025; 85610; 85730; 86850; 86900; 86901; 86920; 87340; 88305; 90935; 93005; G0378; C9113; J0360; J2270; J2597; J2765; J7030; P9016

== ENCOUNTER 2018-06-28 15:00 | Inpatient (IN) | payer MEDICARE, OTHER ==
[~2018-06-28] VITALS: Ht 167.6 cm; Wt 86.0 kg
[~2018-06-28 15:00] MED LIST changes: +FAMO20TA18 PO; -HYDR-4011 PO
[2018-06-28] MEDS ORDERED: NICARDipine HCL 30 MG CAPSULE PO ONE (17:00)
[2018-06-28] MEDS ORDERED: hydrALAzine 20 MG INJ IV ONE (17:00)
--- NOTE | 2018-06-28 17:11 | ERD ---
ER Documentation Chief Complaint Chief Complaint sent by pmd due to hypertension HPI This is a 58-year-old man who is on dialysis and went to dialysis yesterday. He was seen his primary care office today and the doctor sent him here because his blood pressure was not going down in the office. Patient was given a blood pressure medication was observed for 2 hours in the office and the patient did not drop his blood pressure so was sent here. Patient's blood pressure there was in the 180s. He says he feels a little dizzy but not having any headache chest pain numbness focal neurological complaints or nausea ROS All systems reviewed and are negative except as per history of present illness. Medications Home Meds Active Scripts Famotidine* (Famotidine*) 20 Mg Tablet, 20 MG PO BID for 30 Days, #60 TAB Prov:MARCELINO ROSARIO MD 06/14/18 Paroxetine Hcl* (Paroxetine*) 20 Mg Tablet, 30 MG PO HS for 30 Days, #30 TAB Prov:STEVE CARLOS 05/21/18 Hydralazine Hcl* (Hydralazine Hcl*) 10 Mg Tablet, 10 MG PO TID for 30 Days, #90 TAB Prov:STEVE CARLOS 05/21/18 Amlodipine Besylate* (Amlodipine Besylate*) 10 Mg Tablet, 10 MG PO QHS for 30 Days, #30 TAB Prov:STEVE CARLOS 05/21/18 Losartan Potassium* (Losartan Potassium*) 100 Mg Tablet, 100 MG PO DAILY, #30 TAB Prov:STEVE CARLOS 05/21/18 Labetalol Hcl* (Labetalol Hcl*) 200 Mg Tablet, 200 MG PO TID for 30 Days, #90 TAB Prov:STEVE CARLOS 05/21/18 Clopidogrel Bisulfate (Clopidogrel) 75 Mg Tablet, 75 MG NGT DAILY for 90 Days, #90 TAB 5 Refills Prov:MARCELINO ROSARIO MD 04/30/18 Aspirin* (Aspirin* EC) 81 Mg Tablet.dr, 81 MG PO DAILY for 90 Days, #90 TAB 5 Refills Prov:MARCELINO ROSARIO MD 04/30/18 Atorvastatin* (Atorvastatin*) 80 Mg Tablet, 80 MG PO QHS for 90 Days, #90 TAB 5 Refills Prov:MARCELINO ROSARIO MD 04/30/18 Docusate Sodium (Dok) 100 Mg Capsule, 100 MG PO Q12H for 30 Days, #60 CAP 1 Refill Prov:TRAVON WHEELER 01/03/18 Reported Medications Insulin Detemir (Levemir) 100 Unit/1 Ml Vial, 60 UNIT SQ QHS 05/09/18 Metoclopramide Hcl* (Metoclopramide Hcl*) 5 Mg Tablet, 5 MG PO Q6H PRN for NAUSEA AND OR VOMITING, TAB 05/09/18 Lorazepam* (Lorazepam*) 1 Mg Tablet, 1 MG PO BID PRN for BLADDER SPASMS, #30 TAB 05/09/18 Insulin Aspart (Novolog) 100 Unit/1 Ml Cartridge, 20 UNIT SQ WITH MEALS Inject SC twice a day: AM - 20 units : PM - 45 units 05/09/18 Pantoprazole* (Protonix*) 40 Mg Tablet.dr, 40 MG PO BID, TAB 12/22/17 Calcium Acetate* (Calcium Acetate*) 667 Mg Capsule, 2668 MG PO WITH MEALS, #60 CAP 12/22/17 Allergies Allergies: Coded Allergies: Penicillins (Verified Allergy, Unknown, 05/30/18) PMhx/Soc History of Surgery: Yes (left arm fistula 5yrs, stents x5 the same time 2 months ago) Anesthesia Reaction: No Hx Neurological Disorder: No Hx Respiratory Disorders: No Hx Cardiac Disorders: Yes (almost passed out, stents x4) Hx Psychiatric Problems: Yes (ANXIETY) Hx Miscellaneous Medical Probl: No Hx Alcohol Use: No (DENIED) Hx Substance Use: No Hx Tobacco Use: No (DENIED) Smoking Status: Never smoker FmHx Family History: No coronary disease Physical Exam Vitals Vital Signs Date Temp Pulse Resp B/P (MAP) Pulse Ox O2 O2 Flow FiO2 Time Delivery Rate 06/28/18 89 14 169/82 95 Room Air 18:30 (111) 06/28/18 88 14 173/87 96 Room Air 17:30 (115) 06/28/18 97.3 89 18 198/96 98 Room Air 16:57 (130) 06/28/18 97.3 76 18 218/92 98 15:03 (134) Physical Exam Const: Well-developed, well-nourished Head: Atraumatic, normocephalic Eyes: Normal Conjunctiva, PERRLA, EOMI, normal sclera, no nystagmus ENT: Normal External Ears, Nose and Mouth, moist mucus membranes. Neck: Full range of motion. No meningismus, no lymphadenopathy. Resp: Clear to auscultation bilaterally, no wheezing, rhonchi, rales Cardio: Regular rate and rhythm, no murmurs, S1 S2 present Abd: Soft, non tender x 4, non distended. Normal bowel sounds, no guarding or rebound, no pulsitile abdominal masses or bruits Skin: No petechiae or rashes, no ecchymosis , no maculopapular rash Back: No midline or flank tenderness Ext: No cyanosis, or edema, FROM x 4, normal inspection, neurovascularly intact x 4 Neur: Awake and alert, STR 5/5 x 4, sensation intact x 4, no focal findings, cerebellum intact Psych: Normal Mood and Affect Result Diagram: 06/28/18 1700 Results 24 hrs Laboratory Tests Test 06/28/18 17:00 06/28/18 17:59 06/28/18 18:35 06/28/18 19:51 Sodium Level 130 mmol/L Potassium Level 6.7 mmol/L Chloride Level 85 mmol/L Carbon Dioxide Level 29 mmol/L Anion Gap 16 Blood Urea Nitrogen 42 mg/dl Creatinine 8.41 mg/dl Est Glomerular Filtrat 7 mL/min Rate mL/min Glucose Level 588 mg/dl Calcium Level 9.4 mg/dl Bedside Glucose > 595 mg/dL 506 mg/dL 404 mg/dL Current Medications Medications Dose Sig/Enrique Start Time Status Last (Trade) Ordered Route PRN Stop Time Admin Dose Reason Admin Nicardipine 30 mg ONCE ONCE 06/28/18 DC 06/28/18 HCl PO 17:00 06/28/18 17:07 (Cardene) 17:01 Hydralazine 10 mg ONCE ONCE 06/28/18 DC 06/28/18 HCl IV 17:00 06/28/18 17:08 (Apresoline) 17:01 Sodium 30 gm ONCE STAT 06/28/18 DC 06/28/18 Polystyrene PO 17:33 06/28/18 18:02 Sulfonate 17:35 (Kayexelate 15 Gm Kit (Powder+Sorbi neeta)) Sodium 50 ml ONCE STAT 06/28/18 DC 06/28/18 Bicarbonate IV 17:33 06/28/18 18:02 (Na Bicarb 17:35 8.4% Syg) Insulin 10 unit ONCE STAT 06/28/18 DC 06/28/18 Human IVP 17:33 06/28/18 18:00 Regular 17:35 (Humulin R) Dextrose ONCE PRN 06/28/18 (D50w IV DECREASED 18:00 Syringe) GLUCOSE Insulin 10 unit ONCE ONCE 06/28/18 DC 06/28/18 Human SC 19:00 06/28/18 18:57 Lispro 19:01 (Humalog) Procedures/MDM Patient received Cardene and hydralazine IV The patient has hyperkalemia and was treated with the hyperkalemia cocktail including Kayexalate. I spoke with Dr. Carlos of nephrology. We will admit the patient to panel and will get dialysis in the a.m. or sooner Critical Care Time: 30 minutes Treatments/Evaluations: Close monitoring and treatment of unstable vital signs, cardiorespiratory, and neurologic status, while maintaining tight balance of fluid, respiratory, and cardiac interventions. This time includes discussing the case with the patient and the patient's family. This time does not include all procedures stated elsewhere in this record. This time also includes reviewing old records, labs and radiological studies. This time includes examining and re- examining the patient. Additionally, this time also includes arranging care with admitting and consulting physicians. Departure Diagnosis: Primary Impression: Hyperkalemia Additional Impression: Uncontrolled hypertension Condition: Stable ALVA COSTA DO Jun 28, 2018 17:11
[2018-06-28] MEDS ORDERED: NA BICARBONATE 8.4% 50 ML SYG IV STA (17:33)
[2018-06-28] MEDS ORDERED: INSULIN REGULAR, HUMAN 100 UNIT/1 ML 3ML VIAL IVP STA (17:33)
[2018-06-28] MEDS ORDERED: SODIUM POLYSTYRENE 15 GM KIT (POWDER + SORBITOL) PO STA (17:33)
[2018-06-28] MEDS ORDERED: DEXTROSE 50% 50 ML SYRINGE IV PRN ×3 (18:00→23:00)
[2018-06-28] MEDS ORDERED: INSULIN LISPRO 100 UNIT/ML VIAL SC ONE (19:00)
[2018-06-28] MEDS ORDERED: ONDANSETRON 4 MG INJ IV PRN (20:30)
[2018-06-28] MEDS ORDERED: ACETAMINOPHEN 325 MG TAB PO PRN ×2 (20:30→22:00)
--- NOTE | 2018-06-28 21:14 | HP ---
Date/Time of Note Date/Time of Note DATE: 06/28/18 TIME: 21:14 Assessment/Plan VTE Prophylaxis Pharmacological prophylaxis: heparin Lines/Catheters IV C[facility]ter Type (from [facility]): Saline Lock Assessment/Plan Hospital Course This is a 58-year-old male being admitted to the telemetry floor for: #1 Hypertensive urgency: Patient did receive nicardipine in the ED, at the current time I will continue his home medications. Will monitor blood pressure closely. He did come in hyperkalemic and he does report that he still urinates a bit I will give him a dose of Lasix as he does have some trace lower extremity edema to get some fluid off. #2 hyperkalemia: Patient presented with K of 6.7. He did receive Kayexalate and insulin and albuterol treatment in the ED. we will repeat BMP to assess kidney function. Consult nephrology Dr. Sue will hold losartan at the current time and defer to nephrology in regards to continuing this. #2 Acute on chronic anemia: Stable at the current time, likely secondary to underlying end-stage renal disease as well as rectal ulcer that was diagnosed during recent colonoscopy. Will monitor for any signs of bleeding. #3 end-stage renal disease: Patient now is apparently on hemodialysis Saturday, will need to confirm this again with him as previously he was only on it 2 days a week. Will avoid nephrotoxic agents. Avoid NSAIDs. Manage blood pressures will consult nephrology Dr. Sue. #4 elevated blood sugars: Patient does have underlying diabetes mellitus. No signs of DKA at the current time. He reports compliance to his medications. Will treat with insulin, put on insulin sliding scale, will give his dose of nighttime Lantus. Monitor sugars closely. #5 Diabetes mellitus: Last hemoglobin A1c approximately 1 month ago was 5.7. Will resume home basal insulin., Insulin sliding scale. Please see #4. #6 Musculoskeletal pain: left chest wall tenderness to palpation. well get xray to eval. #7 coronary artery disease: S/p stent, continue home medications. #8 hypertension: Resume patient's home medication #9 DVT GI prophylaxis: Heparin subcu, PPI Further treatment strategy will be implemented as per the clinical course. Patient is agreeable to receiving blood transfusion if indicated,, he understands risks and benefits. Result Diagram: 06/28/18 1700 Results 24hrs Laboratory Tests Test 06/28/18 17:00 06/28/18 17:59 06/28/18 18:35 06/28/18 19:51 Sodium Level 130 L Potassium Level 6.7 *H Chloride Level 85 L Carbon Dioxide Level 29 Anion Gap 16 H Blood Urea Nitrogen 42 H Creatinine 8.41 H Est Glomerular Filtrat 7 L Rate mL/min Glucose Level 588 *H Calcium Level 9.4 Bedside Glucose > 595 *H 506 *H 404 *H HPI/ROS Admit Date/Time Admit Date/Time Hx of Present Illness Chief complaint: Elevated blood pressures This is a 58-year-old man with a history of end-stage renal disease on dialysis Saturday and went to dialysis yesterday. He was seen his primary care office today and the doctor sent him to [facility] because his blood pressure was not going down in the office. Patient was given a blood pressure medication was observed for 2 hours in the office and the patient did not drop his blood pressure so was sent here. Patient's blood pressure there was in the 180s. He says he feels a little dizzy, but not having any headache chest pain numbness focal neurological complaints or nausea. Patient did present to the emergency room with systolic blood pressures in the 200s. He was given a treatment with Cardene which did subsequently bring the blood pressure to more acceptable range. His current blood pressure is in the 170s systolic. He does report that he is compliant with his home medications Allergies: Penicillin Medications: See EMELIA SHEETS Const: As per HPI Eyes : No pain discharge or redness or change in visual acuity ENT: No pain, sore throat, congestion, congestion, dysphagia or discharge Respiratory: No shortness of breath, cough, sputum, wheezing, or pleuritic pain Cardiovascular: No chest pain, palpitation, PND, or edema GI : no change in appetite, abdominal pain, nausea, vomiting, diarrhea, constipation, or change in the color his stool Genitourinary: No dysuria, hematuria, flank pain , discharge or CVA tenderness Musculoskeletal: Left lower chest wall tenderness Skin: No rash, bruising or hives Neuro: No headache, dizziness, syncope, seizure, focal weakness Endocrine: No polyuria, polydipsia, temperature intolerance Psych: No hallucination, depression, anxiety or suicidal ideation PMH/Family/Social Past Medical History Anxiety End-stage renal disease on HD Saturday Coronary artery disease s/p stent Diabetes mellitus Malignant hypertension Obesity Anemia, chronic Rectal ulcer Medications Current Medications Dextrose (D50w Syringe) ONCE PRN IV DECREASED GLUCOSE; Start 06/28/18 at 18:00 Ondansetron HCl (Zofran Inj) 4 mg ER BRIDGE PRN IV NAUSEA/VOMITING; Start 06/28/18 at 20:30; Stop 06/29/18 at 20:29 Acetaminophen (Tylenol Tab) 650 mg ER BRIDGE PRN PO .MILD PAIN 1-3 OR TEMP; Start 06/28/18 at 20:30; Stop 06/29/18 at 20:29 Coded Allergies: Penicillins (Verified Allergy, Unknown, 05/30/18) Past Surgical History s/p cardiac stent, left upper extremity AV fistula Past Surgical Hx: other Family History Significant Family History: no pertinent family hx Social History Alcohol Use: none Smoking Status: Never smoker Drug Use: none Exam/Review of Systems Vital Signs Vitals Vital Signs Date Temp Pulse Resp B/P (MAP) Pulse Ox O2 O2 Flow FiO2 Time Delivery Rate 06/28/18 89 14 169/82 95 Room Air 18:30 (111) 06/28/18 97.3 16:57 Exam Exam General: Patient is currently lying in bed he does not appear to be in any acute distress, but he does report left chest wall pain to palpation HEENT: Atraumatic, normocephalic. The pupils are equal, round and reactive. Extraocular motor are intact Neck: Supple with full range of motion. No rigidity or meningismus Chest: Reproducible pain on palpation of the left lower chest wall Lungs: Clear to auscultation bilaterally no crackles rales or wheezing Heart: Normal S1-S2, Regular rhythm and rate. Abdomen: Soft , nontender, nondistended , bowel sounds are present. No guarding no rebound tenderness , No masses or organomegaly. No costovertebral temporal angle mass Extremities: Trace lower extremity edema Neurologic: Normal mental status, speech normal, cranial nerves II through XII are intact, motor and sensory are intact, Skin: Left AV fistula MARGARITO ESPINOZA Jun 28, 2018 21:14
[2018-06-28] MEDS ORDERED: LORAZEPAM 1 MG TAB PO PRN (22:00)
[2018-06-28] MEDS ORDERED: BISACODYL (EC) 5 MG TAB PO PRN (22:00)
[2018-06-28] MEDS ORDERED: METOCLOPRAMIDE 5 MG TAB PO PRN (22:00)
[2018-06-28] MEDS ORDERED: INSULIN DETEMIR [LEVEMIR] (100 UNITS/ML) SYG SC SCH (22:00)
[2018-06-28] MEDS ORDERED: NACL 0.9% 3 ML SYG IV SCH (22:00)
[2018-06-28] MEDS ORDERED: DOCUSATE SODIUM 100 MG CAP PO PRN (22:00)
[2018-06-28] MEDS ORDERED: FUROSEMIDE 40 MG INJ IV ONE (22:30)
[2018-06-28] MEDS ORDERED: GLUCOSE GEL 15 GRAM TUBE BUCCAL PRN (23:00)
[2018-06-28] MEDS ORDERED: GLUCAGON 1 MG INJ IM PRN (23:00)
[2018-06-28] MEDS ORDERED: GLUCOSE GEL 15 GRAM TUBE PO PRN ×2 (23:00)
[2018-06-28] MEDS: HEPARIN 5,000 UNIT/1 ML VIAL SC SCH (23:11)
[2018-06-28] MEDS: AMLODIPINE 10 MG TAB PO SCH (23:34)
[2018-06-28] MEDS: LABETALOL 200 MG TAB PO SCH (23:34)
[2018-06-28] MEDS: HYDROCODONE/APAP (5/325) TAB PO PRN (23:42)
[2018-06-29] VITALS (12 sets, daily range): BP systolic 152–184; BP diastolic 70–90; PULSE 70–82; RESP 16–22; Ht 167.6 cm; Wt 86.0 kg
[2018-06-29] MEDS: ACCU-CHEK XX SCH (02:00)
[2018-06-29] MEDS: PANTOPRAZOLE (EC) 40 MG TAB PO SCH ×2 (06:01→17:18)
[2018-06-29] MEDS: HEPARIN 5,000 UNIT/1 ML VIAL SC SCH ×3 (06:14→21:23)
[2018-06-29] MEDS ORDERED: INSULIN ASPART 20 UNIT SQ SCH (08:00)
[2018-06-29] MEDS ORDERED: INSULIN ASPART [NOVOLOG] 3 ML PEN SC SCH ×2 (08:00→12:00)
[2018-06-29] MEDS: CLOPIDOGREL 75 MG TAB NGT SCH (08:13)
[2018-06-29] MEDS: ASPIRIN (EC) 81 MG TAB PO SCH (08:14)
[2018-06-29] MEDS: CALCIUM ACETATE 667 MG CAP PO SCH ×3 (08:15→17:19)
[2018-06-29] MEDS: DOCUSATE SODIUM 100 MG CAP PO SCH ×2 (08:16→20:00)
[2018-06-29] MEDS ORDERED: FAMOTIDINE 20 MG TAB PO SCH (09:00)
[2018-06-29] MEDS: LABETALOL 200 MG TAB PO SCH ×3 (09:00→20:45)
[2018-06-29] MEDS: INSULIN ASPART [NOVOLOG] 3 ML PEN SC SCH ×5 (09:08→20:57)
--- NOTE | 2018-06-29 12:51 | PN ---
Date/Time of Note Date/Time of Note DATE: 06/29/18 TIME: 12:51 Assessment/Plan VTE Prophylaxis Risk score (from Nsg)>0 risk: 1 SCD applied (from Ns): No SCD contraindicated: other Pharmacological prophylaxis: heparin Lines/Catheters [facility] Saline Lock Urinary Cath still in place: No Assessment/Plan Hospital Course SUBJECTIVE: Complains of left chest wall pain. OBJECTIVE: Physical Exam General: Adequately build 58 year-old male lying in bed in no apparent distress. HEENT: Normocephalic, atraumatic. Eyes: Anicteric sclerae, conjunctivae clear. ENT: Nasal septum midline, oral mucosa moist. Neck supple, no JVD noticed. Respiratory: Bilaterally diminished breath sounds. No use of accessory muscles of respiration. No adventitious breath sounds. Cardiovascular: S1, S2 heard. Regular rate and rhythm. Reproducible chest pain. Abdomen: Soft, nontender, and nondistended. Bowel sounds positive in all 4 quadrants. Genitourinary: Deferred. Extremities: No cyanosis, no clubbing, no edema. Peripheral pulses palpable. Neurologic: Cranial nerves II through XII grossly intact. The patient is awake, alert, and oriented. Skin: Normal skin turgor. No skin rashes. Labs & Vitals per chart ASSESSMENT & PLAN 58-year-old male with past medical history of hypertension, pulmonary hypertension, end-stage renal disease on hemodialysis on Saturday/Saturday/Saturday, diabetes mellitus, obesity, and coronary artery disease status post stenting. The patient was sent to the emergency room by the patient's primary care physician's office because of elevated blood pressure. Patient was noted to have blood pressure of 218/92 in the emergency room. The patient also had a glucose level of more than 595 in the emergency room. The patient's potassium level was 6.7. Therefore, the patient was admitted to inpatient setting for further treatment and evaluation. 1. Hypertensive emergency. -Continue antihypertensives. -Lower BP gradually. 2. Diabetes mellitus with underlying hyperglycemia. -No evidence of any DKA. -Hemoglobin A1c 6.9 (could be from a transfused PRBC on 06/13/2018) -Continue sliding scale insulin along with pre-meal insulin and basal insulin. 3. Hyperkalemia. -Resolved status post hemodialysis. 4. End-stage renal disease on hemodialysis. -Being followed by nephrology. 5. CAD, Status post coronary artery stenting. -Continue dual antiplatelet therapy. 6. Pulmonary hypertension. -PA systolic pressure 51 mmHg as per the 2D echocardiogram done in April 2018. -Continue supplemental oxygen. 7. Dyslipidemia. -Continue statins. 8. Gastritis. -Continue PPI. 9. Fluids, electrolytes, and nutrition. -Carbohydrate controlled, low potassium diet. 10. DVT prophylaxis. -Subcutaneous heparin. 11. Plan. -Continue blood pressure control. -Adjust insulin dosing to obtain optimal blood sugar control. -Await clinical improvement. The patient was seen in collaboration with Dr. Vick. Result Diagram: 06/29/18 0556 06/29/18 0556 Results 24hrs Laboratory Tests Test 06/28/18 17:00 06/28/18 17:59 06/28/18 18:35 06/28/18 19:51 Sodium Level 130 L Potassium Level 6.7 *H Chloride Level 85 L Carbon Dioxide Level 29 Anion Gap 16 H Blood Urea Nitrogen 42 H Creatinine 8.41 H Est Glomerular 7 L Filtrat Rate mL/min Glucose Level 588 *H Calcium Level 9.4 Bedside Glucose > 595 *H 506 *H 404 *H Test 06/28/18 22:12 06/29/18 01:35 06/29/18 05:54 06/29/18 05:56 White Blood Count 5.7 6.1 Red Blood Count 3.17 L 3.02 L Hemoglobin 9.6 L 9.2 L Hematocrit 28.2 L 27.1 L Mean Corpuscular 89.0 89.7 Volume Mean Corpuscular 30.3 30.5 Hemoglobin Mean Corpuscular 34.0 33.9 Hemoglobin Concent Red Cell 13.5 13.4 Distribution Width Platelet Count 172 # 164 Mean Platelet Volume 10.5 H 10.9 H Immature 0.300 0.300 Granulocytes % Neutrophils % 61.9 60.0 Lymphocytes % 24.0 25.4 Monocytes % 9.1 9.0 Eosinophils % 4.2 4.6 Basophils % 0.5 0.7 Nucleated Red Blood 0.0 0.0 Cells % Immature 0.020 0.020 Granulocytes # Neutrophils # 3.6 3.7 Lymphocytes # 1.4 1.6 Monocytes # 0.5 0.6 Eosinophils # 0.2 0.3 Basophils # 0.0 0.0 Nucleated Red Blood 0.0 0.0 Cells # Sodium Level 137 138 Potassium Level 5.0 5.0 Chloride Level 87 L 92 L Carbon Dioxide Level 33 H 31 Anion Gap 17 H 15 H Blood Urea Nitrogen 47 H 50 H Creatinine 8.98 H 9.24 H Est Glomerular 6 L 6 L Filtrat Rate mL/min Glucose Level 268 #H 254 H Calcium Level 9.4 9.3 Bedside Glucose 242 H Hemoglobin A1c 6.9 H Total Bilirubin 0.2 Direct Bilirubin 0.00 Indirect Bilirubin 0.2 Aspartate Amino 12 L Transf (AST/SGOT) Alanine 13 Aminotransferase (AL T/SGPT) Alkaline Phosphatase 127 H Total Protein 6.3 Albumin 3.6 Globulin 2.70 Albumin/Globulin 1.33 Ratio Test 06/29/18 07:36 06/29/18 08:52 06/29/18 11:39 Bedside Glucose 246 H 223 H 93 Exam/Review of Systems Exam Vitals Vital Signs Date Temp Pulse Resp B/P (MAP) Pulse Ox O2 O2 Flow FiO2 Time Delivery Rate 06/29/18 97.7 73 16 160/79 99 Room Air 11:21 (106) Intake and Output 06/28/18 06/28/18 06/29/18 1515:00 23:00 07:00 IntakeIntake Total 300 ml BalanceBalance 300 ml Results Results 24hrs Laboratory Tests Test 06/28/18 17:00 06/28/18 17:59 06/28/18 18:35 06/28/18 19:51 Sodium Level 130 L Potassium Level 6.7 *H Chloride Level 85 L Carbon Dioxide Level 29 Anion Gap 16 H Blood Urea Nitrogen 42 H Creatinine 8.41 H Est Glomerular 7 L Filtrat Rate mL/min Glucose Level 588 *H Calcium Level 9.4 Bedside Glucose > 595 *H 506 *H 404 *H Test 06/28/18 22:12 06/29/18 01:35 06/29/18 05:54 06/29/18 05:56 White Blood Count 5.7 6.1 Red Blood Count 3.17 L 3.02 L Hemoglobin 9.6 L 9.2 L Hematocrit 28.2 L 27.1 L Mean Corpuscular 89.0 89.7 Volume Mean Corpuscular 30.3 30.5 Hemoglobin Mean Corpuscular 34.0 33.9 Hemoglobin Concent Red Cell 13.5 13.4 Distribution Width Platelet Count 172 # 164 Mean Platelet Volume 10.5 H 10.9 H Immature 0.300 0.300 Granulocytes % Neutrophils % 61.9 60.0 Lymphocytes % 24.0 25.4 Monocytes % 9.1 9.0 Eosinophils % 4.2 4.6 Basophils % 0.5 0.7 Nucleated Red Blood 0.0 0.0 Cells % Immature 0.020 0.020 Granulocytes # Neutrophils # 3.6 3.7 Lymphocytes # 1.4 1.6 Monocytes # 0.5 0.6 Eosinophils # 0.2 0.3 Basophils # 0.0 0.0 Nucleated Red Blood 0.0 0.0 Cells # Sodium Level 137 138 Potassium Level 5.0 5.0 Chloride Level 87 L 92 L Carbon Dioxide Level 33 H 31 Anion Gap 17 H 15 H Blood Urea Nitrogen 47 H 50 H Creatinine 8.98 H 9.24 H Est Glomerular 6 L 6 L Filtrat Rate mL/min Glucose Level 268 #H 254 H Calcium Level 9.4 9.3 Bedside Glucose 242 H Hemoglobin A1c 6.9 H Total Bilirubin 0.2 Direct Bilirubin 0.00 Indirect Bilirubin 0.2 Aspartate Amino 12 L Transf (AST/SGOT) Alanine 13 Aminotransferase (AL T/SGPT) Alkaline Phosphatase 127 H Total Protein 6.3 Albumin 3.6 Globulin 2.70 Albumin/Globulin 1.33 Ratio Test 06/29/18 07:36 06/29/18 08:52 06/29/18 11:39 Bedside Glucose 246 H 223 H 93 Medications Medication Current Medications Dextrose (D50w Syringe) ONCE PRN IV DECREASED GLUCOSE; Start 06/28/18 at 18:00 Amlodipine Besylate (Norvasc) 10 mg QHS PO Last administered on 06/28/18at 23:34; Admin Dose 10 MG; Start 06/28/18 at 22:00 Aspirin (Halfprin) 81 mg DAILY PO Last administered on 06/29/18at 08:14; Admin Dose 81 MG; Start 06/29/18 at 09:00 Atorvastatin Calcium (Lipitor) 80 mg QHS PO ; Start 06/29/18 at 21:00 Clopidogrel Bisulfate (plaVIX) 75 mg DAILY NGT Last administered on 06/29/18at 08:13; Admin Dose 75 MG; Start 06/29/18 at 09:00 Hydralazine HCl (Apresoline) 10 mg TID PO Last administered on 06/29/18at 12:14; Admin Dose 10 MG; Start 06/29/18 at 09:00 Labetalol HCl (Normodyne) 200 mg TID PO Last administered on 06/29/18at 12:14; Admin Dose 200 MG; Start 06/28/18 at 22:00 Lorazepam (Ativan) 1 mg BID PRN PO BLADDER SPASMS; Start 06/28/18 at 22:00 Metoclopramide HCl (Reglan) 5 mg Q6H PRN PO NAUSEA AND/OR VOMITING; Start 06/28/18 at 22:00 Pantoprazole (Protonix Tab) 40 mg BID@0600,1800 PO Last administered on 06/29/18 06:01; Admin Dose 40 MG; Start 06/29/18 at 06:00 Paroxetine HCl (Paxil) 30 mg HS PO ; Start 06/29/18 at 21:00 IV Flush (NS 3 ml) 3 ml PER PROTOCOL IV ; Start 06/28/18 at 22:00 Ondansetron HCl (Zofran Tab) 4 mg Q6H PRN PO NAUSEA/VOMITING; Start 06/28/18 at 22:00 Acetaminophen (Tylenol Tab) 650 mg Q6H PRN PO .PAIN 1-3 OR TEMP; Start 06/28/18 at 22:00 Docusate Sodium (Colace) 100 mg Q12H PRN PO .CONSTIPATION; Start 06/28/18 at 22:00 Bisacodyl (Dulcolax) 5 mg DAILY PRN PO .CONSTIPATION; Start 06/28/18 at 22:00 Heparin Sodium (Porcine) (Heparin (5000 Units/1ml)) 5,000 unit Q8 SC Last administered on 06/29/18at 06:14; Admin Dose 5,000 UNIT; Start 06/28/18 at 22:00 Acetaminophen/ Hydrocodone Bitart ([place] (5/325)) 1 tab Q4H PRN PO MODERATE PAIN LEVEL 4-6 Last administered on 06/28/18at 23:42; Admin Dose 1 TAB; Start 06/28/18 at 22:30 Diagnostic Test (Pha) (Accu-Chek) 1 ea 02 XX Last administered on 06/29/18at 02:00; Admin Dose 1 EA; Start 06/29/18 at 02:00 Insulin Aspart (Novolog Insulin Pen) NOVOLOG *MILD* ALGORITHM WITH MEALS BEDTIME SC Last administered on 06/29/18at 09:08; Admin Dose 3 UNIT; Start 06/29/18 at 08:00 Miscellaneous Information 1 ea NOTE XX ; Start 06/28/18 at 23:00 Glucose (Glutose) 15 gm Q15M PRN PO DECREASED GLUCOSE; Start 06/28/18 at 23:00 Glucose (Glutose) 22.5 gm Q15M PRN PO DECREASED GLUCOSE; Start 06/28/18 at 23:00 Dextrose (D50w Syringe) 25 ml Q15M PRN IV DECREASED GLUCOSE; Start 06/28/18 at 23:00 Dextrose (D50w Syringe) 50 ml Q15M PRN IV DECREASED GLUCOSE; Start 06/28/18 at 23:00 Glucagon (Glucagen) 1 mg Q15M PRN IM DECREASED GLUCOSE; Start 06/28/18 at 23:00 Glucose (Glutose) 15 gm Q15M PRN BUCCAL DECREASED GLUCOSE; Start 06/28/18 at 23:00 Calcium Acetate (Phoslo) 2,668 mg WITH MEALS PO Last administered on 06/29/18at 11:44; Admin Dose 2,668 MG; Start 06/29/18 at 08:00 Docusate Sodium (Colace) 100 mg Q12H PO Last administered on 06/29/18at 08:16; Admin Dose 100 MG; Start 06/29/18 at 08:00 Famotidine (Pepcid) 20 mg DAILY PO Last administered on 06/29/18at 08:14; Admin Dose 20 MG; Start 06/29/18 at 09:00 Insulin Aspart (Novolog Insulin Pen) 10 unit WITH MEALS SC Last administered on 06/29/18at 12:25; Admin Dose 10 UNIT; Start 06/29/18 at 12:00 Insulin Detemir (Levemir) 30 units QHS SC ; Start 06/29/18 at 21:00 SANDRA CURIEL NP Jun 29, 2018 12:51
--- NOTE | 2018-06-29 16:00 | CONS ---
Assessment/Plan Assessment/Plan Assessment/Plan (Daily) 1. acute hyperkalemia 2. Hypertensive urgency 3. ESRD on HD 4. H/o CAD s/p previous Stent placement 5. h/o HTN 6. H/o HL Plan: seen , plan for Hd tomrrow First in AM S/p Treatment for Hyperkalemia, in ED follow up k normal BP control improving, if neede we will add nifedipine Xl 60mg pO daily Thanks for consultation, I will continue to follow up Consultation Date/Type/Reason Admit Date/Time 06/28/3018 Date of Consultation: Jun 29, 2018 Type of Consult NEPHROLOGY Reason for Consultation Acute hyperkalemia, ESRD on HD Requesting Provider: MARGARITO ESPINOZA Date/Time of Note DATE: 06/29/18 TIME: 16:00 Hx of Present Illness 58-year-old man with a history of end-stage renal disease on dialysis Saturday W saturday and went to dialysis yesterday. He was seen his primary care office today and the doctor sent him to [facility] because his blood pressure was not going down in the office. Patient was given a blood pressure medication was observed for 2 hours in the office and the patient did not drop his blood pressure so was sent here. Patient's blood pressure there was in the 180s. He says he feels a little dizzy, but not having any headache chest pain numbness focal neurological complaints or nausea. Patient did present to the emergency room with systolic blood pressures in the 200s. He was given a treatment with Cardene which did subsequently bring the blood pressure to more acceptable range. His current blood pressure is in the 170s systolic. He does report that he is compliant with his home medications Renal lynn kyra consulted for acute hyperkalemia, Hypertensive urgency and ESRD on HD Subjective hx not possible: other (Elevated BP ) ENT: congestion Past Medical History Medical History: coronary artery disease, diabetes, high cholesterol, hypertension, other (ESRD onHD ) Home Meds Active Scripts Famotidine* (Famotidine*) 20 Mg Tablet, 20 MG PO BID for 30 Days, #60 TAB Prov:MARCELINO ROSARIO MD 06/14/18 Paroxetine Hcl* (Paroxetine*) 20 Mg Tablet, 30 MG PO HS for 30 Days, #30 TAB Prov:STEVE ANDERSON 05/21/18 Hydralazine Hcl* (Hydralazine Hcl*) 10 Mg Tablet, 10 MG PO TID for 30 Days, #90 TAB Prov:STEVE ANDERSON J 05/21/18 Amlodipine Besylate* (Amlodipine Besylate*) 10 Mg Tablet, 10 MG PO QHS for 30 Days, #30 TAB Prov:STEVE ANDERSON J 05/21/18 Losartan Potassium* (Losartan Potassium*) 100 Mg Tablet, 100 MG PO DAILY, #30 TAB Prov:MONICASTEVE Arnold 05/21/18 Labetalol Hcl* (Labetalol Hcl*) 200 Mg Tablet, 200 MG PO TID for 30 Days, #90 TAB Prov:MONICASTEVE Arnold 05/21/18 Clopidogrel Bisulfate (Clopidogrel) 75 Mg Tablet, 75 MG NGT DAILY for 90 Days, #90 TAB 5 Refills Prov:MARCELINO ROSARIO MD 04/30/18 Aspirin* (Aspirin* EC) 81 Mg Tablet.dr, 81 MG PO DAILY for 90 Days, #90 TAB 5 Refills Prov:MARCELINO ROSARIO MD 04/30/18 Atorvastatin* (Atorvastatin*) 80 Mg Tablet, 80 MG PO QHS for 90 Days, #90 TAB 5 Refills Prov:MARCELINO ROSARIO MD 04/30/18 Docusate Sodium (Dok) 100 Mg Capsule, 100 MG PO Q12H for 30 Days, #60 CAP 1 Refill Prov:TRAVON WHEELER 01/03/18 Reported Medications Insulin Detemir (Levemir) 100 Unit/1 Ml Vial, 60 UNIT SQ QHS 05/09/18 Metoclopramide Hcl* (Metoclopramide Hcl*) 5 Mg Tablet, 5 MG PO Q6H PRN for NAUSEA AND OR VOMITING, TAB 05/09/18 Lorazepam* (Lorazepam*) 1 Mg Tablet, 1 MG PO BID PRN for BLADDER SPASMS, #30 TAB 05/09/18 Insulin Aspart (Novolog) 100 Unit/1 Ml Cartridge, 20 UNIT SQ WITH MEALS Inject SC twice a day: AM - 20 units : PM - 45 units 05/09/18 Pantoprazole* (Protonix*) 40 Mg Tablet.dr, 40 MG PO BID, TAB 12/22/17 Calcium Acetate* (Calcium Acetate*) 667 Mg Capsule, 2668 MG PO WITH MEALS, #60 CAP 12/22/17 Medications Current Medications Dextrose (D50w Syringe) ONCE PRN IV DECREASED GLUCOSE; Start 06/28/18 at 18:00 Amlodipine Besylate (Norvasc) 10 mg QHS PO Last administered on 06/28/18at 23:34; Admin Dose 10 MG; Start 06/28/18 at 22:00 Aspirin (Halfprin) 81 mg DAILY PO Last administered on 06/29/18at 08:14; Admin Dose 81 MG; Start 06/29/18 at 09:00 Atorvastatin Calcium (Lipitor) 80 mg QHS PO ; Start 06/29/18 at 21:00 Clopidogrel Bisulfate (plaVIX) 75 mg DAILY NGT Last administered on 06/29/18at 08:13; Admin Dose 75 MG; Start 06/29/18 at 09:00 Hydralazine HCl (Apresoline) 10 mg TID PO Last administered on 06/29/18at 12:14; Admin Dose 10 MG; Start 06/29/18 at 09:00 Labetalol HCl (Normodyne) 200 mg TID PO Last administered on 06/29/18at 12:14; A dmin Dose 200 MG; Start 06/28/18 at 22:00 Lorazepam (Ativan) 1 mg BID PRN PO BLADDER SPASMS; Start 06/28/18 at 22:00 Metoclopramide HCl (Reglan) 5 mg Q6H PRN PO NAUSEA AND/OR VOMITING; Start 06/28/18 at 22:00 Pantoprazole (Protonix Tab) 40 mg BID@0600,1800 PO Last administered on 06/29/18at 06:01; Admin Dose 40 MG; Start 06/29/18 at 06:00 Paroxetine HCl (Paxil) 30 mg HS PO ; Start 06/29/18 at 21:00 IV Flush (NS 3 ml) 3 ml PER PROTOCOL IV ; Start 06/28/18 at 22:00 Ondansetron HCl (Zofran Tab) 4 mg Q6H PRN PO NAUSEA/VOMITING; Start 06/28/18 at 22:00 Acetaminophen (Tylenol Tab) 650 mg Q6H PRN PO .PAIN 1-3 OR TEMP; Start 06/28/18 at 22:00 Docusate Sodium (Colace) 100 mg Q12H PRN PO .CONSTIPATION; Start 06/28/18 at 22:00 Bisacodyl (Dulcolax) 5 mg DAILY PRN PO .CONSTIPATION; Start 06/28/18 at 22:00 Heparin Sodium (Porcine) (Heparin (5000 Units/1ml)) 5,000 unit Q8 SC Last administered on 06/29/18at 15:47; Admin Dose 5,000 UNIT; Start 06/28/18 at 22:00 Acetaminophen/ Hydrocodone Bitart ([place] (5/325)) 1 tab Q4H PRN PO MODERATE PAIN LEVEL 4-6 Last administered on 06/28/18at 23:42; Admin Dose 1 TAB; Start 06/28/18 at 22:30 Diagnostic Test (Pha) (Accu-Chek) 1 ea 02 XX Last administered on 06/29/18at 02:00; Admin Dose 1 EA; Start 06/29/18 at 02:00 Insulin Aspart (Novolog Insulin Pen) NOVOLOG *MILD* ALGORITHM WITH MEALS BEDTIME SC Last administered on 06/29/18at 09:08; Admin Dose 3 UNIT; Start 06/29/18 at 08:00 Miscellaneous Information 1 ea NOTE XX ; Start 06/28/18 at 23:00 Glucose (Glutose) 15 gm Q15M PRN PO DECREASED GLUCOSE; Start 06/28/18 at 23:00 Glucose (Glutose) 22.5 gm Q15M PRN PO DECREASED GLUCOSE; Start 06/28/18 at 23:00 Dextrose (D50w Syringe) 25 ml Q15M PRN IV DECREASED GLUCOSE; Start 06/28/18 at 23:00 Dextrose (D50w Syringe) 50 ml Q15M PRN IV DECREASED GLUCOSE; Start 06/28/18 at 23:00 Glucagon (Glucagen) 1 mg Q15M PRN IM DECREASED GLUCOSE; Start 06/28/18 at 23:00 Glucose (Glutose) 15 gm Q15M PRN BUCCAL DECREASED GLUCOSE; Start 06/28/18 at 23:00 Calcium Acetate (Phoslo) 2,668 mg WITH MEALS PO Last administered on 06/29/18at 11:44; Admin Dose 2,668 MG; Start 06/29/18 at 08:00 Docusate Sodium (Colace) 100 mg Q12H PO Last administered on 06/29/18at 08:16; Admin Dose 100 MG; Start 06/29/18 at 08:00 Insulin Aspart (Novolog Insulin Pen) 15 unit WITH MEALS SC ; Start 06/29/18 at 18:00 Insulin Detemir (Levemir) 45 units QHS SC ; Start 06/29/18 at 21:00 Allergies: Coded Allergies: Penicillins (Verified Allergy, Unknown, 06/30/18) Past Surgical History Past Surgical Hx: other Social History Alcohol Use: none Smoking Status: Never smoker Drug Use: none Exam/Review of Systems Exam Vitals Vital Signs Date Temp Pulse Resp B/P (MAP) Pulse Ox O2 O2 Flow FiO2 Time Delivery Rate 06/29/18 97.8 74 16 152/70 96 Room Air 15:29 (97) Intake and Output 06/28/18 06/28/18 06/29/18 1414:59 22:59 06:59 IntakeIntake Total 300 ml BalanceBalance 300 ml Constitutional: alert Psych: no complaints Head: normocephalic Eyes: nl conjunctiva ENMT: nl external ears & nose Neck: supple, non-tender Respiratory: clear to auscultation, normal air movement, diminished breath sounds Cardiovascular: regular rate and rhythm, nl pulses Gastrointestinal: soft, non-tender Musculoskeletal: nl extremities to inspection Neurological: BACK PANEL PADDER II-XII intact, nl mental status, nl speech, nl strength Skin: nl turgor Lymph: nl lymph nodes Results Result Diagram: 06/29/1856 06/29/18 0556 Results 24hrs Laboratory Tests Test 06/28/18 17:00 06/28/18 17:59 06/28/18 18:35 06/28/18 19:51 Sodium Level 130 L Potassium Level 6.7 *H Chloride Level 85 L Carbon Dioxide Level 29 Anion Gap 16 H Blood Urea Nitrogen 42 H Creatinine 8.41 H Est Glomerular 7 L Filtrat Rate mL/min Glucose Level 588 *H Calcium Level 9.4 Bedside Glucose > 595 *H 506 *H 404 *H Test 06/28/18 22:12 06/29/18 01:35 06/29/18 05:54 06/29/18 05:56 White Blood Count 5.7 6.1 Red Blood Count 3.17 L 3.02 L Hemoglobin 9.6 L 9.2 L Hematocrit 28.2 L 27.1 L Mean Corpuscular 89.0 89.7 Volume Mean Corpuscular 30.3 30.5 Hemoglobin Mean Corpuscular 34.0 33.9 Hemoglobin Concent Red Cell 13.5 13.4 Distribution Width Platelet Count 172 # 164 Mean Platelet Volume 10.5 H 10.9 H Immature 0.300 0.300 Granulocytes % Neutrophils % 61.9 60.0 Lymphocytes % 24.0 25.4 Monocytes % 9.1 9.0 Eosinophils % 4.2 4.6 Basophils % 0.5 0.7 Nucleated Red Blood 0.0 0.0 Cells % Immature 0.020 0.020 Granulocytes # Neutrophils # 3.6 3.7 Lymphocytes # 1.4 1.6 Monocytes # 0.5 0.6 Eosinophils # 0.2 0.3 Basophils # 0.0 0.0 Nucleated Red Blood 0.0 0.0 Cells # Sodium Level 137 138 Potassium Level 5.0 5.0 Chloride Level 87 L 92 L Carbon Dioxide Level 33 H 31 Anion Gap 17 H 15 H Blood Urea Nitrogen 47 H 50 H Creatinine 8.98 H 9.24 H Est Glomerular 6 L 6 L Filtrat Rate mL/min Glucose Level 268 #H 254 H Calcium Level 9.4 9.3 Bedside Glucose 242 H Hemoglobin A1c 6.9 H Total Bilirubin 0.2 Direct Bilirubin 0.00 Indirect Bilirubin 0.2 Aspartate Amino 12 L Transf (AST/SGOT) Alanine 13 Aminotransferase (AL T/SGPT) Alkaline Phosphatase 127 H Total Protein 6.3 Albumin 3.6 Globulin 2.70 Albumin/Globulin 1.33 Ratio Test 06/29/18 07:36 06/29/18 08:52 06/29/18 11:39 Bedside Glucose 246 H 223 H 93 Medications Medication Current Medications Dextrose (D50w Syringe) ONCE PRN IV DECREASED GLUCOSE; Start 06/28/18 at 18:00 Amlodipine Besylate (Norvasc) 10 mg QHS PO Last administered on 06/28/18at 23:34; Admin Dose 10 MG; Start 06/28/18 at 22:00 Aspirin (Halfprin) 81 mg DAILY PO Last administered on 06/29/18at 08:14; Admin Dose 81 MG; Start 06/29/18 at 09:00 Atorvastatin Calcium (Lipitor) 80 mg QHS PO ; Start 06/29/18 at 21:00 Clopidogrel Bisulfate (plaVIX) 75 mg DAILY NGT Last administered on 06/29/18at 08:13; Admin Dose 75 MG; Start 06/29/18 at 09:00 Hydralazine HCl (Apresoline) 10 mg TID PO Last administered on 06/29/18at 12:14; Admin Dose 10 MG; Start 06/29/18 at 09:00 Labetalol HCl (Normodyne) 200 mg TID PO Last administered on 06/29/18at 12:14; Admin Dose 200 MG; Start 06/28/18 at 22:00 Lorazepam (Ativan) 1 mg BID PRN PO BLADDER SPASMS; Start 06/28/18 at 22:00 Metoclopramide HCl (Reglan) 5 mg Q6H PRN PO NAUSEA AND/OR VOMITING; Start 06/28/18 at 22:00 Pantoprazole (Protonix Tab) 40 mg BID@0600,1800 PO Last administered on 06/29/18at 06:01; Admin Dose 40 MG; Start 06/29/18 at 06:00 Paroxetine HCl (Paxil) 30 mg HS PO ; Start 06/29/18 at 21:00 IV Flush (NS 3 ml) 3 ml PER PROTOCOL IV ; Start 06/28/18 at 22:00 Ondansetron HCl (Zofran Tab) 4 mg Q6H PRN PO NAUSEA/VOMITING; Start 06/28/18 at 22:00 Acetaminophen (Tylenol Tab) 650 mg Q6H PRN PO .PAIN 1-3 OR TEMP; Start 06/28/18 at 22:00 Docusate Sodium (Colace) 100 mg Q12H PRN PO .CONSTIPATION; Start 06/28/18 at 22:00 Bisacodyl (Dulcolax) 5 mg DAILY PRN PO .CONSTIPATION; Start 06/28/18 at 22:00 Heparin Sodium (Porcine) (Heparin (5000 Units/1ml)) 5,000 unit Q8 SC Last administered on 06/29/18at 15:47; Admin Dose 5,000 UNIT; Start 06/28/18 at 22:00 Acetaminophen/ Hydrocodone Bitart ([place] (5/325)) 1 tab Q4H PRN PO MODERATE PAIN LEVEL 4-6 Last administered on 06/28/18at 23:42; Admin Dose 1 TAB; Start 06/28/18 at 22:30 Diagnostic Test (Pha) (Accu-Chek) 1 ea 02 XX Last administered on 06/29/18at 02:00; Admin Dose 1 EA; Start 06/29/18 at 02:00 Insulin Aspart (Novolog Insulin Pen) NOVOLOG *MILD* ALGORITHM WITH MEALS BEDTIME SC Last administered on 06/29/18at 09:08; Admin Dose 3 UNIT; Start 06/29/18 at 08:00 Miscellaneous Information 1 ea NOTE XX ; Start 06/28/18 at 23:00 Glucose (Glutose) 15 gm Q15M PRN PO DECREASED GLUCOSE; Start 06/28/18 at 23:00 Glucose (Glutose) 22.5 gm Q15M PRN PO DECREASED GLUCOSE; Start 06/28/18 at 23:00 Dextrose (D50w Syringe) 25 ml Q15M PRN IV DECREASED GLUCOSE; Start 06/28/18 at 23:00 Dextrose (D50w Syringe) 50 ml Q15M PRN IV DECREASED GLUCOSE; Start 06/28/18 at 23:00 Glucagon (Glucagen) 1 mg Q15M PRN IM DECREASED GLUCOSE; Start 06/28/18 at 23:00 Glucose (Glutose) 15 gm Q15M PRN BUCCAL DECREASED GLUCOSE; Start 06/28/18 at 23:00 Calcium Acetate (Phoslo) 2,668 mg WITH MEALS PO Last administered on 06/29/18at 11:44; Admin Dose 2,668 MG; Start 06/29/18 at 08:00 Docusate Sodium (Colace) 100 mg Q12H PO Last administered on 06/29/18at 08:16; Admin Dose 100 MG; Start 06/29/18 at 08:00 Insulin Aspart (Novolog Insulin Pen) 15 unit WITH MEALS SC ; Start 06/29/18 at 18:00 Insulin Detemir (Levemir) 45 units QHS SC ; Start 06/29/18 at 21:00 NORMA SAUER MD Jun 29, 2018 16:00
[2018-06-29] MEDS: AMLODIPINE 10 MG TAB PO SCH (20:45)
[2018-06-29] MEDS: ATORVASTATIN 80 MG TAB PO SCH (20:45)
[2018-06-29] MEDS: PAROXETINE 10 MG TAB PO SCH (20:45)
[2018-06-29] MEDS: INSULIN DETEMIR [LEVEMIR] (100 UNITS/ML) SYG SC SCH (20:58)
[2018-06-29] MEDS ORDERED: INSULIN DETEMIR [LEVEMIR] (100 UNITS/ML) SYG SC SCH (21:00)
[2018-06-30] VITALS (25 sets, daily range): BP systolic 123–183; BP diastolic 63–84; PULSE 71–96; RESP 18–20
[2018-06-30] MEDS: ACCU-CHEK XX SCH ×2 (01:45→22:52)
[2018-06-30] MEDS: PANTOPRAZOLE (EC) 40 MG TAB PO SCH (05:20)
[2018-06-30] MEDS: hydrALAzine 20 MG INJ IV PRN (05:21)
[2018-06-30] MEDS: HEPARIN 5,000 UNIT/1 ML VIAL SC SCH ×3 (05:26→21:34)
[2018-06-30] MEDS: INSULIN ASPART [NOVOLOG] 3 ML PEN SC SCH ×7 (07:42→20:33)
[2018-06-30] MEDS: LABETALOL 200 MG TAB PO SCH ×3 (08:26→20:50)
[2018-06-30] MEDS: CALCIUM ACETATE 667 MG CAP PO SCH ×3 (08:29→17:30)
[2018-06-30] MEDS: ASPIRIN (EC) 81 MG TAB PO SCH (08:29)
[2018-06-30] MEDS: CLOPIDOGREL 75 MG TAB NGT SCH (08:29)
[2018-06-30] MEDS: DOCUSATE SODIUM 100 MG CAP PO SCH ×2 (08:29→20:00)
--- NOTE | 2018-06-30 10:46 | CONS ---
Assessment/Plan Assessment/Plan Assessment/Plan (Daily) 1. acute hyperkalemia 2. Hypertensive urgency 3. ESRD on HD 4. H/o CAD s/p previous Stent placement 5. h/o HTN 6. H/o HL Plan: s/p HD today 2.5 L removed, BP contorl improving amlodipien 10mg po daily, Hydralzine 25 mg pO TID, IV prn BP control improvig, if neede we will add nifedipine Xl 60mg pO daily will keep pt on MWF schedule will follow up Consultation Date/Type/Reason Admit Date/Time Jun 28, 2018 at 20:02 Initial Consult Date 06/29/18 Type of Consult NEPHROLOGY Requesting Provider: MARGARITO ESPINOZA Date/Time of Note DATE: 06/30/18 TIME: 10:46 24 HR Interval Summary Free Text/Dictation s/p HD today 2.5 L removed, Bp stable, afebrile Exam/Review of Systems Exam Vitals Vital Signs Date Temp Pulse Resp B/P (MAP) Pulse Ox O2 O2 Flow FiO2 Time Delivery Rate 06/30/18 77 08:00 06/30/18 98.2 19 156/72 97 07:27 (100) 06/29/18 Room Air 15:29 Intake and Output 06/29/18 06/29/18 06/30/18 1414:59 22:59 06:59 IntakeIntake Total 880 ml 600 ml BalanceBalance 880 ml 600 ml Results Result Diagram: 06/30/18 0544 06/30/18 0546 Results 24hrs Laboratory Tests Test 06/29/18 11:39 06/29/18 17:14 06/29/18 20:43 06/30/18 01:39 Bedside Glucose 93 121 211 223 H Test 06/30/18 05:44 06/30/18 05:46 06/30/18 07:41 White Blood Count 6.1 Red Blood Count 3.00 L Hemoglobin 9.1 L Hematocrit 27.1 L Mean Corpuscular 90.3 Volume Mean Corpuscular 30.3 Hemoglobin Mean Corpuscular 33.6 Hemoglobin Concent Red Cell 13.6 Distribution Width Platelet Count 176 Mean Platelet Volume 11.0 H Immature 0.500 H Granulocytes % Neutrophils % 66.2 Lymphocytes % 22.2 Monocytes % 6.4 Eosinophils % 4.2 Basophils % 0.5 Nucleated Red Blood 0.0 Cells % Immature 0.030 Granulocytes # Neutrophils # 4.1 Lymphocytes # 1.4 Monocytes # 0.4 Eosinophils # 0.3 Basophils # 0.0 Nucleated Red Blood 0.0 Cells # Phosphorus Level 9.0 H Magnesium Level 1.9 Sodium Level 136 Potassium Level 5.2 H Chloride Level 91 L Carbon Dioxide Level 26 Anion Gap 19 H Blood Urea Nitrogen 66 H Creatinine 10.24 H Est Glomerular 5 L Filtrat Rate mL/min Glucose Level 135 # Calcium Level 9.2 Total Bilirubin 0.0 L Direct Bilirubin 0.00 Indirect Bilirubin 0.0 Aspartate Amino 10 L Transf (AST/SGOT) Alanine 23 Aminotransferase (AL T/SGPT) Alkaline Phosphatase 120 Total Protein 6.5 Albumin 3.6 Globulin 2.90 Albumin/Globulin 1.24 Ratio Bedside Glucose 129 Medications Medication Current Medications Dextrose (D50w Syringe) ONCE PRN IV DECREASED GLUCOSE; Start 06/28/18 at 18:00 Amlodipine Besylate (Norvasc) 10 mg QHS PO Last administered on 06/29/18 20:45; Admin Dose 10 MG; Start 06/28/18 at 22:00 Aspirin (Halfprin) 81 mg DAILY PO Last administered on 06/30/18 08:29; Admin Dose 81 MG; Start 06/29/18 at 09:00 Atorvastatin Calcium (Lipitor) 80 mg QHS PO Last administered on 06/29/18 20:45; Admin Dose 80 MG; Start 06/29/18 at 21:00 Clopidogrel Bisulfate (plaVIX) 75 mg DAILY NGT Last administered on 06/30/18 08:29; Admin Dose 75 MG; Start 06/29/18 at 09:00 Hydralazine HCl (Apresoline) 10 mg TID PO Last administered on 06/29/18 20:46; Admin Dose 10 MG; Start 06/29/18 at 09:00 Labetalol HCl (Normodyne) 200 mg TID PO Last administered on 06/29/18 20:45; Admin Dose 200 MG; Start 06/28/18 at 22:00 Lorazepam (Ativan) 1 mg BID PRN PO BLADDER SPASMS; Start 06/28/18 at 22:00 Metoclopramide HCl (Reglan) 5 mg Q6H PRN PO NAUSEA AND/OR VOMITING; Start 06/28/18 at 22:00 Pantoprazole (Protonix Tab) 40 mg BID@0600,1800 PO Last administered on 06/30/18at 05:20; Admin Dose 40 MG; Start 06/29/18 at 06:00 Paroxetine HCl (Paxil) 30 mg HS PO Last administered on 06/29/18at 20:45; Admin Dose 30 MG; Start 06/29/18 at 21:00 IV Flush (NS 3 ml) 3 ml PER PROTOCOL IV ; Start 06/28/18 at 22:00 Ondansetron HCl (Zofran Tab) 4 mg Q6H PRN PO NAUSEA/VOMITING; Start 06/28/18 at 22:00 Acetaminophen (Tylenol Tab) 650 mg Q6H PRN PO .PAIN 1-3 OR TEMP; Start 06/28/18 at 22:00 Docusate Sodium (Colace) 100 mg Q12H PRN PO .CONSTIPATION; Start 06/28/18 at 22:00 Bisacodyl (Dulcolax) 5 mg DAILY PRN PO .CONSTIPATION; Start 06/28/18 at 22:00 Heparin Sodium (Porcine) (Heparin (5000 Units/1ml)) 5,000 unit Q8 SC Last administered on 06/30/18at 05:26; Admin Dose 5,000 UNIT; Start 06/28/18 at 22:00 Acetaminophen/ Hydrocodone Bitart ([place] (5/325)) 1 tab Q4H PRN PO MODERATE PAIN LEVEL 4-6 Last administered on 06/28/18at 23:42; Admin Dose 1 TAB; Start 06/28/18 at 22:30 Diagnostic Test (Pha) (Accu-Chek) 1 ea 02 XX Last administered on 06/30/18at 01:45; Admin Dose 1 EA; Start 06/29/18 at 02:00 Insulin Aspart (Novolog Insulin Pen) NOVOLOG *MILD* ALGORITHM WITH MEALS BEDTIME SC Last administered on 06/29/18at 20:57; Admin Dose 1 UNIT; Start 06/29/18 at 08:00 Miscellaneous Information 1 ea NOTE XX ; Start 06/28/18 at 23:00 Glucose (Glutose) 15 gm Q15M PRN PO DECREASED GLUCOSE; Start 06/28/18 at 23:00 Glucose (Glutose) 22.5 gm Q15M PRN PO DECREASED GLUCOSE; Start 06/28/18 at 23:00 Dextrose (D50w Syringe) 25 ml Q15M PRN IV DECREASED GLUCOSE; Start 06/28/18 at 23:00 Dextrose (D50w Syringe) 50 ml Q15M PRN IV DECREASED GLUCOSE; Start 06/28/18 at 23:00 Glucagon (Glucagen) 1 mg Q15M PRN IM DECREASED GLUCOSE; Start 06/28/18 at 23:00 Glucose (Glutose) 15 gm Q15M PRN BUCCAL DECREASED GLUCOSE; Start 06/28/18 at 23:00 Calcium Acetate (Phoslo) 2,668 mg WITH MEALS PO Last administered on 06/30/18at 08:29; Admin Dose 2,668 MG; Start 06/29/18 at 08:00 Docusate Sodium (Colace) 100 mg Q12H PO Last administered on 06/30/18at 08:29; Admin Dose 100 MG; Start 06/29/18 at 08:00 Insulin Aspart (Novolog Insulin Pen) 15 unit WITH MEALS SC Last administered on 06/30/18at 07:45; Admin Dose 15 UNIT; Start 06/29/18 at 18:00 Insulin Detemir (Levemir) 45 units QHS SC Last administered on 06/29/18at 20:58; Admin Dose 45 UNITS; Start 06/29/18 at 21:00 Hydralazine HCl (Apresoline) 10 mg Q4H PRN IV ELEVATED BLOOD PRESSURE Last administered on 06/30/18at 05:21; Admin Dose 10 MG; Start 06/30/18 at 05:00 NORMA SAUER MD Jun 30, 2018 10:46
--- NOTE | 2018-06-30 17:02 | PN ---
Date/Time of Note Date/Time of Note DATE: 06/30/18 TIME: 17:00 Assessment/Plan VTE Prophylaxis Risk score (from Nsg)>0 risk: 3 SCD applied (from Nsg): Yes SCD contraindicated: low risk/ambulating Pharmacological prophylaxis: LMWH, heparin Lines/Catheters IV Catheter Type (from Nrsg): Saline Lock Urinary Cath still in place: No Assessment/Plan Hospital Course Hospitalist Coverage Assessment plan 1. Accelerated hypertension, improved continue medical management 2. Atypical chest pain no evidence of ACS chest x-ray normal 3. Chronic coronary disease/PCI status stable continue aspirin Plavix 4. Type 2 diabetes adjust insulin 5. ESRD stable continue dialysis 6. Chronic hypertension continue labetalol, increase hydralazine, continue Norvasc, salt counseling Subjective: Headache. Early constant. No loss speech or vision nausea vomiting or focal deficits. Atypical left chest pain tender to touch Objective: Vital signs stable Physical exam No pallor JVD or sinus tenderness Reg no m/r/g Ctab, mild tender left lower chest Bs+ nontender nd; no RRG; no abdominal bruits No edema Result Diagram: 06/30/18 0544 06/30/18 0546 Results 24hrs Laboratory Tests Test 06/29/18 17:14 06/29/18 20:43 06/30/18 01:39 06/30/18 05:44 Bedside Glucose 121 211 223 H White Blood Count 6.1 Red Blood Count 3.00 L Hemoglobin 9.1 L Hematocrit 27.1 L Mean Corpuscular 90.3 Volume Mean Corpuscular 30.3 Hemoglobin Mean Corpuscular 33.6 Hemoglobin Concent Red Cell 13.6 Distribution Width Platelet Count 176 Mean Platelet Volume 11.0 H Immature 0.500 H Granulocytes % Neutrophils % 66.2 Lymphocytes % 22.2 Monocytes % 6.4 Eosinophils % 4.2 Basophils % 0.5 Nucleated Red Blood 0.0 Cells % Immature 0.030 Granulocytes # Neutrophils # 4.1 Lymphocytes # 1.4 Monocytes # 0.4 Eosinophils # 0.3 Basophils # 0.0 Nucleated Red Blood 0.0 Cells # Phosphorus Level 9.0 H Magnesium Level 1.9 Test 06/30/18 05:46 06/30/18 07:41 06/30/18 11:21 Sodium Level 136 Potassium Level 5.2 H Chloride Level 91 L Carbon Dioxide Level 26 Anion Gap 19 H Blood Urea Nitrogen 66 H Creatinine 10.24 H Est Glomerular 5 L Filtrat Rate mL/min Glucose Level 135 # Calcium Level 9.2 Total Bilirubin 0.0 L Direct Bilirubin 0.00 Indirect Bilirubin 0.0 Aspartate Amino 10 L Transf (AST/SGOT) Alanine 23 Aminotransferase (AL T/SGPT) Alkaline Phosphatase 120 Total Protein 6.5 Albumin 3.6 Globulin 2.90 Albumin/Globulin 1.24 Ratio Bedside Glucose 129 85 Exam/Review of Systems Exam Vitals Vital Signs Date Temp Pulse Resp B/P (MAP) Pulse Ox O2 O2 Flow FiO2 Time Delivery Rate 06/30/18 82 16:00 06/30/18 98.2 19 156/69 96 15:39 (98) 06/30/18 Room Air 12:04 Intake and Output 06/29/18 06/29/18 06/30/18 1515:00 23:00 07:00 IntakeIntake Total 880 ml 600 ml BalanceBalance 880 ml 600 ml Results Results 24hrs Laboratory Tests Test 06/29/18 17:14 06/29/18 20:43 06/30/18 01:39 06/30/18 05:44 Bedside Glucose 121 211 223 H White Blood Count 6.1 Red Blood Count 3.00 L Hemoglobin 9.1 L Hematocrit 27.1 L Mean Corpuscular 90.3 Volume Mean Corpuscular 30.3 Hemoglobin Mean Corpuscular 33.6 Hemoglobin Concent Red Cell 13.6 Distribution Width Platelet Count 176 Mean Platelet Volume 11.0 H Immature 0.500 H Granulocytes % Neutrophils % 66.2 Lymphocytes % 22.2 Monocytes % 6.4 Eosinophils % 4.2 Basophils % 0.5 Nucleated Red Blood 0.0 Cells % Immature 0.030 Granulocytes # Neutrophils # 4.1 Lymphocytes # 1.4 Monocytes # 0.4 Eosinophils # 0.3 Basophils # 0.0 Nucleated Red Blood 0.0 Cells # Phosphorus Level 9.0 H Magnesium Level 1.9 Test 06/30/18 05:46 06/30/18 07:41 06/30/18 11:21 Sodium Level 136 Potassium Level 5.2 H Chloride Level 91 L Carbon Dioxide Level 26 Anion Gap 19 H Blood Urea Nitrogen 66 H Creatinine 10.24 H Est Glomerular 5 L Filtrat Rate mL/min Glucose Level 135 # Calcium Level 9.2 Total Bilirubin 0.0 L Direct Bilirubin 0.00 Indirect Bilirubin 0.0 Aspartate Amino 10 L Transf (AST/SGOT) Alanine 23 Aminotransferase (AL T/SGPT) Alkaline Phosphatase 120 Total Protein 6.5 Albumin 3.6 Globulin 2.90 Albumin/Globulin 1.24 Ratio Bedside Glucose 129 85 Medications Medication Current Medications Dextrose (D50w Syringe) ONCE PRN IV DECREASED GLUCOSE; Start 06/28/18 at 18:00 Amlodipine Besylate (Norvasc) 10 mg QHS PO Last administered on 06/29/18 20:45; Admin Dose 10 MG; Start 06/28/18 at 22:00 Aspirin (Halfprin) 81 mg DAILY PO Last administered on 06/30/18 08:29; Admin Dose 81 MG; Start 06/29/18 at 09:00 Atorvastatin Calcium (Lipitor) 80 mg QHS PO Last administered on 06/29/18 20:45; Admin Dose 80 MG; Start 06/29/18 at 21:00 Clopidogrel Bisulfate (plaVIX) 75 mg DAILY NGT Last administered on 06/30/18 08:29; Admin Dose 75 MG; Start 06/29/18 at 09:00 Hydralazine HCl (Apresoline) 10 mg TID PO Last administered on 06/30/18 12:48; Admin Dose 10 MG; Start 06/29/18 at 09:00 Labetalol HCl (Normodyne) 200 mg TID PO Last administered on 06/30/18 12:48; Admin Dose 200 MG; Start 06/28/18 at 22:00 Lorazepam (Ativan) 1 mg BID PRN PO BLADDER SPASMS; Start 06/28/18 at 22:00 Metoclopramide HCl (Reglan) 5 mg Q6H PRN PO NAUSEA AND/OR VOMITING; Start 06/28/18 at 22:00 Pantoprazole (Protonix Tab) 40 mg BID@0600,1800 PO Last administered on 06/30/18 05:20; Admin Dose 40 MG; Start 06/29/18 at 06:00 Paroxetine HCl (Paxil) 30 mg HS PO Last administered on 06/29/18 20:45; Admin Dose 30 MG; Start 06/29/18 at 21:00 IV Flush (NS 3 ml) 3 ml PER PROTOCOL IV ; Start 06/28/18 at 22:00 Ondansetron HCl (Zofran Tab) 4 mg Q6H PRN PO NAUSEA/VOMITING; Start 06/28/18 at 22:00 Acetaminophen (Tylenol Tab) 650 mg Q6H PRN PO .PAIN 1-3 OR TEMP Last administered on 06/30/18at 14:29; Admin Dose 650 MG; Start 06/28/18 at 22:00 Docusate Sodium (Colace) 100 mg Q12H PRN PO .CONSTIPATION; Start 06/28/18 at 22:00 Bisacodyl (Dulcolax) 5 mg DAILY PRN PO .CONSTIPATION; Start 06/28/18 at 22:00 Heparin Sodium (Porcine) (Heparin (5000 Units/1ml)) 5,000 unit Q8 SC Last administered on 06/30/18at 14:26; Admin Dose 5,000 UNIT; Start 06/28/18 at 22:00 Acetaminophen/ Hydrocodone Bitart ([place] (5/325)) 1 tab Q4H PRN PO MODERATE PAIN LEVEL 4-6 Last administered on 06/28/18at 23:42; Admin Dose 1 TAB; Start 06/28/18 at 22:30 Diagnostic Test (Pha) (Accu-Chek) 1 ea 02 XX Last administered on 06/30/18at 01:45; Admin Dose 1 EA; Start 06/29/18 at 02:00 Insulin Aspart (Novolog Insulin Pen) NOVOLOG *MILD* ALGORITHM WITH MEALS BEDTIME SC Last administered on 06/29/18at 20:57; Admin Dose 1 UNIT; Start 06/29/18 at 08:00 Miscellaneous Information 1 ea NOTE XX ; Start 06/28/18 at 23:00 Glucose (Glutose) 15 gm Q15M PRN PO DECREASED GLUCOSE; Start 06/28/18 at 23:00 Glucose (Glutose) 22.5 gm Q15M PRN PO DECREASED GLUCOSE; Start 06/28/18 at 23:00 Dextrose (D50w Syringe) 25 ml Q15M PRN IV DECREASED GLUCOSE; Start 06/28/18 at 23:00 Dextrose (D50w Syringe) 50 ml Q15M PRN IV DECREASED GLUCOSE; Start 06/28/18 at 23:00 Glucagon (Glucagen) 1 mg Q15M PRN IM DECREASED GLUCOSE; Start 06/28/18 at 23:00 Glucose (Glutose) 15 gm Q15M PRN BUCCAL DECREASED GLUCOSE; Start 06/28/18 at 23:00 Calcium Acetate (Phoslo) 2,668 mg WITH MEALS PO Last administered on 06/30/18at 11:21; Admin Dose 2,668 MG; Start 06/29/18 at 08:00 Docusate Sodium (Colace) 100 mg Q12H PO Last administered on 06/30/18at 08:29; Admin Dose 100 MG; Start 06/29/18 at 08:00 Insulin Aspart (Novolog Insulin Pen) 15 unit WITH MEALS SC Last administered on 06/30/18at 11:25; Admin Dose 15 UNIT; Start 06/29/18 at 18:00 Insulin Detemir (Levemir) 45 units QHS SC Last administered on 06/29/18at 20:58; Admin Dose 45 UNITS; Start 06/29/18 at 21:00 Hydralazine HCl (Apresoline) 10 mg Q4H PRN IV ELEVATED BLOOD PRESSURE Last administered on 06/30/18 05:21; Admin Dose 10 MG; Start 06/30/18 at 05:00 DIAMANTE WOOTEN MD Jun 30, 2018 17:02
[2018-06-30] MEDS: AMLODIPINE 10 MG TAB PO SCH (20:49)
[2018-06-30] MEDS: ATORVASTATIN 80 MG TAB PO SCH (20:50)
[2018-06-30] MEDS: LACTOBACILLUS RHAMNOSUS CAP PO SCH (20:50)
[2018-06-30] MEDS: PAROXETINE 10 MG TAB PO SCH (20:51)
[2018-06-30] MEDS: HYDROCODONE/APAP (5/325) TAB PO PRN (20:51)
[2018-06-30] MEDS: INSULIN DETEMIR [LEVEMIR] (100 UNITS/ML) SYG SC SCH (22:51)
[2018-07-01] VITALS (22 sets, daily range): BP systolic 131–197; BP diastolic 60–88; PULSE 75–87; RESP 18–20
[2018-07-01] MEDS: ONDANSETRON 4 MG TAB PO PRN ×2 (03:16→23:28)
[2018-07-01] MEDS: HYDROCODONE/APAP (5/325) TAB PO PRN ×3 (03:19→16:58)
[2018-07-01] MEDS: PANTOPRAZOLE (EC) 40 MG TAB PO SCH (05:08)
[2018-07-01] MEDS: HEPARIN 5,000 UNIT/1 ML VIAL SC SCH ×3 (05:15→22:07)
[2018-07-01] MEDS: INSULIN ASPART [NOVOLOG] 3 ML PEN SC SCH ×7 (07:45→22:00)
[2018-07-01] MEDS ORDERED: NA POLYST SULFON 15 GM/60 ML BTL GTB ONE (08:00)
[2018-07-01] MEDS: ASPIRIN (EC) 81 MG TAB PO SCH (08:01)
[2018-07-01] MEDS: DOCUSATE SODIUM 100 MG CAP PO SCH ×2 (08:01→20:00)
[2018-07-01] MEDS: CALCIUM ACETATE 667 MG CAP PO SCH ×3 (08:01→17:31)
[2018-07-01] MEDS: LACTOBACILLUS RHAMNOSUS CAP PO SCH ×2 (08:01→21:49)
[2018-07-01] MEDS: CLOPIDOGREL 75 MG TAB NGT SCH (08:01)
[2018-07-01] MEDS: LABETALOL 200 MG TAB PO SCH ×4 (08:02→21:50)
--- NOTE | 2018-07-01 09:44 | CONS ---
Assessment/Plan Assessment/Plan Assessment/Plan (Daily) 1. acute hyperkalemia 2. Hypertensive urgency 3. ESRD on HD 4. H/o CAD s/p previous Stent placement 5. h/o HTN 6. H/o HL Plan: K high today, kayexalate 30 gram PO x 1 dose given, s/p Hd today 2 L removed, plan for HD tomororw then pt will be on MWF schedule amlodipien 10mg po daily, Hydralzine 25 mg pO TID, IV prn if BP continues to run high then plna is to switch from amlodipine to nifedipine XL 60mg po daily will keep pt on MWF schedule will follow up Consultation Date/Type/Reason Admit Date/Time Jun 30, 2018 at 17:23 Initial Consult Date 06/29/18 Type of Consult NEPHROLOGY Requesting Provider: MARGARITO ESPINOZA Date/Time of Note DATE: 07/01/18 TIME: 09:44 24 HR Interval Summary Free Text/Dictation K 6.3 today AM, kayexalate given, BP stable, follow up K 4.8 Exam/Review of Systems Exam Vitals Vital Signs Date Temp Pulse Resp B/P (MAP) Pulse Ox O2 O2 Flow FiO2 Time Delivery Rate 07/01/18 98.1 77 19 131/60 96 07:08 (83) 06/30/18 Room Air 12:04 Intake and Output 06/30/18 06/30/18 07/01/18 1515:00 23:00 07:00 IntakeIntake Total 700 ml 300 ml OutputOutput Total 2900 ml BalanceBalance -2900 ml 700 ml 300 ml Exam Constitutional: alert, awake Respiratory: clear to auscultation, normal air movement, diminished breath sounds Cardiovascular: regular rate and rhythm, nl pulses Gastrointestinal: soft, non-tender Musculoskeletal: nl extremities to inspection Neurological: SUPERVIS[employer] PRE WAVE II-XII intact, nl mental status, nl speech, nl strength Results Result Diagram: 07/01/1831 07/01/18530 Results 24hrs Laboratory Tests Test 06/30/18 11:21 06/30/18 17:29 06/30/18 20:31 06/30/18 22:34 Bedside Glucose 85 173 88 146 Test 07/01/18 03:14 07/01/18 05:31 07/01/18 07:43 Bedside Glucose 97 114 White Blood Count 6.7 Red Blood Count 3.13 L Hemoglobin 9.3 L Hematocrit 28.6 L Mean Corpuscular 91.4 Volume Mean Corpuscular 29.7 Hemoglobin Mean Corpuscular 32.5 Hemoglobin Concent Red Cell 14.2 Distribution Width Platelet Count 162 Mean Platelet Volume 10.8 H Immature 0.300 Granulocytes % Neutrophils % 76.5 Lymphocytes % 11.0 L Monocytes % 9.0 Eosinophils % 2.9 Basophils % 0.3 Nucleated Red Blood 0.0 Cells % Immature 0.020 Granulocytes # Neutrophils # 5.1 Lymphocytes # 0.7 L Monocytes # 0.6 Eosinophils # 0.2 Basophils # 0.0 Nucleated Red Blood 0.0 Cells # Sodium Level 135 Potassium Level 6.3 *H Chloride Level 93 L Carbon Dioxide Level 29 Anion Gap 13 Blood Urea Nitrogen 42 #H Creatinine 7.44 #H Est Glomerular 8 L Filtrat Rate mL/min Glucose Level 138 Calcium Level 9.4 Phosphorus Level 5.4 #H Magnesium Level 2.0 Total Bilirubin 0.1 L Direct Bilirubin 0.00 Indirect Bilirubin 0.1 Aspartate Amino 11 L Transf (AST/SGOT) Alanine 20 Aminotransferase (AL T/SGPT) Alkaline Phosphatase 88 Total Protein 6.8 Albumin 3.8 Globulin 3.00 Albumin/Globulin 1.26 Ratio Medications Medication Current Medications Dextrose (D50w Syringe) ONCE PRN IV DECREASED GLUCOSE; Start 06/28/18 at 18:00 Amlodipine Besylate (Norvasc) 10 mg QHS PO Last administered on 06/30/18at 20:49; Admin Dose 10 MG; Start 06/28/18 at 22:00 Aspirin (Halfprin) 81 mg DAILY PO Last administered on 07/01/18 08:01; Admin Dose 81 MG; Start 06/29/18 at 09:00 Atorvastatin Calcium (Lipitor) 80 mg QHS PO Last administered on 06/30/18 20:50; Admin Dose 80 MG; Start 06/29/18 at 21:00 Clopidogrel Bisulfate (plaVIX) 75 mg DAILY NGT Last administered on 07/01/18 08:01; Admin Dose 75 MG; Start 06/29/18 at 09:00 Labetalol HCl (Normodyne) 200 mg TID PO Last administered on 06/30/18 20:50; Admin Dose 200 MG; Start 06/28/18 at 22:00 Lorazepam (Ativan) 1 mg BID PRN PO BLADDER SPASMS; Start 06/28/18 at 22:00 Metoclopramide HCl (Reglan) 5 mg Q6H PRN PO NAUSEA AND/OR VOMITING; Start 06/28/18 at 22:00 Paroxetine HCl (Paxil) 30 mg HS PO Last administered on 06/30/18at 20:51; Admin Dose 30 MG; Start 06/29/18 at 21:00 IV Flush (NS 3 ml) 3 ml PER PROTOCOL IV ; Start 06/28/18 at 22:00 Ondansetron HCl (Zofran Tab) 4 mg Q6H PRN PO NAUSEA/VOMITING Last administered on 07/01/18 03:16; Admin Dose 4 MG; Start 06/28/18 at 22:00 Acetaminophen (Tylenol Tab) 650 mg Q6H PRN PO .PAIN 1-3 OR TEMP Last administered on 06/30/18 14:29; Admin Dose 650 MG; Start 06/28/18 at 22:00 Docusate Sodium (Colace) 100 mg Q12H PRN PO .CONSTIPATION; Start 06/28/18 at 22:00 Bisacodyl (Dulcolax) 5 mg DAILY PRN PO .CONSTIPATION; Start 06/28/18 at 22:00 Heparin Sodium (Porcine) (Heparin (5000 Units/1ml)) 5,000 unit Q8 SC Last administered on 07/01/18 05:15; Admin Dose 5,000 UNIT; Start 06/28/18 at 22:00 Acetaminophen/ Hydrocodone Bitart ([place] (5/325)) 1 tab Q4H PRN PO MODERATE PAIN LEVEL 4-6 Last administered on 07/01/18 03:19; Admin Dose 1 TAB; Start 06/28/18 at 22:30 Diagnostic Test (Pha) (Accu-Chek) 1 ea 02 XX Last administered on 06/30/18at 01:45; Admin Dose 1 EA; Start 06/29/18 at 02:00 Insulin Aspart (Novolog Insulin Pen) NOVOLOG *MILD* ALGORITHM WITH MEALS B EDTIME SC Last administered on 06/30/18at 17:34; Admin Dose 1 UNIT; Start 06/29/18 at 08:00 Miscellaneous Information 1 ea NOTE XX ; Start 06/28/18 at 23:00 Glucose (Glutose) 15 gm Q15M PRN PO DECREASED GLUCOSE; Start 06/28/18 at 23:00 Glucose (Glutose) 22.5 gm Q15M PRN PO DECREASED GLUCOSE; Start 06/28/18 at 23:00 Dextrose (D50w Syringe) 25 ml Q15M PRN IV DECREASED GLUCOSE; Start 06/28/18 at 23:00 Dextrose (D50w Syringe) 50 ml Q15M PRN IV DECREASED GLUCOSE; Start 06/28/18 at 23:00 Glucagon (Glucagen) 1 mg Q15M PRN IM DECREASED GLUCOSE; Start 06/28/18 at 23:00 Glucose (Glutose) 15 gm Q15M PRN BUCCAL DECREASED GLUCOSE; Start 06/28/18 at 23:00 Calcium Acetate (Phoslo) 2,668 mg WITH MEALS PO Last administered on 07/01/18 08:01; Admin Dose 2,668 MG; Start 06/29/18 at 08:00 Docusate Sodium (Colace) 100 mg Q12H PO Last administered on 07/01/18 08:01; Admin Dose 100 MG; Start 06/29/18 at 08:00 Insulin Aspart (Novolog Insulin Pen) 15 unit WITH MEALS SC Last administered on 07/01/18 07:48; Admin Dose 15 UNIT; Start 06/29/18 at 18:00 Insulin Detemir (Levemir) 45 units QHS SC Last administered on 06/30/18 22:51; Admin Dose 45 UNITS; Start 06/29/18 at 21:00 Hydralazine HCl (Apresoline) 10 mg Q4H PRN IV ELEVATED BLOOD PRESSURE Last administered on 06/30/18 05:21; Admin Dose 10 MG; Start 06/30/18 at 05:00 Hydralazine HCl (Apresoline) 25 mg TID PO Last administered on 06/30/18 20:49; Admin Dose 25 MG; Start 06/30/18 at 21:00 Pantoprazole (Protonix Tab) 40 mg DAILY@0600 PO Last administered on 07/01/18 05:08; Admin Dose 40 MG; Start 07/01/18 at 06:00 Lactobacillus Acidophilus/ Rhamnosus (Culturelle) 1 cap BID PO Last administered on 07/01/18 08:01; Admin Dose 1 CAP; Start 06/30/18 at 21:00 NORMA SAUER MD Jul 01, 2018 09:44
--- NOTE | 2018-07-01 14:35 | PN ---
Date/Time of Note Date/Time of Note DATE: 07/01/18 TIME: 14:34 Assessment/Plan VTE Prophylaxis Risk score (from Nsg)>0 risk: 3 SCD applied (from Nsg): Yes SCD contraindicated: low risk/ambulating Pharmacological prophylaxis: LMWH Lines/Catheters IV Catheter Type (from Nrs): Saline Lock Urinary Cath still in place: No Assessment/Plan Hospital Course Hospitalist Coverage Assessment plan 1. Accelerated hypertension, improved continue medical management 2. Atypical chest pain no evidence of ACS chest x-ray normal 3. Chronic coronary disease/PCI status stable continue aspirin Plavix 4. Type 2 diabetes adjust insulin 5. ESRD stable continue dialysis 6. Chronic hypertension continue labetalol, increase hydralazine, continue Norvasc, salt counseling Subjective: 06/30 headache. Early constant. No loss speech or vision nausea vomiting or focal deficits. Atypical left chest pain tender to touch 07/01: No distress. Abnormal potassium noted. Patient for dialysis tomorrow. Status post Kayexalate this a.m. Repeat potassium at 7 PM. Objective: Vital signs stable Physical exam No pallor JVD Reg no m/r/g Ctab, mild tender left lower chest Bs+ nontender nd; no RRG; no abd bruits No edema Result Diagram: 07/01/18 0531 07/01/18 0531 Results 24hrs Laboratory Tests Test 06/30/18 17:29 06/30/18 20:31 06/30/18 22:34 07/01/18 03:14 Bedside Glucose 173 88 146 97 Test 07/01/18 05:31 07/01/18 07:43 07/01/18 11:07 White Blood Count 6.7 Red Blood Count 3.13 L Hemoglobin 9.3 L Hematocrit 28.6 L Mean Corpuscular 91.4 Volume Mean Corpuscular 29.7 Hemoglobin Mean Corpuscular 32.5 Hemoglobin Concent Red Cell 14.2 Distribution Width Platelet Count 162 Mean Platelet Volume 10.8 H Immature 0.300 Granulocytes % Neutrophils % 76.5 Lymphocytes % 11.0 L Monocytes % 9.0 Eosinophils % 2.9 Basophils % 0.3 Nucleated Red Blood 0.0 Cells % Immature 0.020 Granulocytes # Neutrophils # 5.1 Lymphocytes # 0.7 L Monocytes # 0.6 Eosinophils # 0.2 Basophils # 0.0 Nucleated Red Blood 0.0 Cells # Sodium Level 135 Potassium Level 6.3 *H Chloride Level 93 L Carbon Dioxide Level 29 Anion Gap 13 Blood Urea Nitrogen 42 #H Creatinine 7.44 #H Est Glomerular 8 L Filtrat Rate mL/min Glucose Level 138 Calcium Level 9.4 Phosphorus Level 5.4 #H Magnesium Level 2.0 Total Bilirubin 0.1 L Direct Bilirubin 0.00 Indirect Bilirubin 0.1 Aspartate Amino 11 L Transf (AST/SGOT) Alanine 20 Aminotransferase (AL T/SGPT) Alkaline Phosphatase 88 Total Protein 6.8 Albumin 3.8 Globulin 3.00 Albumin/Globulin 1.26 Ratio Bedside Glucose 114 122 Exam/Review of Systems Exam Vitals Vital Signs Date Temp Pulse Resp B/P (MAP) Pulse Ox O2 O2 Flow FiO2 Time Delivery Rate 07/01/18 80 14:15 07/01/18 18 164/73 96 Room Air 13:57 (103) 07/01/18 98.1 11:29 Intake and Output 06/30/18 06/30/18 07/01/18 1515:00 23:00 07:00 IntakeIntake Total 700 ml 300 ml OutputOutput Total 2900 ml BalanceBalance -2900 ml 700 ml 300 ml Results Results 24hrs Laboratory Tests Test 06/30/18 17:29 06/30/18 20:31 06/30/18 22:34 07/01/18 03:14 Bedside Glucose 173 88 146 97 Test 07/01/18 05:31 07/01/18 07:43 07/01/18 11:07 White Blood Count 6.7 Red Blood Count 3.13 L Hemoglobin 9.3 L Hematocrit 28.6 L Mean Corpuscular 91.4 Volume Mean Corpuscular 29.7 Hemoglobin Mean Corpuscular 32.5 Hemoglobin Concent Red Cell 14.2 Distribution Width Platelet Count 162 Mean Platelet Volume 10.8 H Immature 0.300 Granulocytes % Neutrophils % 76.5 Lymphocytes % 11.0 L Monocytes % 9.0 Eosinophils % 2.9 Basophils % 0.3 Nucleated Red Blood 0.0 Cells % Immature 0.020 Granulocytes # Neutrophils # 5.1 Lymphocytes # 0.7 L Monocytes # 0.6 Eosinophils # 0.2 Basophils # 0.0 Nucleated Red Blood 0.0 Cells # Sodium Level 135 Potassium Level 6.3 *H Chloride Level 93 L Carbon Dioxide Level 29 Anion Gap 13 Blood Urea Nitrogen 42 #H Creatinine 7.44 #H Est Glomerular 8 L Filtrat Rate mL/min Glucose Level 138 Calcium Level 9.4 Phosphorus Level 5.4 #H Magnesium Level 2.0 Total Bilirubin 0.1 L Direct Bilirubin 0.00 Indirect Bilirubin 0.1 Aspartate Amino 11 L Transf (AST/SGOT) Alanine 20 Aminotransferase (AL T/SGPT) Alkaline Phosphatase 88 Total Protein 6.8 Albumin 3.8 Globulin 3.00 Albumin/Globulin 1.26 Ratio Bedside Glucose 114 122 Medications Medication Current Medications Dextrose (D50w Syringe) ONCE PRN IV DECREASED GLUCOSE; Start 06/28/18 at 18:00 Amlodipine Besylate (Norvasc) 10 mg QHS PO Last administered on 06/30/18 20:49; Admin Dose 10 MG; Start 06/28/18 at 22:00 Aspirin (Halfprin) 81 mg DAILY PO Last administered on 07/01/18 08:01; Admin Dose 81 MG; Start 06/29/18 at 09:00 Atorvastatin Calcium (Lipitor) 80 mg QHS PO Last administered on 06/30/18 20:50; Admin Dose 80 MG; Start 06/29/18 at 21:00 Clopidogrel Bisulfate (plaVIX) 75 mg DAILY NGT Last administered on 07/01/18 08:01; Admin Dose 75 MG; Start 06/29/18 at 09:00 Labetalol HCl (Normodyne) 200 mg TID PO Last administered on 06/30/18 20:50; Admin Dose 200 MG; Start 06/28/18 at 22:00 Lorazepam (Ativan) 1 mg BID PRN PO BLADDER SPASMS; Start 06/28/18 at 22:00 Metoclopramide HCl (Reglan) 5 mg Q6H PRN PO NAUSEA AND/OR VOMITING; Start 06/28/18 at 22:00 Paroxetine HCl (Paxil) 30 mg HS PO Last administered on 06/30/18 20:51; Admin Dose 30 MG; Start 06/29/18 at 21:00 IV Flush (NS 3 ml) 3 ml PER PROTOCOL IV ; Start 06/28/18 at 22:00 Ondansetron HCl (Zofran Tab) 4 mg Q6H PRN PO NAUSEA/VOMITING Last administered on 07/01/18 03:16; Admin Dose 4 MG; Start 06/28/18 at 22:00 Acetaminophen (Tylenol Tab) 650 mg Q6H PRN PO .PAIN 1-3 OR TEMP Last administered on 06/30/18at 14:29; Admin Dose 650 MG; Start 06/28/18 at 22:00 Docusate Sodium (Colace) 100 mg Q12H PRN PO .CONSTIPATION; Start 06/28/18 at 22:00 Bisacodyl (Dulcolax) 5 mg DAILY PRN PO .CONSTIPATION; Start 06/28/18 at 22:00 Heparin Sodium (Porcine) (Heparin (5000 Units/1ml)) 5,000 unit Q8 SC Last administered on 07/01/18at 14:32; Admin Dose 5,000 UNIT; Start 06/28/18 at 22:00 Acetaminophen/ Hydrocodone Bitart ([place] (5/325)) 1 tab Q4H PRN PO MODERATE PAIN LEVEL 4-6 Last administered on 07/01/18 11:13; Admin Dose 1 TAB; Start 06/28/18 at 22:30 Diagnostic Test (Pha) (Accu-Chek) 1 ea 02 XX Last administered on 06/30/18at 01:45; Admin Dose 1 EA; Start 06/29/18 at 02:00 Insulin Aspart (Novolog Insulin Pen) NOVOLOG *MILD* ALGORITHM WITH MEALS BEDTIME SC Last administered on 06/30/18at 17:34; Admin Dose 1 UNIT; Start 06/29/18 at 08:00 Miscellaneous Information 1 ea NOTE XX ; Start 06/28/18 at 23:00 Glucose (Glutose) 15 gm Q15M PRN PO DECREASED GLUCOSE; Start 06/28/18 at 23:00 Glucose (Glutose) 22.5 gm Q15M PRN PO DECREASED GLUCOSE; Start 06/28/18 at 23:00 Dextrose (D50w Syringe) 25 ml Q15M PRN IV DECREASED GLUCOSE; Start 06/28/18 at 23:00 Dextrose (D50w Syringe) 50 ml Q15M PRN IV DECREASED GLUCOSE; Start 06/28/18 at 23:00 Glucagon (Glucagen) 1 mg Q15M PRN IM DECREASED GLUCOSE; Start 06/28/18 at 23:00 Glucose (Glutose) 15 gm Q15M PRN BUCCAL DECREASED GLUCOSE; Start 06/28/18 at 23:00 Calcium Acetate (Phoslo) 2,668 mg WITH MEALS PO Last administered on 07/01/18 11:13; Admin Dose 2,668 MG; Start 06/29/18 at 08:00 Docusate Sodium (Colace) 100 mg Q12H PO Last administered on 07/01/18 08:01; Admin Dose 100 MG; Start 06/29/18 at 08:00 Insulin Aspart (Novolog Insulin Pen) 15 unit WITH MEALS SC Last administered on 07/01/18 11:11; Admin Dose 15 UNIT; Start 06/29/18 at 18:00 Insulin Detemir (Levemir) 45 units QHS SC Last administered on 06/30/18 22:51; Admin Dose 45 UNITS; Start 06/29/18 at 21:00 Hydralazine HCl (Apresoline) 10 mg Q4H PRN IV ELEVATED BLOOD PRESSURE Last administered on 06/30/18 05:21; Admin Dose 10 MG; Start 06/30/18 at 05:00 Pantoprazole (Protonix Tab) 40 mg DAILY@0600 PO Last administered on 07/01/18at 05:08; Admin Dose 40 MG; Start 07/01/18 at 06:00 Lactobacillus Acidophilus/ Rhamnosus (Culturelle) 1 cap BID PO Last administered on 07/01/18 08:01; Admin Dose 1 CAP; Start 06/30/18 at 21:00 Hydralazine HCl (Apresoline) 50 mg TID PO ; Start 07/01/18 at 13:00 DIAMANTE WOOTEN MD Jul 01, 2018 14:34
[2018-07-01] MEDS: AMLODIPINE 10 MG TAB PO SCH (21:50)
[2018-07-01] MEDS: ATORVASTATIN 80 MG TAB PO SCH (21:50)
[2018-07-01] MEDS: PAROXETINE 10 MG TAB PO SCH (21:51)
[2018-07-01] MEDS: INSULIN DETEMIR [LEVEMIR] (100 UNITS/ML) SYG SC SCH (22:06)
[2018-07-01] MEDS: ACCU-CHEK XX SCH (23:32)
[2018-07-02] VITALS (18 sets, daily range): BP systolic 148–182; BP diastolic 67–86; PULSE 83–110; RESP 18–20
[2018-07-02] MEDS: ONDANSETRON 4 MG INJ IV PRN ×2 (01:49→10:16)
[2018-07-02] MEDS: hydrALAzine 20 MG INJ IV PRN (01:52)
[2018-07-02] MEDS ORDERED: HYDROCODONE/APAP (5/325) TAB PO ONE (02:00)
[2018-07-02] MEDS: PANTOPRAZOLE (EC) 40 MG TAB PO SCH (05:23)
[2018-07-02] MEDS: HEPARIN 5,000 UNIT/1 ML VIAL SC SCH ×2 (05:32→14:00)
[2018-07-02] MEDS: INSULIN ASPART [NOVOLOG] 3 ML PEN SC SCH ×4 (08:00→13:02)
[2018-07-02] MEDS: DOCUSATE SODIUM 100 MG CAP PO SCH (08:00)
[2018-07-02] MEDS: CALCIUM ACETATE 667 MG CAP PO SCH ×2 (08:00→12:53)
[2018-07-02] MEDS: ASPIRIN (EC) 81 MG TAB PO SCH ×2 (09:00→12:53)
[2018-07-02] MEDS: LABETALOL 200 MG TAB PO SCH ×2 (09:00→12:55)
[2018-07-02] MEDS: CLOPIDOGREL 75 MG TAB NGT SCH ×2 (09:00→12:55)
[2018-07-02] MEDS: LACTOBACILLUS RHAMNOSUS CAP PO SCH ×2 (09:00→12:54)
--- NOTE | 2018-07-02 10:24 | DS ---
Date/Time of Note Date/Time of Note DATE: 07/02/18 TIME: 10:22 Discharge Summary Admission/Discharge Info Admit Date/Time Jun 30, 2018 at 17:23 Discharge Date/Time Patient Condition: Stable Consults Dr Rodger Sue Procedures Chest x-ray: No acute process rib fracture x-ray series: No acute process A1c 6.9 Hx of Present Illness 58-year-old gentleman admitted with blood pressure issues. Found to have elevated blood pressure not resolved in the office setting. Hospital Course Hospitalist Coverage/hospital course Assessment plan 1. Accelerated hypertension, improved cont medical management 2. Atypical chest pain no evidence of ACS. chest x-ray normal 3. Chronic CAD/PCI status stable continue aspirin Plavix 4. Type 2 diabetes adjust insulin 5. ESRD stable continue dialysis 6. Chronic hypertension, continue labetalol, increased hydralazine, continue Norvasc, salt counseling Subjective: 06/30 headache. Early constant. No loss speech or vision nausea vomiting or focal deficits. Atypical left chest pain tender to touch 07/01: No distress. Abnormal potassium noted. Patient for dialysis tomorrow. Status post Kayexalate this a.m. Repeat potassium at 7 PM. 07/02 nausea vomiting overnight. Improved with dialysis and atypical left chest pain probably due to vomiting and retching. Vitals, x-ray stable Objective: Vital signs stable Physical exam No pallor JVD Reg no m/r/g Ctab, mild tender left lower chest. No rash Bs+ nt nd; no RRG; no abd bruits No edema Home Meds Active Scripts Famotidine* (Famotidine*) 20 Mg Tablet, 20 MG PO BID for 30 Days, #60 TAB Prov:MARCELINO ROSARIO MD 06/14/18 Paroxetine Hcl* (Paroxetine*) 20 Mg Tablet, 30 MG PO HS for 30 Days, #30 TAB Prov:STEVE ANDERSON 05/21/18 Hydralazine Hcl* (Hydralazine Hcl*) 10 Mg Tablet, 10 MG PO TID for 30 Days, #90 TAB Prov:STEVE ANDERSON 05/21/18 Amlodipine Besylate* (Amlodipine Besylate*) 10 Mg Tablet, 10 MG PO QHS for 30 Days, #30 TAB Prov:STEVE ANDERSON 05/21/18 Losartan Potassium* (Losartan Potassium*) 100 Mg Tablet, 100 MG PO DAILY, #30 TAB Prov:MONICASTEVE Arnold 05/21/18 Labetalol Hcl* (Labetalol Hcl*) 200 Mg Tablet, 200 MG PO TID for 30 Days, #90 TAB Prov:MONICASTEVE Arnold 05/21/18 Clopidogrel Bisulfate (Clopidogrel) 75 Mg Tablet, 75 MG NGT DAILY for 90 Days, #90 TAB 5 Refills Prov:MARCELINO ROSARIO MD 04/30/18 Aspirin* (Aspirin* EC) 81 Mg Tablet., 81 MG PO DAILY for 90 Days, #90 TAB 5 Refills Prov:MARCELINO ROSARIO MD 04/30/18 Atorvastatin* (Atorvastatin*) 80 Mg Tablet, 80 MG PO QHS for 90 Days, #90 TAB 5 Refills Prov:MARCELINO ROSARIO MD 04/30/18 Docusate Sodium (Dok) 100 Mg Capsule, 100 MG PO Q12H for 30 Days, #60 CAP 1 Refill Prov:TRAVON WHEELER 01/03/18 Reported Medications Insulin Detemir (Levemir) 100 Unit/1 Ml Vial, 60 UNIT SQ QHS 05/09/18 Metoclopramide Hcl* (Metoclopramide Hcl*) 5 Mg Tablet, 5 MG PO Q6H PRN for NAUSEA AND OR VOMITING, TAB 05/09/18 Lorazepam* (Lorazepam*) 1 Mg Tablet, 1 MG PO BID PRN for BLADDER SPASMS, #30 TAB 05/09/18 Insulin Aspart (Novolog) 100 Unit/1 Ml Cartridge, 20 UNIT SQ WITH MEALS Inject SC twice a day: AM - 20 units : PM - 45 units 05/09/18 Pantoprazole* (Protonix*) 40 Mg Tablet., 40 MG PO BID, TAB 12/22/17 Calcium Acetate* (Calcium Acetate*) 667 Mg Capsule, 2668 MG PO WITH MEALS, #60 CAP 12/22/17 Primary Care Provider Not On Staff Doctor Time spent on discharge: > 30 minutes Pending Labs Laboratory Tests Test 07/01/18 11:07 07/01/18 16:54 07/01/18 19:09 07/01/18 21:58 Bedside 122 95 142 Glucose mg/dL (70-220) mg/dL (70-220) mg/dL (70-220) Plasma 4.8 Potassium mmol/l (3.3-4. 9) Test 3/12/19 23:31 07/02/18 05:20 07/02/18 09:40 Bedside 161 106 Glucose mg/dL (70-220) mg/dL (70-220) White Blood 7.3 Count 10^3/ul (4.8-1 0.8) Red Blood 3.04 Count 10^6/ul (4.70- 6.10) Hemoglobin 9.1 g/dl (14.0-18. 0) Hematocrit 27.7 % (42.0-52.0) Mean 91.1 Corpuscular fl (82.0-101.0 Volume ) Mean 29.9 Corpuscular pg (29.0-33.0) Hemoglobin Mean 32.9 Corpuscular g/dl (32.0-37. Hemoglobin Conc 0) ent Red Cell 14.2 Distribution % (11.5-14.5) Width Platelet Count 155 10^3/UL (140-4 15) Mean Platelet 11.0 Volume fl (7.4-10.4) Immature 0.400 Granulocytes % % (0.001-0.429 ) Neutrophils % 78.2 % (39.0-77.0) Lymphocytes % 9.3 % (15.0-51.0) Monocytes % 11.1 % (0.0-11.0) Eosinophils % 0.7 % (0.0-7.0) Basophils % 0.3 % (0.0-2.0) Nucleated Red 0.0 Blood Cells % /100WBC (0.0-0 .0) Immature 0.030 Granulocytes # 10^3/ul (0.0-0 .031) Neutrophils # 5.7 10^3/ul (1.6-7 .5) Lymphocytes # 0.7 10^3/ul (0.8-2 .9) Monocytes # 0.8 10^3/ul (0.3-0 .9) Eosinophils # 0.1 10^3/ul (0.0-0 .5) Basophils # 0.0 10^3/ul (0.0-0 .1) Nucleated Red 0.0 Blood Cells # 10^3/ul (0.0-0 .0) Sodium Level 139 mmol/L (135-14 4) Potassium 4.8 Level mmol/L (3.5-5. 1) Chloride Level 96 mmol/L (97-110 ) Carbon Dioxide 31 Level mmol/L (21-31) Anion Gap 12 (5-13) Blood Urea 25 Nitrogen mg/dl (7-20) Creatinine 5.88 mg/dl (0.61-1. 24) Est Glomerular 10 Filtrat mL/min (>60) Rate mL/min Glucose Level 132 mg/dl (70-220) Calcium Level 9.5 mg/dl (8.4-10. 2) Total 0.2 Bilirubin mg/dl (0.2-1.3 ) Direct 0.00 Bilirubin mg/dl (0.00-0. 20) Indirect 0.2 Bilirubin mg/dl (0-1.1) Aspartate Amino 14 Transf (AST/SGO IU/L (15-46) T) Alanine 20 Aminotransferas IU/L (13-69) e (ALT/SGPT) Alkaline 82 Phosphatase IU/L (42-121) Total Protein 6.7 g/dl (6.1-8.1) Albumin 3.9 g/dl (3.3-4.9) Globulin 2.80 g/dl (1.3-3.2) Albumin/Globuli 1.39 n Ratio DIAMANTE WOOTEN MD Jul 02, 2018 10:24
--- NOTE | 2018-07-02 10:25 | PDOCDIS ---
Discharge Instructions CONDITION [id number] Patient Condition: [id number] Stable HOME CARE INSTRUCTIONS: [id number] Diet Instructions: [id number] Low Fat /Cholesterol (And renal low potassium) ACTIVITY: [id number] Activity Restrictions: [id number] Slowly Increase Activity Avoid heavy lifting Do not Drive FOLLOW UP/APPOINTMENTS Follow-up Plan Dialysis as instructed Appointment nephrology 1 week Appointment primary 1-2 weeks DIAMANTE WOOTEN MD Jul 02, 2018 10:25
[2018-07-02] MEDS ORDERED: LACT1CAP28 PO (10:27)
[2018-07-02] MEDS ORDERED: HYDR-3672 PO (10:27)
[2018-07-02] MEDS ORDERED: NIFE60TA18 PO (10:27)
[2018-07-02] MEDS ORDERED: ACET325T33 PO (10:27)
--- NOTE | 2018-07-02 12:21 | CONS ---
Assessment/Plan Assessment/Plan Assessment/Plan (Daily) 1. acute hyperkalemia 2. Hypertensive urgency 3. ESRD on HD 4. H/o CAD s/p previous Stent placement 5. h/o HTN 6. H/o HL Plan: S/p Hd today 2.3 L removed, , pt will be on MWF schedule amlodipien 10mg po daily, Hydralzine 25 mg pO TID, IV prn if BP continues to run high then plna is to switch from amlodipine to nifedipine XL 60mg po daily will keep pt on MWF schedule ok to d/c home after HD today Consultation Date/Type/Reason Admit Date/Time Jun 30, 2018 at 17:23 Initial Consult Date 06/29/18 Type of Consult NEPHROLOGY Requesting Provider: MARGARITO ESPINOZA Date/Time of Note DATE: 07/02/18 TIME: 12:21 Exam/Review of Systems Exam Vitals Vital Signs Date Temp Pulse Resp B/P (MAP) Pulse Ox O2 O2 Flow FiO2 Time Delivery Rate 07/02/18 84 10:20 07/02/18 20 158/73 Room Air 08:31 (101) 07/02/18 99.0 96 07:47 Intake and Output 07/01/18 07/01/18 07/02/18 1515:00 23:00 07:00 IntakeIntake Total 800 ml 240 ml OutputOutput Total 200 ml 2400 ml BalanceBalance -200 ml -1600 ml 240 ml Results Result Diagram: 07/02/18 0520 07/02/18 0520 Results 24hrs Laboratory Tests Test 07/01/18 16:54 07/01/18 19:09 07/01/18 21:58 07/01/18 23:31 Bedside Glucose 95 142 161 Plasma Potassium 4.8 Test 07/02/18 05:20 07/02/18 09:40 White Blood Count 7.3 Red Blood Count 3.04 L Hemoglobin 9.1 L Hematocrit 27.7 L Mean Corpuscular 91.1 Volume Mean Corpuscular 29.9 Hemoglobin Mean Corpuscular 32.9 Hemoglobin Concent Red Cell 14.2 Distribution Width Platelet Count 155 Mean Platelet Volume 11.0 H Immature 0.400 Granulocytes % Neutrophils % 78.2 H Lymphocytes % 9.3 L Monocytes % 11.1 H Eosinophils % 0.7 Basophils % 0.3 Nucleated Red Blood 0.0 Cells % Immature 0.030 Granulocytes # Neutrophils # 5.7 Lymphocytes # 0.7 L Monocytes # 0.8 Eosinophils # 0.1 Basophils # 0.0 Nucleated Red Blood 0.0 Cells # Sodium Level 139 Potassium Level 4.8 Chloride Level 96 L Carbon Dioxide Level 31 Anion Gap 12 Blood Urea Nitrogen 25 #H Creatinine 5.88 H Est Glomerular 10 L Filtrat Rate mL/min Glucose Level 132 Calcium Level 9.5 Total Bilirubin 0.2 Direct Bilirubin 0.00 Indirect Bilirubin 0.2 Aspartate Amino 14 L Transf (AST/SGOT) Alanine 20 Aminotransferase (AL T/SGPT) Alkaline Phosphatase 82 Total Protein 6.7 Albumin 3.9 Globulin 2.80 Albumin/Globulin 1.39 Ratio Bedside Glucose 106 Medications Medication Current Medications Dextrose (D50w Syringe) ONCE PRN IV DECREASED GLUCOSE; Start 06/28/18 at 18:00 Amlodipine Besylate (Norvasc) 10 mg QHS PO Last administered on 07/01/18 21:50; Admin Dose 10 MG; Start 06/28/18 at 22:00 Aspirin (Halfprin) 81 mg DAILY PO Last administered on 07/01/18 08:01; Admin Dose 81 MG; Start 06/29/18 at 09:00 Atorvastatin Calcium (Lipitor) 80 mg QHS PO Last administered on 07/01/18 21:50; Admin Dose 80 MG; Start 06/29/18 at 21:00 Clopidogrel Bisulfate (plaVIX) 75 mg DAILY NGT Last administered on 07/01/18 08:01; Admin Dose 75 MG; Start 06/29/18 at 09:00 Labetalol HCl (Normodyne) 200 mg TID PO Last administered on 07/01/18 21:50; Admin Dose 200 MG; Start 06/28/18 at 22:00 Lorazepam (Ativan) 1 mg BID PRN PO BLADDER SPASMS; Start 06/28/18 at 22:00 Metoclopramide HCl (Reglan) 5 mg Q6H PRN PO NAUSEA AND/OR VOMITING; Start 06/28/18 at 22:00 Paroxetine HCl (Paxil) 30 mg HS PO Last administered on 07/01/18 21:51; Admin Dose 30 MG; Start 06/29/18 at 21:00 IV Flush (NS 3 ml) 3 ml PER PROTOCOL IV ; Start 06/28/18 at 22:00 Ondansetron HCl (Zofran Tab) 4 mg Q6H PRN PO NAUSEA/VOMITING Last administered on 07/01/18at 23:28; Admin Dose 4 MG; Start 06/28/18 at 22:00 Acetaminophen (Tylenol Tab) 650 mg Q6H PRN PO .PAIN 1-3 OR TEMP Last administered on 06/30/18 14:29; Admin Dose 650 MG; Start 06/28/18 at 22:00 Docusate Sodium (Colace) 100 mg Q12H PRN PO .CONSTIPATION; Start 06/28/18 at 22:00 Bisacodyl (Dulcolax) 5 mg DAILY PRN PO .CONSTIPATION; Start 06/28/18 at 22:00 Heparin Sodium (Porcine) (Heparin (5000 Units/1ml)) 5,000 unit Q8 SC Last administered on 07/02/18 05:32; Admin Dose 5,000 UNIT; Start 06/28/18 at 22:00 Acetaminophen/ Hydrocodone Bitart ([place] (5/325)) 1 tab Q4H PRN PO MODERATE PAIN LEVEL 4-6 Last administered on 07/01/18 16:58; Admin Dose 1 TAB; Start 06/28/18 at 22:30 Diagnostic Test (Pha) (Accu-Chek) 1 ea 02 XX Last administered on 06/30/18at 01:45; Admin Dose 1 EA; Start 06/29/18 at 02:00 Insulin Aspart (Novolog Insulin Pen) NOVOLOG *MILD* ALGORITHM WITH MEALS BEDTIME SC Last administered on 06/30/18 17:34; Admin Dose 1 UNIT; Start 06/29/18 at 08:00 Miscellaneous Information 1 ea NOTE XX ; Start 06/28/18 at 23:00 Glucose (Glutose) 15 gm Q15M PRN PO DECREASED GLUCOSE; Start 06/28/18 at 23:00 Glucose (Glutose) 22.5 gm Q15M PRN PO DECREASED GLUCOSE; Start 06/28/18 at 23:00 Dextrose (D50w Syringe) 25 ml Q15M PRN IV DECREASED GLUCOSE; Start 06/28/18 at 23:00 Dextrose (D50w Syringe) 50 ml Q15M PRN IV DECREASED GLUCOSE; Start 06/28/18 at 23:00 Glucagon (Glucagen) 1 mg Q15M PRN IM DECREASED GLUCOSE; Start 06/28/18 at 23:00 Glucose (Glutose) 15 gm Q15M PRN BUCCAL DECREASED GLUCOSE; Start 06/28/18 at 23:00 Calcium Acetate (Phoslo) 2,668 mg WITH MEALS PO Last administered on 07/01/18 17:31; Admin Dose 2,668 MG; Start 06/29/18 at 08:00 Docusate Sodium (Colace) 100 mg Q12H PO Last administered on 07/01/18 08:01; Admin Dose 100 MG; Start 06/29/18 at 08:00 Insulin Aspart (Novolog Insulin Pen) 15 unit WITH MEALS SC Last administered on 07/01/18 17:01; Admin Dose 15 UNIT; Start 06/29/18 at 18:00 Insulin Detemir (Levemir) 45 units QHS SC Last administered on 07/01/18 22:06; Admin Dose 45 UNITS; Start 06/29/18 at 21:00 Hydralazine HCl (Apresoline) 10 mg Q4H PRN IV ELEVATED BLOOD PRESSURE Last administered on 07/02/18 01:52; Admin Dose 10 MG; Start 06/30/18 at 05:00 Pantoprazole (Protonix Tab) 40 mg DAILY@0600 PO Last administered on 07/02/18 05:23; Admin Dose 40 MG; Start 07/01/18 at 06:00 Lactobacillus Acidophilus/ Rhamnosus (Culturelle) 1 cap BID PO Last administered on 07/01/18 21:49; Admin Dose 1 CAP; Start 06/30/18 at 21:00 Hydralazine HCl (Apresoline) 50 mg TID PO Last administered on 07/01/18 21:51; Admin Dose 50 MG; Start 07/01/18 at 13:00 Ondansetron HCl (Zofran Inj) 4 mg Q6H PRN IV NAUSEA AND/OR VOMITING Last administered on 07/02/18 10:16; Admin Dose 4 MG; Start 07/02/18 at 01:30 NORMA SAUER MD Jul 02, 2018 12:21
== END 2018-07-02 14:55 | disposition home or self-care (01) | DRG 640 ==
LOC: E/R 15:00 → 6WM 20:02 → OBSVTOIN 06-30 17:23 → 2NE 07-02 06:30
PROVIDERS: ADMIT Internal Medicine; ATTEND Internal Medicine
PROC: 5A1D70Z Performance of Urinary Filtration, Intermittent, Less than 6 Hours Per Day (ICD-10-PCS; 2018-06-29)
PROC: 5A1D70Z Performance of Urinary Filtration, Intermittent, Less than 6 Hours Per Day (ICD-10-PCS; 2018-07-01)
PROC: 5A1D70Z Performance of Urinary Filtration, Intermittent, Less than 6 Hours Per Day (ICD-10-PCS; principal; 2018-07-02)
DX: E87.5 Hyperkalemia (principal); N18.6 End stage renal disease; I12.0 Hypertensive chronic kidney disease with stage 5 chronic kidney disease or end stage renal disease; I16.1 Hypertensive emergency; E11.22 Type 2 diabetes mellitus with diabetic chronic kidney disease; E11.65 Type 2 diabetes mellitus with hyperglycemia; I16.0 Hypertensive urgency; I25.10 Atherosclerotic heart disease of native coronary artery without angina pectoris; F41.9 Anxiety disorder, unspecified; D63.1 Anemia in chronic kidney disease; R07.89 Other chest pain; E78.5 Hyperlipidemia, unspecified; K29.70 Gastritis, unspecified, without bleeding; Z79.4 Long term (current) use of insulin; Z79.82 Long term (current) use of aspirin; Z79.02 Long term (current) use of antithrombotics/antiplatelets; Z99.2 Dependence on renal dialysis; Z95.5 Presence of coronary angioplasty implant and graft
CPT/HCPCS: 71045; 71100; 80048; 80053; 82962; 83036; 83735; 84100; 84132; 85025; 87081; 90935; 93005; 96372; 96374; 96375; G0378; J0360; J1644; J1815; J1940; J2405

== ENCOUNTER 2018-08-06 07:48 | Emergency (ER) | payer MEDICARE, OTHER ==
[~2018-08-06] VITALS: Ht 167.6 cm; Wt 81.8 kg
[~2018-08-06 07:48] MED LIST changes: +ACET325T33 PO; -AMLO-147 PO; -HYDR-3670 PO; +HYDR-3672 PO; +LACT1CAP28 PO; -LORA1TAB PO; +NIFE60TA18 PO
[2018-08-06 07:49] VITALS: Ht 167.6 cm; Wt 81.8 kg
--- NOTE | 2018-08-06 08:20 | ERD ---
ER Documentation Chief Complaint Chief Complaint left chest area pain radiating to the back and epigastric area x 1 week HPI 58-year-old male with a history of end-stage renal failure, currently on dialysis, with last dialysis yesterday presents with left-sided abdominal wall pain, that radiates to the back.. He has not had a fever, he has not had any shortness of breath, he does have a history of coronary artery disease as well as history of diabetes there are no relieving or aggravating factors, symptoms are intermittent. ROS All systems reviewed and are negative except as per history of present illness. Medications Home Meds Active Scripts Hydrocodone/Acetaminophen ([place] 5-325 Tablet) 1 Each Tablet, 1 TAB PO Q6H PRN for PAIN, #7 TAB Prov:STEVE DAVILA MD 08/06/18 Labetalol Hcl* (Labetalol Hcl*) 200 Mg Tablet, 200 MG PO TID for 30 Days, #90 TAB Prov:STEVE ANDERSON 05/21/18 Reported Medications Insulin Detemir (Levemir) 100 Unit/1 Ml Vial, 45 UNIT SQ QHS 05/09/18 Metoclopramide Hcl* (Metoclopramide Hcl*) 5 Mg Tablet, 5 MG PO Q6H PRN for NAUSEA AND OR VOMITING, TAB 05/09/18 Insulin Aspart (Novolog) 100 Unit/1 Ml Cartridge, 20 UNIT SQ WITH MEALS Inject SC twice a day: AM - 20 units : PM - 45 units 05/09/18 Pantoprazole* (Protonix*) 40 Mg Tablet.dr, 40 MG PO BID, TAB 12/22/17 Calcium Acetate* (Calcium Acetate*) 667 Mg Capsule, 2668 MG PO WITH MEALS, #60 CAP 12/22/17 Discontinued Scripts Nifedipine* (Nifedipine ER*) 60 Mg Tablet.sa, 60 MG PO DAILY for 14 Days, #15 TAB.SA Prov:DIAMANTE WOOTEN MD 07/02/18 Lactobacillus Rhamnosus GG (Culturelle) 1 Each Capsule, 1 CAP PO BID for 5 Days, CAP Prov:DIAMANTE WOOTEN MD 07/02/18 Acetaminophen* (Tylenol*) 325 Mg Tablet, 650 MG PO Q6H PRN for .PAIN 1-3 OR TEMP for 1 Day, TAB Prov:DIAMANTE WOOTEN MD 07/02/18 Hydralazine Hcl* (Apresoline*) 50 Mg Tab, 50 MG PO TID for 10 Days, #30 TAB Prov:DIAMANTE WOTOEN MD 07/02/18 Famotidine* (Famotidine*) 20 Mg Tablet, 20 MG PO BID for 30 Days, #60 TAB Prov:MARCELINO ROSARIO MD 06/14/18 Paroxetine Hcl* (Paroxetine*) 20 Mg Tablet, 30 MG PO HS for 30 Days, #30 TAB Prov:STEVE ANDERSON 05/21/18 Losartan Potassium* (Losartan Potassium*) 100 Mg Tablet, 100 MG PO DAILY, #30 T AB Prov:STEVE ANDERSON 05/21/18 Clopidogrel Bisulfate (Clopidogrel) 75 Mg Tablet, 75 MG NGT DAILY for 90 Days, #90 TAB 5 Refills Prov:MARCELINO ROSARIO MD 04/30/18 Aspirin* (Aspirin* EC) 81 Mg Tablet.dr, 81 MG PO DAILY for 90 Days, #90 TAB 5 Refills Prov:MARCELINO ROSARIO MD 04/30/18 Atorvastatin* (Atorvastatin*) 80 Mg Tablet, 80 MG PO QHS for 90 Days, #90 TAB 5 Refills Prov:MARCELINO ROSARIO MD 04/30/18 Docusate Sodium (Dok) 100 Mg Capsule, 100 MG PO Q12H for 30 Days, #60 CAP 1 Refill Prov:TRAVON WHEELER 01/03/18 Allergies Allergies: Coded Allergies: Penicillins (Verified Allergy, Unknown, 08/06/18) PMhx/Soc History of Surgery: Yes (STENTS X 4;AV FISTULA PLACEMENT;) Anesthesia Reaction: No Hx Neurological Disorder: No Hx Respiratory Disorders: No Hx Cardiac Disorders: Yes (HTN;STENTS;) Hx Psychiatric Problems: Yes (DEPRESSION;) Hx Miscellaneous Medical Probl: No Hx Alcohol Use: No Hx Substance Use: No Hx Tobacco Use: No Smoking Status: Never smoker Physical Exam Vitals Vital Signs Date Temp Pulse Resp B/P (MAP) Pulse Ox O2 O2 Flow FiO2 Time Delivery Rate 08/06/18 78 15 210/88 97 Room Air 10:30 (128) 08/06/18 82 15 203/87 97 Room Air 10:00 (125) 08/06/18 78 14 204/94 97 Room Air 08:50 (130) 08/06/18 70 15 211/86 97 Room Air 08:00 (127) 08/06/18 98.2 75 19 205/91 100 07:49 (129) Physical Exam Const: No acute distress, afebrile nontoxic appears stated age Head: Atraumatic Eyes: Normal Conjunctiva ENT: Normal External Ears, Nose and Mouth. Neck: Full range of motion. No meningismus. Resp: Clear to auscultation bilaterally. No wheezes rales or rhonchi Cardio: Regular rate and rhythm, no murmurs. No JVD Abd: Soft, tenderness over left upper quadrant, tenderness negative Gordon sign, negative McBurney's point tenderness, no rebound or guarding nondistended, obese. Normal bowel sounds Skin: No petechiae or rashes Back: No midline or flank tenderness Ext: No cyanosis, or edema. Left-sided AV fistula with a palpable thrill Neur: Awake and alert Psych: Normal Mood and Affect Result Diagram: 08/06/18 0802 08/06/18 0802 Results 24 hrs Laboratory Tests Test 08/06/18 08:02 08/06/18 10:04 08/06/18 10:15 White Blood Count 6.5 10^3/ul Red Blood Count 4.05 10^6/ul Hemoglobin 12.0 g/dl Hematocrit 36.7 % Mean Corpuscular Volume 90.6 fl Mean Corpuscular Hemoglobin 29.6 pg Mean Corpuscular 32.7 g/dl Hemoglobin Concent Red Cell Distribution Width 14.6 % Platelet Count 212 10^3/UL Mean Platelet Volume 10.3 fl Immature Granulocytes % 0.600 % Neutrophils % 70.9 % Lymphocytes % 16.2 % Monocytes % 9.1 % Eosinophils % 2.6 % Basophils % 0.6 % Nucleated Red Blood Cells % 0.0 /100WBC Immature Granulocytes # 0.040 10^3/ul Neutrophils # 4.6 10^3/ul Lymphocytes # 1.1 10^3/ul Monocytes # 0.6 10^3/ul Eosinophils # 0.2 10^3/ul Basophils # 0.0 10^3/ul Nucleated Red Blood Cells # 0.0 10^3/ul Prothrombin Time 13.1 Sec Prothrombin Time Ratio 1.0 INR International 0.98 Normalized Ratio Sodium Level 135 mmol/L Potassium Level 4.1 mmol/L Chloride Level 86 mmol/L Carbon Dioxide Level 34 mmol/L Anion Gap 15 Blood Urea Nitrogen 19 mg/dl Creatinine 4.52 mg/dl Est Glomerular Filtrat 13 mL/min Rate mL/min Glucose Level 266 mg/dl Calcium Level 9.1 mg/dl Total Bilirubin 0.3 mg/dl Direct Bilirubin 0.00 mg/dl Indirect Bilirubin 0.3 mg/dl Aspartate Amino 18 IU/L Transf (AST/SGOT) Alanine 10 IU/L Aminotransferase (ALT/SGPT) Alkaline Phosphatase 154 IU/L Troponin I 0.038 ng/ml 0.019 ng/ml Total Protein 7.7 g/dl Albumin 4.3 g/dl Globulin 3.40 g/dl Albumin/Globulin Ratio 1.26 Lipase 262 U/L Urine Color YELLOW Urine Clarity SLIGHTLY CLOUDY Urine pH 9.0 Urine Specific [place] 1.008 Urine Ketones NEGATIVE mg/dL Urine Nitrite NEGATIVE mg/dL Urine Bilirubin NEGATIVE mg/dL Urine Urobilinogen NEGATIVE mg/dL Urine Leukocyte Esterase NEGATIVE [place]/ul Urine Microscopic RBC 2 /HPF Urine Microscopic WBC 5 /HPF Urine Hemoglobin 1+ mg/dL Urine Glucose 3+ mg/dL Urine Total Protein 3+ mg/dl Current Medications Medications Dose Sig/Enrique Start Time Status Last (Trade) Ordered Route PRN Stop Time Admin Dose Reason Admin Aspirin 325 mg ONCE STAT 08/06/18 DC 08/06/18 (Aspirin) PO 08:45 08:56 08/06/18 08:47 1 tab Q5M UP TO 3 08/06/18 08/06/18 Nitroglycerin DOSES PRN 09:00 08:56 SL .CHEST (Nitroglyceri PAIN n (Sl Tab) 0.4 Mg) Morphine 4 mg ONCE STAT 08/06/18 DC 08/06/18 Sulfate IV 08:45 08:56 (morphine) 08/06/18 08:47 Ondansetron 4 mg ONCE STAT 08/06/18 DC 08/06/18 HCl (Zofran IV 08:45 08:55 Inj) 08/06/18 08:47 Labetalol 10 mg ONCE ONCE 08/06/18 DC 08/06/18 HCl IV 10:30 10:33 (Labetalol) 08/06/18 10:31 [facility] Is a 58-year-old male who presents for evaluation of left-sided abdominal pain, that is not associated with any GI symptoms. The patient has an extensive cardiac history and for that reason a cardiac workup was initiated, this was negative with troponin x2, I discussed findings with patient, and reviewed his prior medical records, he has had 2 admissions over the last 4 months, for a cardiac workup, both of which have been negative. The patient had no urinary symptoms, and his urinalysis only had 5 WBCs, and was not consistent with cystitis or pyelonephritis. I did offer him observation admission again, for further cardiac workup, but shared decision making was made to follow-up as an outpatient, the patient CT scan was negative for intra-abdominal findings, and his labs were otherwise overall unremarkable. He was noted to be hypertensive, however had no evidence of hypertensive emergency, at discharge the patient was in no distress. EKG: Rate/Rhythm: Normal Sinus Rhythm QRS, ST, T-waves: No changes consistent w/ acute ischemia Impression: No evidence of ischemia or arrhythmia Departure Diagnosis: Primary Impression: Abdominal pain Abdominal location: unspecified location Qualified Codes: R10.9 - Unspecified abdominal pain Condition: Stable STEVE DAVILA MD Aug 06, 2018 08:20
[2018-08-06] MEDS ORDERED: ONDANSETRON 4 MG INJ IV STA (08:45)
[2018-08-06] MEDS ORDERED: morphine 4 MG/ML VIAL IV STA (08:45)
[2018-08-06] MEDS ORDERED: ASPIRIN 325 MG TAB PO STA (08:45)
[2018-08-06] MEDS ORDERED: NITROGLYCERIN (SL) 0.4 MG TAB SL PRN (09:00)
[2018-08-06] MEDS ORDERED: LABETALOL HCL 20MG INJ IV ONE ×2 (10:30→11:30)
[2018-08-06] MEDS ORDERED: HYDR-4011 PO (10:57)
[2018-08-06 11:40] VITALS: BP 185/89; PULSE 72; RESP 18
== END 2018-08-06 11:42 | disposition home or self-care (01) ==
LOC: E/R 07:48
DX: R10.9 Unspecified abdominal pain (principal); I25.10 Atherosclerotic heart disease of native coronary artery without angina pectoris; E11.9 Type 2 diabetes mellitus without complications; I10 Essential (primary) hypertension; Z79.01 Long term (current) use of anticoagulants; Z79.4 Long term (current) use of insulin; Z79.82 Long term (current) use of aspirin; Z99.2 Dependence on renal dialysis; Z98.61 Coronary angioplasty status
CPT/HCPCS: 36415; 71045; 74176; 80053; 81001; 83690; 84484; 85025; 85610; 93005; 96374; 96375; 96376; 99285; J2270; J2405